=== PATIENT | female | born 1985 | race Caucasian/White ===

== ENCOUNTER 2020-10-07 12:02 | Emergency (ER) | payer MEDICAID, OTHER ==
[~2020-10-07] VITALS: Ht 157.5 cm; Wt 55.6 kg
[~2020-10-07 12:02] MED LIST: [UNRECOGNIZED DRUG - REMARK]; no home medications
[2020-10-07] MEDS ORDERED: FLUORESCEIN OPHTH 1 MG STRIP OU ONE (12:30)
[2020-10-07] MEDS ORDERED: TETRACAINE 0.5% OPHTH SOLN 4ML OU ONE (12:30)
== END 2020-10-07 13:03 | disposition home or self-care (01) ==
LOC: M ED 12:02
DX: H57.13 Ocular pain, bilateral (principal); Z77.098 Contact with and (suspected) exposure to other hazardous, chiefly nonmedicinal, chemicals; Y99.0 Civilian activity done for income or pay

== ENCOUNTER 2021-04-25 13:02 | Emergency (ER) | payer OTHER, SELFPAY ==
[~2021-04-25] VITALS: Ht 157.5 cm; Wt 55.9 kg
[2021-04-25] MEDS ORDERED: GABA-1171 PO (13:14)
[2021-04-25] MEDS ORDERED: SERT25TA21 (13:14)
[2021-04-25] MEDS ORDERED: TOPI25TA10 PO (13:14)
--- NOTE | 2021-04-25 13:43 | REP ---
INDICATION: CHEST PAIN. COMPARISON: None. TECHNIQUE: Portable FINDINGS: The technique utilized in obtaining the radiograph has magnified the cardiac silhouette and accentuated the interstitial markings. The superior mediastinal structures are midline. The cardiac silhouette is unremarkable in size, shape, and position. The diaphragmatic surfaces of the lungs are regular, and the costophrenic angles are clear. The pulmonary yates are clear. The imaged osseous structures are intact. IMPRESSION: There is no acute cardiopulmonary disease. <Electronically signed by Brad Early > 04/25/21 1443
[2021-04-25 13:49] LABS: BASO # 0.1 10^3/uL (0.0-0.2); BASO % 0.5 % (0.0-1.0); EOS # 0.2 10^3/uL (0.0-0.5); EOS % 1.9 % (0.0-3.0); HEMATOCRIT 44.2 % (36.0-47.0); HEMOGLOBIN 14.7 g/dl (12.0-15.5); LYMPH # 2.6 10^3/uL (1.5-5.0); LYMPH % 24.6 % (24.0-44.0); MEAN CORPUSCULAR HEMOGLOBIN 30.2 pg (27.0-33.0); MEAN CORPUSCULAR HGB CONC 33.3 g/dl (32.0-36.5); MEAN CORPUSCULAR VOLUME 90.8 fl (80.0-96.0); MONO # 0.6 10^3/uL (0.0-0.8); MONO % 6.1 % (2.0-8.0); NEUTROPHILS % 66.6 % (36.0-66.0); PLATELET COUNT, AUTOMATED 357 10^3/uL (150-450); RED BLOOD COUNT 4.87 10^6/uL (4.00-5.40); WHITE BLOOD COUNT 10.5 10^3/uL (4.0-10.0)
[2021-04-25 14:19] LABS: BLOOD UREA NITROGEN 9 MG/DL (7-18); CALCIUM LEVEL 9.2 MG/DL (8.5-10.1); CARBON DIOXIDE LEVEL 24 MEQ/L (21-32); CHLORIDE LEVEL 109 MEQ/L (98-107); CK-MB VALUE MASS < 1.0 NG/ML (<3.6); CPK CREATINE PHOSPHOKINASE 103 U/L (26-192); GLOMERULAR FILTRATION RATE > 60.0 (>60); GLUCOSE, FASTING 103 MG/DL (70-100); MB/CK RELATIVE INDEX 0.97 (< OR =4); POTASSIUM SERUM 4.2 MEQ/L (3.5-5.1); SODIUM LEVEL 138 MEQ/L (136-145); TROPONIN I < 0.02 NG/ML (< 0.10)
[2021-04-25] MEDS ORDERED: ISOVUE-370 76% 100ML VIAL As Ordered ONE (14:28)
--- NOTE | 2021-04-25 15:33 | REP ---
INDICATION: left chest pain r/o PE. COMPARISON: None. TECHNIQUE: CT angiogram chest performed following the intravenous administration of 100 cc of Isovue 370. Sagittal and coronal reconstruction images are performed. FINDINGS: Lungs: Clear, no infiltrate or nodule. Mediastinum: No adenopathy. Pulmonary arteries: No evidence of pulmonary embolism. Vibha: No adenopathy. Axilla: No adenopathy. Pleura: No effusion. Heart: Not enlarged. Thoracic aorta: No aneurysm or dissection. Upper abdominal structures: There is a calcification in the spleen. Visualized osseous structures: Unremarkable. IMPRESSION: No CT evidence of pulmonary embolism. No infiltrate seen. <Electronically signed by Mati Guzman > 04/25/21 [id number]
[2021-04-25 16:14] LABS: CK-MB VALUE MASS < 1.0 NG/ML (<3.6); CPK CREATINE PHOSPHOKINASE 94 U/L (26-192); MB/CK RELATIVE INDEX 1.06 (< OR =4); TROPONIN I < 0.02 NG/ML (< 0.10)
[2021-04-25 16:26] VITALS: BP 128/73
--- NOTE | 2021-04-27 05:50 | ECGEPIP ---
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
--- NOTE | 2021-04-27 05:54 | ECGEPIP ---
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
== END 2021-04-25 16:35 | disposition home or self-care (01) ==
LOC: M ED 13:02
DX: R07.9 Chest pain, unspecified (principal); F41.9 Anxiety disorder, unspecified; F32.9 Major depressive disorder, single episode, unspecified
CPT/HCPCS: 36415; 71045; 71275; 80048; 82550; 82553; 84484; 85025; 93005; 93041; 94760; 99285; Q9967

== ENCOUNTER 2021-08-20 05:34 | Emergency (ER) | payer SELFPAY ==
[~2021-08-20 05:34] MED LIST changes: +GABA-1171 PO; +SERT25TA21; +TOPI25TA10 PO
--- OUTSIDE RECORDS SUMMARY | 2021-08-23 14:53 | CCD | Continuity of Care Document ---
Author Author Cookie WELCH MD Organization Unknown Address [address] [place] [address] [place] [address] Phone [phone] Care Team Providers Care Consulting Engineer Name Role Phone Bryce Mo Publi AUTM [phone] [facility] AUTM Problems Description No Information Available Social History Type Date Description Comments Sex Unknown ETOH Use Occasionally consumes alcohol Tobacco Use Start: Unknown Patient is a current smoker, smo kes every day Tobacco Use Start: Unknown The patient has never vaped Smoking Status Reviewed: 11/03/20 The patient has never vaped Allergies, Adverse Reactions, Alerts Active Allergies Criticality Reaction | Severity Comments Date NKDA Unable to assess criticality 11/03/2020 Eggs Unable to assess criticality 11/03/2020 Medications Active Medications SIG Qnty Indications Ordering Provide r Date Amoxicillin 500mg Tablets take one by mouth twice a day x 5 days 10tabs Catrachito Rodgers M.D. 07/26/2021 Ibuprofen Unknown D-Amphetamine Unknown Sertraline HCL 100mg Tablets Unknown Bupropion Hydrochloride ER (XL) 150mg Tablets ER 24HR Unknown Topiramate Unknown Clonidine HCL 0.1mg Tablets Unknown History Medications No Active Medications Unknown - 07/26/2021 Immunizations Description No Information Available Vital Signs Date Vital Result Comment 07/26/2021 5:26pm BP Systolic 133 mmHg BP Diastolic 84 mmHg Heart Rate 102 /min Respiratory Rate 14 /min O2 % BldC Oximetry 99 % Body Temperature 97.3 F Weight 122.00 lb Height 62 inches 5'2" BMI (Body Mass Index) 22.3 kg/m2 Pain Level 7 11/03/2020 9:59am BP Systolic 118 mmHg BP Diastolic 74 mmHg Heart Rate 113 /min Respiratory Rate 16 /min O2 % BldC Oximetry 98 % Body Temperature 99.8 F Weight 117.00 lb Height 62 inches 5'2" BMI (Body Mass Index) 21.4 kg/m2 Pain Level 6 Results Description No Information Available Procedures Date Code Description Status 07/26/2021 96727 Office/Outpatient Established Lo w MDM 20-29 Min Completed Medical Devices Description No Information Available Encounters Type Date Location Provider Dx Diagnosis Office Visit 07/26/2021 3:15p Main Office JOSSIE Silva JR R 59.9 Enlarged lymph nodes, unspecified Assessments Date Code Description Provider 07/26/2021 R59.9 Enlarged lymph nodes, unspecifie d JOSSIE Silva JR Plan of Treatment 07/26/2021 - JOSSIE Silva JR* R59.9 Enlarged lymph nodes, unspecified* Comments:* Amox as written Ibuprofen and heat TIDIncrease fluids Refused COVID testing Follow up with PCP in 1 week for further eval to maybe include CBC and US Pt v/u and agreement with plan as above * All * New Medication:* Amoxicillin 500 mg - take one by mouth twice a day x 5 days * No Active Medications - Functional Status Description No Information Available Mental Status Description No Information Available Referrals Description No Information Available
--- OUTSIDE RECORDS SUMMARY | 2021-08-23 14:53 | CCD | Continuity of Care Document ---
Demographics Address [address] [place] [address] Home Phone [phone] Preferred Language Unknown Marital Status Restorationism Affiliation Unknown Race White Ethnic Group Not or Author Author Cookie SUTTON [facility] Organization Unknown Address [address] [place] [address] Phone [phone] Care Team Providers Care Supervisor Paper Coating Name Role Phone Margoth Luo MD [facility] [phone] Problems Description No Information Available Social History Type Date Description Comments Sex Unknown ETOH Use Occasionally consumes alcohol Tobacco Use Start: Unknown Patient is a current smoker, smo kes every day Recreational Drug Use Denies Drug Use Allergies, Adverse Reactions, Alerts Active Allergies Criticality Reaction | Severity Comments Date NKDA Unable to assess criticality 07/27/2021 Eggs Unable to assess criticality 07/27/2021 NKEA Unable to assess criticality 07/27/2021 Medications Active Medications SIG Qnty Indications Ordering Provide r Date Amphetamine-Dextroamphet ER 20mg Caps ER 24HR take 1 capsule by mouth once daily in th e morning . do not exceed 1 per 24 hours Unknown Sertraline HCL 100mg Tablets 1 by mouth every day Unknown Bupropion Hydrochloride ER (XL) 150mg Tablets ER 24HR 1 by mouth every day Unknown 0 000 Topiramate 25mg Tablets 1 by mouth every day Unknown Clonidine HCL 0.1mg Tablets 1 tab by mouth at bedtime 30tabs Unknown History Medications Amoxicillin 500mg Tablets 1 tab by mouth twice a day 10tabs Unknown 07/26/2021 - Immunizations Description No Information Available Vital Signs Date Vital Result Comment 08/07/2021 9:02am BP Systolic 114 mmHg BP Diastolic 78 mmHg Heart Rate 104 /min O2 % BldC Oximetry 96 % Weight 120.38 lb Weight 54.602 kg Height 62 inches 5'2" BMI (Body Mass Index) 22.0 kg/m2 BSA (Body Surface Area) 1.54 m2 07/27/2021 1:03pm BP Systolic Sitting 126 mmHg BP Diastolic Sitting 85 mmHg Heart Rate 100 /min Body Temperature 97.7 F Temporal Respiratory Rate 18 /min O2 % BldC Oximetry 100 % Weight 122.00 lb Weight 55.339 kg Height 62 inches 5'2" BMI (Body Mass Index) 22.3 kg/m2 BSA (Body Surface Area) 1.55 m2 Results Test Acquired Date Facility Test Result H/L Range Note Laboratory test finding 08/08/2021 [facility] Syphilis NON-REACTIVE Normal:Non Reactive Hepatitis B Surf Antigen NONREACTIVE Normal:Non React dara Laboratory test finding 08/07/2021 [facility] Pap Smear Thin Prep <pending> Xray 08/07/2021 [facility] Rad[facility] [address] [place], [place] [id number] [phone] Pelvic <pending> [facility]ox[facility] Select 13 07/27/2021 [facility] Summary Report (Summary) FINAL 1, 2 PDF . 1 {DIAGNOSIS: F39 F90.9 F41.9 ~{MEDICATIONS/DECLARED: ADDERALL BUPROPION CLONIDIEN SERTRALIN~{PRES 2 TOXASSURE SELECT 13 (MW) Test Result Flag Units Drug Present and Declared for Prescription Verification Amphetamine 1555 EXPECTED ng/mg creat Amphetamine is available as a schedule II prescription drug. Test Result Flag Units Ref Range Creatinine 31 mg/dL >=20 Declared Medications: The flagging and interpretation on this report are based on the following declared medications. Unexpected results may arise from inaccuracies in the declared medications. Note: The testing scope of this panel includes these medications: Amphetamine (Adderall) Note: The testing scope of this panel does not include following reported medications: Bupropion Clonidine Sertraline Topiramate For clinical consultation, please call . Procedures Date Code Description Status 08/07/2021 49753 Office/Outpatient Established Lo w MDM 20-29 Min Completed 07/27/2021 03292 Preventive Counseling Indiv 45 M in Completed 07/05/2021 96241 Psychiatric Diagnostic Evaluatio n Completed 06/13/2021 18793 Psychiatric Diagnostic Evaluatio n Completed Medical Devices Description No Information Available Encounters Type Date Location Provider Dx Diagnosis Office Visit 08/07/2021 9:00a [facility] Bryan horton DO Z01.419 Encntr for compensation/benefits specialist exam (general) (routine) w/o abn findings Z11.3 Encntr screen for infections w sexl mode of transmiss N93.9 Abnormal uterine and vaginal bleeding, unspecified Assessments Date Code Description Provider 08/08/2021 F39 Unspecified mood [affective] dis order Kamila Bedevora, [facility] 08/08/2021 F41.9 Anxiety disorder, unspecified Me george Beagle, [facility] 08/08/2021 F90.9 Attention-deficit hyperactivity disorder, unspecified type Kamila Beagle, [facility] 08/08/2021 F60.9 Personality disorder, unspecifie d Kamila Sutton, [facility] 08/08/2021 Z63.4 Disappearance and of famil y member Kamila Sutton, [facility] 08/07/2021 Z01.419 Encounter for gyneco logical examination (general) (routine) without abnormal findings Bryan Cruz, DO 08/07/2021 Z11.3 Encounter for screen ing for infections with a predominantly sexual mode of transmission Bryan Cruz, DO 08/07/2021 N93.9 Abnormal uterine and vaginal ble eding, unspecified Bryan Cruz, DO 07/27/2021 F39 Unspecified mood [affective] dis order Maeve Cox, RN 07/27/2021 F41.9 Anxiety disorder, unspecified An satnam Cox, RN 07/27/2021 F90.9 Attention-deficit hyperactivity disorder, unspecified type Maeve Cox, RN 07/27/2021 F60.9 Personality disorder, unspecifie d Maeve Cox, RN 07/27/2021 Z63.4 Disappearance and of famil y member Maeve Cox, RN 07/24/2021 F39 Unspecified mood [affective] dis order Kamila Beagle, [facility] 07/24/2021 F90.9 Attention-deficit hyperactivity disorder, unspecified type Kamila Beagle, [facility] 07/24/2021 F41.9 Anxiety disorder, unspecified Me george Beagle, [facility] 07/24/2021 F60.9 Personality disorder, unspecifie d Kamila Bekatherine, [facility] 07/24/2021 Z63.4 Disappearance and of famil y member Kamila Sutton, [facility] 07/05/2021 F39 Unspecified mood [affective] dis order Kamila Beagle, [facility] 07/05/2021 F90.9 Attention-deficit hyperactivity disorder, unspecified type Kamila Sutton, [facility] 07/05/2021 F41.9 Anxiety disorder, unspecified Me george Sutton, [facility] 07/05/2021 F60.9 Personality disorder, unspecifie d Kamila Sutton, [facility] 07/05/2021 Z63.4 Disappearance and of famil y member Kamila Sutton, [facility] 06/13/2021 F31.81 Bipolar II disorder Nini pablo, [facility] 06/13/2021 F41.1 Generalized anxiety disorder Bra ronald Dennison, [facility] 06/13/2021 Z63.4 Disappearance and of famil y member Nini Dennison, [facility] Plan of Treatment Future Appointment(s):* 08/22/2021 2:00 pm - Kamila HannakatherinsamyVANESSA at [facility] * 08/21/2021 1:00 pm - Bryan Cruz DO [facility] * 08/17/2021 12:00 pm - Dex Lancaster PA-C at [facility] 08/07/2021 - Bryan Cruz DO* Z01.419 Encounter for gynecological examination (general) (routine) without abnormal findings* Instructions:* 1) Pap smear and pelvic exam has been performed. 2) clinical breast exam has been performed. 3) patient does self breast exams. 4) return to clinic 1 year/when necessary. * Z11.3 Encounter for screening for infections with a predominantly sexual mode of transmission* New Labs:* .STI Panel WWW, Ordered: 08/07/21 * Instructions:* 1) vaginal cultures have been collected. 2) blood cultures have been ordered. 3) if any results are positive will treat accordingly and give appropriate counseling. * N93.9 Abnormal uterine and vaginal bleeding, unspecified* Instructions:* 1) pelvic ultrasound has been ordered for endometrial stripe. 2) return to clinic in 2 weeks. Functional Status Description No Information Available Mental Status Description No Information Available Referrals Description No Information Available
--- OUTSIDE RECORDS SUMMARY | 2021-08-23 14:53 | CCD | Continuity of Care Document ---
Demographics Address [address] [place] [address] Home Phone [phone] Preferred Language Unknown Marital Status Presybeterian Affiliation Unknown Race White Ethnic Group Not or Author Author Cookie LANCASTER PA-C Organization Unknown Address [facility] [address] [place] [address] Phone [phone] Care Team Providers Care Tire Mold Tester Name Role Phone Margoth Luo MD AUTM [phone] Problems Description No Information Available Social History Type Date Description Comments Sex Unknown ETOH Use Occasionally consumes alcohol Tobacco Use Start: Unknown Patient is a current smoker, smo kes every day Recreational Drug Use Denies Drug Use Allergies and adverse reactions Active Allergies Criticality Reaction | Severity Comments Date NKDA Unable to assess criticality 07/27/2021 Eggs Unable to assess criticality 07/27/2021 NKEA Unable to assess criticality 07/27/2021 Medications Active Medications SIG Qnty Indications Ordering Provide r Date Sertraline HCL 50mg Tablets 1 by mouth every day For 2 Weeks, Then 1/2 Tab Daily For 2 Weeks, Then Stop 30tabs F41.9 Paolo Villasenor MD 08/17/2021 Amphetamine-Dextroamphet ER 20mg Caps ER 24HR take 1 capsule by mouth once daily in morning . do not exceed 1 per 24 hours Unknown Bupropion Hydrochloride ER (XL) 150mg Tablets [...] H/L Range Note Laboratory test finding 08/08/2021 [facility] Syphilis NON-REACTIVE Normal:Non Reactive Hepatitis B Surf Antigen NONREACTIVE Normal:Non React dara Hep C Antibody With Reflex Quant PCR 0.1 s/coratio 0.0 -0.9 Herpes Simplex Virus I/II Igg 08/08/2021 [facility] HSV 1 IgG, Type Spec 32.30 index High 0.00-0.90 1 HSV 2 IgG, Type Spec <0.91 index 0.00-0.90 2 HIV Panel 08/08/2021 [facility] HIV Screen 4thGeneration wRfx Non Reactive Non Reacti ve Herpes I&II Igm AB 08/08/2021 [facility] HSV, IgM I/II Combination <0.91 Ratio 0.00-0.90 3 Chlamydia GC/Am 08/07/2021 [facility] Chlamydia trachomatis,Blossom Negative Negative 4 Neisseria gonorrhoeae,Blossom Negative Negative [facility] Tox[facility] Select 13 07/27/2021 [facility] spital Summary Report (Summary) FINAL 5, 6 PDF . 1 Negative <0.91 Equivocal 0.91 - 1.09 Positive >1.09 Note: Negative indicates no antibodies detected to HSV-1. Equivocal may suggest early infection. If clinically appropriate, retest at later date. Positive indicates antibodies detected to HSV-1. 2 Negative <0.91 Equivocal 0.91 - 1.09 Positive >1.09 Note: Negative indicates no antibodies detected to HSV-2. Equivocal may suggest early infection. If clinically appropriate, retest at later date. Positive indicates antibodies detected to HSV-2. 3 Negative <0.91 Equivocal 0.91 - 1.09 Positive >1.09 4 {SOURCE:~.~.~<DG1.3.1>Z01.419</DG1.3.1><DG1.3.1>Z01.419</DG1.3.1><DG1.3.1>Z11.3< /DG1.3.1> 5 {DIAGNOSIS: F39 F90.9 F41.9 ~{MEDICATIONS/DECLARED: ADDERALL BUPROPION CLONIDIEN SERTRALIN~{PRES 6 TOXASSURE SELECT 13 (MW) Test Result Flag [...] call . Procedures Date Code Description Status 08/17/2021 71000 Psychiatric Diag Eval W/Medical Service Completed 08/07/2021 46052 Office/Outpatient Established Lo w MDM 20-29 Min Completed 07/27/2021 92742 Preventive Counseling Indiv 45 M in Completed 07/05/2021 85562 Psychiatric Diagnostic Evaluatio n Completed 06/13/2021 44412 Psychiatric Diagnostic Evaluatio n Completed Medical Devices Description No Information Available Encounters Description No Information Available Assessments Date Code Description Provider 08/17/2021 F41.9 Anxiety disorder, unspecified Ca bertin Lancaster PA-C 08/17/2021 F60.9 Personality disorder, unspecifie d Dex Lancaster PA-C 08/17/2021 F90.9 Attention-deficit hyperactivity disorder, unspecified type Dex Lancaster PA-C 08/08/2021 F39 Unspecified mood [affective] dis order Kamila Fam, [facility] 08/08/2021 F41.9 Anxiety disorder, unspecified Me georgesa Fam, [facility] 08/08/2021 F90.9 Attention-deficit hyperactivity disorder, unspecified type Kamila Fam, [facility] 08/08/2021 F60.9 Personality disorder, unspecifie d Kamila Fam, [facility] 08/08/2021 Z63.4 Disappearance and of famil y member Kamila Fam, [facility] 08/07/2021 Z01.419 Encounter for gyneco logical examination (general) (routine) without abnormal findings Bryan Cruz, DO 08/07/2021 Z11.3 Encounter for screen ing for infections with a predominantly sexual mode of transmission Bryan Cruz, DO 08/07/2021 N93.9 Abnormal uterine and vaginal ble eding, unspecified Bryan Anthony, DO 07/27/2021 F39 Unspecified mood [affective] dis order Maeve Cox, RN 07/27/2021 F41.9 Anxiety disorder, unspecified An satnam Cox, RN 07/27/2021 F90.9 Attention-deficit hyperactivity disorder, unspecified type Maeve Cox, RN 07/27/2021 F60.9 Personality disorder, unspecifie d Maeve Cox, RN 07/27/2021 Z63.4 Disappearance and of famil y member Maeve Cox, RN 07/24/2021 F39 Unspecified mood [affective] dis order Kamila Fam, [facility] 07/24/2021 F90.9 Attention-deficit hyperactivity disorder, unspecified type Kamila Beagle, [facility] 07/24/2021 F41.9 Anxiety disorder, unspecified Me george Beagle, [facility] 07/24/2021 F60.9 Personality disorder, unspecifie d Kamila Beagle, [facility] 07/24/2021 Z63.4 Disappearance and of famil y member Kamila Fam, [facility] 07/05/2021 F39 Unspecified mood [affective] dis order Kamila Bekatherine, [facility] 07/05/2021 F90.9 Attention-deficit hyperactivity disorder, unspecified type Kamila Beagle, [facility] 07/05/2021 F41.9 Anxiety disorder, unspecified Me george Beagle, [facility] 07/05/2021 F60.9 Personality disorder, unspecifie d Kamila Beagle, [facility] 07/05/2021 Z63.4 Disappearance and of famil y member Kamila Fam, [facility] 06/13/2021 F31.81 Bipolar II disorder Nini pablo, [facility] 06/13/2021 F41.1 Generalized anxiety disorder Bra ronald Dennison, [facility] 06/13/2021 Z63.4 Disappearance and of famil y member Nini Dennison LMSW Plan of Treatment Future Appointment(s):* 09/18/2021 1:20 pm - Dex Lancaster [facility]-C [facility] * 08/22/2021 2:00 pm - Kamila Fam LCSW at [facility] * 08/21/2021 1:00 pm - Bryan [facility] DO [facility] 08/07/2021 - Bryan Cruz DO* Z01.419 Encounter [...]
--- OUTSIDE RECORDS SUMMARY | 2021-08-23 14:53 | CCD | Continuity of Care Document ---
Demographics Address [address] [place] [address] Home Phone [phone] Preferred Language Unknown Marital Status Sabianist Affiliation Unknown Race White Ethnic Group Not or Author Author Cookie LANCASTER PA-C Organization Unknown Address [facility] [address] [place] [address] Phone [phone] Care Team Providers Care Conveyor Weigher Operator Name Role Phone Margoth Luo MD [facility] [phone] Problems Description No Information Available Social History [...] H/L Range Note Laboratory test finding 08/08/2021 [facility] Syphilis NON-REACTIVE Normal:Non Reactive Hepatitis B Surf Antigen NONREACTIVE Normal:Non React dara Hep C Antibody With Reflex Quant PCR 0.1 s/coratio 0.0 -0.9 Herpes Simplex Virus I/II Igg 08/08/2021 [facility] ospital HSV 1 IgG, Type Spec 32.30 index High 0.00-0.90 1 HSV 2 IgG, Type Spec <0.91 index 0.00-0.90 2 HIV Panel 08/08/2021 [facility] HIV Screen 4thGeneration wRfx Non Reactive Non Reacti ve Herpes I&II Igm AB 08/08/2021 [facility] HSV, IgM I/II Combination <0.91 Ratio 0.00-0.90 3 Chlamydia GC/Am 08/07/2021 [facility] Chlamydia trachomatis,Blossom Negative Negative 4 Neisseria gonorrhoeae,Blossom Negative Negative [facility] Tox[facility] Select 13 07/27/2021 [facility] spital Summary Report (Summary) FINAL 5, 6 [...] . Procedures Date Code Description Status 08/17/2021 71781 Psychiatric Diag Eval W/Medical Service Completed 08/07/2021 80837 Office/Outpatient Established Lo w MDM 20-29 Min Completed 07/27/2021 45118 Preventive Counseling Indiv 45 M in Completed 07/05/2021 84268 Psychiatric Diagnostic Evaluatio n Completed 06/13/2021 30900 Psychiatric Diagnostic Evaluatio n Completed Medical Devices Description No Information Available Encounters Description No Information Available Assessments Date Code Description Provider 08/17/2021 F41.9 Anxiety disorder, unspecified Ca bertin Lancaster PA-C 08/17/2021 F60.9 Personality disorder, unspecifie d Dex Lancaster PA-C 08/17/2021 F90.9 Attention-deficit hyperactivity disorder, unspecified type Dex Lancaster PA-C 08/08/2021 F39 Unspecified mood [affective] dis order Kamila Fam, [facility] 08/08/2021 F41.9 Anxiety disorder, unspecified Me georgesa Fam, [facility] 08/08/2021 F90.9 Attention-deficit hyperactivity disorder, unspecified type Kamila Fam, [facility] 08/08/2021 F60.9 Personality disorder, unspecifie d Kamila Fam, [facility] 08/08/2021 Z63.4 Disappearance and of famil y member Kamila Fam, [facility] 08/07/2021 Z01.419 Encounter for gyneco logical examination [...] Unspecified mood [affective] dis order Kamila Fam, [facility] 07/24/2021 F90.9 Attention-deficit hyperactivity disorder, unspecified type Kamila Beagle, [facility] 07/24/2021 F41.9 Anxiety disorder, unspecified Me george Beagle, [facility] 07/24/2021 F60.9 Personality disorder, unspecifie d Kamila Beagle, [facility] 07/24/2021 Z63.4 Disappearance and of famil y member Kamila Fam, [facility] 07/05/2021 F39 Unspecified mood [affective] dis order Kamila Bekatherine, [facility] 07/05/2021 F90.9 Attention-deficit hyperactivity disorder, unspecified type Kamila Beagle, [facility] 07/05/2021 F41.9 Anxiety disorder, unspecified Me george Beagle, [facility] 07/05/2021 F60.9 Personality disorder, unspecifie d Kamila Beagle, [facility] 07/05/2021 Z63.4 Disappearance and of famil y member Kamila Fam, [facility] 06/13/2021 F31.81 Bipolar II disorder Nini pablo, [...] Bryan Cruz DO at [facility] 08/07/2021 - Bryan Cruz DO* Z01.419 Encounter [...]
--- OUTSIDE RECORDS SUMMARY | 2021-08-23 14:53 | CCD ---
Continuity of Care Document (CCD) Created on: 08/17/2021 Cookie Anderson External Reference #: [id number] : [id number] Sex: Female Demographics Address [address] [place] [address] Home Phone [phone] Preferred Language Unknown Marital Status Christian Affiliation Unknown Race White Ethnic Group Not or Author Author Cookie LANCASTER PA-C Organization Unknown Address [facility] [address] [place] [address] Phone [phone] Care Team Providers Care Yeast Culture Developer Name Role Phone Margoth Luo MD [facility] [phone] Problems Description No Information Available Social History [...] H/L Range Note Laboratory test finding 08/08/2021 [facility] Syphilis NON-REACTIVE Normal:Non Reactive Hepatitis B Surf Antigen NONREACTIVE Normal:Non React dara Hep C Antibody With Reflex Quant PCR 0.1 s/coratio 0.0 -0.9 Herpes Simplex Virus I/II Igg 08/08/2021 [facility] ospital HSV 1 IgG, Type Spec 32.30 index High 0.00-0.90 1 HSV 2 IgG, Type Spec <0.91 index 0.00-0.90 2 HIV Panel 08/08/2021 [facility] HIV Screen 4thGeneration wRfx Non Reactive Non Reacti ve Herpes I&II Igm AB 08/08/2021 [facility] HSV, IgM I/II Combination <0.91 Ratio 0.00-0.90 3 Chlamydia GC/Am 08/07/2021 [facility] Chlamydia trachomatis,Blossom Negative Negative 4 Neisseria gonorrhoeae,Blossom Negative Negative [facility] Toxassure Select 13 07/27/2021 [facility] spital Summary Report (Summary) FINAL 5, 6 [...] . Procedures Date Code Description Status 08/17/2021 55858 Psychiatric Diag Eval W/Medical Service Completed 08/07/2021 63782 Office/Outpatient Established Lo w MDM 20-29 Min Completed 07/27/2021 59031 Preventive Counseling Indiv 45 M in Completed 07/05/2021 06720 Psychiatric Diagnostic Evaluatio n Completed 06/13/2021 46449 Psychiatric Diagnostic Evaluatio n Completed Medical Devices Description No Information Available Encounters Description No Information Available Assessments Date Code Description Provider 08/17/2021 F41.9 Anxiety disorder, unspecified Ca bertin Lancaster PA-C 08/17/2021 F60.9 Personality disorder, unspecifie d Dex Lancaster PA-C 08/17/2021 F90.9 Attention-deficit hyperactivity disorder, unspecified type Dex Lancaster PA-C 08/08/2021 F39 Unspecified mood [affective] dis order Kamila Fam, [facility] 08/08/2021 F41.9 Anxiety disorder, unspecified Me georgesa Fam, [facility] 08/08/2021 F90.9 Attention-deficit hyperactivity disorder, unspecified type Kamila Fam, [facility] 08/08/2021 F60.9 Personality disorder, unspecifie d Kamila Fam, [facility] 08/08/2021 Z63.4 Disappearance and of famil y member Kamila Fam, [facility] 08/07/2021 Z01.419 Encounter for gyneco logical [...] Unspecified mood [affective] dis order Kamila Fam, [facility] 07/24/2021 F90.9 Attention-deficit hyperactivity disorder, unspecified type Kamila Beagle, [facility] 07/24/2021 F41.9 Anxiety disorder, unspecified Me george Beagle, [facility] 07/24/2021 F60.9 Personality disorder, unspecifie d Kamila Beagle, [facility] 07/24/2021 Z63.4 Disappearance and of famil y member Kamila Fam, [facility] 07/05/2021 F39 Unspecified mood [affective] dis order Kamila Bekatherine, [facility] 07/05/2021 F90.9 Attention-deficit hyperactivity disorder, unspecified type Kamila Beagle, [facility] 07/05/2021 F41.9 Anxiety disorder, unspecified Me george Beagle, [facility] 07/05/2021 F60.9 Personality disorder, unspecifie d Kamila Beagle, [facility] 07/05/2021 Z63.4 Disappearance and of famil y member Kamila Fam, [facility] 06/13/2021 F31.81 Bipolar II disorder Nini pablo, [facility] 06/13/2021 F41.1 Generalized anxiety disorder Bra ronald Dennison, [facility] 06/13/2021 Z63.4 Disappearance and of famil y member Nini Dennison LMSW Plan of Treatment Future Appointment(s):* 09/18/2021 1:20 pm - Dex Lancaster [facility]-C [facility] * 08/22/2021 2:00 pm - Kamila Fam LCSW at [facility] * 08/21/2021 1:00 pm - Bryan Cruz DO at [facility] 08/07/2021 - Bryan Cruz DO* Z01.419 [...]
--- OUTSIDE RECORDS SUMMARY | 2021-08-23 14:53 | CCD | Continuity of Care Document ---
Demographics Address [address] [place] [address] Home Phone [phone] Preferred Language Unknown Marital Status Congregation Affiliation Unknown Race White Ethnic Group Not or Author Author Cookie [facility] Organization Unknown Address [address] [place] [address] Phone [phone] Care Team Providers Care Ship Fitter Name Role Phone Margoth Luo MD [facility] [phone] Problems Description No Information Available Social History [...] H/L Range Note Laboratory test finding 08/08/[address] [facility] l Syphilis NON-REACTIVE Normal:Non Reactive Hepatitis B Surf Antigen NONREACTIVE Normal:Non React dara Laboratory test finding 08/07/[address] [facility] l Pap Smear Thin Prep <pending> Xray 08/07/2021 [facility] Rad[facility] [address] [place], [place] [id number] [phone] Pelvic <pending> [facility]ox[facility] Select 13 07/27/2021 [facility] spital Summary Report (Summary) FINAL 1, [...] . Procedures Date Code Description Status 08/07/2021 87889 Office/Outpatient Established Lo w MDM 20-29 Min Completed 07/27/2021 29825 Preventive Counseling Indiv 45 M in Completed 07/05/2021 31241 Psychiatric Diagnostic Evaluatio n Completed 06/13/2021 42324 Psychiatric Diagnostic Evaluatio n Completed Medical Devices Description No Information Available Encounters Type Date Location Provider Dx Diagnosis Office Visit 08/07/2021 9:[address] [facility] Bryan horton DO Z01.419 Encntr for lot associate exam (general) (routine) w/o abn findings Z11.3 Encntr screen for infections w sexl mode of transmiss N93.9 Abnormal uterine and vaginal bleeding, unspecified Assessments Date Code Description Provider 08/08/2021 F39 Unspecified mood [affective] dis order Kamila Bedevora, [facility] 08/08/2021 F41.9 Anxiety disorder, unspecified Me george Beagle, [facility] 08/08/2021 F90.9 Attention-deficit hyperactivity disorder, unspecified type Kamila Beagle, [facility] 08/08/2021 F60.9 Personality disorder, unspecifie d Kamila Sutton, [facility] 08/08/2021 Z63.4 Disappearance and of famil y member Kamila Sutton, [facility] 08/07/2021 Z01.419 Encounter for gyneco logical [...] Unspecified mood [affective] dis order Kamila Beagle, [facility] 07/24/2021 F90.9 Attention-deficit hyperactivity disorder, unspecified type Kamila Beagle, [facility] 07/24/2021 F41.9 Anxiety disorder, unspecified Me george Beagle, [facility] 07/24/2021 F60.9 Personality disorder, unspecifie d Kamila Bekatherine, [facility] 07/24/2021 Z63.4 Disappearance and of famil y member Kamila Sutton, [facility] 07/05/2021 F39 Unspecified mood [affective] dis order Kamila Beagle, [facility] 07/05/2021 F90.9 Attention-deficit hyperactivity disorder, unspecified type Kamila Sutton, [facility] 07/05/2021 F41.9 Anxiety disorder, unspecified Me george Sutton, [facility] 07/05/2021 F60.9 Personality disorder, unspecifie d Kamila Sutton, [facility] 07/05/2021 Z63.4 Disappearance and of famil y member Kamila Sutton, [facility] 06/13/2021 F31.81 Bipolar II disorder Nini pablo, [facility] 06/13/2021 F41.1 Generalized anxiety disorder Bra ronald Dennison, [facility] 06/13/2021 Z63.4 Disappearance and of famil y member Nini Dennison, [facility] Plan of Treatment Future Appointment(s):* 08/22/2021 2:00 pm - Kamila HannakatherinsamyVANESSA at [facility] * 08/21/2021 1:00 pm - Bryan Cruz DO at [facility] * 08/17/2021 12:00 pm - Dex Lancaster PA-C at [facility] 08/07/2021 - Bryan Cruz DO* Z01.419 Encounter [...]
--- OUTSIDE RECORDS SUMMARY | 2021-08-23 14:53 | CCD | Continuity of Care Document ---
Demographics Address [address] [place] [address] Home Phone [phone] Preferred Language Unknown Marital Status Christian Affiliation Unknown Race White Ethnic Group Not or Author Author Cookie CRUZ DO Organization Unknown Address [address] [place] [address] Phone [phone] Care Team Providers Care Furniture Sales Associate Name Role Phone Margoth Luo MD [facility] [phone] Problems Description No Information Available Social History [...] Date Facility Test Result H/L Range Note Xray 08/07/2021 [facility] [address] [place] [address] [phone] Pelvic <pending> [facility]ox[facility] Select 13 07/27/2021 [facility] spital Summary Report (Summary) FINAL 1, 2 [...] . 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) (routine) w/o abn findings Z11.3 Encntr screen for infections w sexl mode of transmiss N93.9 Abnormal uterine and vaginal bleeding, unspecified Assessments Date Code Description Provider 08/07/2021 Z01.419 Encounter for gyneco logical examination (general) (routine) without abnormal findings Bryan Cruz DO 08/07/2021 Z11.3 Encounter for screen ing [...] F39 Unspecified mood [affective] dis order Kamila Fma, [facility] 07/24/2021 F90.9 Attention-deficit hyperactivity disorder, unspecified type Kamila Beagle, [facility] 07/24/2021 F41.9 Anxiety disorder, unspecified Me george Beaglsamy, [facility] 07/24/2021 F60.9 Personality disorder, unspecifie d Kamila Fam, [facility] 07/24/2021 Z63.4 Disappearance and of famil y member Kamila Fam, [facility] 07/05/2021 F39 Unspecified mood [affective] dis order Kamila Del Castilloe, [facility] 07/05/2021 F90.9 Attention-deficit hyperactivity disorder, unspecified type Kamila Beagle, [facility] 07/05/2021 F41.9 Anxiety disorder, unspecified Me george Beagle, [facility] 07/05/2021 F60.9 Personality disorder, unspecifie d Kamila Del Castilloe, [facility] 07/05/2021 Z63.4 Disappearance and of famil y member Kamila Fam, [facility] 06/13/2021 F31.81 Bipolar II disorder Nini pablo, [facility] 06/13/2021 F41.1 Generalized anxiety disorder Bra ronald Dennison, [facility] 06/13/2021 Z63.4 Disappearance and of famil y member Nini Dennison, [facility] Plan of Treatment Future Appointment(s):* 08/21/2021 1:00 pm - Bryan Cruz, DO [facility] * 08/17/2021 12:00 pm - Dex Lancaster PA-C at [facility] * 08/08/2021 1:00 pm - Kamila Fam LCSW at [facility] 08/07/2021 - Bryan Cruz DO* Z01.419 Encounter for gynecological examination (general) (routine) without abnormal findings * Z11.3 Encounter for screening for infections with a predominantly sexual mode of transmission* New Labs:* .STI Panel WWW, Ordered: 08/07/21 * N93.9 Abnormal uterine and vaginal bleeding, unspecified Functional Status Description No Information Available Mental Status Description No Information Available Referrals Description No Information Available
--- OUTSIDE RECORDS SUMMARY | 2021-08-23 14:53 | CCD | Continuity of Care Document ---
Demographics Address [address] [place] [address] Home Phone [phone] Preferred Language Unknown Marital Status Druze Affiliation Unknown Race White Ethnic Group Not or Author Author Cookie CRUZ DO Organization Unknown Address [address] [place] [address] Phone [phone] Care Team Providers Care Dot Etcher Apprentice Name Role Phone Margoth Luo MD [facility] [phone] Problems Description No Information Available Social History [...] H/L Range Note Laboratory test finding 08/08/2021 [facility] l Syphilis NON-REACTIVE Normal:Non Reactive Hepatitis B Surf Antigen NONREACTIVE Normal:Non React dara Laboratory test finding 08/07/2021 [facility] l Pap Smear Thin Prep <pending> Xray 08/07/2021 [facility] [address] [place], [place] [id number] [phone] Pelvic <pending> [facility]ox[facility] Select 13 07/27/2021 [facility] spital Summary Report (Summary) FINAL 1, [...] . 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) w/o abn findings Z11.3 Encntr screen for infections w sexl mode of transmiss N93.9 Abnormal uterine and vaginal bleeding, unspecified Assessments Date Code Description Provider 08/08/2021 F39 Unspecified mood [affective] dis order Kamila Bedevora, [facility] 08/08/2021 F41.9 Anxiety disorder, unspecified Me george Beagle, [facility] 08/08/2021 F90.9 Attention-deficit hyperactivity disorder, unspecified type Kamila Beagle, [facility] 08/08/2021 F60.9 Personality disorder, unspecifie d Kamila Fma, [facility] 08/08/2021 Z63.4 Disappearance and of famil y member Kamila Fam, [facility] 08/07/2021 Z01.419 Encounter for gyneco logical [...] Unspecified mood [affective] dis order Kamila Beagle, [facility] 07/24/2021 F90.9 Attention-deficit hyperactivity disorder, unspecified type Kamila Beagle, [facility] 07/24/2021 F41.9 Anxiety disorder, unspecified Me george Beagle, [facility] 07/24/2021 F60.9 Personality disorder, unspecifie d Kamila Bekatherine, [facility] 07/24/2021 Z63.4 Disappearance and of famil y member Kamila Fam, [facility] 07/05/2021 F39 Unspecified mood [affective] dis order Kamila Beagle, [facility] 07/05/2021 F90.9 Attention-deficit hyperactivity disorder, unspecified type Kamila Fam, [facility] 07/05/2021 F41.9 Anxiety disorder, unspecified Me george Fam, [facility] 07/05/2021 F60.9 Personality disorder, unspecifie d Kamila Fam, [facility] 07/05/2021 Z63.4 Disappearance and of famil y member Kamila Fam, [facility] 06/13/2021 F31.81 Bipolar II disorder Nini pablo, [facility] 06/13/2021 F41.1 Generalized anxiety disorder Bra ronald Dennison, [facility] 06/13/2021 Z63.4 Disappearance and of famil y member Nini Dennison, [facility] Plan of Treatment Future Appointment(s):* 08/22/2021 2:00 pm - Kamila HannakatherinsamyVANESSA at [facility] * 08/21/2021 1:00 pm - Bryan Cruz DO at [facility] * 08/17/2021 12:00 pm - Dex Lancaster PA-C at [facility] 08/07/2021 - Bryan Cruz DO* Z01.419 [...]
--- OUTSIDE RECORDS SUMMARY | 2021-08-23 14:53 | CCD | Continuity of Care Document ---
Demographics Address [address] [place] [address] Home Phone [phone] Preferred Language Unknown Marital Status Taoism Affiliation Unknown Race White Ethnic Group Not or Author Author Cookie CRUZ DO Organization Unknown Address [address] [place] [address] Phone [phone] Care Team Providers Care Documentation Clerk Name Role Phone Margoth Luo MD [facility] [phone] Problems Description No Information Available Social History [...] H/L Range Note Laboratory test finding 08/08/2021 [facility] Syphilis NON-REACTIVE Normal:Non Reactive Hepatitis B Surf Antigen NONREACTIVE Normal:Non React dara Hep C Antibody With Reflex Quant PCR 0.1 s/coratio 0.0 -0.9 Herpes Simplex Virus I/II Igg 08/08/2021 [facility] ospital HSV 1 IgG, Type Spec 32.30 index High 0.00-0.90 1 HSV 2 IgG, Type Spec <0.91 index 0.00-0.90 2 HIV Panel 08/08/2021 [facility] HIV Screen 4thGeneration wRfx Non Reactive Non Reacti ve Laboratory test finding 08/07/2021 [facility] Pap Smear Thin Prep <pending> Xray 08/07/2021 [facility] Radiology [address] [place] [address] [phone] [place] Pelvic <pending> [facility] Toxassure Select 13 07/27/2021 [facility] Summary Report (Summary) FINAL 3, 4 PDF . 1 Negative <0.91 Equivocal 0.91 [...] Positive indicates antibodies detected to HSV-2. 3 {DIAGNOSIS: F39 F90.9 F41.9 ~{MEDICATIONS/DECLARED: ADDERALL BUPROPION CLONIDIEN SERTRALIN~{PRES 4 TOXASSURE SELECT 13 (MW) Test Result Flag [...] . 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) (routine) w/o abn findings Z11.3 Encntr screen for infections w sexl mode of transmiss N93.9 Abnormal uterine and vaginal bleeding, unspecified Assessments Date Code Description Provider 08/08/2021 F39 Unspecified mood [affective] dis order Kamila Fam, [facility] 08/08/2021 F41.9 Anxiety disorder, unspecified Me george Fam, [facility] 08/08/2021 F90.9 Attention-deficit hyperactivity disorder, unspecified type Kamila Fam, [facility] 08/08/2021 F60.9 Personality disorder, unspecifie d Kamila Fam, [facility] 08/08/2021 Z63.4 Disappearance and of famil y member Kamila Fam, [facility] 08/07/2021 Z01.419 Encounter for gyneco logical examination (general) (routine) without abnormal findings Bryan Cruz, 08/07/2021 Z11.3 Encounter for screen ing for infections with a predominantly sexual mode of transmission Bryan Cruz, DO 08/07/2021 N93.9 Abnormal uterine and vaginal ble eding, unspecified Bryan Cruz, DO 07/27/2021 F39 Unspecified mood [affective] dis order Maeve Cox RN 07/27/2021 F41.9 Anxiety disorder, unspecified An satnam Cox RN 07/27/2021 F90.9 Attention-deficit hyperactivity disorder, unspecified type Maeve Cox RN 07/27/2021 F60.9 Personality disorder, unspecifie d Maeve Cox, RN 07/27/2021 Z63.4 Disappearance and of famil y member Maeve Cox, [facility] 07/24/2021 F39 Unspecified mood [affective] dis order Kamila Fam, [facility] 07/24/2021 F90.9 Attention-deficit hyperactivity disorder, unspecified type Kamila Fam, [facility] 07/24/2021 F41.9 Anxiety disorder, unspecified Me george Beaglsamy, [facility] 07/24/2021 F60.9 Personality disorder, unspecifie d Kamila Fam, [facility] 07/24/2021 Z63.4 Disappearance and of famil y member Kamila Fam, [facility] 07/05/2021 F39 Unspecified mood [affective] dis order Kamila Fam, [facility] 07/05/2021 F90.9 Attention-deficit hyperactivity disorder, unspecified type Kamila Fam, [facility] 07/05/2021 F41.9 Anxiety disorder, unspecified Me george Bekatherine, [facility] 07/05/2021 F60.9 Personality disorder, unspecifie d Kamila Fam, [facility] 07/05/2021 Z63.4 Disappearance and of famil y member Kamila Fam, [facility] 06/13/2021 F31.81 Bipolar II disorder Nini Huynh samy, [facility] 06/13/2021 F41.1 Generalized anxiety disorder Bra ronald Dennison, [facility] 06/13/2021 Z63.4 Disappearance and of famil y member Nini Hernandezjesus, [facility] Plan of Treatment Future Appointment(s):* 08/22/2021 2:00 pm - Kamila Fam LCSW at [facility] * 08/21/2021 1:00 pm - Bryan Cruz DO [facility] * 08/17/2021 12:00 pm - Dex Lancaster PA-C at [facility] 08/07/2021 - Bryan Cruz DO* Z01.419 [...]
--- OUTSIDE RECORDS SUMMARY | 2021-08-23 14:53 | CCD | Continuity of Care Document ---
Demographics Address [address] [place] [address] Home Phone [phone] Preferred Language Unknown Marital Status Spiritism Affiliation Unknown Race White Ethnic Group Not or Author Author Cookie LANCASTER PA-C Organization Unknown Address [facility] [address] [place] [address] Phone [phone] Care Team Providers Care Jig Boring Machine Set Up Operator Name Role Phone Margoth Luo MD [facility] [phone] Problems Description No Information Available Social History [...] H/L Range Note Laboratory test finding 08/08/2021 [facility] Syphilis NON-REACTIVE Normal:Non Reactive Hepatitis B Surf Antigen NONREACTIVE Normal:Non React dara Hep C Antibody With Reflex Quant PCR 0.1 s/coratio 0.0 -0.9 Herpes Simplex Virus I/II Igg 08/08/2021 [facility] ospital HSV 1 IgG, Type Spec 32.30 index High 0.00-0.90 1 HSV 2 IgG, Type Spec <0.91 index 0.00-0.90 2 HIV Panel 08/08/2021 [facility] HIV Screen 4thGeneration wRfx Non Reactive Non Reacti ve Laboratory test finding 08/07/2021 [facility] Pap Smear Thin Prep <pending> Xray 08/07/2021 [facility] Radiology [address] [place] [address] [phone] [place] Pelvic <pending> [facility] Toxassure Select 13 07/27/2021 [facility] Summary Report (Summary) FINAL 3, [...] . 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) (routine) w/o abn findings Z11.3 Encntr screen for infections w sexl mode of transmiss N93.9 Abnormal uterine and vaginal bleeding, unspecified Assessments Date Code Description Provider 08/08/2021 F39 Unspecified mood [affective] dis order Kamila Fam, [facility] 08/08/2021 F41.9 Anxiety disorder, unspecified Me george Fam, [facility] 08/08/2021 F90.9 Attention-deficit hyperactivity disorder, unspecified type Kamila Fam, [facility] 08/08/2021 F60.9 Personality disorder, unspecifie d Kamila Fam, [facility] 08/08/2021 Z63.4 Disappearance and of famil y member Kamila Fam, [facility] 08/07/2021 Z01.419 Encounter for gyneco logical examination [...] Unspecified mood [affective] dis order Kamila Fam, [facility] 07/24/2021 F90.9 Attention-deficit hyperactivity disorder, unspecified type Kamila Bekatherine, [facility] 07/24/2021 F41.9 Anxiety disorder, unspecified Me george Beagle, [facility] 07/24/2021 F60.9 Personality disorder, unspecifie d Kamila Fam, [facility] 07/24/2021 Z63.4 Disappearance and of famil y member Kamila Fam, [facility] 07/05/2021 F39 Unspecified mood [affective] dis order Kamila Fam, [facility] 07/05/2021 F90.9 Attention-deficit hyperactivity disorder, unspecified type Kamila Bedevora, [facility] 07/05/2021 F41.9 Anxiety disorder, unspecified Me george Beagle, [facility] 07/05/2021 F60.9 Personality disorder, unspecifie d Kamila Fam, [facility] 07/05/2021 Z63.4 Disappearance and of famil y member Kamila Fam, [facility] 06/13/2021 F31.81 Bipolar II disorder Nini pablo, [facility] 06/13/2021 F41.1 Generalized anxiety disorder Bra ronald Davidmargueritesamy, [facility] 06/13/2021 Z63.4 Disappearance and of famil y member Nini Dennison, [facility] Plan of Treatment Future Appointment(s):* 08/22/2021 2:00 pm - Kamila Fam LCSW at [facility] * 08/21/2021 1:00 pm - Bryan Cruz DO [facility] * 08/17/2021 12:00 pm - Dex Lancaster PA-C at [facility] 08/07/2021 - Bryan Cruz DO* Z01.419 [...]
--- OUTSIDE RECORDS SUMMARY | 2021-08-23 14:53 | CCD | Continuity of Care Document ---
Demographics Address [address] [place] [address] Home Phone [phone] Preferred Language Unknown Marital Status Orthodoxy Affiliation Unknown Race White Ethnic Group Not or Author Author Cookie CRUZ DO Organization Unknown Address [address] [place] [address] Phone [phone] Care Team Providers Care Subsorter Name Role Phone Margoth Luo MD [facility] [phone] Problems Description No Information Available Social History [...] H/L Range Note Laboratory test finding 08/08/2021 [facility] Syphilis NON-REACTIVE Normal:Non Reactive Hepatitis B Surf Antigen NONREACTIVE Normal:Non React dara Hep C Antibody With Reflex Quant PCR 0.1 s/coratio 0.0 -0.9 Herpes Simplex Virus I/II Igg 08/08/2021 [facility] ospital HSV 1 IgG, Type Spec 32.30 index High 0.00-0.90 1 HSV 2 IgG, Type Spec <0.91 index 0.00-0.90 2 HIV Panel 08/08/2021 [facility] HIV Screen 4thGeneration wRfx Non Reactive Non Reacti ve Herpes I&II Igm AB 08/08/2021 [facility] HSV, IgM I/II Combination <0.91 Ratio 0.00-0.90 3 Chlamydia GC/Am 08/07/2021 [facility] Chlamydia trachomatis,Blossom Negative Negative 4 Neisseria gonorrhoeae,Blossom Negative Negative Med[facility] Toxassure Select 13 07/27/2021 [facility] Summary Report (Summary) FINAL 5, 6 [...] . Procedures Date Code Description Status 08/07/2021 82855 Office/Outpatient Established Lo w MDM 20-29 Min Completed 07/27/2021 69583 Preventive Counseling Indiv 45 M in Completed 07/05/2021 96995 Psychiatric Diagnostic Evaluatio n Completed 06/13/2021 36702 Psychiatric Diagnostic Evaluatio n Completed Medical Devices Description No Information Available Encounters Description No Information Available Assessments Date Code Description Provider 08/08/2021 F39 Unspecified mood [affective] dis order Kamila Fam, [facility] 08/08/2021 F41.9 Anxiety disorder, unspecified Me george Fam, [facility] 08/08/2021 F90.9 Attention-deficit hyperactivity disorder, unspecified type Kamila Fam, [facility] 08/08/2021 F60.9 Personality disorder, unspecifie d Kamila Fam, [facility] 08/08/2021 Z63.4 Disappearance and of famil y member Kamila Fam, [facility] 08/07/2021 Z01.419 Encounter for gyneco logical [...] Unspecified mood [affective] dis order Kamila Fam, [facility] 07/24/2021 F90.9 Attention-deficit hyperactivity disorder, unspecified type Kamila Bekatherine, [facility] 07/24/2021 F41.9 Anxiety disorder, unspecified Me george Beagle, [facility] 07/24/2021 F60.9 Personality disorder, unspecifie d Kamila Fam, [facility] 07/24/2021 Z63.4 Disappearance and of famil y member Kamila Fam, [facility] 07/05/2021 F39 Unspecified mood [affective] dis order Kamila Fam, [facility] 07/05/2021 F90.9 Attention-deficit hyperactivity disorder, unspecified type Kamila Bedevora, [facility] 07/05/2021 F41.9 Anxiety disorder, unspecified Me george Beagle, [facility] 07/05/2021 F60.9 Personality disorder, unspecifie d Kamila Fam, [facility] 07/05/2021 Z63.4 Disappearance and of famil y member Kamila Fam, [facility] 06/13/2021 F31.81 Bipolar II disorder Nini pablo, [facility] 06/13/2021 F41.1 Generalized anxiety disorder Bra ronald Dennison, [facility] 06/13/2021 Z63.4 Disappearance and of famil y member Nini Dennison, [facility] Plan of Treatment Future Appointment(s):* 08/22/2021 2:00 pm - Kamila Fam LCSW at [facility] * 08/21/2021 1:00 pm - Bryan Cruz DO [facility] * 08/17/2021 12:00 pm - Dex Lancaster [facility] 08/07/2021 - Bryan Cruz [...]
--- OUTSIDE RECORDS SUMMARY | 2021-08-23 14:53 | CCD | Continuity of Care Document ---
Demographics Address [address] [place] [address] Home Phone [phone] Preferred Language Unknown Marital Status Jew Affiliation Unknown Race White Ethnic Group Not or Author Author Cookie SUTTON [facility] Organization Unknown Address [address] [place] [address] Phone [phone] Care Team Providers Care Pie Bottomer Name Role Phone Margoth Luo MD [facility] [phone] Problems Description No Information Available Social History [...] H/L Range Note Laboratory test finding 08/08/2021 [facility] Syphilis NON-REACTIVE Normal:Non Reactive Hepatitis B Surf Antigen NONREACTIVE Normal:Non React dara Laboratory test finding 08/07/2021 [facility] Pap Smear Thin Prep <pending> Xray 08/07/2021 [facility] Radiology [address] [place], [place] [address] [phone] Pelvic <pending> [facility] Toxassure Select 13 07/27/2021 [facility] Summary Report (Summary) FINAL 1, [...] . 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) (routine) w/o abn findings Z11.3 Encntr screen for infections w sexl mode of transmiss N93.9 Abnormal uterine and vaginal bleeding, unspecified Assessments Date Code Description Provider 08/08/2021 F39 Unspecified mood [affective] dis order Kamila Bedevora, [facility] 08/08/2021 F41.9 Anxiety disorder, unspecified Me george Beagle, [facility] 08/08/2021 F90.9 Attention-deficit hyperactivity disorder, unspecified type Kamila Beagle, [facility] 08/08/2021 F60.9 Personality disorder, unspecifie d Kamila Sutton, [facility] 08/08/2021 Z63.4 Disappearance and of famil y member Kamila Sutton, [facility] 08/07/2021 Z01.419 Encounter for gyneco logical examination [...] Unspecified mood [affective] dis order Kamila Beagle, [facility] 07/24/2021 F90.9 Attention-deficit hyperactivity disorder, unspecified type Kamila Beagle, [facility] 07/24/2021 F41.9 Anxiety disorder, unspecified Me george Beagle, [facility] 07/24/2021 F60.9 Personality disorder, unspecifie d Kamila Bekatherine, [facility] 07/24/2021 Z63.4 Disappearance and of famil y member Kamila Sutton, [facility] 07/05/2021 F39 Unspecified mood [affective] dis order Kamila Beagle, [facility] 07/05/2021 F90.9 Attention-deficit hyperactivity disorder, unspecified type Kamila Sutton, [facility] 07/05/2021 F41.9 Anxiety disorder, unspecified Me george Sutton, [facility] 07/05/2021 F60.9 Personality disorder, unspecifie d Kamila Sutton, [facility] 07/05/2021 Z63.4 Disappearance and of famil y member Kamila Sutton, [facility] 06/13/2021 F31.81 Bipolar II disorder Nini pablo, [facility] 06/13/2021 F41.1 Generalized anxiety disorder Bra ronald Dennison, [facility] 06/13/2021 Z63.4 Disappearance and of famil y member Nini Dennison, [facility] Plan of Treatment Future Appointment(s):* 08/22/2021 2:00 pm - Kamila HannakatherinsamyVANESSA at [facility] * 08/21/2021 1:00 pm - Bryan [facility] DO [facility] * 08/17/2021 12:00 pm - Dex Lancaster PA-C at [facility] 08/07/2021 - Bryan Cruz DO* Z01.419 [...]
--- OUTSIDE RECORDS SUMMARY | 2021-08-23 14:53 | CCD | Continuity of Care Document ---
Demographics Address [address] [place] [address] Home Phone [phone] Preferred Language Unknown Marital Status Advent Affiliation Unknown Race White Ethnic Group Not or Author Author Cookie CRUZ DO Organization Unknown Address [address] [place] [address] Phone [phone] Care Team Providers Care Partner Marketing Manager Name Role Phone Margoth Luo MD [facility] [phone] Problems Description No Information Available Social History [...] H/L Range Note Laboratory test finding 08/08/2021 [facility] Syphilis NON-REACTIVE Normal:Non Reactive Hepatitis B Surf Antigen NONREACTIVE Normal:Non React dara Hep C Antibody With Reflex Quant PCR 0.1 s/coratio 0.0 -0.9 Herpes Simplex Virus I/II Igg 08/08/2021 [facility] ospital HSV 1 IgG, Type Spec 32.30 index High 0.00-0.90 1 HSV 2 IgG, Type Spec <0.91 index 0.00-0.90 2 HIV Panel 08/08/2021 [facility] HIV Screen 4thGeneration wRfx Non Reactive Non Reacti ve Herpes I&II Igm AB 08/08/2021 [facility] HSV, IgM I/II Combination <0.91 Ratio 0.00-0.90 3 Chlamydia GC/Am 08/07/2021 [facility] Chlamydia trachomatis,Blossom Negative Negative 4 Neisseria gonorrhoeae,Blossom Negative Negative [facility] Toxassure Select 13 07/27/2021 [facility] Summary Report (Summary) FINAL 5, [...] . Procedures Date Code Description Status 08/07/2021 62538 Office/Outpatient Established Lo w MDM 20-29 Min Completed 07/27/2021 70550 Preventive Counseling Indiv 45 M in Completed 07/05/2021 60070 Psychiatric Diagnostic Evaluatio n Completed 06/13/2021 75050 Psychiatric Diagnostic Evaluatio n Completed Medical Devices Description No Information Available Encounters Description No Information Available Assessments Date Code Description Provider 08/08/2021 F39 Unspecified mood [affective] dis order Kamila Fam, [facility] 08/08/2021 F41.9 Anxiety disorder, unspecified Me george Fam, [facility] 08/08/2021 F90.9 Attention-deficit hyperactivity disorder, unspecified type Kamila Fam, [facility] 08/08/2021 F60.9 Personality disorder, unspecifie d Kamila Fam, [facility] 08/08/2021 Z63.4 Disappearance and of famil y member Kamila Fam, [facility] 08/07/2021 Z01.419 Encounter for gyneco logical [...] Unspecified mood [affective] dis order Kamila Fam, [facility] 07/24/2021 F90.9 Attention-deficit hyperactivity disorder, unspecified type Kamila Bekatherine, [facility] 07/24/2021 F41.9 Anxiety disorder, unspecified Me george Beagle, [facility] 07/24/2021 F60.9 Personality disorder, unspecifie d Kamila Fam, [facility] 07/24/2021 Z63.4 Disappearance and of famil y member Kamila Fam, [facility] 07/05/2021 F39 Unspecified mood [affective] dis order Kamila Fam, [facility] 07/05/2021 F90.9 Attention-deficit hyperactivity disorder, unspecified type Kamila Bedevora, [facility] 07/05/2021 F41.9 Anxiety disorder, unspecified Me george Beagle, [facility] 07/05/2021 F60.9 Personality disorder, unspecifie d Kamila Fam, [facility] 07/05/2021 Z63.4 Disappearance and of famil y member Kamila Fam, [facility] 06/13/2021 F31.81 Bipolar II disorder Nini pablo, [facility] 06/13/2021 F41.1 Generalized anxiety disorder Bra ronald Dennison, [facility] 06/13/2021 Z63.4 Disappearance and of famil y member Nini Dennison, [facility] Plan of Treatment Future Appointment(s):* 08/22/2021 2:00 pm - Kamila Fam LCSW at [facility] * 08/21/2021 1:00 pm - [...]
--- OUTSIDE RECORDS SUMMARY | 2021-08-23 14:53 | CCD | Continuity of Care Document ---
Demographics Address [address] [place] [address] Home Phone [phone] Preferred Language Unknown Marital Status Yarsanism Affiliation Unknown Race White Ethnic Group Not or Author Author Cookie COX RN Organization Unknown Address [address] [place] [address] Phone [phone] Care Team Providers Care Coupling Machine Operator Name Role Phone Margoth Luo MD [facility] [phone] Problems Description No Information Available Social History Type Date Description Comments Sex Unknown Allergies, Adverse Reactions, Alerts Active Allergies Criticality Reaction | Severity Comments Date NKDA Unable to assess criticality 07/27/2021 Eggs Unable to assess criticality 07/27/2021 NKEA Unable to assess criticality 07/27/2021 Medications Active Medications SIG Qnty Indications Ordering Provide r Date Amoxicillin 500mg Tablets 1 tab by mouth twice a day 10tabs Unknown 07/26/2021 Amphetamine-Dextroamphet ER 20mg Caps ER 24HR take 1 capsule by mouth once daily in th e morning . do not exceed 1 per 24 hours Unknown Sertraline HCL 100mg Tablets 1 by mouth every day Unknown Bupropion Hydrochloride ER (XL) 150mg Tablets ER 24HR 1 by mouth every day Unknown Topiramate 25mg Tablets 1 by mouth every day Unknown Clonidine HCL 0.1mg Tablets 1 tab by mouth at bedtime 30tabs Unknown Immunizations Description No Information Available Vital Signs Date Vital Result Comment 07/27/2021 1:03pm BP Systolic Sitting 126 mmHg BP Diastolic Sitting 85 mmHg Heart Rate 100 /min Body Temperature 97.7 F Temporal Respiratory Rate 18 /min O2 % BldC Oximetry 100 % Weight 122.00 lb Weight 55.339 kg Height 62 inches 5'2" BMI (Body Mass Index) 22.3 kg/m2 BSA (Body Surface Area) 1.55 m2 Results Description No Information Available Procedures Date Code Description Status 07/27/2021 65693 Preventive Counseling Indiv 45 M in Completed 07/05/2021 25772 Psychiatric Diagnostic Evaluatio n Completed 06/13/2021 83558 Psychiatric Diagnostic Evaluatio n Completed Medical Devices Description No Information Available Encounters Type Date Location Provider Dx Diagnosis Office Visit 07/27/2021 1:00p [facility] Maeve Cox, RN F39 Unspecified mood [affective] disorder F41.9 Anxiety disorder, unspecifie d F90.9 Attention-deficit hyperactiv ity disorder, unspecified type F60.9 Personality disorder, unspec ified Z63.4 Disappearance and of f amily member Assessments Date Code Description Provider 07/27/2021 F39 Unspecified mood [affective] dis order Maeve Cox, MIGUEL 07/27/2021 F41.9 Anxiety disorder, unspecified An satnam Cox RN 07/27/2021 F90.9 Attention-deficit hyperactivity disorder, unspecified type Maeve Cox, MIGUEL 07/27/2021 F60.9 Personality disorder, unspecifie d Maeve Cox, MIGUEL 07/27/2021 Z63.4 Disappearance and of famil y member Maeve Cox, MIGUEL 07/24/2021 F39 Unspecified mood [affective] dis order Kamila Beagle, [facility] 07/24/2021 F90.9 Attention-deficit hyperactivity disorder, unspecified type Kamila Beagle, [facility] 07/24/2021 F41.9 Anxiety disorder, unspecified Me george Beagle, [facility] 07/24/2021 F60.9 Personality disorder, unspecifie d Kamila Beagle, [facility] 07/24/2021 Z63.4 Disappearance and of famil y member Kamila Beagle, [facility] 07/05/2021 F39 Unspecified mood [affective] dis order Kamila Beagle, [facility] 07/05/2021 F90.9 Attention-deficit hyperactivity disorder, unspecified type Kamila Beagle, [facility] 07/05/2021 F41.9 Anxiety disorder, unspecified Me george Beagle, [facility] 07/05/2021 F60.9 Personality disorder, unspecifie d Kamila Beagle, [facility] 07/05/2021 Z63.4 Disappearance and of famil y member Kamila Beagle, [facility] 06/13/2021 F31.81 Bipolar II disorder Nini pablo, [facility] 06/13/2021 F41.1 Generalized anxiety disorder Bra ronald Dennison, [facility] 06/13/2021 Z63.4 Disappearance and of famil y member Nini Dennison LMSW Plan of Treatment Future Appointment(s):* 08/17/2021 12:00 pm - Dex Lancaster PA-C at [facility] * 08/07/2021 9:00 am - Bryan Cruz DO at [facility] * 08/08/2021 1:00 pm - Kamila Fam LCSW at [facility] Functional Status Description No Information Available Mental Status Description No Information Available Referrals Description No Information Available
--- OUTSIDE RECORDS SUMMARY | 2021-08-23 14:54 | CCD ---
Continuity of Care Document (CCD) Created on: 06/13/2021 Cookie Anderson External Reference #: [id number] : 1985 Sex: Female Demographics [address] [place] [id number] Home Phone [phone] Preferred Language Unknown Marital Status Scientology Affiliation Unknown Race White Ethnic Group Not or Author Author Cookie SHEIKH [facility] Organization Unknown Address [address] [place] [address] Phone [phone] Problems Description No Information Available Social History Type Date Description Comments Sex Unknown Allergies, Adverse Reactions, Alerts Description No Information Available Medications Description No Information Available Immunizations Description No Information Available Vital Signs Description No Information Available Results Description No Information Available Procedures Date Code Description Status 06/13/2021 20429 Psychiatric Diagnostic Evaluatio n Completed Medical Devices Description No Information Available Encounters Description No Information Available Assessments Date Code Description Provider 06/13/2021 F31.81 Bipolar II disorder Nini pablo LMSW 06/13/2021 F41.1 Generalized anxiety disorder Bra ronald Sheikh LMSW 06/13/2021 Z63.4 Disappearance and of famil y member Nini Sheikh LMSW Plan of Treatment No Information Available Functional Status Description No Information Available Mental Status Description No Information Available Referrals Description No Information Available
--- OUTSIDE RECORDS SUMMARY | 2021-08-23 14:54 | CCD ---
Continuity of Care Document (CCD) Created on: 06/13/2021 Cookie Anderson External Reference #: [id number] : 1985 Sex: Female Demographics Address [address] [place] [id number] Home Phone [phone] Preferred Language Unknown Marital Status Moravian Affiliation Unknown Race White Ethnic Group Not or Author Author Cookie SHEIKH [facility] Organization Unknown Address [address] [place] [address] Phone [phone] Problems Description No Information Available Social History Type Date Description Comments Sex Unknown Allergies, Adverse Reactions, Alerts Description No Information Available Medications Description No Information Available Immunizations Description No Information Available Vital Signs Description No Information Available Results Description No Information Available Procedures Date Code Description Status 06/13/2021 02171 Psychiatric Diagnostic Evaluatio n Completed Medical Devices [...]
--- OUTSIDE RECORDS SUMMARY | 2021-08-23 14:54 | CCD | Continuity of Care Document ---
Demographics Address [address] [place] [address] Home Phone [phone] Preferred Language Unknown Marital Status Tenriism Affiliation Unknown Race White Ethnic Group Not or Author Author Cookie SUTTON [facility] Organization Unknown Address [address] [place] [address] Phone [phone] Problems Description No Information Available Social History Type Date Description Comments Sex Unknown Allergies, Adverse Reactions, Alerts Description No Information Available Medications Description No Information Available Immunizations Description No Information Available Vital Signs Description No Information Available Results Description No Information Available Procedures Date Code Description Status 07/05/2021 33513 Psychiatric Diagnostic Evaluatio n Completed 06/13/2021 73679 Psychiatric Diagnostic Evaluatio n Completed Medical Devices Description No Information Available Encounters Description No Information Available Assessments Date Code Description Provider 07/24/2021 F39 Unspecified mood [affective] dis order Kamila Beagle, [facility] 07/24/2021 F90.9 Attention-deficit hyperactivity disorder, unspecified type Kamila Beagle, [facility] 07/24/2021 F41.9 Anxiety disorder, unspecified Me george Beagle, [facility] 07/24/2021 F60.9 Personality disorder, unspecifie d Kamila Beagle, [facility] 07/24/2021 Z63.4 Disappearance and of famil y member Kamila Del Castilloe, [facility] 07/05/2021 F39 Unspecified mood [affective] dis order Kamila Beagle, [facility] 07/05/2021 F90.9 Attention-deficit hyperactivity disorder, unspecified type Kamila Beagle, [facility] 07/05/2021 F41.9 Anxiety disorder, unspecified Me george Beagle, [facility] 07/05/2021 F60.9 Personality disorder, unspecifie d Kamila Beagle, [facility] 07/05/2021 Z63.4 Disappearance and of famil y member Kamila Del Castilloe, [facility] 06/13/2021 F31.81 Bipolar II disorder Nini pablo, [facility] 06/13/2021 F41.1 Generalized anxiety disorder Bra ronald Dennison, [facility] 06/13/2021 Z63.4 Disappearance and of famil y member Nini Dennison [employer] Plan of Treatment Future Appointment(s):* 08/08/2021 1:00 pm - Kamila Sutton LCSW at [facility] * 07/27/2021 1:00 pm - Maeve Cox RN at [facility] Functional Status Description No Information Available Mental Status Description No Information Available Referrals Description No Information Available
--- OUTSIDE RECORDS SUMMARY | 2021-08-23 14:54 | CCD | Continuity of Care Document ---
Author Author Cookie BUCKNER [place] Organization Unknown Address [address] [place] [address] [place] [address] Phone [phone] Care Team Providers Care Launch Check Out Name Role Phone [employer]ce [employer] AUTM [phone] [facility] AUTM [phone] Problems Description No Information Available Social History [...] 6 Results Description No Information Available Procedures Description No Information Available Medical Devices Description No Information Available Encounters Description No Information Available Assessments Description No Information Available Plan of Treatment 07/26/2021 - Jose Buckner JR, PA* All * New Medication:* Amoxicillin 500 mg - take one by mouth twice a day x 5 days * No Active Medications - Functional Status Description No Information Available Mental Status Description No Information Available Referrals Description No Information Available
--- OUTSIDE RECORDS SUMMARY | 2021-08-23 14:54 | CCD | Continuity of Care Document ---
Demographics Address [address] [place] [address] Home Phone [phone] Preferred Language Unknown Marital Status Mandaen Affiliation Unknown Race White Ethnic Group Not or Author Author Cookie SUTTON [facility] Organization Unknown Address [address] [place] [address] Phone [phone] Problems Description No Information Available Social History Type Date Description Comments Sex Unknown Allergies, Adverse Reactions, Alerts Description No Information Available Medications Description No Information Available Immunizations Description No Information Available Vital Signs Description No Information Available Results Description No Information Available Procedures Date Code Description Status 06/13/2021 63866 Psychiatric Diagnostic Evaluatio n Completed Medical Devices Description No Information Available Encounters Description No Information Available Assessments Date Code Description Provider 06/13/2021 F31.81 Bipolar II disorder Nini pablo [facility] 06/13/2021 F41.1 Generalized anxiety disorder Bra ronald Dennison [facility] 06/13/2021 Z63.4 Disappearance and of famil y member Nini Dennison LMSW Plan of Treatment Future Appointment(s):* 07/27/2021 1:00 pm - Maeve Cox RN at [facility] * 07/24/2021 11:00 am - Kamila Sutton LCSW at [facility] Functional Status Description No Information Available Mental Status Description No Information Available Referrals Description No Information Available
--- OUTSIDE RECORDS SUMMARY | 2021-08-23 14:54 | CCD ---
Author Author [facility] Organization [facility] Address Unknown Phone Unavailable Care Team Providers Care Admitting Coordinator Name Role Phone Nwogu, U Bryan DO Unavailable Unavailable Nwogu, U Bryan DO Unavailable Unavailable Nwogu, U Bryan DO Unavailable Unavailable Nwogu, U Bryan DO Unavailable Unavailable Nwogu, U Bryan DO Unavailable Unavailable Nwogu, U Bryan DO Unavailable Unavailable Nwogu, U Bryan DO Unavailable Unavailable Nwogu, U Bryan DO Unavailable Unavailable Nwogu, U Bryan DO Unavailable Unavailable Nwogu, U Bryan DO Unavailable Unavailable Nwogu, U Bryan DO Unavailable Unavailable Nwogu, U Bryan DO Unavailable Unavailable Nwogu, U Bryan DO Unavailable Unavailable Nwogu, U Bryan DO Unavailable Unavailable Nwogu, U Bryan DO Unavailable Unavailable Nwogu, U Bryan DO Unavailable Unavailable Nwogu, U Bryan DO Unavailable Unavailable Nwogu, U Bryan DO Unavailable Unavailable Nwogu, U Bryan DO Unavailable Unavailable Nwogu, U Bryan DO Unavailable Unavailable Goddard Mercedez HANDY MAN Unavailable Unavailable Goddard Mercedez HANDY MAN Unavailable Unavailable Goddard Mercedez HANDY MAN Unavailable Unavailable Goddard Mercedez HANDY MAN Unavailable Unavailable Goddard, Mercedez HANDY MAN Unavailable Unavailable Goddard Mercedez HANDY MAN Unavailable Unavailable Goddard Mercedez HANDY MAN Unavailable Unavailable Goddard, Mercedez HANDY MAN Unavailable Unavailable Goddard, Mercedez HANDY MAN Unavailable Unavailable Goddard, Mercedez HANDY MAN Unavailable Unavailable Goddard, Mercedez HANDY MAN Unavailable Unavailable Goddard, Mercedez HANDY MAN Unavailable Unavailable Goddard, Mercedez HANDY MAN Unavailable Unavailable Nwogu, U Bryan DO Unavailable Unavailable Nwogu, U Bryan DO Unavailable Unavailable Nwogu, U Bryan DO Unavailable Unavailable Nwogu, U Bryan DO Unavailable Unavailable Nwogu, U Bryan DO Unavailable Unavailable Nwogu, U Bryan DO Unavailable Unavailable Nwogu, U Bryan DO Unavailable Unavailable Nwogu, U Bryan DO Unavailable Unavailable Nwogu, U Bryan DO Unavailable Unavailable Nwogu, U Bryan DO Unavailable Unavailable Nwogu, U Bryan DO Unavailable Unavailable Nwogu, U Bryan DO Unavailable Unavailable Nwogu, U Bryan DO Unavailable Unavailable Nwogu, U Bryan DO Unavailable Unavailable Nwogu, U Bryan DO Unavailable Unavailable Nwogu, U Bryan DO Unavailable Unavailable Nwogu, U Bryan DO Unavailable Unavailable Nwogu, U Bryan DO Unavailable Unavailable Nwogu, U Bryan DO Unavailable Unavailable Nwogu, U Bryan DO Unavailable Unavailable [facility] [id number] Unavailable Unavailable PICKERAL JR, J ALBERT PA-C Unavailable Unavailable PICKERAL JR, J ALBERT PA-C Unavailable Unavailable PICKERAL JR, J ALBERT PA-C Unavailable Unavailable PICKERAL JR, J ALBERT PA-C Unavailable Unavailable PICKERAL JR, J ALBERT PA-C Unavailable Unavailable PICKERAL JR, J ALBERT PA-C Unavailable Unavailable PICKERAL JR, J ALBERT PA-C Unavailable Unavailable PICKERAL JR, J ALBERT PA-C Unavailable Unavailable PICKERAL JR, J ALBERT PA-C Unavailable Unavailable PICKERAL JR, J ALBERT PA-C Unavailable Unavailable PICKERAL JR, J ALBERT PA-C Unavailable Unavailable PICKERAL JR, J ALBERT PA-C Unavailable Unavailable PICKERAL JR, J ALBERT PA-C Unavailable Unavailable PICKERAL JR, J ALBERT PA-C Unavailable Unavailable PICKERAL JR, J ALBERT PA-C Unavailable Unavailable PICKERAL JR, J ALBERT PA-C Unavailable Unavailable PICKERAL JR, J ALBERT PA-C Unavailable Unavailable PICKERAL JR, J ALBERT PA-C Unavailable Unavailable PICKERAL JR, J ABLERT PA-C Unavailable Unavailable PICKERAL JR, J ALBERT PA-C Unavailable Unavailable PICKERAL JR, J ALBERT PA-C Unavailable Unavailable PICKERAL JR, J ALBERT PA-C Unavailable Unavailable PICKERAL JR, J ALBERT PA-C Unavailable Unavailable PICKERAL JR, J ALBERT PA-C Unavailable Unavailable PICKERAL JR, J ALBERT PA-C Unavailable Unavailable PICKERAL JR, J ALBERT PA-C Unavailable Unavailable PICKERAL JR, J ALBERT PA-C Unavailable Unavailable Kristin Dennison [facility] Unavailable MORATAYA, J LÓPEZ PA Unavailable Unavailable MORATAYA, J LÓPEZ PA Unavailable Unavailable MORATAYA, J LÓPEZ PA Unavailable Unavailable MORATAYA, J LÓPEZ PA Unavailable Unavailable MORATAYA, J LÓPEZ PA Unavailable Unavailable MORATAYA, J LÓPEZ PA Unavailable Unavailable MORATAYA, J LÓPEZ PA Unavailable Unavailable MORATAYA, J LÓPEZ PA Unavailable Unavailable MORATAYA, J LÓPEZ PA Unavailable Unavailable MORATAYA, J LÓPEZ PA Unavailable Unavailable MORATAYA, J LÓPEZ PA Unavailable Unavailable MORATAYA, J LÓPEZ PA Unavailable Unavailable MORATAYA, J LÓPEZ PA Unavailable Unavailable MORATAYA, J LÓPEZ PA Unavailable Unavailable MORATAYA, J LÓPEZ PA Unavailable Unavailable MORATAYA, J LÓPEZ PA Unavailable Unavailable MORATAYA, J LÓPEZ PA Unavailable Unavailable MORATAYA, J LÓPEZ PA Unavailable Unavailable MORATAYA, J LÓPEZ PA Unavailable Unavailable MORATAYA, J LÓPEZ PA Unavailable Unavailable MORATAYA, J LÓPEZ PA Unavailable Unavailable MORATAYA, J LÓPEZ PA Unavailable Unavailable MORATAYA, J LÓPEZ PA Unavailable Unavailable MORATAYA, J LÓPEZ PA Unavailable Unavailable MORATAYA, J LÓPEZ PA Unavailable Unavailable MORATAYA, J LÓPEZ PA Unavailable Unavailable MORATAYA, J LÓPEZ PA Unavailable Unavailable Barrera Luo MD Unavailable Unavailable Barrera Luo MD Unavailable Unavailable Barrera Luo MD Unavailable Unavailable Barrera Luo MD Unavailable Unavailable Barrera Luo MD Unavailable Unavailable Barrera Luo MD Unavailable Unavailable Barrera Luo MD Unavailable Unavailable Barrera Luo MD Unavailable Unavailable Barrera Luo MD Unavailable Unavailable Barrera Luo MD Unavailable Unavailable Barrera Luo MD Unavailable Unavailable Barrera Luo MD Unavailable Unavailable Barrera Luo MD Unavailable Unavailable Kunnumpurath, F Margoth MD Unavailable Unavailable Kunnumpurath, F Margoth MD Unavailable Unavailable Kunnumpurath, F Margoth MD Unavailable Unavailable Kunnumpurath, F Margoth MD Unavailable Unavailable Kunnumpurath, F Margoth MD Unavailable Unavailable Kunnumpurath, F Margoth MD Unavailable Unavailable Kunnumpurath, F Margoth MD Unavailable Unavailable Kunnumpurath, F Margoth MD Unavailable Unavailable Kunnumpurath, F Margoth MD Unavailable Unavailable Kunnumpurath, F Margoth MD Unavailable Unavailable Kunnumpurath, F Margoth MD Unavailable Unavailable Kunnumpurath, F Margoth MD Unavailable Unavailable Kunnumpurath, F Margoth MD Unavailable Unavailable Kunnumpurath, F Margoth MD Unavailable Unavailable Kunnumpurath, F Margoth MD Unavailable Unavailable Kunnumpurath, F Margoth MD Unavailable Unavailable Kunnumpurath, F Margoth MD Unavailable Unavailable Kunnumpurath, F Margoth MD Unavailable Unavailable Kunnumpurath, F Margoth MD Unavailable Unavailable Kunnumpurath, F Margoth MD Unavailable Unavailable Kunnumpurath, F Margoth MD Unavailable Unavailable Kunnumpurath, F Margoth MD Unavailable Unavailable Kunnumpurath, F Margoth MD Unavailable Unavailable Kunnumpurath, F Margoth MD Unavailable Unavailable Kunnumpurath, F Margoth MD Unavailable Unavailable Kunnumpurath, F Margoth MD Unavailable Unavailable Kunnumpurath, F Margoth MD Unavailable Unavailable Kunnumpurath, F Margoth MD Unavailable Unavailable Kunnumpurath, F Margoth MD Unavailable Unavailable Kunnumpurath, F Margoth MD Unavailable Unavailable Kunnumpurath, F Margoth MD Unavailable Unavailable Kunnumpurath, F Margoth MD Unavailable Unavailable Kunnumpurath, F Margoth MD Unavailable Unavailable BEAGLE, KARINA VASQUEZ Unavailable Unavailable Sona Pham PA-C Unavailable Unavailable Sona Pham-C Unavailable Unavailable Sona Phma-C Unavailable Unavailable Sona Pham PA-C Unavailable Unavailable Sona Pham PA-C Unavailable Unavailable Sona Pham PA-C Unavailable Unavailable Sona Pham PA-C Unavailable Unavailable Sona Pham PA-C Unavailable Unavailable Sona Pham PA-C Unavailable Unavailable Sona Pham PA-C Unavailable Unavailable NON, PHYSICIAN STAFF Unavailable Unavailable Re-disclosure Warning The records that you are about to access may contain information from federally-assisted alcohol or drug abuse programs. If such information is present, then the following federally mandated warning applies: This information has been disclosed to you from records protected by federal confidentiality rules (42 CFR part 2). The federal rules prohibit you from making any further disclosure of this information unless further disclosure is expressly permitted by the written consent of the person to whom it pertains or as otherwise permitted by 42 CFR part 2. A general authorization for the release of medical or other information is NOT sufficient for this purpose. The Federal rules restrict any use of the information to criminally investigate or prosecute any alcohol or drug abuse patient.The records that you are about to access may contain highly sensitive health information, the redisclosure of which is protected by Article 27-F of the [facility] Public Health law. If you continue you may have access to information: Regarding HIV / AIDS; Provided by facilities licensed or operated by the [facility] Office of Mental Health; or Provided by the [facility] Office for People With Developmental Disabilities. If such information is present, then the following [facility] mandated warning applies: This information has been disclosed to you from confidential records which are protected by state law. State law prohibits you from making any further disclosure of this information without the specific written consent of the person to whom it pertains, or as otherwise permitted by law. Any unauthorized further disclosure in violation of state law may result in a fine or penitentiary sentence or both. A general authorization for the release of medical or other information is NOT sufficient authorization for further disc losure. Allergies and Adverse Reactions Type Description Substance Reaction Status Data Source(s ) No Known Drug Allergies No Known Drug Allergies [facility] Encounters Encounter Providers Location Date Indications Data Source(s ) Emergency Attender: Jeffrey Pham PA-CConsultant: Margoth lopez MD 08/19/2021 07:06:00 PM EDT - 08/20/2021 05:15:[address] [facility] Patient discharged. Outpatient Attender: LÓPEZ MORATAYA PAConsultant: Margoth jovel MD 08/17/2021 11:58:00 AM EDT - 08/17/2021 11:58:[address] [facility] Outpatient Attender: PEDRO LOVEVICTORIAEConsultant: Margoth vo MD 08/08/2021 12:51:00 PM EDT - 08/08/2021 12:51:[address] [facility] Outpatient Attender: Bryan Cruz DOConsultant: STAFF NON 08/07/2021 11:16:[address] [facility] Outpatient Attender: Bryan Anthony DO [facility] 02/2021 09:00:00 AM EDT [facility] ([facility]) Outpatient Attender: Bryan Anthony LEIVA 02/2021 08:56:00 AM EDT - 08/07/2021 08:56:[address] [facility] Outpatient Attender: [id number] [facility]_[id number] [facility] 07/27/2021 01:00:00 PM EDT [facility] ([facility]) Outpatient Attender: LÓPEZ SETHI 07/27 12:53:00 PM EDT - 07/27/2021 12:53:[address] [facility] Outpatient Attender: ALBERT lorenzo 07/26/2021 03:15:00 PM EDT [facility] ([facility]) Outpatient Attender: PEDRO SUTTON 021 10:55:00 AM EDT - 07/24/2021 10:55:[address] [facility] Outpatient Attender: PEDRO SUTTON 021 10:55:00 AM EDT - 07/05/2021 10:55:[address] [facility] Outpatient Attender: Nini Dennison LMSW 08/2021 12:06:00 PM EDT - 06/13/2021 12:06:[address] [facility] Outpatient Attender: Mercedez dunn 11/03/2020 08:35:00 AM EST [facility] ([facility]) Immunizations Vaccine Date Status Description Data Source(s) COVID-19 VACCINE Moderna 04/13/2021 12:00:00 AM EDT completed [facility] Vaccine Series Complete: YESThis Data wa s Submitted to [facility] Via [employer]. COVID-19 VACCINE Moderna 03/16/2021 12:00:00 AM EDT completed [facility] Vaccine Series Complete: NOThis Data was Submitted to [facility] Via [employer]. Medications Medication Brand Name Start Date Product Form Dose Route Admi nistrative Instructions Pharmacy Instructions Status Indications Reaction Description Data Source(s) Sertraline 50 MG Oral Tablet Sertraline HCL 08/17/2021 12:00:00 AM EDT ORAL active [facility] ([facility]) No Active Medications 07/26/2021 12:00:00 AM EDT completed [facility] ([facility]) Amoxicillin 500 MG Oral Tablet Amoxicillin 07/26/2021 12:00:00 AM EDT ORAL active [facility] ([facility]) Amoxicillin 500 MG Oral Tablet Amoxicillin 07/26/2021 12:00:00 AM EDT ORAL completed [facility] ([facility]) Insurance Providers Payer name Policy type / Coverage type Policy ID Covered republican ID Covered republican's relationship to sheikh Policy Sheikh Plan Information SELF PAY ONLY [id number] SP [id number] CLINIC BLUE CROSS BS CO [id number] 18 [id number] BLUE CROSS BLUE SHIELD CL BS [id number] 18 [id number] BLUE CROSS BLUE SHIELD -CLINIC [id number] BLUE CROSS BLUE SHIELD -O/P [id number] 18 [id number] BCBS [place] O [id number] SP [id number] BCBS [place] HMO [id number] SP [id number] [place] OF [place] WATN 306/[id number] SP [id number] [place] [id number] SP [id number] C [facility] [id number] SP [id number] [facility] [id number] [facility] [id number] [facility] ZONE [id number] SP [id number] [place] [id number] SP [id number] MEDICAID [id number] SP [id number] SELF PAY UNAVAILABLE SP UNAVAILA BLE N REGIONAL CLAIMS ARELI-PHYSICIAN [id number] [facility] CLAIMS ARELI-O/P [id number] [facility] CLAIMS ARELI-CLINIC [id number] [facility] CLAIMS ARELI-I/P [id number] Problems, Conditions, and Diagnoses Code Display Name Description Problem Type Effective Dates Data Source(s) F909 Attention-deficit hyperactivity disorder , unspecified type Attention- deficit hyperactivity disorder, unspecified type Diagnosis 08/17 11:58:00 AM [facility] F609 Personality disorder, unspecified Personality di sorder, unspecified Diagnosis 08/17/2021 11:58:00 AM [facility] F419 Anxiety disorder, unspecified Anxiety disorder, unspec ified Diagnosis 08/17/2021 11:58:00 AM [facility] Z634 Disappearance and of family member Disappearance and of family member Diagnosis 08/08/2021 12:51:00 PM [facility] F39 Unspecified mood [affective] disorder Unspecifie d mood [affective] disorder Diagnosis 08/08/2021 12:51:00 PM [facility] N939 Abnormal uterine and vaginal bleeding, u nspecified Abnormal uterine and vaginal bleeding, unspecified Diagnosis 08/07/2021 08:56:00 AM [facility] Z113 Encounter for screening for infections with a predominantly sexual mode of transmission Encounter for screening for infections w ith a predominantly sexual mode of transmission Diagnosis 08/07/2021 08:56:[address] [facility] [id number] Encounter for gynecological examination (general) (routine) without abnormal findings Encounter for gynecological examination (general) (routine) without abnormal findings Diagnosis 08/07/2021 08:56:00 AM [facility] F411 Generalized anxiety disorder Generalized anxiety disor frannie Diagnosis 06/13/2021 12:06:00 PM [facility] F3181 Bipolar II disorder Bipolar II disorder Diagnosis 0 06/13/2021 12:06:00 PM [facility] Surgeries/Procedures Procedure Description Date Indications Data Source(s) Psychiatric Diag Eval W/Medical Service 08/17/2021 12: 00:00 AM EDT [facility] ([facility]) OFFICE OUTPATIENT VISIT 15 MINUTES 08/07/2021 12:00:00 AM EDT [facility] ([facility]) PREVENT MED AIRCRAFT TECHNICIAN&/RISK FACTOR REDJ SPX 45 MIN 07/27 12:00:00 AM EDT [facility] ([facility]) OFFICE OUTPATIENT VISIT 15 MINUTES 07/26/2021 12:00:00 AM EDT [facility] ([facility]) Psychiatric Diagnostic Evaluation 07/05/2021 12:00:00 AM EDT [facility] ([facility]) Psychiatric Diagnostic Evaluation 06/13/2021 12:00:00 AM EDT [facility] ([facility]) Results ID Date Data Source [id number] 08/20/2021 12:29:00 PM EDT [facility] [address] [place] [address] PHONE: [phone] FAX: [phone] Name .................. : CONNORLAURA CRUZY Linda Acct Number.................. : [id number] ROOM. ................. : TR-02 Number ................... : [id number] Stay type ............. : E/R Discharge Date......... ... : 08/20/21 Admit Date ......... : 08/19/21 Admit Phys .................... : MELVIN ANGELINA Date of ....... : 1985 Family Phys ................... : TIGRE Phone .................. : [phone] Age ................................ : 36 Film# .................. .:[id number] Sex ................................. : F Unsigned transcriptions are preliminary reports and do not represent a medical or legal document CHEST PORTABLE 58508 COMPLETE:08/19/21 22:14 [facility] 60309 Reason(s): Ingestion PORTABLE CHEST SINGLE VIEW OBTAINED AT 8:23 PM HISTORY: Overdose COMPARISON: None. FINDINGS: Mediastinal and hilar structures are normal. Cardiac silhouette is unremarkable. Lungs are clear. No pulmonary edema. No pleural effusions or pneumothorax. IMPRESSION: No acute disease. Electronically Reviewed and Signed By Arthur Geiger MD , 08/20/21 12:29, ELDON Transcribe Initials: DZ , Transcribe Date: 08/20/21 09:59, Dictation Date: Copy for: KIMBERLY SMART via fax Copy for: MELVIN Magallanes via fax Copy for: EMERGENCY DEPT via modem Copy for: 710 MED REC DISCHARGED Page 1 of 1 Name Value Range Interpretation Code Description Data Kelley rce(s) Supporting Document(s) ID Date Data Source [id number] 08/20/2021 11:11:[place] [address] RESPIRATORY CARE REPORT ==== ---------NAME------- NUMBER SEX AGE ADMIT DISC. XRAY# F/C JOSE Mckeon [id number] F 36 08/19/21 08/20/21 [id number] BBB E/R DATE OF : 1985 M/R# [id number] #: [id number] [id number] LOCATION: EMERGENCY DEPT EKG 45413 COMP LETE:08/19/21 22:55 BIS [id number] PHYSICIAN: MELVIN DAUGHERTY Name Value Range Interpretation Code Description Data Kelley rce(s) Supporting Document(s) ID Date Data Source [id number] 08/19/2021 07:06:[address] [facility] [address] [facility] Emergency Department [address] [place] [address] Phone #: ext- [phone] 08/19/2021 19:00 Patient: EDUARDO MORRIS Sex: F : 1985 Age: 36yWEIGHT:77.1 kg (S) HEIGHT:64 inches (S) BMI:29.2ALLERGIES: Unable to ObtainCHIEF COMPLAINT: drug overdoseDIAGNOSIS: Poisoning by drug AND/OR medicinal substanceLAB ORDERSOrder Description Priority Entered Acknowledged InitialedVenous Blood Gas STAT 19:26 08/19/2021 19:33 Mich Valera R.N.;CBC w Diff STAT 19:26 08/19/2021 19:33 Mich Valera R.N.;CMP STAT 19:26 08/19/2021 19:33 Mich Valera R.N.;CPK STAT 19:26 08/19/2021 19:33 Mich Valera R.N.;TSH STAT 19:26 08/19/2021 19:33 Mich Valera R.N.;Lactic Acid STAT 19:26 08/19/2021 19:33 Mich Valera R.N.;Urine Drug Screen STAT 19:26 08/19/2021 19:33 Mich Valera R.N.;Acetaminophen STAT 19:26 08/19/2021 19:33 Ar Valera R.N.;Salicylate Level STAT 19:26 08/19/2021 19:33 Mich Valera R.N.;ETOH STAT 19:26 08/19/2021 19:33 Mich Valera R.N.;Beta- HCG, Qual STAT 19:26 08/19/2021 19:33 Monica spring, [address] [facility] Emergency Department [address] [place] [address] Phone #: [phone]- [phone] 08/19/2021 19:00 Patient: EDUARDO MORRIS Sex: F : 1985 Age: 36ySerum Mich SETHI;UA Reflex to UA 19:26 08/19/2021 19:33 Anton Valera R.N.;ABG STAT 20:04 08/19/2021 20:08 Mich Al R.N.;Magnesium STAT 20:21 08/19/2021 20:41 Mich Al R.N.;ABG STAT 22:11 08/19/2021 22:47 Antoine Silvia Mich SETHI;Lactic Acid STAT 22:11 08/19/2021 22:13 Mich Al R.N.; NOTES: please re-draw and repeatCPK STAT 22:12 08/19/2021 22:13 Sorbero, Mich Swatsworth Benito R.N. PA; NOTES: please re-draw and repeatCMP STAT 22:17 08/19/2021 22:21 Mich Al R.N. PA; NOTES: please re-draw and repeatCOVID-19 CAH (Not STAT 02:03 08/20/2021 02:06 Hector,Symptomatic as Mich Anthony R.NVishalDefined by CDC) PA;(08/19/2021) (FirstTest) (Hospitalized)(Not ) (NotResident inCongregate CareSetting) (NotEmployed inHealthcare Setting)DIAGNOSTIC STUDY ORDERSOrder Description Priority Entered Acknowledged InitialedChest Portable 1 STAT 19:27 08/19/2021 19:34 Mikaela,View Mich Oliver R.N.(Oxygen?(No)) PA; [address] [facility] Emergency Department [address] [place] [address] Phone #: ext- [phone] 08/19/2021 19:00 Patient: EDUARDO MORRIS Sex: F : 1985 Age: 36y Reason for Study: IngestionMEDICATION/IV/DRIP/FLUID ORDERSOrder Description Priority Entered Acknowledged InitialedNS IV 1000 mL 19:26 08/19/2021 19:34 Soto,Bolus: : Bolus 1000 Mich Jang R.N.mL (X1) PA;Ativan IVP 2 mg 19:28 08/19/2021 19:34 Soto,(HIGH ALERT Mich Jang R.NVishalMEDICATION) PA;Narcan 0.4 mg IV X 19:37 08/19/2021 19:40 Hector,1 dose: 0.4 mg Mich Anthony R.NVishal(NOW x1) PA;Magnesium Sulfate 20:21 08/19/2021 20:30 Sorbero,2 g IVPB X1 dose: 2 Mich Oliver R.N.gm (HIGH ALERT PA;MEDICATION, X1)Sod Bicarb 50mEq 23:16 08/19/2021 23:28 , FebruaryIV X1 Mich Daugherty R.N.(50mEq=50mL): 50 PA;mL (NOW x1)Ativan IVP 2 mg 23:23 08/19/2021 23:28 February(HIGH ALERT Mich Daugherty R.N.MEDICATION) PA;NS IV : 150 mL/hr 01:29 08/20/2021 01:54 February Mich SETHI;GENERAL ORDERSOrder Description Priority Entered Acknowledged InitialedOne on One 19:08/19/2021 19:33 Soto,servando SETHI;NPO 19:08/19/2021 19:33 Mich Valera R.N.;Saline Lock 19:08/19/2021 19:33 Mich Valera R.N.;Accucheck 19:08/19/2021 19:33 Mich Valera R.N.;Transit Specialist 19:08/19/2021 19:[address] [facility] Emergency Department [address] [place] [address] Phone #: ext- [phone] 08/19/2021 19:00 Patient: EDUARDO MORRIS Sex: F : 1985 Age: 36y(continuous) Mich SETHI;Contact Poison 19:08/19/2021 19:33 Bertrand Valera R.N.;Elopement 19:08/19/2021 19:33 Jenny Valera R.N.;Seizure 19:26 08/19/2021 19:33 Soto,Precautions Mich Jang R.N. PA;Suicide 19:26 08/19/2021 19:33 Soto,Precautions Mich Jang R.N. PA;EKG 19:26 08/19/2021 19:33 Mich Valera R.N. PA;Psych Evaluation 19:26 08/19/2021 19:33 Soto,(call) (medical Mich Jang R.N.clearance) PA;Vitals every 15 19:26 08/19/2021 19:33 Soto,minutes Mich Jang R.N. PA;Weigh patient-do 19:08/19/2021 19:33 Soto,not use stated Mich Jang R.N.weight PA;Pulse Oximetry 19:26 08/19/2021 19:33 Soto,Continuous Mich Jang R.N. PA;Scott Catheter 19:27 08/19/2021 19:33 Mich Valera R.N. PA;[Electronically signed by Silvia Schultz R.N. (05:16 08/20/2021)][Electronically signed by Silvia Schultz R.N. (05:18 08/20/2021)][Electronically signed by Mich Daugherty (06:58 08/20/2021)][Electronically locked by Silvia Schultz R.N. (05:16 08/20/2021)] Name Value Range Interpretation Code Description Data Kelley rce(s) Supporting Document(s) ID Date Data Source [id number] 08/19/2021 07:06:[address] [facility] [address] [facility] Emergency Department [address] [place] [address] Phone #: ext- [phone] 08/19/2021 19:00 [id number] Sex: F : 1985 Age: 36yWeight: 77.1 kgHeight/Length: 64 in.BMI: 29.2ALLERGIES: Unable to ObtainThe patient's Home Medications are listed below:Unable to obtain.The source(s) of the original Home Medication information:Not obtained.The following Medications were given to the patient in the Emergency Department:NS [IV] IV Fluids bolus 1000 mL wide open, administered: 19:33 08/19/2021tivan [IVP] IVP 2 mg, administered: 19:19 08/19/2021Narcan [IVP] IVP 0.4 mg, administered: 19:40 08/19/2021Magnesium Sulfate [IVPB] IVPB bolus 0, then 2 gm 50 mL/hr, administered: 20:30 08/19/2021NS [IV] IV Fluids bolus 0, then 1500 mL/hr, administered: 20:31 08/19/2021NS [IV] IV Fluids bolus 0, then 1500 mL/hr, administered: 21:29 08/19/2021odium Bicarbonate [IVP] IVP 50 meq, administered: 23:27 08/19/2021tivan [IVP] IVP 2 mg, administered: 23:28 08/19/2021NS [IV] IV Fluids bolus 0, then 150 mL/hr, administered: 01:54 08/20/2021The following Medications were prescribed to the patient:None. Name Value Range Interpretation Code Description Data Kelley rce(s) Supporting Document(s) ID Date Data Source [id number] 08/19/2021 07:06:[address] [facility] [address] [facility] Emergency Department [address] [place] [address] Phone #: ext- [phone] 08/19/2021 19:00 [id number] Sex: F : 1985 Age: 36yWeight: 77.1 kgHeight/Length: 64 inBMI: 29.2ALLERGIES: Unable to Obtain Date/Time Medication Administered Medication OrderedStart NS [IV] NS IV 1000 mL Bolus: : Bolus [id number] 08/19/2021 Dose: IV Fluids mL (X1)Laine Valera R.NVishal Bolus: 1000 mL wide open---- Dispensed: 1000 mL bagStop Site: #1 left AC20:29 08/19/2021Benito flores, R.N.Start NS [IV] NS IV 1000 mL Bolus: : Bolus [id number] 08/19/2021 Dose: IV Fluids mL (X1)Benito Al, R.N. Rate: 1500 mL/hr over 40 minute(s)---- Dispensed: 1000 mL bagStop Site: #2 right AC21:10 08/19/2021Benito flores R.N.Start NS [IV] NS IV 1000 mL Bolus: : Bolus [id number] 08/19/2021 Dose: IV Fluids mL (X1)Benito Al, R.N. Rate: 1500 mL/hr over 40 minute(s)---- Dispensed: 1000 mL bagStop Site: #1 left AC22:13 08/19/2021Benito flores, R.N.Given ATIVAN [IVP] (LORAZEPAM) Ativan IVP 2 mg (HIGH ALERT19:19 08/19/2021 Dose: 2 mg IVP MEDICATION)Laine Valera R.N. Site: #1Given NARCAN [IVP] (NALOXONE HCL) Narcan 0.4 mg IV X 1 dose: 0.4 mg19:40 08/19/2021 Dose: 0.4 mg IVP (NOW x1)Gabrielle Young R.NVishal Site: #2 right ACStart MAGNESIUM SULFATE [IVPB] Magnesium Sulfate 2 g IVPB X120:30 08/19/2021 Dose: 2 gm IVPB dose: 2 gm (HIGH ALERTSorbBenito jerez, R.N. Rate: 50 mL/hr MEDICATION, X1)---- Dispensed: 50 mL bagStop Site: #1 left AC21:28 08/19/2021Benito flores R.N.Given SODIUM BICARBONATE [IVP] Sod Bicarb 50mEq IV X123:27 08/19/2021 Dose: 50 meq IVP (50mEq=50mL): 50 mL (NOW x1)Silvia Schultz R.N. Site: #1 left ACGiven ATIVAN [IVP] (LORAZEPAM) Ativan IVP 2 mg (HIGH ALERT23:28 08/19/2021 Dose: 2 mg IVP MEDICATION)Silvia Schultz R.N. Site: #2 right ACStart NS [IV] NS IV : 150 mL/hr01:54 08/20/2021 Dose: IV FluidsSilvia Schultz R.N. Rate: 150 mL/hr---- Dispensed: 1000 mL bag [address] [facility] Emergency Department [address] [place] [address] Phone #: ext- [phone] 08/19/2021 19:00 [id number] Sex: F : 1985 Age: 36yStop Site: #1 left AC04:43 1LGabrielle grimaldo R.N. Name Value Range Interpretation Code Description Data Kelley rce(s) Supporting Document(s) ID Date Data Source [id number] 08/19/2021 07:06:[address] [facility] [address] [facility] Emergency Department [address] [place] [address] Phone #: ext- [phone] 08/19/2021 19:00 Patient: EDUARDO MORRIS Sex: F : 1985 Age: 36yIntentional overdose with methamphetamine.(Electronically signed by JOSSIE Chavarria 08/20/2021 06:58) Name Value Range Interpretation Code Description Data Kelley rce(s) Supporting Document(s) ID Date Data Source [id number] 08/19/2021 07:06:[address] [facility] 1 Clinical Report - Nurses [facility] Emergency Department [address] [place] [address] Phone #: ext- [phone] 08/19/2021 19:00 Patient: EDUARDO MORRIS Sex: F : 1985 Age: 36yTRIAGEArrived by private vehicle. Historian: patient.Acuity: LEVEL 2.Chief Complaint: DRUG OVERDOSE.Alert. No acute distress.This occurred today. ( PT brought in by [facility] for report of suspected OD. PT was very agitated andhallucinating at time of arrival. PT states she took "the whole blue container" of another friends psychiatricmedications. Pt does not respond when askedd if she took medication to harm herself.). Admits to havinghallucinations.Treatment CLINICAL LAB CLERK:None.SEPSIS SCREEN: SIRS SCREEN POSITIVE: heart rate greater than 90 and respiratory rate greater than20. SEPSIS SCREEN NEGATIVE. No suspected or confirmed signs of infection present.MICHAEL COMA SCORE: 13- eyes open to sound (3); best verbal response- confused (4); best motorresponse- obeys commands (6). --19:08/19/21 Laine Valera R.N.19:01 08/19/21. BP: 126/96. MAP: 106. HR: 151. RR: 24. O2 saturation: 97%. Temp: 97.8 F. Pain levelnow: 0/10. --19:17 08/19/21 Laine Valera R.N.Weight: 77.1 kg stated. Height/Length: 64 inches Per Patient. BMI: 29.2. --19:09 08/19/21 Laine Valera R.N.MedicationsUnable to Obtain. --04:48 08/20/21 Gabrielle Young R.N.AllergiesUnable to Obtain. --19:11 08/19/21 Laine Valera R.N.HistoryPAST MEDICAL HX: Immunizations: up-to-date.SOCIAL HX: Smoker - current status unknown. Alcohol use: unable to obtain. Drug use: unable toobtain. The patient was offered HIV testing but declined and hepatitis C testing but declined. The patienthas not traveled outside the [place]Infectious disease exposure: The patient was not exposed to C-diff, MRSA, VRE, CRE or Coronavirus. 2 Clinical Report - Nurses [facility] Emergency Department [address] [place] [address] Phone #: ext- [phone] 08/19/2021 19:00 Patient: EDUARDO MORRIS Sex: F : 1985 Age: 36y ABUSE ASSESSMENT: No report of abuse. NUTRITIONAL RISK ASSESSMENT: The nutritional risk assessment revealed no deficiencies. FUNCTIONAL ASSESSMENT: Fu nctional assessment: no impairments noted. LEARNING NEEDS ASSESSMENT: The learning needs assessment revealed no barriers. FALL RISK ASSESSMENT: Fall risk assessment completed. No risk factors identified. SKIN INTEGRITY ASSESSMENT: Skin integrity risk assessment completed. No skin integrity risk identified. --19:17 08/19/21 Laine Valera R.N. 20:00 08/20/21. SELF HARM ASSESSMENT: Self harm assessment was performed. The patient answered "yes" to the question(s) "Have you recently felt down, depressed, or hopeless?", "Do you have thoughts of harming or killing yourself?" and "Do you have a plan for harming or killing yourself?". ASQ suicide screening positive. Patient answered "yes" to the following question(s): "Have you ever tried to kill yourself?". Precautions taken: The patient has been placed under 1-on-1 supervision with a patient daycare teacher and nurse at bedside. The patient was placed in direct sight of the nurses station. Clothes and valuables were removed and placed at the nurses station. The ED physician has been notified. --05:14 08/20/21 Silvia Schultz R.N. Interventions Identification band on patient. To treatment room. No allergy band on patient. --19:17 08/19/21 Laine Valera R.N.PHYSICAL SKIZLZKKYN35:11 08/19/21. To room via stretcher. Patient gowned.GENERAL / NEURO / PSYCH: Alert. Appears in distress. Appears anxious, restless, animated, euphoricand bizarre. Gag reflex present. Appears to be having intermittent seizure activity (1 episode ,1 minute).The patient is disoriented to person, place, time and situation. The patient appears to have alteredthought processes, verbalized as "feeling outside of my body" and delusions and including memory loss.RESPIRATORY: Respirations not labored. Breath sounds within normal limits.CVS: Cardiac rhythm: supraventricular tachycardia; (atrial rate 153). Capillary refill less than 2 seconds.GI / : Abdomen soft and nontender. Bowel sounds within normal limits.SKIN: Skin intact. Skin is pale. Skin is dry. Skin is cool. Skin color is within normal limits. ( hadseizure activity fir 1 minute with body and both arms shaking, then cyanosis around lips, face very paleashen. 15 liters NRB applied.). --19:29 08/19/21 Benito Al R.N.NURSING PROGRESS NOTES 3 Clinical Report - Nurses [facility] Emergency Department [address] [place] [address] Phone #: ext- [phone] 08/19/2021 19:00 Patient: EDUARDO MORRIS Sex: F : 1985 Age: 36y19:19 08/19/2021 Ativan (LORazepam) IVP 2 mg given via site #1. IV patency established. IV sitechecked: no pain, redness, or swelling. IV flushed thoroughly pre- and post-medication administration. IVPgiven by RN. --19:34 08/19/21 Laine Valera R.NVishal19:25 08/19/21. 16 fr scott catheter placed in ED. Reason for indwelling catheter: critical need to monitorintake and output and patient's decreased level of consciousness. During procedure hand hygieneobserved and sterile equipment and aseptic technique used. Return of 150 mL yellow-colored clear urine;attached to bedside drainage bag positioned below the bladder and secured with stabilization device. Shetolerated procedure well. --19:35 08/19/21 Laine Valera R.NVishal19:29 08/19/21. Reassurance given. ( seizure pads on bed.). Two patient identifiers checked. Calllight placed in reach. Side rails up x 2. Bed placed in lowest position. Brakes of bed on. --19: Benito Al R.N.19:31 08/19/21. BP: 115/75. HR: 155. RR: 29. O2 saturation: 100%. --19:32 08/19/21 Judi Tovar ED, ER Zbgb834:33 08/19/2021 Site #1 started via IV in the left antecubital space with an 20g angiocath; one attempt.Saline lock flushed with 10 mL saline. --19:33 08/19/21 Laine Valera R.NVishal19:33 08/19/2021 Started bag #1 1000 mL IV Fluids NS; bolus of 1000 mL wide open via site #1 via IVpump. Confirmed 5 rights. IV patency established. IV site checked: no pain, redness, or swelling. IV flushedthoroughly pre- and post-medication administration. --19:34 08/19/21 Laine Valera R.N.19:35 08/19/2021 Site #2 started via IV in the right antecubital space with an 18g angiocath; one attempt.Saline lock flushed with 10 mL saline. --19:35 08/19/21 Laine Valera R.N.19:40 08/19/2021 Narcan (Naloxone HCl) IVP 0.4 mg given over 1 second(s) via site #2. Allergies nola ifiedand confirmed 5 rights. IV patency established. IV site checked: no pain, redness, or swelling. IV flushedthoroughly pre- and post-medication administration. IVP given by RN. Information reviewed with patientincluding reason for taking this medication, signs of allergic reaction and precautions. Verbalizesunderstanding. --19:41 08/19/21 Gabrielle Young R.N.19:45 08/19/21. BP: 108/72. MAP: 84. HR: 138. RR: 19. O2 saturation: 100%. --19:50 08/19/21 COTA Track1Critical value relayed by (19:56 08/19/2021). Critical value received by . Lactate level: 14. Criticalvalue read back. Verified lab result and patient ID. ED physician notifed of critical value. --20: Gabrielle Young R.N.20:02 08/19/21. BP: 95/69. HR: 127. RR: 18. O2 saturation: 100%. --20:03 08/19/21 [employer]120:01 08/19/21. Oxygen decreased to 2 liters. ( sa02 = 100% on NRB at 15 liters. 2 l NC applied sa02 4 Clinical Report - Nurses [facility] Emergency Department [address] [place] [address] Phone #: ext- [phone] 08/19/2021 19:00 Patient: EDUARDO MORRIS Sex: F : 1985 Age: 36ynow = 89.). --20:13 08/19/21 Benito Al R.N.20:11 08/19/21. BP: 95/69. MAP: 77. HR: 118. RR: 17. O2 saturation: 94% on nasal cannula at 2liters/minute. Pain level now: 0/10. --20:13 08/19/21 Benito Al R.N.Suicide precautions initiated. (Spoke with Natasha from [facility], she states to give 2G magnesium forprolonged QTc, monitor core body temps, benzo if further seizures. She wants the CPK trended untildecreasing, repeat ABG and lactic acid. Recommendations relayed to provider.). Two patient identifierschecked. Side rails up x 2. --20:20 08/19/21 Silvia Schultz R.N.20:20 08/19/21. BP: 100/68. MAP: 78. HR: 128. RR: 19. O2 saturation: 92% on nasal cannula at 2liters/minute. --20:20 08/19/21 Judi Tovar ED, ER Ixqx314:21 08/19/21. Reassurance given. Reassessment acuity: LEVEL 3. The patient reports nocomplaints, she is resting quietly and sleeping and she has had no adverse reaction. Overall patientstatus is improved- she states feels better. Two patient identifiers checked. Call light placed in reach ofpatient. Side rails up x 2. Bed placed in lowest position. Brakes of bed on. Patient ready forevaluation- PA notified. --20:21 08/19/21 Benito Al R.N.20:29 08/19/2021 IV Fluids NS via IV site #1 Discontinued: bag #1 completed. Total amount infused: 1000mL. IV patency established. IV site checked: no pain, redness, or swelling. IV flushed thoroughly. --20: Benito Al R.N.20:30 08/19/2021 Started 2 gm of Magnesium Sulfate IVPB in bag #1 50 mL; at 50 mL/hr via site #1. via IVpump. Allergies verified and confirmed 5 rights. IV patency established. IV site checked: no pain, redness,or swelling. IV flushed thoroughly pre- and post-medication administration. Information reviewed withpatient including reason for taking this medication, signs of allergic reaction and precautions. Verbalizesunderstanding. --20:30 08/19/21 Benito Al R.N.20:31 08/19/2021 Started bag #2 1000 mL IV Fluids NS; at 1500 mL/hr over 40 minute(s) via site #2 via IVpump. Allergies verified and confirmed 5 rights. IV patency established. IV site checked: no pain, redness,or swelling. IV flushed thoroughly pre- and post-medication administration. Information reviewed withpatient including reason for taking this medication, signs of allergic reaction and precautions. Verbalizesunderstanding. --20:31 08/19/21 Benito Al R.N.20:32 08/19/21. BP: 109/68. MAP: 81. HR: 128. RR: 18. O2 saturation: 91% on nasal cannula at 2liters/minute. --20:32 08/19/21 [employer] Judi Bkrz182:46 08/19/21. BP: 101/85. MAP: 90. HR: 118. RR: 17. O2 saturation: 92% on nasal cannula at 2liters/minute. --20:46 08/19/21 [facility] Caan317:10 08/19/2021 IV Fluids NS via IV site #2 Discontinued: bag #2 completed. Total amount infused: 1000mL. IV patency established. IV site checked: no pain, redness, or swelling. IV flushed thoroughly. --21: Benito Al R.N. 5 Clinical Report - Nurses [facility] Emergency Department [address] [place] [address] Phone #: ext- [phone] 08/19/2021 19:00 Patient: EDUARDO MORRIS Sex: F : 1985 Age: 36y21:28 08/19/2021 Magnesium Sulfate IVPB via IV site #1 Discontinued: bag #1 completed. Total amountinfused: 50 mL. IV patency established. IV site checked: no pain, redness, or swelling. IV flushedthoroughly. --21:28 08/19/21 Benito Al R.N.21:29 08/19/2021 Started bag #3 1000 mL IV Fluids NS; at 1500 mL/hr over 40 minute(s) via site #1 via IVpump. Allergies verified and confirmed 5 rights. IV patency established. IV site checked: no pain, redness,or swelling. IV flushed thoroughly pre- and post-medication administration. Information reviewed withpatient including reason for taking this medication, signs of allergic reaction and precautions. Verbalizesunderstanding. --21:29 08/19/21 Benito Al R.N.21:52 08/19/21. Reassurance given. Reassessment acuity: LEVEL 2. Reassessment after fluidsadministered. She reports no complaints, she is sleeping and she has had no adverse reaction. Overallpatient status is the same- she states feels the same. Two patient identifiers checked. Call light placedin reach. Side rails up x 2. Bed placed in lowest position. Brakes of bed on. --21:53 08/19/21 Benito Al RVishalNVishal22:13 08/19/2021 IV Fluids NS via IV sit e #1 Discontinued: bag #3 completed. Total amount infused: 1000mL. IV patency established. IV site checked: no pain, redness, or swelling. IV flushed thoroughly. --22: Benito Al RAlbaroThe patient is resting quietly and sleeping.GENERAL / NEURO / PSYCH: Patient is calm and cooperative.SKIN: Slightly abnormal color (ashen skin tone). Skin is warm. --22:56 08/19/21 Silvia Schultz R.N.23:00 08/19/21. BP: 102/71. MAP: 81. HR: 126. RR: 22. O2 saturation: 100% on nasal cannula at 2liters/minute. Temp: 97.2 F (rectal). Pain level now: 0/10. --23:09 08/19/21 AntoineFebruary R.N.23:27 08/19/2021 Sodium Bicarbonate IVP 50 meq given via site #1. Allergies verified and confirmed 5rights. IV patency established. IV site checked: no pain, redness, or swelling. IV flushed thoroughly pre-and post-medication administration. Information reviewed with patient. --23:28 08/19/21February R.NVishal23:28 08/19/2021 Ativan (LORazepam) IVP 2 mg given via site #2. Allergies verified and confirmed 5rights. IV patency established. IV site checked: no pain, redness, or swelling. IV flushed thoroughly pre-and post-medication administration. Information reviewed with patient including reason for taking thismedication and sedative warning. Verbalizes understanding. --23:28 08/19/21February, R.N.00:00 08/20/21. BP: 103/66. MAP: 78. HR: 100. RR: 18. O2 saturation: 99%. Pain level now: 0/10.--01:16 08/20/21February R.N.01:00 08/20/21. BP: 102/62. MAP: 75. HR: 87. RR: 16. O2 saturation: 98% on nasal cannula at 2liters/minute. Pain level now: 0/10. --01:17 08/20/21February, R.N.01:54 08/20/2021 Started bag #1 1000 mL IV Fluids NS; at 150 mL/hr via site #1 via IV pump. Allergies 6 Clinical Report - Nurses [facility] Emergency Department [address] [place] [address] Phone #: ext- [phone] 08/19/2021 19:00 Patient: EDUARDO MORRIS Sex: F : 1985 Age: 36yverified and confirmed 5 rights. IV patency established. Information reviewed with patient. --01:February R.N.02:00 08/20/21. BP: 92/64. MAP: 73. HR: 85. RR: 16. O2 saturation: 99%. Pain level now: 0/10. --02: February, R.N.The patient is sleeping. --02:01 08/20/21February R.N.03:00 08/20/21. The patient is sleeping.RESPIRATORY: No respiratory distress.SKIN: Skin is warm and dry. Skin color within normal limits. --03:37 08/20/21 February R.N.02:00 08/20/21. BP: 96/66. MAP: 76. HR: 86. RR: 18. O2 saturation: 99%. Pain level now: 0/10. --03:February, R.N.03:00 08/20/21. BP: 94/63. MAP: 73. HR: 85. RR: 16. O2 saturation: 98%. Pain level now: 0/10. --03: February, R.N.Monitoring of patient in place. Patient gowned. Suicide precautions initiated. Two patient identifierschecked. Call light placed in reach. Side rails up x 2. Bed placed in lowest position. ( Called [facility] togive report after pt was accepted by Dr. Hdez and DR dean CHAVEZ report was complete. MIGUEL Harrellstated that pt "wasn't medically cleared" and that the transfer will be declined. JOSSIE Daugherty on phonew/[facility] now.). --04:29 08/20/21 February RVishalN.Urinary catheter removed; catheter intact; (270). --04:46 08/20/21 Gabrielle Young R.N.04:43 08/20/2021 IV Fluids NS via IV site #1 Discontinued: bag #4 discontinued upon transfer. Totalamount infused: 300 mL. IV patency established. IV site checked: no pain, redness, or swelling. IV flushedthoroughly. --04:48 08/20/21 Gabrielle Young R.N.04:47 08/20/2021 Site #1 removed upon transfer. Catheter intact. Pressure dressing and bandage applied.--04:47 08/20/21 Gabrielle Young R.N.04:47 08/20/2021 Site #2 removed upon transfer. Catheter intact. Pressure dressing and bandage applied.--04:47 08/20/21 Gabrielle Young R.N.05:08 08/20/21. ( [facility] to bedside, pt arousable, agreeable w/plan to transfer to [facility] ED for psychiatricevaluation. Call to [facility] deferred d/t time.). --05:18 08/20/21 Silvia Schultz R.N.Intake OutputUrine output: 270 mL catheter with return of key- colored urine; sediment noted. Attached to bedsidedrainage bag. --04:45 08/20/21 Gabrielle Young R.N.DISPOSITION / DISCHARGE 7 Clinical Report - Nurses [facility] Emergency Department [address] [place] [address] Phone #: ext- [phone] 08/19/2021 19:00 Patient: EDUARDO MORRIS Sex: F : 1985 Age: 36[address] [facility]. Visit overview, summary of care (CCDA), Emtala forms and Face Sheet provided to EMS and transfer facility. --05:12 08/20/21 Silvia Schultz R.N. 05:11 08/20/21. BP: 115/74. MAP: 87. HR: 88. RR: 16. O2 saturation: 99%. Temp: 98.3 F. Pain level now: 0/10. --05:12 08/20/21 Silvia Schultz R.N. Departure time: 05:12 08/20/2021. --05:12 08/20/21 Silvia Schultz R.N.Locked/Released at 08/20/2021 05:18 by Silvia Schultz R.N. Name Value Range Interpretation Code Description Data Kelley rce(s) Supporting Document(s) ID Date Data Source [id number] 08/19/2021 07:06:[address] [facility] 1 Clinical Report - Physicians/Mid Levels [facility] Emergency Department [address] [place] [address] Phone #: ext- [phone] 08/19/2021 19:00 Patient: EDUARDO MORRIS Sex: F : 1985 Age: 36y Time Seen: 19:05 08/19/2021. Arrived- By ambulance. Historian- EMS personnel.HISTORY OF PRESENT ILLNESS Chief Complaint: DRUG OVERDOSE. This occurred just prior to arrival. (PT brought in by [facility] for report of suspected OD. PT was very agitated and hallucinating at time of arrival. PT states she took "the whole blue container" of another friends psychiatric medications. Pt does not respond when asked if she took medication to harm herse lf.). Admits to having hallucinations.). Toxic symptoms present and worsening with obtundation and agitation. Single drug ingested. Multiple drugs ingested- likely amphetamines. She inflicted self-injury. The patient has experienced situational problems (Father recently). The symptoms are described as severe. The patient has been depressed, upset and confused and had hallucinations and delusions. Has been angry and had suicidal thoughts. Not paranoid.REVIEW OF SYSTEMSLast normal menstrual period unknown- negative beta HCG in ED. No headache, dizziness, weakness,chest pain or palpitations. No abdominal pain, vomiting, diarrhea, black stools or numbness. No bloodystools, fever, sore throat, cough or difficulty breathing. No difficulty with urination, skin rash, enlargedlymph nodes or joint pain.PAST HISTORYAllergies:Unable to Obtain.SOCIAL HISTORYSmoker - current status unknown. Alcohol use: unable to obtain. Drug use: unable to obtain.PHYSICAL EXAMVital Signs: 08/19/2021 19:01 BP: 126/96. MAP: 106. HR: 151. RR: 24. O2 saturation: 97%. Temp: 97.8F. Pain level now: 0/10. Have been reviewed as abnormal. Hypotensive. Tachycardic. Tachypneic.Oxygen saturation normal.Appearance: Is agitated and non- communicative. She is lethargic, is mildly dehydrated and isdisoriented, confused and restless. She appears unkempt and older than stated age, has normal color andis well developed. Patient in moderate distress.Eyes: Pupils equal, round and reactive to light. No nystagmus. Extraocular movements normal.ENT: Normal ENT inspection. TM's normal. Pharynx normal.Neck: Normal inspection.CVS: Normal heart rate and rhythm. Heart sounds normal.Respiratory: No respiratory distress. Painless inspiration.Abdomen: Soft and nontender. No organomegaly. 2 Clinical Report - Physicians/Mid [facility] Emergency Department [address] [place] [address] Phone #: ext- [phone] 08/19/2021 19:00 Patient: EDUARDO MORRIS Sex: F : 1985 Age: 36y Back: Normal inspection. Skin: Skin warm and dry. Normal skin color. Normal skin turgor. Extremities: Extremities exhibit normal ROM. No lower extremity edema. Neuro: Severely altered mental status: confused, labile, lethargic and disoriented to person, place and time. Patient has incoherent responses. Eyes open- spontaneous. Best verbal response- confused. Best motor response- localizing. Abnormal verbal response. Cranial nerves normal (as tested). No cerebellar findings. No motor deficit. No sensory deficit. Reflexes normal.LABS, X-RAYS, AND EKGChest X-ray: No acute disease. Views: lateral. The X-rays were independently viewed by me.Interpretation time: 02:00 08/20/2021. Laboratory Tests: Laboratory tests have been ordered, with results reviewed and considered in themedical decision making process. COVID-19 CAH: (OLIVE: 08/20/2021 02:08) ( MsgRcvd 08/20/2021 02:30) Final results Test Result Flag Units (Reference) COVID-19 NOT DETECTED COVID-19 REENTER NOT DETECTED PROCEDURAL CONTROL VALID KIT LOT # [id number] 08/20/21.0230.LBS. KIT EXP DATE 08/20/21.0230.LBS. NORMAL RANGE IS NOT DETECTEDThe COVID-19 assay is a rapid molecular in vitro diagnostic testutilizing an isothermal nucleic acid amplification technology for thequalitative detection of nucleic acid from the SARS-CoV-2 viral RNA in directnasal or nasopharyngeal swabs. Testing should be performed within the first 7days of the onset of symptoms.NEGATIVE RESULTS SHOULD BE TREATED PRESUMPTIVE AND, IF INCONSISTENT WITHCLINICAL SIGNS AND SYMPTOMS OR NECESSARY FOR PATIENT MANAGEMENT, SHOULD BETESTED WITH DIFFERENT AUTHORIZED OR CLEARED MOL ECULAR TESTS. NEGATIVE RESULTSDO NOT PRECLUDE SARS-CoV-2 INFECTION AND SHOULD NOT BE USED THE SOLE BASISFOR PATIENT MANAGEMENT DECISIONS. CMP: (OLIVE: 08/19/2021 22:15) ( Mscvd 08/19/2021 22:44) Final results Test Result Flag Units (Reference) COMPREHENSIVE METABOLIC PANEL COMPREHENSIVE METABOLIC PANEL SODIUM 140 mEq/L (134 - 153) POTASSIUM 4.3 mEq/L (3.6 - 5.0) CHLORIDE 114 H mEq/L (98 - 107) CO2 18 L MEQ/L (22 - 30) GLUCOSE 118 H MG/DL (70 - 99) BUN 10 MG/DL (7 - 21) CREATININE 1.1 MG/DL (0.7 - 1.5) BUN/CREAT 9 (8 - 27) TOTAL PROTEIN 5.4 L G/DL (6.3 - 8.2) ALBUMIN 3.8 L G/DL (3.9 - 5.0) GLOBULIN 1.6 L GM/DL (2.4 - 3.2) A/G RATIO 2.4 H (0.8 - 2.0) CALCIUM 7.6 L MG/DL (8.4 - 10.2) TOTAL BILI <0.7 MG/DL (0.2 - 1.3) ALKALINE PHOS 43 U/L (38 - 126) SGOT/AST 11 U/L (5 - 40) SGPT/ALT <5 L U/L (7 - 56) ANION GAP 8.0 mmol/L (8.0 - 16.0) AGE 36 yrs NON-AA GFR 60 mL/min AFR AMER GFR >60 mL/min Male GFR Interprentation 20-49 yrs >60 mL/min Normal 3 Clinical Report - Physicians/Mid Levels [facility] Emergency Department [address] [place] [address] Phone #: ext- [phone] 08/19/2021 19:00 Patient: EDUARDO MORRIS Sex: F : 1985 Age: 40q18-23 yrs >56 mL/min Normal 60-69 yrs >49 mL/min Normal 70-79yrs>42 mL/min Normal 80 and above >35 mL/min Normal Female GFRInterpretation 20-39 yrs >60 mL/min Normal 40-49 yrs >58 mL/minNormal 50-59 yrs >51 mL/min Normal 60-69 yrs >45 mL/min Xebjjq90-60 yrs >39 mL/min Normal 80 and above >32 mL/min NormalCPK: (OLIVE: 08/19/2021 22:15) ( MsgRcvd 08/19/2021 22:43) Final results Test Result Flag Units (Reference) CPK 179 H U/L (30 - 170)ABG: (OLIVE: 08/19/2021 22:38) ( MsgRcvd 08/19/2021 22:45) Final results Test Result Flag Units (Reference) ISABELLE TEST POSITIVE A FiO2 4 LNC SITE RADIAL RT pH 7.30 L (7.34 - 7.44) pCO2 35.9 mm/HG (32.0 - 42.0) pO2 76.2 mm/HG (75.0 - 100) HCO3 17.3 L meq/L (20.0 - 24.0) TCO2 18.4 L meq/L (21.0 - 25.0) BASE EXCESS -8.3 L (-2.0 - 2.0) O2 SAT 92.9 L % (95.0 - 98.0)Lactic Acid: (OLIVE: 08/19/2021 22:15) ( AlgRcvd 08/19/2021 22:27) Final results Test Result Flag Units (Reference) LACTIC ACID 2.4 H MMOL/L (0.2 - 2.2)Magnesium: (OLIVE: 08/19/2021 19:29) ( AlgRcvd 08/19/2021 20:33) Final results Test Result Flag Units (Reference) MAGNESIUM 2.0 MG/DL (1.7 - 2.2)ABG: (OLIVE: 08/19/2021 20:00) ( MsgRcvd 08/19/2021 20:14) Final results Test Result Flag Units (Reference) ISABELLE TEST NOT GIVEN FiO2 NOT GIVEN SITE NOT GIVEN pH 7.32 L (7.34 - 7.44) pCO2 36.3 mm/HG (32.0 - 42.0) pO2 71.3 L mm/HG (75.0 - 100) HCO3 18.4 L meq/L (20.0 - 24.0) TCO2 19.5 L meq/L (21.0 - 25.0) BASE EXCESS -7.0 L (-2.0 - 2.0) O2 SAT 92.1 L % (95.0 - 98.0)Chest Portable 1 View: (OLIVE: 08/19/2021 19:27) ( MsgRcvd 08/19/2021 22:14) [facility] PORTABLEReason(s): IngestionTRANSPORTATION: WC IV? O2? Oxygen?(No) [facility]: (OLIVE: 08/19/2021 19:29) ( MsgRcvd 08/19/2021 19:45) Final results Test Result Flag Units (Reference) pH V 6.99 L (7.32 - 7.43) pCO2 V 70.4 H mm/HG (38.0 - 51.0) 4 Clinical Report - Physicians/Mid Levels [facility] Emergency Department [address] [place] [address] Phone #: ext- [phone] 19:00 Patient: EDUARDO MORRIS Sex: F : 1985 Age: 36y pO2 V 48.1 mm/HG (30.0 - 55.0) HCO3 V 16.6 L meq/L (22.0 - 29.0) TCO2 V 18.7 L meq/L (22.0 - 29.0) BASE EXCESS -15.8 L (-2.0 - 2.0) O2 SAT V 55.0 % (40.0 - 85.0)CBC w Diff: (OLIVE: 08/19/2021 19:29) ( MsgRcvd 08/19/2021 20:03) Final results Test Result Flag Units (Reference) CBC W/AUTOMATED DIFF COMPLETE BLOOD COUNT WBC 21.6 H 10/uL (4.2 - 11.0) RBC 4.73 10/uL (4.20 - 5.40) HEMOGLOBIN 14.3 g/dL (12.0 - 16.0) HEMATOCRIT 45.0 % (37.0 - 47.0) MCV 95.1 fL (81.0 - 101) MCH 30.2 pg (27.0 - 34.0) MCHC 31.8 g/dL (31.0 - 36.0) RDW 13.8 % (11.5 - 14.5) PLATELETS 326 10/uL (150 - 450) MPV 9.2 fL (7.4 - 10.4) NEUT 65.2 % (37.0 - 80.0) LYMPH 22.0 L % (25.0 - 40.0) MONO 9.5 H % (3.0 - 8.0) EOS 2.4 % (0.0 - 7.0) BASO 0.4 % (0.0 - 2.5) %IG 0.5 H % (0.0 - 0.0) %NRBC 0.0 % (0.0 - 0.0) #NEUT 14.06 H 10/uL (2.00 - 6.90) #LYMPH 4.74 H 10/uL (0.60 - 3.40) #MONO 2.05 H 10/uL (0.00 - 0.90) #EOS 0.52 10/uL (0.00 - 0.70) #BASO 0.08 10/uL (0.00 - 0.20) #IG 0.11 H 10/uL (0.00 - 0.10) #NRBC 0.00 10/uL (0.00 - 0.00) MANUAL DIFF SEE BELOW SEGS 67 % (37 - 80) BAND 3 % (0 - 5) %LYMPH 20 L % (25 - 40) %MONO 7 % (3 - 8) METAMYELOCYTE 2 % SHOBHA LYM 1 % RBC MORPH MORPH IS NORMALCMP: (OLIVE: 08/19/2021 19:29) ( MsgRcvd 08/19/2021 20:04) Final results Test Result Flag Units (Reference) COMPREHENSIVE METABOLIC PANEL COMPREHENSIVE METABOLIC PANEL SODIUM 141 mEq/L (134 - 153) POTASSIUM 3.6 mEq/L (3.6 - 5.0) CHLORIDE 103 mEq/L (98 - 107) CO2 16 L MEQ/L (22 - 30) GLUCOSE 127 H MG/DL (70 - 99) BUN 10 MG/DL (7 - 21) CREATININE 1.4 MG/DL (0.7 - 1.5) BUN/CREAT 7 L (8 - 27) TOTAL PROTEIN 7.6 G/DL (6.3 - 8.2) ALBUMIN 5.0 G/DL (3.9 - 5.0) GLOBULIN 2.6 GM/DL (2.4 - 3.2) 5 Clinical Report - Physicians/Mid Levels [facility] Emergency Department [address] [place] [address] Phone #: ext- [phone] 08/19/2021 19:00 Patient: EDUARDO MORRIS Sex: F : 1985 Age: 36y A/G RATIO 1.9 (0.8 - 2.0) CALCIUM 9.8 MG/DL (8.4 - 10.2) TOTAL BILI <0.7 MG/DL (0.2 - 1.3) ALKALINE PHOS 58 U/L (38 - 126) SGOT/AST 16 U/L (5 - 40) SGPT/ALT 5 L U/L (7 - 56) ANION GAP 22.0 H mmol/L (8.0 - 16.0) AGE 36 yrs NON-AA GFR 45 mL/min AFR AMER GFR 55 mL/min Male GFR Interprentation 20-49 yrs >60 mL/min Qmooyx94-90 yrs >56 mL/min Normal 60-69 yrs >49 mL/min Normal 70-79yrs>42 mL/min Normal 80 and above >35 mL/min Normal Female GFRInterpretation 20-39 yrs >60 mL/min Normal 40-49 yrs >58 mL/minNormal 50-59 yrs >51 mL/min Normal 60-69 yrs >45 mL/min Ezjphk46-35 yrs >39 mL/min Normal 80 and above >32 mL/min NormalCPK: (OLIVE: 08/19/2021 19:29) ( MsgRcvd 08/19/2021 20:04) Final results Test Result Flag Units (Reference) CPK 242 H U/L (30 - 170)TSH: (OLIVE: 08/19/2021 19:29) ( MsgRcvd 08/19/2021 20:07) Final results Test Result Flag Units (Reference) TSH 4.40 uIU/mL (0.47 - 5.01)Lactic Acid: (OILVE: 08/19/2021 19:29) ( MsgRcvd 08/19/2021 19:55) Final results Test Result Flag Units (Reference) LACTIC ACID 14.0 HH MMOL/L (0.2 - 2.2) CALL/ READ BACK / CONFIRM BY: SHOLA DATE/TIME 08/19/21 1954Drug Screen-Urine: (OLIVE: 08/19/2021 19:20) ( AlgRcvd 08/19/2021 19:55) Final results Test Result Flag Units (Reference) DRUG SCREEN URINE URINE DRUG SCREEN AMPHETAMINES PRESUMP POS A (NORMAL: NEGAT BARBITURATES NEGATIVE (NORMAL: NEGAT BENZO NEGATIVE (NORMAL: NEGAT COCAINE NEGATIVE (NORMAL: NEGAT THC NEGATIVE (NORMAL: NEGAT OPIATES NEGATIVE (NORMAL: NEGAT PCP NEGATIVE (NORMAL: NEGAT \\BLDo\\URINE DRUG SCREEN INTERPRETATION\\BLDx\\ THE CUTOFFF LEVELS FORDETECTION ARE FOLLOWS: AMPHETAMINES 1000 ng/mlBARBITUARATES 200 ng/ml BENZODIAZEPINES 100 ng/mlTHC 50 ng/ml PHENCYCLIDINE 25 ng/mlOPIATES 300 ng/ml COCAINE 300 ng/mlALL POSITIVES ARE CONSIDERED PRESUMPTIVE POSITIVE [facility]Acet[facility] Level: (OLIVE: 08/19/2021 19:29) ( MsgRcvd 08/19/2021 19:57) Final results Test Result Flag Units (Reference) 6 Clinical Report - Physicians/Mid Levels [facility] Emergency Department [address] [place] [address] Phone #: ext- [phone] 08/19/2021 19:00 Patient: EDUARDO MORRIS Sex: F : 1985 Age: 36y ACETAMINOPHEN <5.0 UG/ML (0.0 - 30.0) Salicylate Level: (OLIVE: 08/19/2021 19:29) ( MsgRcvd 08/19/2021 20:04) Final results Test Result Flag Units (Reference) SALICYLATE 0.4 L mg/dL (2.0 - 20.0) ETOH: (OLIVE: 08/19 19:28) ( MsgRcvd 08/19/2021 20:04) Final results Test Result Flag Units (Reference) ALCOHOL <10.0 MG/DL ALCOHOL % 0.01 % (0.00 - 0.01) *FOR MEDICAL PURPOSES ONLY* Beta-HCG, Qual Serum: (OLIVE: 08/19/2021 19:28) ( MsgRcvd 08/19/2021 20:03) Final results Test Result Flag Units (Reference) HCG SERUM QUAL NEGATIVE (NORMAL: NEGAT HCG SERUM QL REENTER NEGATIVE (NORMAL: NEGAT { KIT LOT # [id number] ){ KIT EXP DATE 12/04/22 ){ PROCEDURAL CONTROL VALID ) UA REFLEX TO UA CULTURE: (OLIVE: 08/19/2021 19:20) ( MsgRcvd 08/19/2021 19:44) Final results Test Result Flag Units (Reference) UA REFLEX TO UA CULTURE URINALYSIS SOURCE R COLOR yellow (NORMAL: Yello CLARITY clear (NORMAL: Clear SPEC GRAVITY 1.030 (1.001 - 1.030 pH 5 (5 - 9) GLUCOSE NORM (NORMAL: Negat BILIRUBIN 1 (NORMAL: Negat KETONE 5 A (NORMAL: Negat PROTEIN 30 (NORMAL: Negat NITRITE NEG (NORMAL: Negat BLOOD NEG (NORMAL: Negat LEUK EST 100 A (NORMAL: Negat UROBILINOGEN 1 (less than 1.0 MICROSCO PIC See Below WBC 7 - 10 A (NORMAL: NONE EPITHELIAL MODERATE A (NORMAL: NONE BACTERIA 2+ MOD A (NORMAL: NONE MUCOUS Trace (NORMAL: NONE AMORPH SED RARE (NORMAL: NONE CASTS See Below HYALINE CAST None Seen (NORMAL: None COARSE GRAN 0-1 A (NORMAL: None.PROGRESS AND PROCEDURESCourse of Care: 02:00 Aug 20 2021. Evaluation after observation. (Neuro exam deferred until repeat evalafter pt became Ax 3, pt reports taking blue pills because she wanted to .). 7 Clinical Report - Physicians/Mid Levels [facility] Emergency Department [address] [place] [address] Phone #: ext- [phone] 08/19/2021 19:00 Patient: EDUARDO MORRIS Sex: F : 1985 Age: 36y 04:02 Aug 20 2021. Evaluation after observation. (D/W Dr Hdez at [facility] ED and he accepted the pt. Pt is agreeable with dx and txfr.). Patient counseled in person regarding the patient's stable condition, test results, diagnosis and need for transfer. Patient agrees with plan of care. 04:03 Aug 20 2021. Disposition: Benefits, risks and alternatives to transfer explained to patient. Transferred to [facility]. Summary of care (CCDA) provided to EMS and transfer facility via paper, fax and digital media. 04:Aug 20 2021. UTI (catheter associated) was not present prior to transfer. Pressure ulcer was not present prior to transfer. Vascular infection (catheter associated) was not present prior to transfer. Surgical site infection was not present prior to transfer. An object left in surgery was not present prior to transfer. Blood incompatibility was not present prior to transfer. Air embolism was not present prior to transfer.CLINICAL IMPRESSION Intentional overdose with methamphetamine.(Electronically signed by JOSSIE Chavarria 08/20/2021 06:58) Name Value Range Interpretation Code Description Data Kelley rce(s) Supporting Document(s) ID Date Data Source [id number] 08/20/2021 02:30:[address] [facility] NOT DETECTEDNOT DETECTED PROCE DURAL CONTROL VALID KIT LOT # [id number] 08/20/21.0230.LBS. KIT EXP DATE _03-08-18 08/20/21.0230.LBS. NORMAL RANGE IS NOT DETECTEDThe COVID-19 assay is a rapid molecular in vitro diagnostic testutilizing an isothermal nucleic acid amplification technology for thequalitative detection of nucleic acid from the SARS-CoV-2 viral RNA in directnasal or nasopharyngeal swabs. Testing should be performed within the f irst 7days of the onset of symptoms.NEGATIVE RESULTS SHOULD BE TREATED PRESUMPTIVE AND, IF INCONSISTENT WITHCLINICAL SIGNS AND SYMPTOMS OR NECESSARY FOR PATIENT MANAGEMENT, SHOULD BETESTED WITH DIFFERENT AUTHORIZED OR CLEARED MOLECULAR TESTS. NEGATIVE RESULTSDO NOT PRECLUDE SARS-CoV-2 INFECTION AND SHOULD NOT BE USED THE SOLE BASISFOR PATIENT MANAGEMENT DECISIONS. Name Value Range Interpretation Code Description Data Kelley rce(s) Supporting Document(s) ID Date Data Source [id number] 08/19/2021 10:44:[address] [facility] Name Value Range Interpretation Code Description Data Kelley rce(s) Supporting Document(s) ISABELLE TEST POSITIVE A [facility] FiO2 4 LNC [facility] al SITE RADIAL RT [facility] al pH of Arterial blood 7.30 7.34 - 7.44 L [facility] Carbon dioxide [Partial pressure] in Blood 35.9 mm/HG 32.0 - 42.0 [facility] Oxygen [Partial pressure] in Blood 76.2 mm/HG 75.0 - 100 [facility] Bicarbonate [Moles/volume] in Blood 17.3 meq/L 20.0 - 24.[address] [facility] TCO2 18.4 meq/L 21.0 - 25.0 L [facility] pital Base excess in Blood by calculation -8.3 -2.0 - 2.[address] [facility] O2 SAT 92.9 % 95.0 - 98.0 L [facility] ital ID Date Data Source [id number] 08/19/2021 10:43:[address] [facility] Name Value Range Interpretation Code Description Data Kelley rce(s) Supporting Document(s) COMPREHENSIVE METABOLIC PANEL [facility] COMPREHENSIVE METABOLIC PANEL Sodium [Moles/volume] in Serum or Plasma 140 mEq/L 134 - 153 [facility] Potassium [Moles/volume] in Serum or Plasma 4.3 mEq/L 3.6 - 5.0 [facility] Chloride [Moles/volume] in Serum or Plasma 114 mEq/L 98 - [address] [facility] Carbon dioxide, total [Moles/volume] in Serum or Plasma 18 MEQ/L 22 - [address] [facility] Glucose [Mass/volume] in Serum or Plasma 118 MG/DL 70 - [address] [facility] BUN 10 MG/DL 7 - 21 [facility] al Creatinine [Mass/volume] in Serum or Plasma 1.1 MG/DL 0.7 - 1.5 [facility] BUN/CREAT 9 8 - 27 [facility] al Protein [Mass/volume] in Serum or Plasma 5.4 G/DL 6.3 - 8.[address] [facility] Albumin [Mass/volume] in Serum or Plasma 3.8 G/DL 3.9 - 5.[address] [facility] Globulin [Mass/volume] in Serum by calculation 1.6 GM/DL 2.4 - 3.[address] [facility] A/G RATIO 2.4 0.8 - 2.0 [facility] Calcium [Mass/volume] in Serum or Plasma 7.6 MG/DL 8.4 - 10.[address] [facility] Bilirubin.total [Mass/volume] in Serum or Plasma <0.7 MG/DL 0.2 - 1.3 [facility] Alkaline phosphatase [Enzymatic activity/volume] in Serum or Plasma 43 U/L 38 - 126 [facility] Aspartate aminotransferase [Enzymatic activity/volume] in Serum or Plasma 11 U/L 5 - 40 [facility] Alanine aminotransferase [Enzymatic activity/volume] in Seru m or Plasma <5 U/L 7 - [address] [facility] Anion gap 3 in Serum or Plasma 8.0 mmol/L 8.0 - 16.0 [facility] AGE 36 y[facility] NON-AA GFR 60 mL/min [facility] AMER GFR >60 mL/min [facility] Male GFR In terprentation 20-49 yrs >60 mL/min Normal 50-59 yrs >56 mL/min Normal 60-69 yrs >49 mL/min Normal 70-79yrs >42 mL/min Normal 80 and above >35 mL/min Normal Female GFR Interpretation 20-39 yrs >60 mL/min Normal 40-49 yrs >58 mL/min Normal 50-59 yrs >51 mL/min Normal 60-69 yrs >45 mL/min Normal 70-79 yrs >39 mL/min Normal 80 and above >32 mL/min Normal ID Date Data Source [id number] 08/19/2021 10:43:[address] [facility] Name Value Range Interpretation Code Description Data Kelley rce(s) Supporting Document(s) Creatine kinase [Enzymatic activity/volume] in Serum or Plasma 1 79 U/L 30 - [address] [facility] ID Date Data Source [id number] 08/19/2021 10:27:[address] [facility] Name Value Range Interpretation Code Description Data Kelley rce(s) Supporting Document(s) Lactate [Moles/volume] in Serum or Plasma 2.4 MMOL/L 0.2 - 2.2 H [facility] ID Date Data Source [id number] 08/19/2021 08:14:[address] [facility] Name Value Range Interpretation Code Description Data Kelley rce(s) Supporting Document(s) ISABELLE TEST NOT GIVEN [facility] FiO2 NOT GIVEN [facility] SITE NOT GIVEN [facility] pH of Arterial blood 7.32 7.34 - 7.44 L [facility] Carbon dioxide [Partial pressure] in Blood 36.3 mm/HG 32.0 - 42.0 [facility] Oxygen [Partial pressure] in Blood 71.3 mm/HG 75.0 - [address] [facility] Bicarbonate [Moles/volume] in Blood 18.4 meq/L 20.0 - 24.[address] [facility] TCO2 19.5 meq/L 21.0 - 25.0 L [facility] Base excess in Blood by calculation -7.0 -2.0 - 2.[address] [facility] O2 SAT 92.1 % 95.0 - 98.0 L [facility] ital ID Date Data Source [id number] 08/20/2021 04:57:00 AM EDT [facility] Name Value Range Interpretation Code Description Data Kelley rce(s) Supporting Document(s) LACTIC ACID (LACTATE) [facility] CORRECTE D REPORT Lactate [Moles/volume] in Serum or Plasma 14.0 MMOL/L 0.2 - 2.[address] [facility] CALL/ READ BACK GABRIELLE/ [facility] REPEATED CONFIRM BY: [facility]/TIME 08/19/211953 [facility] FOLLOWING RESULTS REPORTED IN ERROR CALL/ READ BACK { CORRECT GABRIELLE/ ER ID Date Data Source [id number] 08/19/2021 08:33:[address] [facility] Name Value Range Interpretation Code Description Data Kelley rce(s) Supporting Document(s) Magnesium [Mass/volume] in Serum or Plasma 2.0 MG/DL 1.7 - 2.2 [facility] ID Date Data Source [id number] 08/19/2021 08:07:[address] [facility] Name Value Range Interpretation Code Description Data Kelley rce(s) Supporting Document(s) Thyrotropin [Units/volume] in Serum or Plasma by Detec tion limit <= 0.05 mIU/L 4.40 uIU/mL 0.47 - 5.01 [facility] ID Date Data Source [id number] 08/19/2021 08:04:[address] [facility] Name Value Range Interpretation Code Description Data Kelley rce(s) Supporting Document(s) SALICYLATE 0.4 mg/dL 2.0 - 20.0 L [facility] ital ID Date Data Source [id number] 08/19/2021 08:04:[address] [facility] Name Value Range Interpretation Code Description Data Kelley rce(s) Supporting Document(s) Creatine kinase [Enzymatic activity/volume] in Serum or Plasma 2 42 U/L 30 - [address] [facility] ID Date Data Source [id number] 08/19/2021 08:04:[address] [facility] Name Value Range Interpretation Code Description Data Kelley rce(s) Supporting Document(s) COMPREHENSIVE METABOLIC PANEL [facility] COMPREHENSIVE METABOLIC PANEL Sodium [Moles/volume] in Serum or Plasma 141 mEq/L 134 - 153 [facility] Potassium [Moles/volume] in Serum or Plasma 3.6 mEq/L 3.6 - 5.0 [facility] Chloride [Moles/volume] in Serum or Plasma 103 mEq/L 98 - 107 [facility] Carbon dioxide, total [Moles/volume] in Serum or Plasma 16 MEQ/L 22 - [address] [facility] Glucose [Mass/volume] in Serum or Plasma 127 MG/DL 70 - [address] [facility] BUN 10 MG/DL 7 - 21 [facility] al Creatinine [Mass/volume] in Serum or Plasma 1.4 MG/DL 0.7 - 1.5 [facility] BUN/CREAT 7 8 - 27 L [facility] Protein [Mass/volume] in Serum or Plasma 7.6 G/DL 6.3 - 8.2 [facility] Albumin [Mass/volume] in Serum or Plasma 5.0 G/DL 3.9 - 5.0 [facility] Globulin [Mass/volume] in Serum by calculation 2.6 GM/DL 2.4 - 3.2 [facility] A/G RATIO 1.9 0.8 - 2.0 [facility] Calcium [Mass/volume] in Serum or Plasma 9.8 MG/DL 8.4 - 10.2 [facility] Bilirubin.total [Mass/volume] in Serum or Plasma <0.7 MG/DL 0.2 - 1.3 [facility] Alkaline phosphatase [Enzymatic activity/volume] in Serum or Plasma 58 U/L 38 - 126 [facility] Aspartate aminotransferase [Enzymatic activity/volume] in Serum or Plasma 16 U/L 5 - 40 [facility] Alanine aminotransferase [Enzymatic activity/volume] in Seru m or Plasma 5 U/L 7 - [address] [facility] Anion gap 3 in Serum or Plasma 22.0 mmol/L 8.0 - 16.[address] [facility] AGE 36 yrs [facility] al NON-AA GFR 45 mL/min [facility] AFR AMER GFR 55 mL/min [facility] Male GFR In terprentation 20-49 yrs >60 mL/min Normal 50-59 yrs >56 mL/min Normal 60-69 yrs >49 mL/min Normal 70-79yrs >42 mL/min Normal 80 and above >35 mL/min Normal Female GFR Interpretation 20-39 yrs >60 mL/min Normal 40-49 yrs >58 mL/min Normal 50-59 yrs >51 mL/min Normal 60-69 yrs >45 mL/min Normal 70-79 yrs >39 mL/min Normal 80 and above >32 mL/min Normal ID Date Data Source [id number] 08/19/2021 08:02:[address] [facility] Name Value Range Interpretation Code Description Data Kelley rce(s) Supporting Document(s) CBC W/AUTOMATED DIFF [facility] COMPLETE BLOOD COUNT Leukocytes [#/volume] in Blood by Automated count 21.6 10^3/uL 4.2 - 11.[address] [facility] Erythrocytes [#/volume] in Blood by Automated count 4.73 10^6/uL 4. 20 - 5.40 [facility] Hemoglobin [Mass/volume] in Blood 14.3 g/dL 12.0 - 16.0 [facility] Hematocrit [Volume Fraction] of Blood by Automated count 45.0 % 3 7.0 - 47.0 [facility] Erythrocyte mean corpuscular volume [Entitic volume] by Auto mated count 95.1 fL 81.0 - 101 [facility] Erythrocyte mean corpuscular hemoglobin [Entitic mass] by Automated count 30.2 pg 27.0 - 34.0 [facility] Erythrocyte mean corpuscular hemoglobin concentration [Mass/volume] by Automated count 31.8 g/dL 31.0 - 36.0 [facility] Erythrocyte distribution width [Ratio] by Automated count 13.8 % 11.5 - 14.5 [facility] Platelets [#/volume] in Blood by Automated count 326 10^3/uL 150 - [address] [facility] Platelet mean volume [Entitic volume] in Blood by Automated count 9.2 fL 7.4 - 10.4 [facility] Neutrophils/100 leukocytes in Blood by Automated count 65.2 % 37. 0 - 80.0 [facility] Lymphocytes/100 leukocytes in Blood by Manual count 22.0 % 25.0 - 40.[address] [facility] Monocytes/100 leukocytes in Blood by Automated count 9.5 % 3.0 - 8.[address] [facility] Eosinophils/100 leukocytes in Blood by Automated count 2.4 % 0.0 - 7.0 [facility] Basophils/100 leukocytes in Blood by Automated count 0.4 % 0.0 - 2.5 [facility] %[facility] 0.5 % 0.0 [facility] % 0.0 - 0.0 [facility] Neutrophils [#/volume] in Blood by Automated count 14.06 10^3/uL 2. 00 - 6.[address] [facility] Lymphocytes [#/volume] in Blood by Automated count 4.74 10^3/uL 0.60 - 3.[address] [facility] Monocytes [#/volume] in Blood by Automated count 2.05 10^3/uL 0.00 - 0.[address] [facility] Eosinophils [#/volume] in Blood by Automated count 0.52 10^3/uL 0.00 - 0.70 [facility] [facility] Bas[facility] [#/volume] in Blood by Automated count 0.08 10^3/uL 0.00 - 0.20 [facility] #IG 0.11 10^3/uL 0.00 - 0.10 [facility] #NRBC 0.00 10^3/uL 0.00 - 0.00 [facility] MANUAL DIFF SEE BELOW [facility] ital Segmented neutrophils/100 leukocytes in Blood by Manual count 67 % 37 - 80 [facility] BAND 3 % 0 - 5 [facility] %LYMPH 20 % 25 - 40 L [facility] al %MONO 7 % 3 - 8 [facility] Metamyelocytes/100 leukocytes in Blood by Manual count 2 % [facility] SHOBHA LYM 1 % [facility] al RBC MORPH MORPH IS NORMAL [facility] ID Date Data Source [id number] 08/19/2021 07:57:[address] [facility] Name Value Range Interpretation Code Description Data Kelley rce(s) Supporting Document(s) Acetaminophen [Presence] in Urine <5.0 UG/ML 0.0 - 30.0 [facility] ID Date Data Source [id number] 08/19/2021 07:44:[address] [facility] Name Value Range Interpretation Code Description Data Kelley rce(s) Supporting Document(s) pH of Serum or Plasma 6.99 7.32 - 7.43 L [facility] pCO2 V 70.4 mm/HG 38.0 - 51.0 [facility] pO2 V 48.1 mm/HG 30.0 - 55.0 [facility] Bicarbonate [Moles/volume] in Venous blood 16.6 meq/L 22.0 - 29.[address] [facility] TCO2 V 18.7 meq/L 22.0 - 29.0 [facility] Base excess in Blood by calculation -15.8 -2.0 - 2.[address] [facility] O2 SAT V 55.0 % 40.0 - 85.0 [facility] ID Date Data Source [id number] 08/19/2021 08:04:[address] [facility] Name Value Range Interpretation Code Description Data Kelley rce(s) Supporting Document(s) Ethanol [Moles/volume] in Blood <10.0 MG/DL [facility] ALCOHOL % 0.01 % 0.00 - 0.01 [facility] *FOR MEDICAL PURPOSES ONLY * ID Date Data Source [id number] 08/19/2021 08:03:[address] [facility] Name Value Range Interpretation Code Description Data Kelley rce(s) Supporting Document(s) HCG SERUM QUAL NEGATIVE NORMAL: NEGATIVE [facility] HCG SERUM QL REENTER NEGATIVE NORMAL: NEGATIVE [facility] { KIT LOT # [id number] ){ KIT EXP DATE 12/04/22 ){ PROCEDURAL CONTROL VALID ) ID Date Data Source [id number] 08/23/2021 06:15:[address] [facility] Name Value Range Interpretation Code Description Data Kelley rce(s) Supporting Document(s) CULTURE URINE [facility] _CULTURE URINE_$$[id number]$$[id number]$$[id number]$$[id number]$$711443$$006337$$771028$$395352$$178469$$ 200982$$292247$$724937$$859449$$427632$$974655$$234619$$382114$$987634$$912494$$ 169820$$704721$$207230$$586168$$005460$$699643$$030956$$[id number] -- Continued on next page --Patient: ALEXANDRA Mckeon Order: [id number] Page 2Culture: CULTURE URINE Status: Final ====$$[id number]$$[id number] DATE/TIME: 08/23/2021 00:05Culture: CULTURE URINE Status: FinalUrine Culture,Comprehensive: P1No growth in 36 - 48 hours.P1 Test performed by: [facility] #: [id number] [address] [place] [id number] [facility] [id number] Director : Porfirio Plata MD NPI #:Camera Person : [email or web address] REF ID Date Data Source [id number] 08/19/2021 07:55:[address] [facility] Name Value Range Interpretation Code Description Data Kelley rce(s) Supporting Document(s) DRUG SCREEN URINE [facility] URINE DRUG SCREEN Amphetamine [Presence] in Urine by Screen method PRESUMP POS JESE L: NEGATIVE [facility] BARBITURATES NEGATIVE NORMAL: NEGATIVE [facility] BENZO NEGATIVE NORMAL: NEGATIVE [facility] COCAINE NEGATIVE NORMAL: NEGATIVE [facility] Tetrahydrocannabinol [Presence] in Urine NEGATIVE NORMAL: NEGATIVE [facility] OPIATES NEGATIVE NORMAL: NEGATIVE [facility] Phencyclidine [Presence] in Urine by Screen method NEGATIVE NOR MAL: NEGATIVE [facility] \\BLDo\\URINE DRUG SCR EEN INTERPRETATION\\BLDx\\ THE CUTOFFF LEVELS FOR DETECTION ARE FOLLOWS: AMPHETAMINES 1000 ng/ml BARBITUARATES 200 ng/ml BENZODIAZEPINES 100 ng/ml THC 50 ng/ml PHENCYCLIDINE 25 ng/ml OPIATES 300 ng/ml COCAINE 300 ng/ml ALL POSITIVES ARE CONSIDERED PRESUMPTIVE POSITIVE CONFIRMATION WILL BE PERFORMED AT PHYSICIAN REQUEST. ID Date Data Source [id number] 08/19/2021 07:42:[address] [facility] Name Value Range Interpretation Code Description Data Kelley rce(s) Supporting Document(s) UA REFLEX TO UA CULTURE [facility] URINALYSIS SOURCE R [facility] COLOR yellow NORMAL: Yellow [facility] CLARITY clear NORMAL: Clear [facility] Specific gravity of Urine by Test strip 1.030 1.001 - 1.030 [facility] pH 5 5 - 9 [facility] Glucose [Mass/volume] in Urine by Test strip NORM NORMAL: Negat [facility] Bilirubin.total [Presence] in Urine by Test strip 1 NORMAL: Negative [facility] Ketones [Presence] in Urine by Test strip [address]: [address] [facility] Protein [Mass/volume] in Urine by Test strip 30 NORMAL: Negat [facility] Nitrite [Presence] in Urine by Test strip NEG NORMAL: Negative [facility] BLOOD NEG NORMAL: Negative [facility] Leukocyte esterase [Presence] in Urine by Test strip 100 JESE L: Negative [facility] Urobilinogen [Mass/volume] in Urine by Test strip 1 less cherry n 1.0 mg/dL [facility] MICROSCOPIC See Below [facility] ital WBC 7 - 10 NORMAL: NONE SEEN A [facility] EPITHELIAL MODERATE NORMAL: NONE SEEN A [facility] Bacteria [Presence] in Urine sediment by Light microscopy 2+ MOD NORMAL: NONE SEEN A [facility] Mucus [Presence] in Urine sediment by Light microscopy Trace NORMAL: NONE SEEN [facility] Amorphous sediment [Presence] in Urine sediment by Light tammy roscopy RARE NORMAL: NONE SEEN [facility] Casts [#/area] in Urine sediment by Microscopy low power field See Be low [facility] Hyaline casts [#/area] in Urine sediment by Microscopy low power field None Seen NORMAL: None Seen [facility] Coarse Granular Casts [#/area] in Urine sediment by Mi croscopy low power field 0-1 NORMAL: None Seen A [facility] ID Date Data Source [id number] 08/10/2021 12:45:00 PM EDT [facility] [address] [place] [address] PHONE: [phone] FAX: [phone] Name .................. : ALEXANDRA Mckeon Acct Number.................. : [id number] ROOM. ................. : Number ................... : [id number] Stay type ............. : O/P Discharge Date......... ... : Admit Date ......... : Admit Phys .................... : NWOGU JILL Date of ....... : 1985 Family Phys ................... : NON STAFF Phone .................. : [phone] Age ................................ : 35 Film# .................. .:[id number] Sex ................................. : F Unsigned transcriptions are preliminary reports and do not represent a medical or legal document [facility] [id number] COMPLETE:08/08/21 09:24 [facility] [id number] ENDOMETRIAL STRIPE/THICKNESS ULTRASOUND PELVIS INDICATION: Abnormal uterine/vaginal bleeding. Per technologist 6 years symptoms. Right tubal ligation 2012. Endometrial stripe thickness. COMPARISON: None TECHNIQUE: Ultrasound of the pelvis is performed using transabdominal technique. FINDINGS: Uterus: Size 10.0 x 4.0 x 6.0 cm. No focal uterine masses. Endometrium: thickness is 3 mm. Right ovary: 2.5 x 2.2 x 1.1 cm. No ovarian or adnexal masses. Color flow imaging shows blood flow to the ovary. Left Ovary: 4.6 x 2.6 x 2.7 cm. 2.5 cm simple cyst.. Color flow imaging shows blood flow to the ovary. No free fluid. Grossly normal bladder. IMPRESSION: No endometrial thickening or uterine abnormality. Left adnexal 2.5 cm simple cyst otherwise normal ovaries. Electronically Reviewed and Signed By Rambo Zapata MD , 08/10/21 12:45, SCB Page 1 of 2 [facility] [address] [place] [address] PHONE: [phone] FAX: [phone] Name .................. : CONNORLAURA EDUARDO Linda Acct Number.................. : [id number] ROOM. ................. : Number ................... : [id number] Stay type ............. : O/P Discharge Date......... ... : Admit Date ......... : Admit Phys .................... : NWOGU JILL Date of ....... : 1985 Family Phys ................... : NON STAFF Phone .................. : [phone] Age ......... ....................... : 35 Film# .................. .:[id number] Sex ................................. : F Unsigned transcriptions are preliminary reports and do not represent a medical or legal document [facility] [id number] COMPLETE:08/08/21 09:24 [facility] 60325 ENDOMETRIAL STRIPE/THICKNESS Transcribe Initials: DZ , Transcribe Date: 08/08/21 12:53, Dictation Date: Copy for: 710 MED REC Page 2 of 2 Name Value Range Interpretation Code Description Data Kelley rce(s) Supporting Document(s) ID Date Data Source [id number] 08/08/2021 09:53:00 AM EDT [facility] ([facility]) Name Value Range Interpretation Code Description Data Kelley rce(s) Supporting Document(s) HSV, IgM I/II Combination Laboratory test result 0.00-0.90 [facility] ([facility]) <content>Negative <0.91</content>
<content>Equivocal 0.91 - 1.09</content>
<content>Positive >1.09</content>
<content></content> ID Date Data Source [id number] 08/08/2021 09:53:00 AM EDT [facility] ([facility]) Name Value Range Interpretation Code Description Data Kelley rce(s) Supporting Document(s) HIV Screen 4thGeneration wRfx Laboratory test result [facility] ([facility]) ID Date Data Source [id number] 08/08/2021 09:53:00 AM EDT [facility] ([facility]) Name Value Range Interpretation Code Description Data Kelley rce(s) Supporting Document(s) HSV 1 IgG, Type Spec 32.30 index 0.00-0.90 Above high normal [facility] ([facility]) <content>Negative <0.91</content>
<content>Equivocal 0.91 - 1.09</content>
<content>Positive >1.09</content>
<content>Note: Negative indicates no antibodies detected to</content>
<content>HSV-1. Equivocal may suggest early infection. If</content>
<content>clinically appropriate, retest at later date. Positive</content>
<content>indicates antibodies detected to HSV-1.</content>
<content></content> HSV 2 IgG, Type Spec Laboratory test result 0.00-0.90 [facility] ([facility]) <content>Negative <0.91</content>
<content>Equivocal 0.91 - 1.09</content>
<content>Positive >1.09</content>
<content>Note: Negative indicates no antibodies detected to</content>
<content>HSV-2. Equivocal may suggest early infection. If</content>
<content>clinically appropriate, retest at later date. Positive</content>
<content>indicates antibodies detected to HSV-2.</content>
<content></content> ID Date Data Source [id number] 08/08/2021 09:53:00 AM EDT [facility] ([facility]) Name Value Range Interpretation Code Description Data Kelley rce(s) Supporting Document(s) Hepatitis B virus surface Ag [Presence] in Serum or Pl asma by Immunoassay Laboratory test result [facility] ([facility]) Treponema pallidum Ab [Presence] in Serum Laboratory test result [facility] ([facility]) Laboratory test finding (navigational concept) 0.1 s/coratio 0.0-0.9 [facility] ID Date Data Source [id number] 08/10/2021 06:26:[address] [facility] Name Value Range Interpretation Code Description Data Kelley rce(s) Supporting Document(s) Herpes simplex virus 1+2 IgM Ab [Units/volume] in Seru m by Immunoassay <0.91 Ratio 0.00-0.90 [facility] Negative <0.91 Equivocal 0.91 - 1.09 Positive >1.09 ID Date Data Source [id number] 08/09/2021 08:09:[address] [facility] Name Value Range Interpretation Code Description Data Kelley rce(s) Supporting Document(s) HIV 1+2 Ab+HIV1 p24 Ag [Presence] in Serum or Plasma b y Immunoassay Non Reactive Non Reactive [facility] ID Date Data Source [id number] 08/09/2021 08:09:[address] [facility] Name Value Range Interpretation Code Description Data Kelley rce(s) Supporting Document(s) Herpes simplex virus 1 IgG Ab [Units/volume] in Serum by Immunoassay 32.30 index 0.00-0.[address] [facility] Negative <0.91 Equivocal 0.91 - 1.09 Positive >1.09 Note: Negative indicates no antibodies detected to HSV-1. Equivocal may suggest early infection. If clinically appropriate, retest at later date. Positive indicates antibodies detected to HSV-1. Herpes simplex virus 2 IgG Ab [Units/volume] in Serum by Immunoassay <0.91 index 0.00-0.90 [facility] Negative <0.91 Equivocal 0.91 - 1.09 Positive >1.09 Note: Negative indicates no antibodies detected to HSV-2. Equivocal may suggest early infection. If clinically appropriate, retest at later date. Positive indicates antibodies detected to HSV-2. ID Date Data Source [id number] 08/09/2021 08:09:[address] [facility] Name Value Range Interpretation Code Description Data Kelley rce(s) Supporting Document(s) Hepatitis C virus Ab Signal/Cutoff in Serum or Plasma by Immunoassay 0.1 s/coratio 0.0-0.9 [facility] ID Date Data Source [id number] 08/08/2021 10:51:[address] [facility] Name Value Range Interpretation Code Description Data Kelley rce(s) Supporting Document(s) Hepatitis B virus surface Ab [Units/volume] in Serum o r Plasma by Immunoassay NONREACTIVE NORMAL:NON REACTIVE [facility] ID Date Data Source [id number] 08/08/2021 10:51:00 AM EDT [facility] Value Range Interpretation Code Description Data Kelley rce(s) Supporting Document(s) Treponema pallidum Ab [Presence] in Serum NON-REACTIVE NORMAL:NON MICHAEL CTIVE [facility] ID Date Data Source [id number] 08/07/2021 09:50:00 AM EDT [facility] ([facility]) Name Value Range Interpretation Code Description Data Kelley rce(s) Supporting Document(s) Chlamydia trachomatis,Blossom Laboratory test result [facility] ([facility]) {SOURCE:~.~.~<DG1.3.1>Z01.419</DG1.3.1><DG1.3.1>Z01.419</DG1.3.1><DG1.3.1>Z11.3< /DG1.3.1> Neisseria gonorrhoeae,Blossom Laboratory test result [facility] ([facility]) {SOURCE:~.~.~<DG1.3.1>Z01.419</DG1.3.1><DG1.3.1>Z01.419</DG1.3.1><DG1.3.1>Z11.3< /DG1.3.1> ID Date Data Source [id number] 08/10/2021 06:29:[address] [facility] Name Value Range Interpretation Code Description Data Kelley rce(s) Supporting Document(s) Chlamydia trachomatis rRNA [Presence] in Unspecified specimen by Probe and target amplification method Negative Negative [facility] Neisseria gonorrhoeae rRNA [Presence] in Unspecified specimen by Probe and target amplification method Negative Negative [facility] ID Date Data Source [id number] 08/07/2021 09:50:00 AM EDT [facility] Name Value Range Interpretation Code Description Data Kelley rce(s) Supporting Document(s) Cytology report of Cervical or vaginal smear or scrapi ng Cyto stain.thin prep Laboratory test result [facility] ([facility]) ID Date Data Source [id number] 08/07/2021 09:32:00 AM EDT [facility] ([facility]) Name Value Range Interpretation Code Description Data Kelley rce(s) Supporting Document(s) US Pelvic Laboratory test result [facility] ([facility]) ID Date Data Source [id number] 07/27/2021 01:46:00 PM EDT [facility] ([facility]) Name Value Range Interpretation Code Description Data Kelley rce(s) Supporting Document(s) PDF Laboratory test result [facility] ([facility]) {DIAGNOSIS: F39 F90.9 F41.9~{MEDICATION S/DECLARED: ADDERALL BUPROPION CLONIDIEN SERTRALIN~{PRES Laboratory test finding (navigational concept) Laboratory test result [facility] ([facility]) {DIAGNOSIS: F39 F90.9 F41.9~{MEDICATION S/DECLARED: ADDERALL BUPROPION CLONIDIEN SERTRALIN~{PRES ID Date Data Source [id number] 08/06/2021 12:36:[address] [facility] Name Value Range Interpretation Code Description Data Kelley rce(s) Supporting Document(s) Drugs identified in Urine FINAL [facility] TOXASSURE SELECT 13 (MW) Test Result Flag UnitsDrug Present and Declared for Prescription Verification Amphetamine 1555 EXPECTED ng/mg creat Amphetamine is available as a schedule II prescription drug. Test Result Flag Units Ref Range Creatinine 31 mg/dL > =20 Declared Medications: The flagging and interpretation on this report are based on the following declared medications. Unexpected results may arise from inaccuracies in the declared medications. Note: The testing scope of this panel includes these medications: Amphetamine (Adderall) Note: The testing scope of this panel does not include following reported medications: Bupropion Clonidine Sertraline Topiramate Fo r clinical consultation, please call . Report . [facility] ID Date Data Source [id number] 11/03/2020 12:00:00 AM EST [facility] Name Value Range Interpretation Code Description Data Kelley rce(s) Supporting Document(s) SARS-CoV2 Rapid Antigen [facility] This lab was reported by Roxanne Bethea. Procedure Social History No Information Vital Signs ID Date Data Source UNK Name Value Range Interpretation Code Description Data Source(s) Systolic blood pressure 114 mm[Hg] 114 mm[Hg] M [facility] ([facility]) Diastolic blood pressure 78 mm[Hg] 78 mm[Hg] [facility] ([facility]) Heart rate 104 /min 104 /min [facility] ([facility]) Oxygen saturation in Arterial blood by Pulse oximetry 96 % 96 % [facility] ([facility]) Body weight 120.38 [lb_av] 120.38 [lb_av] [facility] ([facility]) Body weight 54.602 kg 54.602 kg [facility] ([facility]) Body height 62 [in_i] 62 [in_i] [facility] 5'2" Body mass index (BMI) [Ratio] 22.0 kg/m2 22.0 k g/m2 [facility] ([facility]) Body surface area Derived from formula 1.54 m2 1.54 m2 [facility] ([facility]) Body temperature 97.7 [degF] 97.7 [degF] [facility] ([facility]) Temporal Body surface area Derived from formula 1.55 m2 1.55 m2 [facility] ([facility]) Respiratory rate 18 /min 18 /min [facility] ( [facility]) Oxygen saturation in Arterial blood by Pulse oximetry 100 % 100 % [facility] ([facility]) Body weight 122.00 [lb_av] 122.00 [lb_av] [facility] ([facility]) Body weight 55.339 kg 55.339 kg [facility] ([facility]) Body height 62 [in_i] 62 [in_i] [facility] ([facility]) 5'2" Body mass index (BMI) [Ratio] 22.3 kg/m2 22.3 k g/m2 [facility] ([facility]) Systolic blood pressure--sitting 126 mm[Hg] 126 mm[Hg] [facility] ([facility]) Diastolic blood pressure--sitting 85 mm[Hg] 85 mm[Hg] [facility] ([facility]) Heart rate 100 /min 100 /min [facility] ([facility]) Oxygen saturation in Arterial blood by Pulse oximetry 99 % 99 % [facility] ([facility]) Respiratory rate 14 /min 14 /min [facility] ( [facility]) Body weight 122.00 [lb_av] 122.00 [lb_av] [facility] ([facility], [facility]) Body height 62 [in_i] 62 [in_i] [facility] ([facility]) 5'2" Body mass index (BMI) [Ratio] 22.3 kg/m2 22.3 k g/m2 [facility] ([facility], [facility]) Body temperature 97.3 [degF] 97.3 [degF] [facility] ([facility], [facility]) Systolic blood pressure 133 mm[Hg] 133 mm[Hg] M [facility] ([facility], [facility]) Heart rate 102 /min 102 /min [facility] ([facility], [facility]) Diastolic blood pressure 84 mm[Hg] 84 mm[Hg] [facility]) Body temperature 99.8 [degF] 99.8 [degF] [facility] ([facility], [facility]) Oxygen saturation in Arterial blood by Pulse oximetry 98 % 98 % [facility] ([facility], [facility]) Body weight 117.00 [lb_av] 117.00 [lb_av] [facility] ([facility], [facility]) Body height 62 [in_i] 62 [in_i] [facility] ([facility]) 5'2" Body mass index (BMI) [Ratio] 21.4 kg/m2 21.4 k g/m2 [facility] ([facility], [facility]) Systolic blood pressure 118 mm[Hg] 118 mm[Hg] [facility] ([facility], [facility]) Diastolic blood pressure 74 mm[Hg] 74 mm[Hg] [facility] ([facility]) Heart rate 113 /min 113 /min [facility] ([facility], [facility]) Respiratory rate 16 /min 16 /min [facility] ( [facility], [facility])
--- OUTSIDE RECORDS SUMMARY | 2021-08-23 14:54 | CCD | Continuity of Care Document ---
Demographics Address [address] [id number] Home Phone [phone] Preferred Language Unknown Marital Status Congregational Affiliation Unknown Race White Ethnic Group Not or Author Author Cookie [facility] [place] Unknown Address [address] [place] [address] Phone [phone] Problems Description No Information Available Social History Type Date Description Comments Sex Unknown Allergies, Adverse Reactions, Alerts Description No Information Available Medications Description No Information Available Immunizations Description No Information Available Vital Signs Description No Information Available Results Description No Information Available Procedures Date Code Description Status 06/13/2021 40911 Psychiatric Diagnostic Evaluatio n Completed Medical Devices [...]
--- OUTSIDE RECORDS SUMMARY | 2021-08-25 21:59 | CCD ---
Author Author [facility] Organization [facility] Address Unknown Phone Unavailable Care Team Providers Care Pca Name Role Phone Nwogu, U Bryan DO [...] U Bryan DO Unavailable Unavailable Nwogu, U Rbyan DO Unavailable Unavailable Nwogu, U Bryan DO Unavailable Unavailable Nwogu, U Bryan DO Unavailable Unavailable Nwogu, U Bryan DO Unavailable Unavailable Nwogu, U Bryan DO Unavailable Unavailable Nwogu, U Bryan DO Unavailable Unavailable Nwogu, U Bryan DO Unavailable Unavailable Nwogu, U Bryan DO Unavailable Unavailable Nwogu, U Bryan DO Unavailable Unavailable Goddard Mercedez VENEER CUTTER Unavailable Unavailable Goddard Mercedez VENEER CUTTER Unavailable Unavailable Ogddard Mercedez VENEER CUTTER Unavailable Unavailable Goddard Mercedez VENEER CUTTER Unavailable Unavailable Goddard, Mercedez VENEER CUTTER Unavailable Unavailable Goddard Mercedez VENEER CUTTER Unavailable Unavailable Goddard Mercedez VENEER CUTTER Unavailable Unavailable Goddard, Mercedez VENEER CUTTER Unavailable Unavailable Goddard, Mercedez VENEER CUTTER Unavailable Unavailable Goddard, Mercedez VENEER CUTTER Unavailable Unavailable Goddard, Mercedez VENEER CUTTER Unavailable Unavailable Goddard, Mercedez VENEER CUTTER Unavailable Unavailable Goddard, Mercedez VENEER CUTTER Unavailable Unavailable Nwogu, U Bryan DO Unavailable [...] Unavailable Nwogu, U Bryan DO Unavailable Unavailable [id number], [phone] Unavailable Unavailable PICKERAL JR, J ALBERT PA-C [...] J ALBERT PA-C Unavailable Unavailable Kristin Dennison [facility] Unavailable Unavailable MORATAYA, J LÓPEZ PA Unavailable [...] Unavailable MORATAYA, J LÓPEZ PA Unavailable Unavailable Ankit, Sona Jeffrey PA-C Unavailable Unavailable Ankit, Sona Jeffrey PA-C Unavailable Unavailable Ankit, Sona Jeffrey PA-C Unavailable Unavailable Ankit, Sona Jeffrey PA-C Unavailable Unavailable Ankit, Sona Jeffrey PA-C Unavailable Unavailable Ankit, Sona Jeffrey PA-C Unavailable Unavailable Ankit, J Jeffrey PA-C Unavailable Unavailable Ankit, Sona Jeffrey PA-C Unavailable Unavailable Ankit, J Jeffrey PA-C Unavailable Unavailable Ankit, J Jeffrey PA-C Unavailable Unavailable Barrera Luo MD Unavailable Unavailable [...] F Margoth MD Unavailable Unavailable Kunnumpurath, F Magroth MD Unavailable Unavailable Kunnumpurath, F Margoth MD Unavailable Unavailable BEAGLE, KARINA PEDRO Unavailable Unavailable NON, PHYSICIAN STAFF Unavailable Unavailable [...] is protected by Article 27-F of the [facility] Public Health law. If you continue you may have access to information: Regarding HIV / AIDS; Provided by facilities licensed or operated by the [facility] Office of Mental Health; or Provided by the [facility] Office for People With Developmental Disabilities. If such information is present, then the following [facility] mandated warning applies: This information has been [...] law may result in a fine or long term sentence or both. A general authorization for the release of medical or other information is NOT sufficient authorization for further disc losure. Allergies and Adverse Reactions Type Description Substance Reaction Status Data Source(s ) No Known Drug Allergies No Known Drug Allergies [facility] Encounters Encounter Providers Location Date Indications Data Source(s ) Emergency Attender: Jeffrey Pham PA-CConsultant: Margoth lopez MD 08/19/2021 07:06:00 PM EDT - 08/20/2021 05:15:00 AM EDT [facility] Patient discharged. Outpatient Attender: LÓPEZ MORATAYA PAConsultant: Margoth jovel MD 08/17/2021 11:58:00 AM EDT - 08/17/2021 11:58:00 AM EDT [facility] Outpatient Attender: PEDRO LOVEVICTORIAEConsultant: Margoth vo MD 08/08/2021 12:51:00 PM EDT - 08/08/2021 12:51:00 PM EDT [facility] Outpatient Attender: Bryan Cruz DOConsultant: STAFF NON 08/07/2021 11:16:02 AM EDT [facility] Outpatient Attender: Bryan Anthony DO [facility] 02/2021 09:00:00 AM EDT [facility] Outpatient Attender: Bryan Anthony LEIVA 02/2021 08:56:00 AM EDT - 08/07/2021 08:56:00 AM EDT [facility] Outpatient Attender: [id number] [facility]_[id number] [facility] 07/27/2021 01:00:00 PM EDT [facility] ([facility] Outpatient Attender: LÓPEZ SETHI 07/27 12:53:00 PM EDT - 07/27/2021 12:53:00 PM EDT [facility] Outpatient Attender: ALBERT lorenzo 07/26/2021 03:15:00 PM EDT [facility] ([facility]) Outpatient Attender: PEDRO SUTTON 021 10:55:00 AM EDT - 07/24/2021 10:55:00 AM EDT [facility] Outpatient Attender: PEDRO SUTTON 021 10:55:00 AM EDT - 07/05/2021 10:55:00 AM EDT [facility] Outpatient Attender: Nini Dennison LMSW 08/2021 12:06:00 PM EDT - 06/13/2021 12:06:00 PM EDT [facility] Outpatient Attender: Mercedez dunn 11/03/2020 08:35:00 AM EST [facility] ([facility]) Immunizations Vaccine Date Status Description Data Source(s) COVID-19 VACCINE Moderna 04/13/2021 12:00:00 AM EDT completed [place]IS Vaccine Series Complete: YESThis Data wa s Submitted to [facility] Via [facility]. COVID-19 VACCINE Moderna 03/16/2021 12:00:00 AM EDT completed [place]IS Vaccine Series Complete: NOThis Data was Submitted to [facility] Via [employer]. Medications Medication Brand Name Start Date Product Form Dose Route Admi nistrative Instructions Pharmacy Instructions Status Indications Reaction Description Data Source(s) Sertraline 50 MG Oral Tablet Sertraline HCL 08/17/2021 12:00:00 AM EDT ORAL active [facility] ([facility]) No Active Medications 07/26/2021 12:00:00 AM EDT completed [facility] ([facility], [facility]) Amoxicillin 500 MG Oral Tablet Amoxicillin 07/26/2021 12:00:00 AM EDT ORAL active [facility] ([facility], [facility]) Amoxicillin 500 MG Oral Tablet Amoxicillin 07/26/2021 12:00:00 AM EDT ORAL completed [facility] ([facility]) Insurance Providers Payer name Policy type / Coverage type Policy ID Covered constitution party ID Covered constitution party's relationship to sheikh Policy Sheikh Plan Information SELF PAY ONLY [id number] SP [id number] BCBS HUYEN O [id number] SP [id number] CLINIC BLUE CROSS BS CO [id number] 18 [id number] BLUE CROSS BLUE SHIELD CL BS [id number] 18 [id number] BLUE CROSS BLUE SHIELD -CLINIC [id number] BLUE CROSS BLUE SHIELD -O/P [id number] 18 [id number] BCBS HUYEN O [id number] SP [id number] BC[place] OF [place] 306/806 [id number] SP [id number] [place] [id number] SP [id number] [facility] [id number] SP [id number] PGBA [facility] [id number] [facility] [id number] [facility] ZONE [id number] SP [id number] EMEDNY [id number] SP [id number] MEDICAID [id number] SP [id number] SELF PAY UNAVAILABLE SP UNAVAILA BLE N REGIONAL CLAIMS ARELI-PHYSICIAN [id number] [facility] CLAIMS ARELI-O/P [id number] [facility] CLAIMS ARELI-CLINIC [id number] [facility] CLAIMS ARELI-I/P [id number] Problems, Conditions, and Diagnoses Code Display Name Description Problem Type Effective Dates Data Source(s) F909 Attention-deficit hyperactivity disorder , unspecified type Attention- deficit hyperactivity disorder, unspecified type Diagnosis 08/17 11:58:00 AM [facility] F609 Personality disorder, unspecified Personality di sorder, unspecified Diagnosis 08/17/2021 11:58:00 AM [facility] F419 Anxiety disorder, unspecified Anxiety disorder, unspec ified Diagnosis 08/17/2021 11:58:00 AM [facility] Z634 Disappearance and of family member Disappearance and of family member Diagnosis 08/08/2021 12:51:00 PM [facility] F39 Unspecified mood [affective] disorder Unspecifie d mood [affective] disorder Diagnosis 08/08/2021 12:51:00 PM [facility] N939 Abnormal uterine and vaginal bleeding, u nspecified Abnormal uterine and vaginal bleeding, unspecified Diagnosis 08/07/2021 08:56:00 AM [facility] Z113 Encounter for screening for infections with a predominantly sexual mode of transmission Encounter for screening for infections w ith a predominantly sexual mode of transmission Diagnosis 08/07/2021 08:56:00 AM [facility] [id number] Encounter for gynecological examination (general) (routine) without abnormal findings Encounter for gynecological examination (general) (routine) without abnormal findings Diagnosis 08/07/2021 08:56:[address] [facility] F411 Generalized anxiety disorder Generalized anxiety disor frannie Diagnosis 06/13/2021 12:06:00 PM [facility] F3181 Bipolar II disorder Bipolar II disorder Diagnosis 0 06/13/2021 12:06:00 PM [facility] Surgeries/Procedures Procedure Description Date Indications Data Source(s) Psychiatric Diag Eval W/Medical Service 08/17/2021 12: 00:00 AM EDT [facility] ([facility]) OFFICE OUTPATIENT VISIT 15 MINUTES 08/07/2021 12:00:00 AM EDT [facility] ([facility]) PREVENT MED VACUUM METALIZING SUPERVISOR&/RISK FACTOR REDJ SPX 45 MIN 07/27 12:00:00 AM EDT [facility] ([facility]) OFFICE OUTPATIENT VISIT 15 MINUTES 07/26/2021 12:00:00 AM EDT [facility] ([facility], [facility]) Psychiatric Diagnostic Evaluation 07/05/2021 12:00:00 AM EDT [facility] ([facility]) Psychiatric Diagnostic Evaluation 06/13/2021 12:00:00 AM EDT [facility] ([facility]) Results ID Date Data Source [id number] 08/19/2021 07:06:00 PM EDT [facility] 1 OrderSheet [facility] Emergency Department [address] [place] [address] Phone #: ext- [phone] 08/19/2021 19:00 Patient: EDUARDO MORRIS Sex: F : 1985 Age: 36yWEIGHT:77.1 kg (S) HEIGHT:64 inches (S) BMI:29.2ALLERGIES: Unable to ObtainCHIEF COMPLAINT: drug overdoseDIAGNOSIS: Poisoning by drug AND/OR medicinal substanceLAB ORDERSOrder Description Priority Entered Acknowledged InitialedVenous Blood Gas STAT 19:08/19/2021 19:33 Mich Valera R.N.;CBC w Diff STAT 19:08/19/2021 19:33 Mich Valera R.N.;CMP STAT 19:08/19/2021 19:33 Mich Valera R.N.;CPK STAT 19:08/19/2021 19:33 Mich Valera R.N.;TSH STAT 19:08/19/2021 19:33 Mich Valera R.N.;Lactic Acid STAT 19:08/19/2021 19:33 Mich Valera R.N.;Urine Drug Screen STAT 19:08/19/2021 19:33 Mich Valera R.N.;Acetaminophen STAT 19:08/19/2021 19:33 Soto,Ar SETHI;Salicylate Level STAT 19:08/19/2021 19:33 Mihc Valera R.N.;ETOH STAT 19:08/19/2021 19:33 Mich Valera R.N.;Beta- HCG, Qual STAT :08/19/2021 19:33 Monica spring, 2 OrderSheet [facility] Emergency Department [address] [place] [address] Phone #: sxy- [phone] 08/19/2021 19:00 Patient: EDUARDO MORRIS Sex: F : 1985 Age: 36ySerum Mich SETHI;UA Reflex to UA 19:08/19/2021 19:33 Anton Valera R.N.;ABG STAT 20:04 08/19/2021 20:08 Mich Al R.N.;Magnesium STAT 20:21 08/19/2021 20:41 Mich Al R.N.;ABG STAT 22:11 08/19/2021 22:47 February Mich Daugherty R.N. PA;Lactic Acid STAT 22:11 08/19/2021 22:13 Mich Al R.N.; NOTES: please re-draw and repeatCPK STAT 22:12 08/19/2021 22:13 Mich Al R.N.; NOTES: please re-draw and repeatCMP STAT 22:17 08/19/2021 22:21 Mich Al R.N.; NOTES: please re-draw and repeatCOVID-19 CAH (Not STAT 02:03 08/20/2021 02:06 Hector,Symptomatic as Mich Anthony R.N.Defined by CDC) PA;(08/19/2021) (FirstTest) (Hospitalized)(Not ) (NotResident inCongregate CareSetting) (NotEmployed inHealthcare Setting)DIAGNOSTIC STUDY ORDERSOrder Description Priority Entered Acknowledged InitialedChest Portable 1 STAT 19:27 08/19/2021 19:34 Mikaela,Jassi Oliver R.N.(Oxygen?(No)) PA; 3 OrderSheet [facility] Emergency Department [address] [place] [address] Phone #: ext- [phone] 08/19/2021 19:00 Patient: EDUARDO MORRIS Sex: F : 1985 Age: 36y Reason for Study: IngestionMEDICATION/IV/DRIP/FLUID ORDERSOrder Description Priority Entered Acknowledged InitialedNS IV 1000 mL 19:26 08/19/2021 19:34 Soto,Bolus: : Bolus 1000 Mich Jang R.N.mL (X1) PA;Ativan IVP 2 mg 19:28 08/19/2021 19:34 Soto(HIGH ALERT Mich Jang R.N.MEDICATION) PA;Narcan 0.4 mg IV X 19:37 08/19/2021 19:40 Hector,1 dose: 0.4 mg Mich Anthony R.N.(NOW x1) PA;Magnesium Sulfate 20:21 08/19/2021 20:30 Sorbero,2 g IVPB X1 dose: 2 Mich Oliver R.N.gm (HIGH ALERT PA;MEDICATION, X1)Sod Bicarb 50mEq 23:16 08/19/2021 23:28 , FebruaryIV X1 Mich Daugherty R.N.(50mEq=50mL): 50 PA;mL (NOW x1)Ativan IVP 2 mg 23:23 08/19/2021 23:28 February(HIGH ALERT Mich Daugherty R.NVishalMEDICATION) PA;NS IV : 150 mL/hr 01:29 08/20/2021 01:54 February Mich Daugherty R.N. PA;GENERAL ORDERSOrder Description Priority Entered Acknowledged InitialedOne on One 19:26 08/19/2021 19:33 Soto,supervision Mich SETHI;NPO 19:26 08/19/2021 19:33 Mich Valera R.N.;Saline Lock 19:26 08/19/2021 19:33 Mich Valera R.N.;Accucheck 19:26 08/19/2021 19:33 Mich Valera R.N.;Athletic Team Physician 19:26 08/19/2021 19:33 Sunshine Valera OrderSheet [facility] Emergency Department [address] [place] [address] Phone #: ext- [phone] 08/19/2021 19:00 Patient: EDUARDO MORRIS Sex: F : 1985 Age: 36y(continuous) Mich Jang R.N. PA;Contact Poison 19:26 08/19/2021 19:33 Soto,Control Mich Jang R.N. PA;Elopement 19:26 08/19/2021 19:33 Soto,Precautions Mich Jang R.N. PA;Seizure 19:26 08/19/2021 19:33 Soto,Precautions Mich Jang R.N. PA;Suicide 19:08/19/2021 19:33 Soto,Precautions Mich MasseyNVishal PA;EKG 19:08/19/2021 19:33 Soto, Mich Jang R.N. PA;Psych Evaluation 19:08/19/2021 19:33 Soto,(call) (medical Mich Jang R.N.clearance) PA;Vitals every 15 19:26 08/19/2021 19:33 Soto,minutes Mich Jang R.N. PA;Weigh patient-do 19:08/19/2021 19:33 Soto,not use stated Mich Jang R.N.weight PA;Pulse Oximetry 19:26 08/19/2021 19:33 Soto,Continuous Mich Jang R.N. PA;Scott Catheter 19:27 08/19/2021 19:33 Soto, Mich Jang R.N. PA;[Electronically signed by Silvia Schultz R.N. (05:16 08/20/2021)][Electronically signed by Silvia Schultz R.N. (05:18 08/20/2021)][Electronically signed by Mich Daugherty (06:58 08/20/2021)][Electronically locked by Silvia Schultz R.N. (05:16 08/20/2021)] Name Value Range Interpretation Code Description Data Kelley rce(s) Supporting Document(s) ID Date Data Source [id number] 08/19/2021 07:06:00 PM EDT [facility] 1 Medication Reconciliation Report [facility] Emergency Department [address] [place] [address] Phone #: ext- [phone] 08/19/2021 19:00 Patient: EDUARDO MORRIS Sex: F : 1985 Age: 36yWeight: 77.1 [...] rce(s) Supporting Document(s) ID Date Data Source [id number] 08/19/2021 07:06:00 PM EDT [facility] 1 Medication Administration Record [facility] Emergency Department [address] [place] [address] Phone #: ext- [phone] 08/19/2021 19:00 [id number] Sex[facility] F : 1985 Age: 36yWeight: 77.1 kgHeight/Length: 64 inBMI: 29.2ALLERGIES: Unable to Obtain Date/Time Medication Administered Medication OrderedStart NS [IV] NS IV 1000 mL Bolus: : Bolus [id number] 08/19/2021 Dose: IV Fluids mL (X1)Laine Valera RAlbaro Bolus: 1000 mL wide open---- Dispensed: 1000 mL bagStop Site: #1 left AC20:29 08/19/2021Benito flores R.NVishalStart NS [IV] NS IV 1000 mL Bolus: : Bolus [id number] 08/19/2021 Dose: IV Fluids mL (X1)Benito Al, R.N. Rate: 1500 mL/hr over 40 minute(s)---- Dispensed: 1000 mL bagStop Site: #2 right AC21:10 08/19/2021Benito flores R.NVishalStart NS [IV] NS IV 1000 mL Bolus: : Bolus [id number] 08/19/2021 Dose: IV Fluids mL (X1)Benito Al, R.N. Rate: 1500 mL/hr over 40 minute(s)---- Dispensed: 1000 mL bagStop Site: #1 left AC22:13 08/19/2021Benito flores, R.NVishalGiven ATIVAN [IVP] (LORAZEPAM) Ativan IVP 2 mg (HIGH ALERT19:19 08/19/2021 Dose: 2 mg IVP MEDICATION)Laine Valera R.N. Site: #1Given NARCAN [IVP] (NALOXONE HCL) Narcan 0.4 mg IV X 1 dose: 0.4 mg19:40 08/19/2021 Dose: 0.4 mg IVP (NOW x1)Gabrielle Young R.N. Site: #2 right ACStart MAGNESIUM SULFATE [IVPB] Magnesium Sulfate 2 g IVPB X120:30 08/19/2021 Dose: 2 gm IVPB dose: 2 gm (HIGH ALERTSorbBenito jerez RVishalNVishal Rate: 50 mL/hr MEDICATION, X1)---- Dispensed: 50 mL bagStop Site: #1 left AC21:28 1SorbBenito jerez R.N.Given SODIUM BICARBONATE [IVP] Sod Bicarb 50mEq [...] 1000 mL bag 2 Medication Administration Record [facility] Emergency Department [address] [place] [address] Phone #: ext- [phone] 08/19/2021 19:00 Patient: EDUARDO MORRIS Sex: F : 1985 Age: 36yStop Site: #1 left AC04:43 1LGabrielle grimaldo R.N. Name Value Range Interpretation Code Description Data Kelley rce(s) Supporting Document(s) ID Date Data Source [id number] 08/19/2021 07:06:00 PM EDT [facility] 1 General Instructions [facility] Emergency Department [address] [place] [address] Phone #: ext- [phone] 08/19/2021 19:00 Patient: EDUARDO MORRIS Sex: F : 1985 Age: 36yIntentional overdose with methamphetamine.(Electronically signed by JOSSIE Chavarria 08/20/2021 06:58) Name Value Range Interpretation Code Description Data Kelley rce(s) Supporting Document(s) ID Date Data Source [id number] 08/19/2021 07:06:00 PM EDT [facility] 1 Clinical Report - Nurses [facility] Emergency Department [address] [place] [address] Phone #: ext- [phone] 08/19/2021 19:00 Patient: [...] medication to harm herself.). Admits to havinghallucinations.Treatment GRAIN TRIMMER:None.SEPSIS SCREEN: SIRS SCREEN POSITIVE: heart rate greater than 90 and respiratory rate greater than20. SEPSIS SCREEN NEGATIVE. No suspected or confirmed signs of infection present.MICHAEL COMA SCORE: 13- eyes open to sound (3); best verbal response- confused (4); best motorresponse- obeys commands (6). --19:17 08/19/21 Laine Valera R.N.19:01 08/19/21. BP: 126/96. MAP: [...] or Coronavirus. 2 Clinical Report - Nurses [facility] Emergency Department [address] [place] [address] Phone #: ext- [phone] 08/19/2021 19:00 Patient: [...] placed under 1-on-1 supervision with a patient animal care technician and nurse at bedside. The patient was placed in direct sight of the nurses station. Clothes and valuables were removed and placed at the nurses station. The ED physician has been notified. --05:14 08/20/21 Silvia Schultz R.N. Interventions Identification band on patient. To treatment room. No allergy band on patient. --19:17 08/19/21 Laine Valera R.N.PHYSICAL [id number] 08/19/21. To room via stretcher. Patient gowned.GENERAL [...] PROGRESS NOTES 3 Clinical Report - Nurses [facility] Emergency Department [address] [place] [address] Phone #: ext- [phone] 08/19/2021 19:00 Patient: EDUARDO MORRIS Sex: F : 1985 Age: 36y19:19 08/19/2021 Ativan (LORazepam) IVP 2 mg given via site #1. IV patency established. IV sitechecked: no pain, redness, or swelling. IV flushed thoroughly pre- and post-medication administration. IVPgiven by RN. --19:34 08/19/21 Laine Valera R.N.19:25 08/19/21. 16 fr scott catheter placed in ED. Reason for indwelling catheter: critical need to monitorintake and output and patient's decreased level of consciousness. During procedure hand hygieneobserved and sterile equipment and aseptic technique used. Return of 150 mL yellow-colored clear urine;attached to bedside drainage bag positioned below the bladder and secured with stabilization device. Shetolerated procedure well. --19:35 08/19/21 Laine Valera R.N.19:29 08/19/21. Reassurance given. ( seizure pads on bed.). Two patient identifiers checked. Calllight placed in reach. Side rails up x 2. Bed placed in lowest position. Brakes of bed on. --19: Benito Al R.N.19:31 08/19/21. BP: 115/75. HR: 155. RR: 29. O2 saturation: 100%. --19:32 08/19/21 Judi Tovar ED, ER Apry375:33 08/19/2021 Site #1 started via IV in the left antecubital space with an 20g angiocath; one attempt.Saline lock flushed with 10 mL saline. --19:33 08/19/21 Laine Valera R.N.19:33 08/19/2021 Started bag #1 1000 mL IV [...] 10 mL saline. --19:35 08/19/21 Laine Valera R.NVishal19:40 08/19/2021 Narcan (Naloxone HCl) IVP 0.4 mg [...] RR: 19. O2 saturation: 100%. --19:50 08/19/21 [facility], Judi, ER [id number] value relayed by (19:56 08/19/2021). Critical value received by MINGO. Lactate level: 14. Criticalvalue read back. Verified lab result and patient ID. ED physician notifed of critical value. --20: Gabrielle Young R.N.20:02 08/19/21. BP: 95/69. HR: 127. RR: 18. O2 saturation: 100%. --20:03 08/19/21 [employer],Judi, Nxuh636:01 08/19/21. Oxygen decreased to 2 liters. ( sa02 = 100% on NRB at 15 liters. 2 l NC applied sa02 4 Clinical Report - Nurses [facility] Emergency Department [address] [place] [address] Phone #: ext- [phone] 08/19/2021 19:00 Patient: EDUARDO MORRIS Sex: F : 1985 Age: 36ynow = 89.). --20:13 08/19/21 Benito Al R.N.20:11 08/19/21. BP: 95/69. MAP: 77. HR: 118. RR: 17. O2 saturation: 94% on nasal cannula at 2liters/minute. Pain level now: 0/10. --20:13 08/19/21 Benito Al R.N.Suicide precautions initiated. (Spoke with Natasha from [facility], she states to give 2G magnesium forprolonged QTc, monitor core body temps, benzo if further seizures. She wants the CPK trended untildecreasing, repeat ABG and lactic acid. Recommendations relayed to provider.). Two patient identifierschecked. Side rails up x 2. --20:20 08/19/21 Silvia Schultz R.N.20:20 08/19/21. BP: 100/68. MAP: 78. HR: 128. RR: 19. O2 saturation: 92% on nasal cannula at 2liters/minute. --20:20 08/19/21 [facility] Vncp676:21 08/19/21. Reassurance given. Reassessment acuity: LEVEL 3. [...] on nasal cannula at 2liters/minute. --20:32 08/19/21 [facility] Ptri528:46 08/19/21. BP: 101/85. MAP: 90. HR: 118. RR: 17. O2 saturation: 92% on nasal cannula at 2liters/minute. --20:46 08/19/21 [facility] Mljl669:10 08/19/2021 IV Fluids NS via IV site #2 Discontinued: bag #2 completed. Total amount infused: 1000mL. IV patency established. IV site checked: no pain, redness, or swelling. IV flushed thoroughly. --21: Benito Al R.N. 5 Clinical Report - Nurses [facility] Emergency Department [address] [place] [address] Phone #: ext- [phone] 08/19/2021 19:00 Patient: EDUARDO MORRIS Sex: F [...] of bed on. --21:53 08/19/21 Benito Al R.N.22:13 08/19/2021 IV Fluids NS via IV sit e #1 Discontinued: bag #3 completed. Total amount infused: 1000mL. IV patency established. IV site checked: no pain, redness, or swelling. IV flushed thoroughly. --22: Benito Al, R.N.The patient is resting quietly and sleeping.GENERAL / NEURO / PSYCH: Patient is calm and cooperative.SKIN: Slightly abnormal color (ashen skin tone). Skin is warm. --22:56 08/19/21February, R.N.23:00 08/19/21. BP: 102/71. MAP: 81. HR: 126. RR: 22. O2 saturation: 100% on nasal cannula at 2liters/minute. Temp: 97.2 F (rectal). Pain level now: 0. --23:09 08/19/21February R.N.23:27 08/19/2021 Sodium Bicarbonate IVP 50 meq given via site #1. Allergies verified and confirmed 5rights. IV patency established. IV site checked: no pain, redness, or swelling. IV flushed thoroughly pre-and post-medication administration. Information reviewed with patient. --23:28 08/19/21 February R.N.23:28 08/19/2021 Ativan (LORazepam) IVP 2 mg given via site #2. Allergies verified and confirmed 5rights. IV patency established. IV site checked: no pain, redness, or swelling. IV flushed thoroughly pre-and post-medication administration. Information reviewed with patient including reason for taking thismedication and sedative warning. Verbalizes understanding. --23:28 08/19/21 February, R.N.00:00 08/20/21. BP: 103/66. MAP: 78. HR: 100. RR: 18. O2 saturation: 99%. Pain level now: 0.--01:16 08/20/21 February R.N.01:00 08/20/21. BP: 102/62. MAP: 75. HR: 87. RR: 16. O2 saturation: 98% on nasal cannula at 2liters/minute. Pain level now: 0. --01:17 08/20/21 February R.N.01:54 08/20/2021 Started bag #1 1000 mL IV Fluids NS; at 150 mL/hr via site #1 via IV pump. Allergies 6 Clinical Report - Nurses [facility] Emergency Department [address] [place] [address] Phone #: ext- [phone] 08/19/2021 19:00 Patient: EDUARDO MORRIS Sex: F : 1985 Age: 36yverified and confirmed 5 rights. IV patency established. Information reviewed with patient. --01: Antoine February R.N.02:00 08/20/21. BP: 92/64. MAP: 73. HR: 85. RR: 16. O2 saturation: 99%. Pain level now: 0/10. --02: Antoine February, R.N.The patient is sleeping. --02:01 08/20/21 February, R.N.03:00 08/20/21. The patient is sleeping.RESPIRATORY: No respiratory distress.SKIN: Skin is warm and dry. Skin color within normal limits. --03:37 08/20/21 February, R.N.02:00 08/20/21. BP: 96/66. MAP: 76. HR: 86. RR: 18. O2 saturation: 99%. Pain level now: 0/10. --03: February, R.N.03:00 08/20/21. BP: 94/63. MAP: 73. HR: 85. RR: 16. O2 saturation: 98%. Pain level now: 0/10. --03: Antoine Silvia, R.N.Monitoring of patient in place. Patient gowned. Suicide precautions initiated. Two patient identifierschecked. Call light placed in reach. Side rails up x 2. Bed placed in lowest position. ( Called [facility] togive report after pt was accepted by Dr. Hdez and DR dean CHAVEZ report was complete. MIGUEL Harrellstated that pt "wasn't medically cleared" and that the transfer will be declined. JOSSIE Daugherty on phonew/[facility] now.). --04:29 08/20/21 Antoine FebruaryPaulUrinary catheter removed; catheter intact; (661). --04:46 08/20/21 Gabrielle Young R.N.04:43 08/20/2021 IV [...] pt arousable, agreeable w/plan to transfer to [facility] ED for psychiatricevaluation. Call to [facility] deferred d/t time.). --05:18 08/20/21 Silvia Schultz R.N.Intake OutputUrine output: 270 mL catheter with return of key- colored urine; sediment noted. Attached to bedsidedrainage bag. --04:45 08/20/21 Gabrielle Young R.N.DISPOSITION / DISCHARGE 7 Clinical Report - Nurses [facility] Emergency Department [address] [place] [address] Phone #: ext- [phone] 08/19/2021 19:00 Patient: EDUARDO MORRIS Sex: F : 1985 Age: 36y Transferred to [facility]. Visit overview, summary of care (CCDA), Emtala forms and Face Sheet provided to EMS and transfer facility. --05:12 08/20/21 Silvia Schultz R.N. 05:11 08/20/21. BP: 115/74. MAP: 87. HR: 88. RR: 16. O2 saturation: 99%. Temp: 98.3 F. Pain level now: 010. --05:12 08/20/21 Silvia Schultz R.N. Departure time: 05:12 08/20/2021. --05:12 08/20/21 Silvia Schultz R.N.Locked/Released at 08/20/2021 05:18 by Silvia Schultz R.N. Name Value Range Interpretation Code Description Data Kelley rce(s) Supporting Document(s) ID Date Data Source [id number] 08/19/2021 07:06:00 PM EDT [facility] 1 Clinical Report - Physicians/Mid Levels [facility] Emergency Department [address] [place] [address] Phone #: ext- [phone] 08/19/2021 19:00 Patient: EDUARDO MORRIS Sex: F [...] No organomegaly. 2 Clinical Report - Physicians/Mid Levels [facility] Emergency Department [address] [place] [address] Phone #: ext- [phone] 08/19/2021 19:00 Patient: EDUARDO MORRIS Sex: F [...] MANAGEMENT DECISIONS. CMP: (OLIVE: 08/19/2021 22:15) ( MsgRcvd 08/19/2021 22:44) Final results Test Result Flag [...] Normal 3 Clinical Report - Physicians/Mid Levels [facility] Emergency Department [address] [place] [address] Phone #: ext- [phone] 08/19/2021 19:00 Patient: EDUARDO MORRIS Sex: F : 1985 Age: 24v79-32 yrs >56 mL/min Normal 60-69 yrs >49 mL/min Normal 70-79yrs>42 mL/min Normal 80 and above >35 mL/min Normal Female GFRInterpretation 20-39 yrs >60 mL/min Normal 40-49 yrs >58 mL/minNormal 50-59 yrs >51 mL/min Normal 60-69 yrs >45 mL/min Urqpas52-34 yrs >39 mL/min Normal 80 and above [...] - 98.0)Lactic Acid: (OLIVE: 08/19/2021 22:15) ( MsgRcvd 08/19/2021 22:27) Final results Test Result Flag Units (Reference) LACTIC ACID 2.4 H MMOL/L (0.2 - 2.2)Magnesium: (OLIVE: 08/19/2021 19:29) ( MsgRcvd 08/19/2021 20:33) Final results Test Result Flag [...] 08/19/2021 19:27) ( MsgRcvd 08/19/2021 22:14) In [place](s): IngestionTRANSPORTATION: WC IV? O2? Oxygen?(No) [facility]: (OLIVE: 08/19/2021 19:29) ( MsgRcvd 08/19/2021 19:45) Final results Test Result Flag Units (Reference) pH V 6.99 L (7.32 - 7.43) pCO2 V 70.4 H mm/HG (38.0 - 51.0) 4 Clinical Report - Physicians/Mid Levels [facility] Emergency Department [address] [place] [address] Phone #: ext- [phone] 19:00 Patient: EDUARDO [...] 3.2) 5 Clinical Report - Physicians/Mid Levels [facility] Emergency Department [address] [place] [address] Phone #: ext- [phone] 08/19/2021 19:00 Patient: [...] Male GFR Interprentation 20-49 yrs >60 mL/min Byzgzx36-03 yrs >56 mL/min Normal 60-69 yrs >49 mL/min Normal 70-79yrs>42 mL/min Normal 80 and above >35 mL/min Normal Female GFRInterpretation 20-39 yrs >60 mL/min Normal 40-49 yrs >58 mL/minNormal 50-59 yrs >51 mL/min Normal 60-69 yrs >45 mL/min Xwwxyl64-63 yrs >39 mL/min Normal 80 and above >32 mL/min NormalCPK: (OLIVE: 08/19/2021 19:29) ( [facility] 08/19/2021 20:04) Final results Test Result Flag Units (Reference) CPK 242 H U/L (30 - 170)TSH: (OLIVE: 08/19/2021 19:29) ( MsgRcvd 08/19/2021 20:07) Final results Test Result Flag Units (Reference) TSH 4.40 uIU/mL (0.47 - 5.01)Lactic Acid: (OLIVE: 08/19/2021 19:29) ( FlgRcvd 08/19/2021 19:55) Final results Test Result Flag Units (Reference) LACTIC ACID 14.0 HH MMOL/L (0.2 - 2.2) CALL/ READ BACK /REPEATED CONFIRM BY: SHOLA DATE/TIME 08/19/21 1954Drug Screen-Urine: (OLIVE: 08/19/2021 19:20) ( [facility] 08/19/2021 19:55) Final results Test Result Flag [...] PRESUMPTIVE POSITIVE CONFIRMATION WILL BE PERFORMED AT [facility].Acetaminophen Level: (OLIVE: 08/19/2021 19:29) ( MsgRcvd 08/19/2021 19:57) Final results Test Result Flag Units (Reference) 6 Clinical Report - Physicians/Mid Levels [facility] Emergency Department [address] [place] [address] Phone #: ext- [phone] 08/19/2021 19:00 Patient: [...] NEGATIVE (NORMAL: NEGAT { KIT LOT # [id number] ){ KIT EXP DATE 12/04/22 ){ PROCEDURAL [...] .). 7 Clinical Report - Physicians/Mid Levels [facility] Emergency Department [address] [place] [address] Phone #: ext- [phone] 08/19/2021 19:00 Patient: EDUARDO MORRIS Sex: F : 1985 Age: 36y 04:02 Aug 20 2021. Evaluation after observation. (D/W Dr Hdez at [facility] ED and he accepted the pt. Pt is agreeable with dx and txfr.). Patient counseled in person regarding the patient's stable condition, test results, diagnosis and need for transfer. Patient agrees with plan of care. 04:03 Aug 20 2021. Disposition: Benefits, risks and alternatives to transfer explained to patient. Transferred to [facility]. Summary of care (CCDA) provided to EMS and transfer facility via paper, fax and digital media. 04:03 Aug 20 2021. UTI (catheter associated) was not [...] rce(s) Supporting Document(s) ID Date Data Source [id number] 08/19/2021 07:06:00 PM EDT [facility] for EDUARDO MORRIS VisitID: [id number] Date: 14:02accuchek ordered in error, no finger stick reading done(Electronically signed by Mich SETHI - 08/25/2021 14:02) Name Value Range Interpretation Code Description Data Kelley rce(s) Supporting Document(s) ID Date Data Source [id number] 08/20/2021 12:29:00 PM EDT [facility] [address] [place] [address] PHONE: [phone] FAX: [phone] Name .................. : SWAPNILCHELITAJUAN JOSE Mckeon Acct Number.................. : [id number] ROOM. ................. : TR-02 MR Number ................... : [id number] Stay type ............. : E/R Discharge Date......... ... : 08/20/21 Admit Date ......... : 08/19/21 Admit Phys .................... : ANKIT ANGELINA Date of ....... : 1985 Family Phys ................... : [employer] Phone .................. : [phone] Age ................................ : 36 Film# .................. .:[id number] Sex ................................. : F Unsigned transcriptions are preliminary reports and do not represent a medical or legal document CHEST PORTABLE [id number] COMPLETE:08/19/21 22:14 [facility] [id number] Reason(s): Ingestion PORTABLE CHEST SINGLE VIEW OBTAINED AT 8:23 PM HISTORY: Overdose COMPARISON: None. FINDINGS: Mediastinal and hilar structures are normal. Cardiac silhouette is unremarkable. Lungs are clear. No pulmonary edema. No pleural effusions or pneumothorax. IMPRESSION: No acute disease. Electronically Reviewed and Signed By Arthur Geiger MD , 08/20/21 12:29, JWNaomi Transcribe Initials: DARIO , Transcribe Date: 08/20/21 09:59, Dictation Date: Copy for: KIMBERLY SMART via fax Copy for: ANKIT Magallanes via fax Copy for: EMERGENCY DEPT via modem Copy for: 710 MED REC DISCHARGED Page 1 of 1 Name Value Range Interpretation Code Description Data Kelley rce(s) Supporting Document(s) ID Date Data Source [id number] 08/20/2021 11:11:00 AM EDT [facility] [address] [place] [address] RESPIRATORY CARE REPORT ==== ---------NAME------- NUMBER SEX AGE ADMIT DISC. XRAY# F/C ALLISONJerrellJUAN JOSE EDUARDO E [id number] F 36 08/19/21 08/20/21 [id number] [facility] E/R DATE OF : 1985 M/R# [id number] PH#: [phone] TR-02 LOCATION: EMERGENCY DEPT EKG [id number] COMP LETE:08/19/21 22:55 BIS [id number] PHYSICIAN: ANKIT DAUGHERTY Name Value Range Interpretation Code Description Data Kelley rce(s) Supporting Document(s) ID Date Data Source [id number] 08/20/2021 02:30:00 AM EDT [facility] NOT DETECTEDNOT DETECTED PROCE DURAL CONTROL VALID KIT LOT # _[id number] 08/20/21.0230.LBS. KIT EXP DATE _84-43-50 08/20/21.0230.LBS. NORMAL RANGE IS NOT DETECTEDThe COVID-19 [...] rce(s) Supporting Document(s) ID Date Data Source [id number] 08/19/2021 10:44:00 PM EDT [facility] Name Value Range Interpretation Code Description Data Kelley rce(s) Supporting Document(s) ISABELLE TEST POSITIVE A [facility]an FiO2 4 LNC [facility] al SITE RADIAL RT [facility] al pH of Arterial blood 7.30 7.34 - 7.44 L [facility] Carbon dioxide [Partial pressure] in Blood 35.9 mm/HG 32.0 - 42.0 [facility] Oxygen [Partial pressure] in Blood 76.2 mm/HG 75.0 - 100 [facility] Bicarbonate [Moles/volume] in Blood 17.3 meq/L 20.0 - 24.0 L [facility] TCO2 18.4 meq/L 21.0 - 25.0 L [facility] Base excess in Blood by calculation -8.3 -2.0 - 2.0 L [facility] O2 SAT 92.9 % 95.0 - 98.0 L [facility] ital ID Date Data Source [id number] 08/19/2021 10:43:00 PM EDT [facility] Name Value Range Interpretation Code Description Data Kelley rce(s) Supporting Document(s) COMPREHENSIVE METABOLIC PANEL [facility] COMPREHENSIVE METABOLIC PANEL Sodium [Moles/volume] in Serum or Plasma 140 mEq/L 134 - 153 [facility] Potassium [Moles/volume] in Serum or Plasma 4.3 mEq/L 3.6 - 5.0 [facility] Chloride [Moles/volume] in Serum or Plasma 114 mEq/L 98 - 107 H [facility] Carbon dioxide, total [Moles/volume] in Serum or Plasma 18 MEQ/L 22 - 30 L [facility] Glucose [Mass/volume] in Serum or Plasma 118 MG/DL 70 - 99 H [facility] BUN 10 MG/DL 7 - 21 [facility] al Creatinine [Mass/volume] in Serum or Plasma 1.1 MG/DL 0.7 - 1.5 [facility] BUN/CREAT 9 8 - 27 [facility] al Protein [Mass/volume] in Serum or Plasma 5.4 G/DL 6.3 - 8.2 L [facility] Albumin [Mass/volume] in Serum or Plasma 3.8 G/DL 3.9 - 5.0 L [facility] Globulin [Mass/volume] in Serum by calculation 1.6 GM/DL 2.4 - 3.2 L [facility] A/G RATIO 2.4 0.8 - 2.0 H [facility] Calcium [Mass/volume] in Serum or Plasma 7.6 MG/DL 8.4 - 10.2 L [facility] Bilirubin.total [Mass/volume] in Serum or Plasma <0.7 MG/DL 0.2 - 1.3 [facility] Alkaline phosphatase [Enzymatic activity/volume] in Serum or Plasma 43 U/L 38 - 126 [facility] Aspartate aminotransferase [Enzymatic activity/volume] in Serum or Plasma 11 U/L 5 - 40 [facility] Alanine aminotransferase [Enzymatic activity/volume] in Seru m or Plasma <5 U/L 7 - 56 L [facility] Anion gap 3 in Serum or Plasma 8.0 mmol/L 8.0 - 16.0 [facility] AGE 36 yrs [facility] NON-AA GFR 60 mL/min [facility] AMER GFR >60 mL/min [facility] Male GFR In terprentation [...] >32 mL/min Normal ID Date Data Source [id number] 08/19/2021 10:43:00 PM EDT [facility] Name Value Range Interpretation Code Description Data Kelley rce(s) Supporting Document(s) Creatine kinase [Enzymatic activity/volume] in Serum or Plasma 1 79 U/L 30 - 170 H [facility] ID Date Data Source [id number] 08/19/2021 10:27:00 PM EDT [facility] Name Value Range Interpretation Code Description Data Kelley rce(s) Supporting Document(s) Lactate [Moles/volume] in Serum or Plasma 2.4 MMOL/L 0.2 - 2.2 H [facility] Hospital ID Date Data Source [id number] 08/19/2021 08:14:00 PM EDT [facility] Name Value Range Interpretation Code Description Data Kelley rce(s) Supporting Document(s) ISABELLE TEST NOT GIVEN [facility] FiO2 NOT GIVEN [facility] al SITE NOT GIVEN [facility] al pH of Arterial blood 7.32 7.34 - 7.44 L [facility] Carbon dioxide [Partial pressure] in Blood 36.3 mm/HG 32.0 - 42.0 [facility] Oxygen [Partial pressure] in Blood 71.3 mm/HG 75.0 - 100 L [facility] Bicarbonate [Moles/volume] in Blood 18.4 meq/L 20.0 - 24.0 L [facility] TCO2 19.5 meq/L 21.0 - 25.0 L [facility] Base excess in Blood by calculation -7.0 -2.0 - 2.0 L [facility] O2 SAT 92.1 % 95.0 - 98.0 L [facility] Hosp ital ID Date Data Source [id number] 08/20/2021 04:57:00 AM EDT [facility] Name Value Range Interpretation Code Description Data Kelley rce(s) Supporting Document(s) LACTIC ACID (LACTATE) [facility] CORRECTE D REPORT Lactate [Moles/volume] in Serum or Plasma 14.0 MMOL/L 0.2 - 2.2 [facility] CALL/ READ BACK GABRIELLE/ ER [facility] REPEATED CONFIRM BY: JSK [facility] al DATE/TIME 08/19/211953 [facility] FOLLOWING RESULTS REPORTED IN ERROR CALL/ READ BACK { CORRECT GABRIELLE/ ER ID Date Data Source [id number] 08/19/2021 08:33:00 PM EDT [facility] Value Range Interpretation Code Description Data Kelley rce(s) Supporting Document(s) Magnesium [Mass/volume] in Serum or Plasma 2.0 MG/DL 1.7 - 2.2 [facility] ID Date Data Source [id number] 08/19/2021 08:07:00 PM EDT [facility] Value Range Interpretation Code Description Data Kelley rce(s) Supporting Document(s) Thyrotropin [Units/volume] in Serum or Plasma by Detec tion limit <= 0.05 mIU/L 4.40 uIU/mL 0.47 - 5.01 [facility] ID Date Data Source [id number] 08/19/2021 08:04:00 PM EDT [facility] Name Value Range Interpretation Code Description Data Kelley rce(s) Supporting Document(s) SALICYLATE 0.4 mg/dL 2.0 - 20.0 L [facility] ital ID Date Data Source [id number] 08/19/2021 08:04:00 PM EDT [facility] Name Value Range Interpretation Code Description Data Kelley rce(s) Supporting Document(s) Creatine kinase [Enzymatic activity/volume] in Serum or Plasma 2 42 U/L 30 - 170 H [facility] ID Date Data Source [id number] 08/19/2021 08:04:00 PM EDT [facility] Value Range Interpretation Code Description Data Kelley rce(s) Supporting Document(s) COMPREHENSIVE METABOLIC PANEL [facility] COMPREHENSIVE METABOLIC PANEL Sodium [Moles/volume] in Serum or Plasma 141 mEq/L 134 - 153 [facility] Potassium [Moles/volume] in Serum or Plasma 3.6 mEq/L 3.6 - 5.0 [facility] Chloride [Moles/volume] in Serum or Plasma 103 mEq/L 98 - 107 [facility] Carbon dioxide, total [Moles/volume] in Serum or Plasma 16 MEQ/L 22 - 30 L [facility] Glucose [Mass/volume] in Serum or Plasma 127 MG/DL 70 - 99 H [facility] BUN 10 MG/DL 7 - 21 [facility] Creatinine [Mass/volume] in Serum or Plasma 1.4 MG/DL 0.7 - 1.5 [facility] BUN/CREAT 7 8 - 27 L [facility] Protein [Mass/volume] in Serum or Plasma 7.6 G/DL 6.3 - 8.2 [facility] Albumin [Mass/volume] in Serum or Plasma 5.0 G/DL 3.9 - 5.0 [facility] Globulin [Mass/volume] in Serum by calculation 2.6 GM/DL 2.4 - 3.2 [facility] A/G RATIO 1.9 0.8 - 2.0 [facility] Calcium [Mass/volume] in Serum or Plasma 9.8 MG/DL 8.4 - 10.2 [facility] Bilirubin.total [Mass/volume] in Serum or Plasma <0.7 MG/DL 0.2 - 1.3 [facility] Alkaline phosphatase [Enzymatic activity/volume] in Serum or Plasma 58 U/L 38 - 126 [facility] Aspartate aminotransferase [Enzymatic activity/volume] in Serum or Plasma 16 U/L 5 - 40 [facility] Alanine aminotransferase [Enzymatic activity/volume] in Seru m or Plasma 5 U/L 7 - 56 L [facility] Anion gap 3 in Serum or Plasma 22.0 mmol/L 8.0 - 16.0 H [facility] 36 [facility]min [facility] AFR AMER GFR 55 mL/min [facility] Male GFR In terprentation [...] >32 mL/min Normal ID Date Data Source [id number] 08/19/2021 08:02:00 PM EDT [facility] Name Value Range Interpretation Code Description Data Kelley rce(s) Supporting Document(s) CBC W/AUTOMATED DIFF [facility] COMPLETE BLOOD COUNT Leukocytes [#/volume] in Blood by Automated count 21.6 10^3/uL 4.2 - 11.0 H [facility] Erythrocytes [#/volume] in Blood by Automated count 4.73 10^6/uL 4. 20 - 5.40 [facility] Hemoglobin [Mass/volume] in Blood 14.3 g/dL 12.0 - 16.0 [facility] Hematocrit [Volume Fraction] of Blood by Automated count 45.0 % 3 7.0 - 47.0 [facility] Erythrocyte mean corpuscular volume [Entitic volume] by Auto mated count 95.1 fL 81.0 - 101 [facility] Erythrocyte mean corpuscular hemoglobin [Entitic mass] by Automated count 30.2 pg 27.0 - 34.0 [facility] Erythrocyte mean corpuscular hemoglobin concentration [Mass/volume] by Automated count 31.8 g/dL 31.0 - 36.0 [facility] Erythrocyte distribution width [Ratio] by Automated count 13.8 % 11.5 - 14.5 [facility] Platelets [#/volume] in Blood by Automated count 326 10^3/uL 150 - 45 0 [facility] Platelet mean volume [Entitic volume] in Blood by Automated count 9.2 fL 7.4 - 10.4 [facility] Neutrophils/100 leukocytes in Blood by Automated count 65.2 % 37. 0 - 80.0 [facility] Lymphocytes/100 leukocytes in Blood by Manual count 22.0 % 25.0 - 40.0 L [facility] Monocytes/100 leukocytes in Blood by Automated count 9.5 % 3.0 - 8.0 H [facility] Hospital Eosinophils/100 leukocytes in Blood by Automated count 2.4 % 0.0 - 7.0 [facility] Basophils/100 leukocytes in Blood by Automated count 0.4 % 0.0 - 2.5 [facility] %IG 0.5 % 0.0 - 0.0 H [facility] al %NRBC 0.0 % 0.0 - 0.0 [facility] al Neutrophils [#/volume] in Blood by Automated count 14.06 10^3/uL 2. 00 - 6.90 H [facility] Lymphocytes [#/volume] in Blood by Automated count 4.74 10^3/uL 0.60 - 3.40 H [facility] Monocytes [#/volume] in Blood by Automated count 2.05 10^3/uL 0.00 - 0.90 H [facility] Eosinophils [#/volume] in Blood by Automated count 0.52 10^3/uL 0.00 - 0.70 [facility] Basophils [#/volume] in Blood by Automated count 0.08 10^3/uL 0.00 - 0.20 [facility] #IG 0.11 10^3/uL 0.00 - 0.10 H [facility] #NRBC 0.00 10^3/uL 0.00 - 0.00 [facility] MANUAL DIFF SEE BELOW [facility] ital Segmented neutrophils/100 leukocytes in Blood by Manual count 67 % 37 - 80 [facility] BAND 3 % 0 - 5 [facility] al %LYMPH 20 % 25 - 40 L [facility] al %MONO 7 % 3 - 8 [facility] Metamyelocytes/100 leukocytes in Blood by Manual count 2 % [facility] SHOBHA LYM 1 % [facility] RBC MORPH MORPH IS NORMAL [facility] ID Date Data Source [id number] 08/19/2021 07:57:00 PM EDT [facility] Name Value Range Interpretation Code Description Data Kelley rce(s) Supporting Document(s) Acetaminophen [Presence] in Urine <5.0 UG/ML 0.0 - 30.0 [facility] ID Date Data Source [id number] 08/19/2021 07:44:00 PM EDT [facility] Name Value Range Interpretation Code Description Data Kelley rce(s) Supporting Document(s) pH of Serum or Plasma 6.99 7.32 - 7.43 L [facility] pCO2 V 70.4 mm/HG 38.0 - 51.0 H [facility] pO2 V 48.1 mm/HG 30.0 - 55.0 [facility] Bicarbonate [Moles/volume] in Venous blood 16.6 meq/L 22.0 - 29.0 L [facility] TCO2 V 18.7 meq/L 22.0 - 29.0 L [facility] Base excess in Blood by calculation -15.8 -2.0 - 2.0 L [facility] O2 SAT V 55.0 % 40.0 - 85.0 [facility] ID Date Data Source [id number] 08/19/2021 08:04:00 PM EDT [facility] Name Value Range Interpretation Code Description Data Kelley rce(s) Supporting Document(s) Ethanol [Moles/volume] in Blood <10.0 MG/DL [facility] ALCOHOL % 0.01 % 0.00 - 0.01 [facility] *FOR MEDICAL PURPOSES ONLY * ID Date Data Source [id number] 08/19/2021 08:03:00 PM EDT [facility] Value Range Interpretation Code Description Data Kelley rce(s) Supporting Document(s) HCG SERUM QUAL NEGATIVE NORMAL: NEGATIVE [facility] HCG SERUM QL REENTER NEGATIVE NORMAL: NEGATIVE [facility] { KIT LOT # [id number] ){ KIT EXP DATE 12/04/22 ){ PROCEDURAL CONTROL VALID ) ID Date Data Source [id number] 08/23/2021 06:15:00 AM EDT [facility] Value Range Interpretation Code Description Data Kelley rce(s) Supporting Document(s) CULTURE URINE [facility] spital _CULTURE URINE_$$[id number]$$[id number]$$[id number]$$203214$$[id number]$$799465$$285014$$530821$$[id number]$$ 800332$$890787$$227444$$349317$$006094$$100028$$325360$$479501$$950712$$880850$$ 687331$$797204$$812545$$418455$$019540$$305621$$[id number]$$[id number] -- Continued on next page --Patient: ALEXANDRA Mckeon Order: [id number] Page 2Culture: CULTURE URINE Status: Final ====$$[id number]$$[id number] DATE/TIME: 08/23/2021 00:05Culture: CULTURE URINE Status: FinalUrine Culture,Comprehensive: P1No growth in 36 - 48 hours.P1 Test performed by: [facility] #: [id number] [address] [place] [address] [id number] [facility] [id number] Director : Porfirio Plata MD NPI #:Sample Cutter : 08/23/[email or web address] REF ID Date Data Source [id number] 08/19/2021 07:55:00 PM EDT [facility] Name Value Range Interpretation Code Description Data Kelley rce(s) Supporting Document(s) DRUG SCREEN URINE [facility] URINE DRUG SCREEN Amphetamine [Presence] in Urine by Screen method PRESUMP POS JESE L: NEGATIVE [facility] BARBITURATES NEGATIVE NORMAL: NEGATIVE [facility] BENZO NEGATIVE NORMAL: NEGATIVE [facility] COCAINE NEGATIVE NORMAL: NEGATIVE [facility] Tetrahydrocannabinol [Presence] in Urine NEGATIVE NORMAL: NEGATIVE [facility] OPIATES NEGATIVE NORMAL: NEGATIVE [facility] Phencyclidine [Presence] in Urine by Screen method NEGATIVE NOR MAL: NEGATIVE [facility] \\BLDo\\URINE DRUG SCR EEN INTERPRETATION\\BLDx\\ THE CUTOFFF LEVELS FOR DETECTION ARE FOLLOWS: AMPHETAMINES 1000 ng/ml BARBITUARATES 200 ng/ml BENZODIAZEPINES 100 ng/ml THC 50 ng/ml PHENCYCLIDINE 25 ng/ml OPIATES 300 ng/ml COCAINE 300 ng/ml ALL POSITIVES ARE CONSIDERED PRESUMPTIVE POSITIVE CONFIRMATION WILL BE PERFORMED AT PHYSICIAN REQUEST. ID Date Data Source [id number] 08/19/2021 07:42:00 PM EDT [facility] Name Value Range Interpretation Code Description Data Kelley rce(s) Supporting Document(s) UA REFLEX TO UA CULTURE [facility] yellow NORMAL: Yellow [facility] CLARITY clear NORMAL: Clear [facility] Specific gravity of Urine by Test strip 1.030 1.001 - 1.030 [facility] pH 5 5 - 9 [facility] Glucose [Mass/volume] in Urine by Test strip NORM NORMAL: Negat [facility] Bilirubin.total [Presence] in Urine by Test strip 1 NORMAL: Negative [facility] Ketones [Presence] in Urine by Test strip 5 NORMAL: Negative [facility] Protein [Mass/volume] in Urine by Test strip 30 NORMAL: Negat [facility] Nitrite [Presence] in Urine by Test strip NEG NORMAL: Negative [facility] BLOOD NEG NORMAL: Negative [facility] Leukocyte esterase [Presence] in Urine by Test strip 100 JESE L: Negative [facility] Urobilinogen [Mass/volume] in Urine by Test strip 1 less cherry n 1.0 mg/dL [facility] MICROSCOPIC See Below [facility] ital WBC 7 - 10 NORMAL: NONE SEEN A [facility] EPITHELIAL MODERATE NORMAL: NONE SEEN A [facility] Bacteria [Presence] in Urine sediment by Light microscopy 2+ MOD NORMAL: NONE SEEN A [facility] Mucus [Presence] in Urine sediment by Light microscopy Trace NORMAL: NONE SEEN [facility] Amorphous sediment [Presence] in Urine sediment by Light tammy roscopy RARE NORMAL: NONE SEEN [facility] Casts [#/area] in Urine sediment by Microscopy low power field See Be low [facility] Hyaline casts [#/area] in Urine sediment by Microscopy low power field None Seen NORMAL: None Seen [facility] Coarse Granular Casts [#/area] in Urine sediment by Mi croscopy low power field 0-1 NORMAL: None Seen A [facility] ID Date Data Source [id number] 08/10/2021 12:45:00 PM EDT [facility] [address] [place] [address] PHONE: [phone] FAX: [phone] Name .................. : CONNORLAURA CRUZY Linda Acct Number.................. : [id number] ROOM. ................. : Number ................... : [id number] Stay type ............. : O/P Discharge Date......... ... : Admit Date ......... : Admit Phys .................... : NWOGU JILL Date of ....... : 1985 Family Phys ................... : NON STAFF Phone .................. : [phone] Age ................................ : 35 Film# .................. .:[id number] Sex ................................. : F Unsigned transcriptions are preliminary reports and do not represent a medical or legal document [facility] [id number] COMPLETE:08/08/21 09:24 [facility] [id number] ENDOMETRIAL STRIPE/THICKNESS ULTRASOUND PELVIS INDICATION: Abnormal uterine/vaginal [...] 08/10/21 12:45, SCB Page 1 of 2 [facility] [address] [place] [address] PHONE: [phone] FAX: [phone] Name .................. : CONNORLAURA CRUZY Linda Acct Number.................. : [id number] ROOM. ................. : MR Number ................... : [id number] Stay type ............. : O/P Discharge Date......... ... : Admit Date ......... : Admit Phys .................... : NWOGU JILL Date of ....... : 1985 Family Phys ................... : NON STAFF Phone .................. : [phone] Age ......... ....................... : 35 Film# .................. .:[id number] Sex ................................. : F Unsigned transcriptions are preliminary reports and do not represent a medical or legal document [facility] [id number] COMPLETE:08/08/21 09:24 [facility] [id number] ENDOMETRIAL STRIPE/THICKNESS Transcribe Initials: DARIO , Transcribe Date: 08/08/21 12:53, Dictation Date: Copy for: [facility] Page 2 of 2 Name Value Range Interpretation Code Description Data Kelley rce(s) Supporting Document(s) ID Date Data Source [id number] 08/08/2021 09:53:00 AM EDT [facility] ([facility]) Name Value Range Interpretation Code Description Data Kelley rce(s) Supporting Document(s) HSV, IgM I/II Combination Laboratory test result 0.00-0.90 [facility] ([facility]) <content>Negative <0.91</content>
<content>Equivocal 0.91 - 1.09</content>
<content>Positive >1.09</content>
<content></content> ID Date Data Source [id number] 08/08/2021 09:53:00 AM EDT [facility] ([facility]) Name Value Range Interpretation Code Description Data Kelley rce(s) Supporting Document(s) HIV Screen 4thGeneration wRfx Laboratory test result [facility] ([facility]) ID Date Data Source [id number] 08/08/2021 09:53:00 AM EDT [facility] ([facility]) Name Value Range Interpretation Code Description Data Kelley rce(s) Supporting Document(s) HSV 1 IgG, Type Spec 32.30 index 0.00-0.90 Above high normal [facility] ([facility]) <content>Negative <0.91</content>
<content>Equivocal 0.91 - 1.09</content>
<content>Positive >1.09</content>
<content>Note: Negative indicates no antibodies detected to</content>
<content>HSV-1. Equivocal may suggest early infection. If</content>
<content>clinically appropriate, retest at later date. Positive</content>
<content>indicates antibodies detected to HSV-1.</content>
<content></content> HSV 2 IgG, Type Spec Laboratory test result 0.00-0.90 [facility] ([facility]) <content>Negative <0.91</content>
<content>Equivocal 0.91 - 1.09</content>
<content>Positive >1.09</content>
<content>Note: Negative indicates no antibodies detected to</content>
<content>HSV-2. Equivocal may suggest early infection. If</content>
<content>clinically appropriate, retest at later date. Positive</content>
<content>indicates antibodies detected to HSV-2.</content>
<content></content> ID Date Data Source [id number] 08/08/2021 09:53:00 AM EDT [facility] Name Value Range Interpretation Code Description Data Kelley rce(s) Supporting Document(s) Hepatitis B virus surface Ag [Presence] in Serum or Pl asma by Immunoassay Laboratory test result [facility] ([facility]) Treponema pallidum Ab [Presence] in Serum Laboratory test result [facility] ([facility]) Laboratory test finding (navigational concept) 0.1 s/coratio 0.0-0.9 [facility] ([facility]) ID Date Data Source [id number] 08/10/2021 06:26:00 AM EDT [facility] Name Value Range Interpretation Code Description Data Kelley rce(s) Supporting Document(s) Herpes simplex virus 1+2 IgM Ab [Units/volume] in Seru m by Immunoassay <0.91 Ratio 0.00-0.90 [facility] Negative <0.91 Equivocal 0.91 - 1.09 Positive >1.09 ID Date Data Source [id number] 08/09/2021 08:09:00 AM EDT [facility] Name Value Range Interpretation Code Description Data Kelley rce(s) Supporting Document(s) HIV 1+2 Ab+HIV1 p24 Ag [Presence] in Serum or Plasma b y Immunoassay Non Reactive Non Reactive [facility] ID Date Data Source [id number] 08/09/2021 08:09:00 AM EDT [facility] Name Value Range Interpretation Code Description Data Kelley rce(s) Supporting Document(s) Herpes simplex virus 1 IgG Ab [Units/volume] in Serum by Immunoassay 32.30 index 0.00-0.90 H [facility] Negative <0.91 Equivocal 0.91 - 1.09 Positive >1.09 Note: Negative indicates no antibodies detected to HSV-1. Equivocal may suggest early infection. If clinically appropriate, retest at later date. Positive indicates antibodies detected to HSV-1. Herpes simplex virus 2 IgG Ab [Units/volume] in Serum by Immunoassay <0.91 index 0.00-0.90 [facility] Negative <0.91 Equivocal 0.91 - 1.09 Positive >1.09 Note: Negative indicates no antibodies detected to HSV-2. Equivocal may suggest early infection. If clinically appropriate, retest at later date. Positive indicates antibodies detected to HSV-2. ID Date Data Source [id number] 08/09/2021 08:09:00 AM T [facility] Value Range Interpretation Code Description Data Kelley rce(s) Supporting Document(s) Hepatitis C virus Ab Signal/Cutoff in Serum or Plasma by Immunoassay 0.1 s/coratio 0.0-0.9 [facility] ID Date Data Source [id number] 08/08/2021 10:51:00 AM T [facility] Value Range Interpretation Code Description Data Kelley rce(s) Supporting Document(s) Hepatitis B virus surface Ab [Units/volume] in Serum o r Plasma by Immunoassay NONREACTIVE NORMAL:NON REACTIVE [facility] ID Date Data Source [id number] 08/08/2021 10:51:00 AM EDT [facility] Name Value Range Interpretation Code Description Data Kelley rce(s) Supporting Document(s) Treponema pallidum Ab [Presence] in Serum NON-REACTIVE NORMAL:NON MICHAEL CTIVE [facility] ID Date Data Source [id number] 08/07/2021 09:50:00 AM EDT [facility] ([facility]) Name Value Range Interpretation Code Description Data Kelley rce(s) Supporting Document(s) Chlamydia trachomatis,Blossom Laboratory test result [facility] ([facility]) {SOURCE:~.~.~<DG1.3.1>Z01.419</DG1.3.1><DG1.3.1>Z01.419</DG1.3.1><DG1.3.1>Z11.3< /DG1.3.1> Neisseria gonorrhoeae,Blossom Laboratory test result [facility] ([facility]) {SOURCE:~.~.~<DG1.3.1>Z01.419</DG1.3.1><DG1.3.1>Z01.419</DG1.3.1><DG1.3.1>Z11.3< /DG1.3.1> ID Date Data Source [id number] 08/10/2021 06:29:00 AM EDT [facility] Name Value Range Interpretation Code Description Data Kelley rce(s) Supporting Document(s) Chlamydia trachomatis rRNA [Presence] in Unspecified specimen by Probe and target amplification method Negative Negative [facility] Neisseria gonorrhoeae rRNA [Presence] in Unspecified specimen by Probe and target amplification method Negative Negative [facility] ID Date Data Source [id number] 08/07/2021 09:50:00 AM EDT [facility] ([facility]) Name Value Range Interpretation Code Description Data Kelley rce(s) Supporting Document(s) Cytology report of Cervical or vaginal smear or scrapi ng Cyto stain.thin prep Laboratory test result [facility] ([facility]) ID Date Data Source [id number] 08/07/2021 09:32:00 AM EDT [facility] ([facility]) Name Value Range Interpretation Code Description Data Kelley rce(s) Supporting Document(s) US Pelvic Laboratory test result [facility] ([facility]) ID Date Data Source [id number] 07/27/2021 01:46:00 PM EDT [facility] ([facility]) Name Value Range Interpretation Code Description Data Kelley rce(s) Supporting Document(s) PDF Laboratory test result [facility] ([facility]) {DIAGNOSIS: F39 F90.9 F41.9~{MEDICATION S/DECLARED: ADDERALL BUPROPION CLONIDIEN SERTRALIN~{PRES Laboratory test finding (navigational concept) Laboratory test result [facility] ([facility]) {DIAGNOSIS: F39 F90.9 F41.9~{MEDICATION S/DECLARED: ADDERALL BUPROPION CLONIDIEN SERTRALIN~{PRES ID Date Data Source [id number] 08/06/2021 12:36:00 PM EDT [facility] Name Value Range Interpretation Code Description Data Kelley rce(s) Supporting Document(s) Drugs identified in Urine FINAL [facility] TOXASSURE SELECT 13 (MW) Test Result Flag [...] Topiramate Fo r clinical consultation, please call [phone]. Report . [facility] ID Date Data Source [id number] 11/03/2020 12:00:00 AM EST [facility] Name Value Range Interpretation Code Description Data Kelley rce(s) Supporting Document(s) SARS-CoV2 Rapid Antigen [facility] This lab was reported by Roxanne Bethea. Procedure Social History No Information Vital Signs ID Date Data Source UNK Name Value Range Interpretation Code Description Data Source(s) Systolic blood pressure 114 mm[Hg] 114 mm[Hg] M [facility] ([facility]) Diastolic blood pressure 78 mm[Hg] 78 mm[Hg] [facility] ([facility]) Heart rate 104 /min 104 /min [facility] ([facility]) Oxygen saturation in Arterial blood by Pulse oximetry 96 % 96 % [facility] ([facility]) Body weight 120.38 [lb_av] 120.38 [lb_av] [facility] T ([facility]) Body weight 54.602 kg 54.602 kg [facility] ([facility]) Body height 62 [in_i] 62 [in_i] [facility] ([facility]) 5'2" Body mass index (BMI) [Ratio] 22.0 kg/m2 22.0 k g/m2 [facility] ([facility]) Body surface area Derived from formula 1.54 m2 1.54 m2 [facility] ([facility]) Body surface area Derived from formula 1.55 m2 1.55 m2 [facility] ([facility]) Body temperature 97.7 [degF] 97.7 [degF] [facility] ([facility]) Temporal Respiratory rate 18 /min 18 /min [facility] ( [facility]) Oxygen saturation in Arterial blood by Pulse oximetry 100 % 100 % [facility] ([facility]) Body weight 122.00 [lb_av] 122.00 [lb_av] [facility] ([facility]) Body weight 55.339 kg 55.339 kg [facility] ([facility]) Body height 62 [in_i] 62 [in_i] [facility] ([facility]) 5'2" Body mass index (BMI) [Ratio] 22.3 kg/m2 22.3 k g/m2 [facility] ([facility]) Systolic blood pressure--sitting 126 mm[Hg] 126 mm[Hg] [facility] ([facility]) Diastolic blood pressure--sitting 85 mm[Hg] 85 mm[Hg] [facility] ([facility]) Heart rate 100 /min 100 /min [facility] ([facility]) Respiratory rate 14 /min 14 /min [facility] ( [facility], [facility]) Body weight 122.00 [lb_av] 122.00 [lb_av] [facility] T ([facility], [facility]) Body height 62 [in_i] 62 [in_i] [facility] ([facility], [facility]) 5'2" Body mass index (BMI) [Ratio] 22.3 kg/m2 22.3 k g/m2 [facility] ([place] [facility], [facility]) Oxygen saturation in Arterial blood by Pulse oximetry 99 % 99 % [facility] ([facility], [facility]) Body temperature 97.3 [degF] 97.3 [degF] [facility] ([facility], [facility]) Systolic blood pressure 133 mm[Hg] 133 mm[Hg] M [facility] ([place] [facility], [facility]) Diastolic blood pressure 84 mm[Hg] 84 mm[Hg] [facility] ([place] [facility], [facility]) Heart rate 102 /min 102 /min [facility] ([facility], [facility]) Respiratory rate 16 /min 16 /min [facility] ( [facility], [facility]) Body weight 117.00 [lb_av] 117.00 [lb_av] [facility] T ([facility], [facility]) Body height 62 [in_i] 62 [in_i] [facility] ([facility], [facility]) 5'2" Body mass index (BMI) [Ratio] 21.4 kg/m2 21.4 k g/m2 [facility] ([facility], [facility]) Body temperature 99.8 [degF] 99.8 [degF] [facility] ([facility], [facility]) Oxygen saturation in Arterial blood by Pulse oximetry 98 % 98 % [facility] ([place] [facility], [facility]) Systolic blood pressure 118 mm[Hg] 118 mm[Hg] M [facility] ([place] [facility], [facility]) Diastolic blood pressure 74 mm[Hg] 74 mm[Hg] [facility] ([place] [facility], [facility]) Heart rate 113 /min 113 /min [facility] ([facility], [facility])
== END 2021-08-28 03:40 | disposition left against medical advice (07) ==
LOC: M ED 05:34
DX: Z53.21 Procedure and treatment not carried out due to patient leaving prior to being seen by health care provider (principal)

== ENCOUNTER 2021-08-20 05:39 | Inpatient (IN) | payer BC ==
[~2021-08-20] VITALS: Ht 162.6 cm; Wt 44.9 kg
[2021-08-20] MEDS ORDERED: NS 1,000 ML IV ONE ×2 (06:00→07:30)
[2021-08-20] MEDS ORDERED: LORazepam 2 MG/ML VIAL IV STA (06:07)
[2021-08-20 06:26] LABS: BASO % 0.3 % (0.0-1.0); EOS % 0.2 % (0.0-3.0); HEMATOCRIT 36.7 % (36.0-47.0); HEMOGLOBIN 11.9 g/dl (12.0-15.5); LYMPH # 2.2 10^3/uL (1.5-5.0); LYMPH % 18.2 % (24.0-44.0); MEAN CORPUSCULAR HEMOGLOBIN 30.5 pg (27.0-33.0); MEAN CORPUSCULAR HGB CONC 32.4 g/dl (32.0-36.5); MEAN CORPUSCULAR VOLUME 94.1 fl (80.0-96.0); MONO % 8.3 % (2.0-8.0); NEUTROPHILS # 8.7 10^3/uL (1.5-8.5); NEUTROPHILS % 72.6 % (36.0-66.0); PLATELET COUNT, AUTOMATED 215 10^3/uL (150-450); WHITE BLOOD COUNT 11.9 10^3/uL (4.0-10.0)
[2021-08-20 06:35] LABS: ABG BASE EXCESS -6.8 (-2.0-2.0); ABG O2 SATURATION 96.1 % (95.0-99.0); ABG PARTIAL PRESSURE CO2 29.2 mmHg (35.0-45.0); ABG PARTIAL PRESSURE O2 84.3 mmHg (75.0-100.0); ABG STANDARD HCO3 18.9 MEQ/L (22.0-26.0); ABG TOTAL CO2 17.9 MEQ/L (22.0-29.0); ABG pH (ARTERIAL) 7.383 UNITS (7.350-7.450)
[2021-08-20] MEDS ORDERED: LORazepam 2 MG/ML VIAL As Ordered ONE (06:44)
[2021-08-20 06:49] LABS: ACETAMINOPHEN LEVEL 3.6 UG/ML (10.0-30.0); ALT/SGPT 11 U/L (12-78); BILIRUBIN,DIRECT < 0.1 MG/DL (0.0-0.2); BILIRUBIN,TOTAL 0.3 MG/DL (0.2-1.0); BLOOD UREA NITROGEN 12 MG/DL (7-18); CALCIUM LEVEL 7.6 MG/DL (8.5-10.1); CARBON DIOXIDE LEVEL 18 MEQ/L (21-32); CHLORIDE LEVEL 119 MEQ/L (98-107); CPK CREATINE PHOSPHOKINASE 228 U/L (26-192); CREATININE FOR GFR 1.15 MG/DL (0.55-1.30); ETHYL ALCOHOL (ETHANOL) 0.003 % (0.000-0.010); GLOMERULAR FILTRATION RATE 56.8 (>60); GLUCOSE, FASTING 99 MG/DL (70-100); POTASSIUM SERUM 4.3 MEQ/L (3.5-5.1); SALICYLATE LEVEL 3.1 MG/DL (5.0-30.0); SODIUM LEVEL 145 MEQ/L (136-145); TOTAL PROTEIN 5.6 GM/DL (6.4-8.2)
[2021-08-20] MEDS ORDERED: ZOLO100T PO (07:08)
[2021-08-20] MEDS ORDERED: CLON-412 PO (07:08)
[2021-08-20] MEDS ORDERED: AMPH1CAP16 PO (07:08)
[2021-08-20] MEDS ORDERED: BUPR150T12 PO (07:08)
[2021-08-20] MEDS ORDERED: HOME MED LIST COMPLETE! XX SCH (08:00)
[2021-08-20] MEDS ORDERED: COMMENTS (08:00)
[2021-08-20 09:40] LABS: INR 1.3; PROTHROMBIN TIME 16.6 SECONDS (12.7-14.5)
[2021-08-20 11:27] VITALS: BP 125/77
[2021-08-20] MEDS: D5W/0.45% SODIUM CHLORIDE 1,000 ML IV SCH (11:54)
[2021-08-20 12:00] VITALS: BP 111/70
[2021-08-20 12:02] LABS: CALCIUM LEVEL 7.1 MG/DL (8.5-10.1); CREATININE FOR GFR 1.12 MG/DL (0.55-1.30); GLOMERULAR FILTRATION RATE 58.6 (>60); POTASSIUM SERUM 3.8 MEQ/L (3.5-5.1)
[2021-08-20 16:00] VITALS: BP 116/72
[2021-08-20] MEDS: ENOXAPARIN 40MG/0.4ML SYRINGE (J1650 PER 10MG) SC SCH (17:50)
[2021-08-20 19:18] VITALS: BP 112/62
[2021-08-20] MEDS ORDERED: LORazepam 2 MG/ML VIAL IV PRN (20:25)
[2021-08-20 23:40] LABS: AMPHETAMINES LEVEL URINE POSITIVE (NEGATIVE); BARBITURATES URINE NEGATIVE (NEGATIVE); BENZODIAZEPINES URINE POSITIVE (NEGATIVE); CANNABINOIDS URINE NEGATIVE (NEGATIVE); COCAINE METABOLITE URINE NEGATIVE (NEGATIVE); METHADONE URINE NEGATIVE (NEGATIVE); OPIATES URINE NEGATIVE (NEGATIVE); PHENCYCLIDINE URINE NEGATIVE (NEGATIVE)
[2021-08-20 23:51] VITALS: BP 105/56
[2021-08-21] VITALS (88 sets, daily range): BP systolic 57–206; BP diastolic 34–101
[2021-08-21] MEDS ORDERED: NS 1,000 ML IV ONE ×2 (00:15→06:10)
[2021-08-21 00:29] LABS: BASO % 0.2 % (0.0-1.0); HEMATOCRIT 32.7 % (36.0-47.0); HEMOGLOBIN 10.8 g/dl (12.0-15.5); LYMPH % 4.1 % (24.0-44.0); MEAN CORPUSCULAR HEMOGLOBIN 30.8 pg (27.0-33.0); MEAN CORPUSCULAR VOLUME 93.2 fl (80.0-96.0); MONO % 4.2 % (2.0-8.0); NEUTROPHILS # 21.4 10^3/uL (1.5-8.5); NEUTROPHILS % 90.9 % (36.0-66.0); PLATELET COUNT, AUTOMATED 194 10^3/uL (150-450); RED BLOOD COUNT 3.51 10^6/uL (4.00-5.40); WHITE BLOOD COUNT 23.5 10^3/uL (4.0-10.0)
[2021-08-21] MEDS ORDERED: NALOXONE INJ 0.4MG/1ML VIAL (J2310 PER 1MG) IV STA ×2 (00:29→00:32)
[2021-08-21 00:46] LABS: VENOUS BASE EXCESS -7.6 (-2.0-2.0); VENOUS HCO3 16.7 MEQ/L (23.0-27.0); VENOUS O2 SATURATION 93.5 % (60.0-80.0); VENOUS PARTIAL PRESSURE CO2 30.2 mmHg (38.0-50.0); VENOUS PARTIAL PRESSURE O2 72.3 mmHg (30.0-50.0); VENOUS PH 7.361 UNITS (7.330-7.430); VENOUS STANDARD HCO3 18.3 MEQ/L; VENOUS TOTAL CO2 17.6 MEQ/L (24.0-28.0)
[2021-08-21 00:57] LABS: ALT/SGPT 22 U/L (12-78); BILIRUBIN,TOTAL 0.5 MG/DL (0.2-1.0); BLOOD UREA NITROGEN 13 MG/DL (7-18); CALCIUM LEVEL 7.4 MG/DL (8.5-10.1); CARBON DIOXIDE LEVEL 18 MEQ/L (21-32); CHLORIDE LEVEL 119 MEQ/L (98-107); CREATININE FOR GFR 1.02 MG/DL (0.55-1.30); GLOMERULAR FILTRATION RATE > 60.0 (>60); GLUCOSE, FASTING 97 MG/DL (70-100); POTASSIUM SERUM 3.9 MEQ/L (3.5-5.1); SODIUM LEVEL 145 MEQ/L (136-145)
[2021-08-21 00:58] LABS: ALBUMIN 2.7 GM/DL (3.2-5.2); MAGNESIUM LEVEL 1.7 MG/DL (1.8-2.4); TOTAL PROTEIN 5.1 GM/DL (6.4-8.2)
[2021-08-21] MEDS ORDERED: VANCOMYCIN HCL 750 MG, VIAL MATE ADAPTER 1 EACH in NS 250 ML IV ONE ×4 (01:00)
[2021-08-21] MEDS: D5W/0.45% SODIUM CHLORIDE 1,000 ML IV SCH (01:17)
[2021-08-21] MEDS ORDERED: ACETAMINOPHEN 650 MG SUPP PR PRN (01:30)
[2021-08-21] MEDS ORDERED: PIPERACILLIN/TAZOBACTAM SOD 3.375 GM in D5W MINI-BAG PLUS 50 ML IV SCH (02:00)
[2021-08-21] MEDS: PIPERACILLIN/TAZOBACTAM SOD 3.375 GM in D5W MINI-BAG PLUS 50 ML IV SCH ×4 (04:49→21:33)
[2021-08-21 05:48] LABS: ABG BASE EXCESS -11.6 (-2.0-2.0); ABG HCO3 16.4 MEQ/L (22.0-26.0); ABG O2 SATURATION 93.7 % (95.0-99.0); ABG PARTIAL PRESSURE CO2 45.1 mmHg (35.0-45.0); ABG PARTIAL PRESSURE O2 84.9 mmHg (75.0-100.0); ABG STANDARD HCO3 15.3 MEQ/L (22.0-26.0); ABG TOTAL CO2 17.8 MEQ/L (22.0-29.0)
[2021-08-21 05:51] LABS: ABG pH (ARTERIAL) 7.178 UNITS (7.350-7.450)
[2021-08-21] MEDS ORDERED: LORazepam 2 MG/ML VIAL IV STA (05:51)
[2021-08-21] MEDS ORDERED: LORazepam 2 MG/ML VIAL As Ordered ONE (05:53)
[2021-08-21 05:55] LABS: HEMATOCRIT 34.1 % (36.0-47.0); HEMOGLOBIN 10.8 g/dl (12.0-15.5); MEAN CORPUSCULAR HGB CONC 31.7 g/dl (32.0-36.5); MEAN CORPUSCULAR VOLUME 94.7 fl (80.0-96.0); PLATELET COUNT, AUTOMATED 179 10^3/uL (150-450); WHITE BLOOD COUNT 27.6 10^3/uL (4.0-10.0)
[2021-08-21] MEDS ORDERED: levETIRAcetam INJection 1,000 MG in D5W 100 ML IV ONE (05:55)
[2021-08-21] MEDS ORDERED: MAG SULF 1GM/100ML (MAG RUN) 1 GM in IV 1 EA IV ONE (06:07)
[2021-08-21] MEDS ORDERED: levETIRAcetam 500 MG/5 ML VIAL (KEPPRA IV)(J1953) As Ordered ONE ×2 (06:10→06:14)
[2021-08-21] MEDS ORDERED: NOREPINEPHRINE 4 MG/4 ML AMP As Ordered ONE (06:10)
[2021-08-21] MEDS ORDERED: NOREPINEPHRINE BITARTRATE 8 MG in D5W 492 ML IV SCH (06:15)
[2021-08-21 06:19] LABS: BLOOD UREA NITROGEN 10 MG/DL (7-18); CALCIUM LEVEL 7.2 MG/DL (8.5-10.1); CARBON DIOXIDE LEVEL 19 MEQ/L (21-32); CHLORIDE LEVEL 118 MEQ/L (98-107); CREATININE FOR GFR 0.82 MG/DL (0.55-1.30); GLOMERULAR FILTRATION RATE > 60.0 (>60); GLUCOSE, FASTING 120 MG/DL (70-100); POTASSIUM SERUM 3.8 MEQ/L (3.5-5.1); SODIUM LEVEL 142 MEQ/L (136-145)
[2021-08-21 06:39] LABS: BASO % 0.1 % (0.0-1.0); EOS % 0.1 % (0.0-3.0); HEMATOCRIT 31.8 % (36.0-47.0); HEMOGLOBIN 9.2 g/dl (12.0-15.5); LYMPH # 5.6 10^3/uL (1.5-5.0); LYMPH % 20.4 % (24.0-44.0); MEAN CORPUSCULAR HEMOGLOBIN 30.4 pg (27.0-33.0); MEAN CORPUSCULAR HGB CONC 28.9 g/dl (32.0-36.5); MONO # 0.8 10^3/uL (0.0-0.8); NEUTROPHILS # 20.3 10^3/uL (1.5-8.5); NEUTROPHILS % 74.6 % (36.0-66.0); PLATELET COUNT, AUTOMATED 172 10^3/uL (150-450); RED BLOOD COUNT 3.03 10^6/uL (4.00-5.40); WHITE BLOOD COUNT 27.3 10^3/uL (4.0-10.0)
[2021-08-21] MEDS ORDERED: EPINEPHrine HCL INJ 1 MG in D5W 240 ML IV SCH (07:00)
[2021-08-21] MEDS ORDERED: EPINEPHrine INJ 1 MG/ML 1ML AMP As Ordered ONE ×2 (07:01→07:04)
[2021-08-21 07:07] LABS: ALBUMIN 1.6 GM/DL (3.2-5.2); BILIRUBIN,TOTAL 0.4 MG/DL (0.2-1.0); CALCIUM LEVEL 7.2 MG/DL (8.5-10.1); CREATININE FOR GFR 1.48 MG/DL (0.55-1.30); GLOMERULAR FILTRATION RATE 42.5 (>60); POTASSIUM SERUM 4.2 MEQ/L (3.5-5.1); TOTAL PROTEIN 3.9 GM/DL (6.4-8.2); TROPONIN I 0.87 NG/ML (< 0.10)
[2021-08-21] MEDS ORDERED: SODIUM BICARBONATE 8.4% INJ 50 ML SYRINGE IV STA ×6 (07:10→08:35)
[2021-08-21] MEDS ORDERED: MIDAZOLAM INJ 2MG/2ML VIAL (J2250 PER 1MG) IV STA (07:26)
[2021-08-21 08:08] LABS: ABG HCO3 13.7 MEQ/L (22.0-26.0); ABG O2 SATURATION 65.8 % (95.0-99.0); ABG PARTIAL PRESSURE CO2 54.8 mmHg (35.0-45.0); ABG STANDARD HCO3 11.1 MEQ/L (22.0-26.0); ABG TOTAL CO2 15.4 MEQ/L (22.0-29.0)
[2021-08-21 08:11] LABS: ABG PARTIAL PRESSURE O2 49.4 mmHg (75.0-100.0); ABG pH (ARTERIAL) 7.017 UNITS (7.350-7.450)
[2021-08-21] MEDS: SODIUM BICARBONATE 150 MEQ in STERILE WATER LITER BAG 1,000 ML IV SCH ×2 (08:15→18:33)
[2021-08-21] MEDS ORDERED: REFRIGERATOR IV KEYS XX PRN (09:00)
[2021-08-21] MEDS: MIDAZOLAM HCL 100 MG in D5W 80 ML IV SCH (09:02)
[2021-08-21 09:16] LABS: ABG BASE EXCESS -7.4 (-2.0-2.0); ABG O2 SATURATION 70.7 % (95.0-99.0); ABG PARTIAL PRESSURE CO2 48.5 mmHg (35.0-45.0); ABG TOTAL CO2 21.5 MEQ/L (22.0-29.0)
[2021-08-21 09:19] LABS: ABG pH (ARTERIAL) 7.233 UNITS (7.350-7.450)
[2021-08-21 09:20] LABS: ABG PARTIAL PRESSURE O2 44.5 mmHg (75.0-100.0)
[2021-08-21 10:44] LABS: PROLACTIN 12.8 NG/ML
[2021-08-21] MEDS ORDERED: AMIODARONE 150MG/3ML INJ (J0282) ONE (11:06)
[2021-08-21] MEDS ORDERED: SODIUM BICARBONATE 4.2% INJ 10ML SYRINGE ONE (11:06)
[2021-08-21] MEDS ORDERED: SODIUM BICARBONATE 8.4% INJ 50MEQ 50 ML VIAL ONE (11:06)
[2021-08-21] MEDS ORDERED: EPINEPHrine 1MG/10ML SYRINGE 1.5IN ONE (11:06)
[2021-08-21 13:00] LABS: ABG BASE EXCESS -5.5 (-2.0-2.0); ABG HCO3 22.3 MEQ/L (22.0-26.0); ABG O2 SATURATION 61.2 % (95.0-99.0); ABG PARTIAL PRESSURE CO2 53.6 mmHg (35.0-45.0); ABG STANDARD HCO3 19.2 MEQ/L (22.0-26.0); ABG TOTAL CO2 23.9 MEQ/L (22.0-29.0)
[2021-08-21 13:01] LABS: ABG PARTIAL PRESSURE O2 37.2 mmHg (75.0-100.0); ABG pH (ARTERIAL) 7.237 UNITS (7.350-7.450)
[2021-08-21 13:09] LABS: BASO # 0.1 10^3/uL (0.0-0.2); BASO % 0.2 % (0.0-1.0); HEMATOCRIT 36.1 % (36.0-47.0); HEMOGLOBIN 11.7 g/dl (12.0-15.5); LYMPH # 1.5 10^3/uL (1.5-5.0); LYMPH % 4.2 % (24.0-44.0); MEAN CORPUSCULAR HEMOGLOBIN 30.2 pg (27.0-33.0); MEAN CORPUSCULAR HGB CONC 32.4 g/dl (32.0-36.5); MONO # 1.2 10^3/uL (0.0-0.8); MONO % 3.3 % (2.0-8.0); NEUTROPHILS # 32.8 10^3/uL (1.5-8.5); NEUTROPHILS % 90.8 % (36.0-66.0); PLATELET COUNT, AUTOMATED 248 10^3/uL (150-450); RED BLOOD COUNT 3.88 10^6/uL (4.00-5.40)
[2021-08-21 13:13] LABS: WHITE BLOOD COUNT 36.1 10^3/uL (4.0-10.0)
[2021-08-21 13:26] LABS: FIBRINOGEN 283 MG/DL (268-480); INR 2.02; PROTHROMBIN TIME 23.2 SECONDS (12.7-14.5)
[2021-08-21] MEDS: VANCOMYCIN HCL 1,000 MG, VIAL MATE ADAPTER 1 EACH in NS 250 ML IV SCH ×2 (13:32→22:51)
[2021-08-21] MEDS: ENOXAPARIN 40MG/0.4ML SYRINGE (J1650 PER 10MG) SC SCH (13:32)
[2021-08-21 13:39] LABS: ALBUMIN 2.1 GM/DL (3.2-5.2); BILIRUBIN,TOTAL 0.8 MG/DL (0.2-1.0); CALCIUM LEVEL 7.1 MG/DL (8.5-10.1); CREATININE FOR GFR 1.78 MG/DL (0.55-1.30); GLOMERULAR FILTRATION RATE 34.3 (>60); PHOSPHORUS LEVEL 3.7 MG/DL (2.5-4.9); POTASSIUM SERUM 3.6 MEQ/L (3.5-5.1); TOTAL PROTEIN 4.5 GM/DL (6.4-8.2)
[2021-08-21 13:40] LABS: MAGNESIUM LEVEL 2.4 MG/DL (1.8-2.4)
[2021-08-21 14:29] LABS: D-DIMER QUANT > 4000 ng/ml (<500)
[2021-08-21] MEDS: NOREPINEPHRINE BITARTRATE 8 MG in D5W 492 ML IV SCH ×2 (14:46→18:33)
[2021-08-21] MEDS: MIDAZOLAM INJ 2MG/2ML VIAL (J2250 PER 1MG) IV PRN ×4 (15:03→22:24)
[2021-08-21] MEDS: fentaNYL 100 MCG/2 ML INJECTION IV PRN ×3 (15:59→20:47)
[2021-08-21 16:43] LABS: ABG BASE EXCESS -2.4 (-2.0-2.0); ABG HCO3 24.4 MEQ/L (22.0-26.0); ABG PARTIAL PRESSURE CO2 50.8 mmHg (35.0-45.0); ABG STANDARD HCO3 21.7 MEQ/L (22.0-26.0); ABG TOTAL CO2 25.9 MEQ/L (22.0-29.0); ABG pH (ARTERIAL) 7.299 UNITS (7.350-7.450)
[2021-08-21 17:18] LABS: HEMATOCRIT 32.3 % (36.0-47.0); HEMOGLOBIN 10.8 g/dl (12.0-15.5); MEAN CORPUSCULAR HEMOGLOBIN 30.7 pg (27.0-33.0); MEAN CORPUSCULAR HGB CONC 33.4 g/dl (32.0-36.5); MEAN CORPUSCULAR VOLUME 91.8 fl (80.0-96.0); PLATELET COUNT, AUTOMATED 207 10^3/uL (150-450); RED BLOOD COUNT 3.52 10^6/uL (4.00-5.40)
[2021-08-21 17:19] LABS: WHITE BLOOD COUNT 34.3 10^3/uL (4.0-10.0)
[2021-08-21 17:38] LABS: INR 2.42; PROTHROMBIN TIME 26.7 SECONDS (12.7-14.5)
[2021-08-21 17:39] LABS: PARTIAL THROMBOPLASTIN TIME 51.6 SECONDS (25.9-37.0)
[2021-08-21 17:42] LABS: ALBUMIN 1.8 GM/DL (3.2-5.2); BILIRUBIN,TOTAL 0.6 MG/DL (0.2-1.0); CALCIUM LEVEL 6.5 MG/DL (8.5-10.1); CREATININE FOR GFR 2.04 MG/DL (0.55-1.30); GLOMERULAR FILTRATION RATE 29.3 (>60); MAGNESIUM LEVEL 2.2 MG/DL (1.8-2.4); PHOSPHORUS LEVEL 3.3 MG/DL (2.5-4.9); POTASSIUM SERUM 3.3 MEQ/L (3.5-5.1); TOTAL PROTEIN 4.2 GM/DL (6.4-8.2)
[2021-08-21] MEDS: CALCIUM GLUCONATE 1,000 MG in D5W MINI-BAG PLUS 100 ML IV SCH ×2 (18:46→19:50)
[2021-08-21 21:12] LABS: ABG BASE EXCESS -1.1 (-2.0-2.0); ABG HCO3 24.8 MEQ/L (22.0-26.0); ABG O2 SATURATION 89.6 % (95.0-99.0); ABG PARTIAL PRESSURE O2 62.1 mmHg (75.0-100.0); ABG STANDARD HCO3 23.5 MEQ/L (22.0-26.0); ABG TOTAL CO2 26.2 MEQ/L (22.0-29.0); ABG pH (ARTERIAL) 7.349 UNITS (7.350-7.450)
[2021-08-21 21:25] LABS: HEMATOCRIT 30.9 % (36.0-47.0); HEMOGLOBIN 10.4 g/dl (12.0-15.5); MEAN CORPUSCULAR HEMOGLOBIN 30.6 pg (27.0-33.0); MEAN CORPUSCULAR HGB CONC 33.7 g/dl (32.0-36.5); MEAN CORPUSCULAR VOLUME 90.9 fl (80.0-96.0); PLATELET COUNT, AUTOMATED 183 10^3/uL (150-450)
[2021-08-21 21:32] LABS: INR 2.32; PROTHROMBIN TIME 25.8 SECONDS (12.7-14.5)
[2021-08-21 21:33] LABS: PARTIAL THROMBOPLASTIN TIME 52.7 SECONDS (25.9-37.0)
[2021-08-21 21:47] LABS: ALBUMIN 1.9 GM/DL (3.2-5.2); BILIRUBIN,TOTAL 0.5 MG/DL (0.2-1.0); CALCIUM LEVEL 7.1 MG/DL (8.5-10.1); CREATININE FOR GFR 2.49 MG/DL (0.55-1.30); GLOMERULAR FILTRATION RATE 23.3 (>60); MAGNESIUM LEVEL 2.1 MG/DL (1.8-2.4); PHOSPHORUS LEVEL 3.5 MG/DL (2.5-4.9); POTASSIUM SERUM 2.9 MEQ/L (3.5-5.1); TOTAL PROTEIN 4.3 GM/DL (6.4-8.2)
[2021-08-21] MEDS ORDERED: KCL 20MEQ IN 100ML SWI (KRUN) 20 MEQ in IV 1 EA IV ONE ×2 (21:55)
[2021-08-22] VITALS (69 sets, daily range): BP systolic 74–155; BP diastolic -18–96
[2021-08-22] MEDS: fentaNYL 100 MCG/2 ML INJECTION IV PRN ×8 (00:11→20:50)
[2021-08-22] MEDS: MIDAZOLAM HCL 100 MG in D5W 80 ML IV SCH ×2 (00:41→16:17)
[2021-08-22 01:06] LABS: HEMATOCRIT 30.7 % (36.0-47.0); HEMOGLOBIN 10.4 g/dl (12.0-15.5); MEAN CORPUSCULAR HEMOGLOBIN 30.4 pg (27.0-33.0); MEAN CORPUSCULAR HGB CONC 33.9 g/dl (32.0-36.5); MEAN CORPUSCULAR VOLUME 89.8 fl (80.0-96.0); PLATELET COUNT, AUTOMATED 168 10^3/uL (150-450); RED BLOOD COUNT 3.42 10^6/uL (4.00-5.40); WHITE BLOOD COUNT 25.4 10^3/uL (4.0-10.0)
[2021-08-22 01:28] LABS: INR 2.37; PROTHROMBIN TIME 26.3 SECONDS (12.7-14.5)
[2021-08-22 01:29] LABS: PARTIAL THROMBOPLASTIN TIME 52.8 SECONDS (25.9-37.0)
[2021-08-22 01:30] LABS: ALBUMIN 1.8 GM/DL (3.2-5.2); BILIRUBIN,TOTAL 0.6 MG/DL (0.2-1.0); CALCIUM LEVEL 6.6 MG/DL (8.5-10.1); CREATININE FOR GFR 2.58 MG/DL (0.55-1.30); GLOMERULAR FILTRATION RATE 22.4 (>60); PHOSPHORUS LEVEL 3.7 MG/DL (2.5-4.9); POTASSIUM SERUM 3.3 MEQ/L (3.5-5.1); TOTAL PROTEIN 4.3 GM/DL (6.4-8.2)
[2021-08-22 01:39] LABS: ABG BASE EXCESS 0.7 (-2.0-2.0); ABG HCO3 25.3 MEQ/L (22.0-26.0); ABG O2 SATURATION 94.8 % (95.0-99.0); ABG PARTIAL PRESSURE CO2 40.5 mmHg (35.0-45.0); ABG PARTIAL PRESSURE O2 76.4 mmHg (75.0-100.0); ABG TOTAL CO2 26.5 MEQ/L (22.0-29.0); ABG pH (ARTERIAL) 7.413 UNITS (7.350-7.450)
[2021-08-22] MEDS: PIPERACILLIN/TAZOBACTAM SOD 3.375 GM in D5W MINI-BAG PLUS 50 ML IV SCH ×4 (04:14→21:09)
[2021-08-22] MEDS: MIDAZOLAM INJ 2MG/2ML VIAL (J2250 PER 1MG) IV PRN ×5 (04:15→18:20)
[2021-08-22] MEDS: dexmedeTOMidine 200 MCG in IV 1 EA IV SCH ×2 (04:31→13:14)
[2021-08-22 05:06] LABS: ABG BASE EXCESS 2.2 (-2.0-2.0); ABG HCO3 26.7 MEQ/L (22.0-26.0); ABG O2 SATURATION 93.6 % (95.0-99.0); ABG PARTIAL PRESSURE CO2 41.2 mmHg (35.0-45.0); ABG PARTIAL PRESSURE O2 71.2 mmHg (75.0-100.0); ABG STANDARD HCO3 26.4 MEQ/L (22.0-26.0)
[2021-08-22 05:09] LABS: HEMATOCRIT 28.5 % (36.0-47.0); HEMOGLOBIN 9.9 g/dl (12.0-15.5); MEAN CORPUSCULAR HEMOGLOBIN 30.9 pg (27.0-33.0); MEAN CORPUSCULAR HGB CONC 34.7 g/dl (32.0-36.5); MEAN CORPUSCULAR VOLUME 89.1 fl (80.0-96.0); PLATELET COUNT, AUTOMATED 151 10^3/uL (150-450); WHITE BLOOD COUNT 20.2 10^3/uL (4.0-10.0)
[2021-08-22 05:21] LABS: INR 2.33; PROTHROMBIN TIME 25.9 SECONDS (12.7-14.5)
[2021-08-22 05:42] LABS: ALBUMIN 1.7 GM/DL (3.2-5.2); BILIRUBIN,TOTAL 0.5 MG/DL (0.2-1.0); CALCIUM LEVEL 6.5 MG/DL (8.5-10.1); CREATININE FOR GFR 2.72 MG/DL (0.55-1.30); PHOSPHORUS LEVEL 3.5 MG/DL (2.5-4.9); POTASSIUM SERUM 3.2 MEQ/L (3.5-5.1); TOTAL PROTEIN 4.2 GM/DL (6.4-8.2)
[2021-08-22] MEDS: NOREPINEPHRINE BITARTRATE 8 MG in D5W 492 ML IV SCH ×3 (06:00→10:48)
[2021-08-22] MEDS: SODIUM BICARBONATE 150 MEQ in STERILE WATER LITER BAG 1,000 ML IV SCH ×2 (06:07→17:38)
[2021-08-22 09:27] LABS: ABG BASE EXCESS 5.8 (-2.0-2.0); ABG HCO3 30.4 MEQ/L (22.0-26.0); ABG PARTIAL PRESSURE CO2 44.6 mmHg (35.0-45.0); ABG STANDARD HCO3 29.8 MEQ/L (22.0-26.0); ABG TOTAL CO2 31.8 MEQ/L (22.0-29.0); ABG pH (ARTERIAL) 7.452 UNITS (7.350-7.450); HEMATOCRIT 27.8 % (36.0-47.0); HEMOGLOBIN 9.6 g/dl (12.0-15.5); MEAN CORPUSCULAR HEMOGLOBIN 30.6 pg (27.0-33.0); MEAN CORPUSCULAR HGB CONC 34.5 g/dl (32.0-36.5); MEAN CORPUSCULAR VOLUME 88.5 fl (80.0-96.0); PLATELET COUNT, AUTOMATED 146 10^3/uL (150-450); RED BLOOD COUNT 3.14 10^6/uL (4.00-5.40); WHITE BLOOD COUNT 17.5 10^3/uL (4.0-10.0)
[2021-08-22 09:39] LABS: INR 2.45; PROTHROMBIN TIME 26.9 SECONDS (12.7-14.5)
[2021-08-22 09:40] LABS: PARTIAL THROMBOPLASTIN TIME 45.8 SECONDS (25.9-37.0)
[2021-08-22 09:50] LABS: ALBUMIN 1.7 GM/DL (3.2-5.2); BILIRUBIN,TOTAL 0.6 MG/DL (0.2-1.0); CALCIUM LEVEL 6.8 MG/DL (8.5-10.1); CREATININE FOR GFR 2.86 MG/DL (0.55-1.30); GLOMERULAR FILTRATION RATE 19.9 (>60); MAGNESIUM LEVEL 1.9 MG/DL (1.8-2.4); PHOSPHORUS LEVEL 3.7 MG/DL (2.5-4.9); POTASSIUM SERUM 3.3 MEQ/L (3.5-5.1); TOTAL PROTEIN 4.1 GM/DL (6.4-8.2)
[2021-08-22] MEDS: HEPARIN SOD (PORCINE) 5000UNITS/ML 1ML VIAL/SYRINGE SQ SCH ×2 (10:46→20:50)
[2021-08-22 11:22] LABS: ABG BASE EXCESS 5.6 (-2.0-2.0); ABG HCO3 30.5 MEQ/L (22.0-26.0); ABG O2 SATURATION 88.3 % (95.0-99.0); ABG PARTIAL PRESSURE CO2 46.2 mmHg (35.0-45.0); ABG STANDARD HCO3 29.4 MEQ/L (22.0-26.0); ABG pH (ARTERIAL) 7.438 UNITS (7.350-7.450)
[2021-08-22] MEDS ORDERED: FUROSEMIDE 100MG/10ML VIAL (J1940) IV ONE (11:30)
[2021-08-22 13:31] LABS: ABG BASE EXCESS 5.1 (-2.0-2.0); ABG HCO3 29.8 MEQ/L (22.0-26.0); ABG O2 SATURATION 90.2 % (95.0-99.0); ABG PARTIAL PRESSURE CO2 44.6 mmHg (35.0-45.0); ABG PARTIAL PRESSURE O2 60.6 mmHg (75.0-100.0); ABG TOTAL CO2 31.2 MEQ/L (22.0-29.0); ABG pH (ARTERIAL) 7.443 UNITS (7.350-7.450)
[2021-08-22 13:46] LABS: HEMATOCRIT 26.5 % (36.0-47.0); HEMOGLOBIN 9.1 g/dl (12.0-15.5); MEAN CORPUSCULAR HEMOGLOBIN 30.1 pg (27.0-33.0); MEAN CORPUSCULAR HGB CONC 34.3 g/dl (32.0-36.5); MEAN CORPUSCULAR VOLUME 87.7 fl (80.0-96.0); PLATELET COUNT, AUTOMATED 134 10^3/uL (150-450); RED BLOOD COUNT 3.02 10^6/uL (4.00-5.40)
[2021-08-22 13:58] LABS: INR 2.64; PROTHROMBIN TIME 28.5 SECONDS (12.7-14.5)
[2021-08-22 13:59] LABS: PARTIAL THROMBOPLASTIN TIME 48.1 SECONDS (25.9-37.0)
[2021-08-22 14:01] LABS: HCG, SERUM QUALITATIVE NEGATIVE (NEGATIVE)
[2021-08-22 14:01] LABS: ALBUMIN 1.6 GM/DL (3.2-5.2); BILIRUBIN,TOTAL 0.6 MG/DL (0.2-1.0); CALCIUM LEVEL 6.5 MG/DL (8.5-10.1); CREATININE FOR GFR 3.27 MG/DL (0.55-1.30); MAGNESIUM LEVEL 1.9 MG/DL (1.8-2.4); PHOSPHORUS LEVEL 3.6 MG/DL (2.5-4.9); POTASSIUM SERUM 3.4 MEQ/L (3.5-5.1); TOTAL PROTEIN 4.3 GM/DL (6.4-8.2)
[2021-08-22] MEDS: PANTOPRAZOLE 40MG VIAL (C9113 PER 1) IV SCH (15:59)
[2021-08-22 17:22] LABS: ABG BASE EXCESS 3.8 (-2.0-2.0); ABG HCO3 28.1 MEQ/L (22.0-26.0); ABG O2 SATURATION 96.4 % (95.0-99.0); ABG PARTIAL PRESSURE CO2 41.2 mmHg (35.0-45.0); ABG PARTIAL PRESSURE O2 91.6 mmHg (75.0-100.0); ABG STANDARD HCO3 27.8 MEQ/L (22.0-26.0); ABG TOTAL CO2 29.3 MEQ/L (22.0-29.0); ABG pH (ARTERIAL) 7.451 UNITS (7.350-7.450)
[2021-08-22 17:27] LABS: HEMATOCRIT 26.1 % (36.0-47.0); HEMOGLOBIN 9.1 g/dl (12.0-15.5); MEAN CORPUSCULAR HEMOGLOBIN 30.5 pg (27.0-33.0); MEAN CORPUSCULAR HGB CONC 34.9 g/dl (32.0-36.5); MEAN CORPUSCULAR VOLUME 87.6 fl (80.0-96.0); PLATELET COUNT, AUTOMATED 135 10^3/uL (150-450); RED BLOOD COUNT 2.98 10^6/uL (4.00-5.40); WHITE BLOOD COUNT 17.7 10^3/uL (4.0-10.0)
[2021-08-22 17:38] LABS: INR 2.7; PARTIAL THROMBOPLASTIN TIME 47.6 SECONDS (25.9-37.0)
[2021-08-22 17:50] LABS: ALBUMIN 1.6 GM/DL (3.2-5.2); BILIRUBIN,TOTAL 0.6 MG/DL (0.2-1.0); CALCIUM LEVEL 6.8 MG/DL (8.5-10.1); CREATININE FOR GFR 3.45 MG/DL (0.55-1.30); MAGNESIUM LEVEL 1.8 MG/DL (1.8-2.4); POTASSIUM SERUM 3.7 MEQ/L (3.5-5.1); TOTAL PROTEIN 4.3 GM/DL (6.4-8.2)
[2021-08-22 21:10] LABS: ABG BASE EXCESS 7.8 (-2.0-2.0); ABG HCO3 31.2 MEQ/L (22.0-26.0); ABG O2 SATURATION 98.5 % (95.0-99.0); ABG PARTIAL PRESSURE CO2 38.5 mmHg (35.0-45.0); ABG PARTIAL PRESSURE O2 141.4 mmHg (75.0-100.0); ABG STANDARD HCO3 31.7 MEQ/L (22.0-26.0); ABG TOTAL CO2 32.3 MEQ/L (22.0-29.0); ABG pH (ARTERIAL) 7.526 UNITS (7.350-7.450)
[2021-08-22 21:19] LABS: HEMATOCRIT 24.8 % (36.0-47.0); HEMOGLOBIN 8.8 g/dl (12.0-15.5); MEAN CORPUSCULAR HGB CONC 35.5 g/dl (32.0-36.5); MEAN CORPUSCULAR VOLUME 87.3 fl (80.0-96.0); PLATELET COUNT, AUTOMATED 129 10^3/uL (150-450); RED BLOOD COUNT 2.84 10^6/uL (4.00-5.40)
[2021-08-22 21:28] LABS: INR 2.83; PROTHROMBIN TIME 30.1 SECONDS (12.7-14.5)
[2021-08-22 21:37] LABS: ALBUMIN 1.6 GM/DL (3.2-5.2); BILIRUBIN,TOTAL 0.6 MG/DL (0.2-1.0); CALCIUM LEVEL 6.6 MG/DL (8.5-10.1); CREATININE FOR GFR 3.59 MG/DL (0.55-1.30); GLOMERULAR FILTRATION RATE 15.3 (>60); MAGNESIUM LEVEL 1.8 MG/DL (1.8-2.4); PHOSPHORUS LEVEL 4.1 MG/DL (2.5-4.9); POTASSIUM SERUM 3.6 MEQ/L (3.5-5.1); TOTAL PROTEIN 4.2 GM/DL (6.4-8.2)
[2021-08-23] VITALS (70 sets, daily range): BP systolic 91–133; BP diastolic 40–65
[2021-08-23] MEDS: dexmedeTOMidine 200 MCG in IV 1 EA IV SCH ×3 (00:08→22:35)
[2021-08-23 01:33] LABS: ABG BASE EXCESS 8.8 (-2.0-2.0); ABG HCO3 31.6 MEQ/L (22.0-26.0); ABG O2 SATURATION 99.3 % (95.0-99.0); ABG PARTIAL PRESSURE CO2 36.1 mmHg (35.0-45.0); ABG PARTIAL PRESSURE O2 248.6 mmHg (75.0-100.0); ABG STANDARD HCO3 32.6 MEQ/L (22.0-26.0); ABG TOTAL CO2 32.7 MEQ/L (22.0-29.0)
[2021-08-23 01:37] LABS: HEMATOCRIT 24.1 % (36.0-47.0); HEMOGLOBIN 8.4 g/dl (12.0-15.5); MEAN CORPUSCULAR HEMOGLOBIN 30.4 pg (27.0-33.0); MEAN CORPUSCULAR HGB CONC 34.9 g/dl (32.0-36.5); MEAN CORPUSCULAR VOLUME 87.3 fl (80.0-96.0); PLATELET COUNT, AUTOMATED 124 10^3/uL (150-450); RED BLOOD COUNT 2.76 10^6/uL (4.00-5.40); WHITE BLOOD COUNT 14.2 10^3/uL (4.0-10.0)
[2021-08-23 01:46] LABS: INR 2.84; PROTHROMBIN TIME 30.1 SECONDS (12.7-14.5)
[2021-08-23 01:47] LABS: PARTIAL THROMBOPLASTIN TIME 50.9 SECONDS (25.9-37.0)
[2021-08-23 02:00] LABS: ALBUMIN 1.5 GM/DL (3.2-5.2); BILIRUBIN,TOTAL 0.5 MG/DL (0.2-1.0); CALCIUM LEVEL 6.3 MG/DL (8.5-10.1); CREATININE FOR GFR 3.9 MG/DL (0.55-1.30); GLOMERULAR FILTRATION RATE 13.9 (>60); MAGNESIUM LEVEL 1.9 MG/DL (1.8-2.4); PHOSPHORUS LEVEL 4.4 MG/DL (2.5-4.9); POTASSIUM SERUM 3.4 MEQ/L (3.5-5.1); TOTAL PROTEIN 4.1 GM/DL (6.4-8.2)
[2021-08-23] MEDS: fentaNYL 100 MCG/2 ML INJECTION IV PRN (02:54)
[2021-08-23] MEDS: PIPERACILLIN/TAZOBACTAM SOD 3.375 GM in D5W MINI-BAG PLUS 50 ML IV SCH ×2 (03:01→09:58)
[2021-08-23] MEDS: MIDAZOLAM INJ 2MG/2ML VIAL (J2250 PER 1MG) IV PRN (03:51)
[2021-08-23 05:28] LABS: ABG BASE EXCESS 5.4 (-2.0-2.0); ABG HCO3 28.2 MEQ/L (22.0-26.0); ABG O2 SATURATION 98.7 % (95.0-99.0); ABG PARTIAL PRESSURE CO2 34.5 mmHg (35.0-45.0); ABG PARTIAL PRESSURE O2 168.6 mmHg (75.0-100.0); ABG STANDARD HCO3 29.3 MEQ/L (22.0-26.0); ABG TOTAL CO2 29.3 MEQ/L (22.0-29.0); ABG pH (ARTERIAL) 7.531 UNITS (7.350-7.450)
[2021-08-23 05:33] LABS: HEMATOCRIT 23.3 % (36.0-47.0); HEMOGLOBIN 8.3 g/dl (12.0-15.5); MEAN CORPUSCULAR HEMOGLOBIN 30.9 pg (27.0-33.0); MEAN CORPUSCULAR HGB CONC 35.6 g/dl (32.0-36.5); MEAN CORPUSCULAR VOLUME 86.6 fl (80.0-96.0); PLATELET COUNT, AUTOMATED 119 10^3/uL (150-450); RED BLOOD COUNT 2.69 10^6/uL (4.00-5.40); WHITE BLOOD COUNT 13.9 10^3/uL (4.0-10.0)
[2021-08-23] MEDS: SODIUM BICARBONATE 150 MEQ in STERILE WATER LITER BAG 1,000 ML IV SCH (05:39)
[2021-08-23 05:54] LABS: INR 2.62; PARTIAL THROMBOPLASTIN TIME 49.2 SECONDS (25.9-37.0); PROTHROMBIN TIME 28.4 SECONDS (12.7-14.5)
[2021-08-23 06:00] LABS: ALBUMIN 1.4 GM/DL (3.2-5.2); BILIRUBIN,TOTAL 0.6 MG/DL (0.2-1.0); CALCIUM LEVEL 6.2 MG/DL (8.5-10.1); CREATININE FOR GFR 4.22 MG/DL (0.55-1.30); GLOMERULAR FILTRATION RATE 12.7 (>60); MAGNESIUM LEVEL 1.8 MG/DL (1.8-2.4); PHOSPHORUS LEVEL 4.7 MG/DL (2.5-4.9); POTASSIUM SERUM 3.4 MEQ/L (3.5-5.1); TOTAL PROTEIN 4.2 GM/DL (6.4-8.2)
[2021-08-23] MEDS: HEPARIN SOD (PORCINE) 5000UNITS/ML 1ML VIAL/SYRINGE SQ SCH ×2 (08:53→22:35)
[2021-08-23] MEDS: PANTOPRAZOLE 40MG VIAL (C9113 PER 1) IV SCH (08:53)
[2021-08-23] MEDS ORDERED: FUROSEMIDE 40MG/4ML VIAL (J1940) IV ONE (09:05)
[2021-08-23 09:07] LABS: ABG BASE EXCESS 10.1 (-2.0-2.0); ABG HCO3 33.4 MEQ/L (22.0-26.0); ABG O2 SATURATION 98.2 % (95.0-99.0); ABG PARTIAL PRESSURE CO2 39.5 mmHg (35.0-45.0); ABG PARTIAL PRESSURE O2 121.4 mmHg (75.0-100.0); ABG STANDARD HCO3 33.9 MEQ/L (22.0-26.0); ABG TOTAL CO2 34.6 MEQ/L (22.0-29.0); ABG pH (ARTERIAL) 7.545 UNITS (7.350-7.450)
[2021-08-23] MEDS: MIDAZOLAM HCL 100 MG in D5W 80 ML IV SCH (09:07)
[2021-08-23 09:12] LABS: HEMATOCRIT 24.4 % (36.0-47.0); HEMOGLOBIN 8.4 g/dl (12.0-15.5); MEAN CORPUSCULAR HGB CONC 34.4 g/dl (32.0-36.5); MEAN CORPUSCULAR VOLUME 87.1 fl (80.0-96.0); PLATELET COUNT, AUTOMATED 132 10^3/uL (150-450); WHITE BLOOD COUNT 16.2 10^3/uL (4.0-10.0)
[2021-08-23 09:24] LABS: INR 2.32; PROTHROMBIN TIME 25.9 SECONDS (12.7-14.5)
[2021-08-23 09:25] LABS: PARTIAL THROMBOPLASTIN TIME 79.6 SECONDS (25.9-37.0)
[2021-08-23 09:35] LABS: ALBUMIN 1.5 GM/DL (3.2-5.2); BILIRUBIN,TOTAL 0.6 MG/DL (0.2-1.0); CALCIUM LEVEL 6.6 MG/DL (8.5-10.1); CREATININE FOR GFR 4.29 MG/DL (0.55-1.30); GLOMERULAR FILTRATION RATE 12.4 (>60); PHOSPHORUS LEVEL 4.7 MG/DL (2.5-4.9); POTASSIUM SERUM 3.4 MEQ/L (3.5-5.1); TOTAL PROTEIN 4.2 GM/DL (6.4-8.2)
[2021-08-23] MEDS: NOREPINEPHRINE BITARTRATE 8 MG in D5W 492 ML IV SCH (11:34)
[2021-08-23] MEDS ORDERED: DOCUSATE SOD LIQ 100MG/10ML UDC NG PRN (12:15)
[2021-08-23] MEDS ORDERED: SENNA 8.6 MG TAB (SENOKOT) NG PRN (12:15)
[2021-08-23 12:39] LABS: ABG BASE EXCESS 9.4 (-2.0-2.0); ABG HCO3 32.9 MEQ/L (22.0-26.0); ABG O2 SATURATION 99.2 % (95.0-99.0); ABG PARTIAL PRESSURE CO2 40.3 mmHg (35.0-45.0); ABG PARTIAL PRESSURE O2 203.8 mmHg (75.0-100.0); ABG STANDARD HCO3 33.2 MEQ/L (22.0-26.0); ABG TOTAL CO2 34.2 MEQ/L (22.0-29.0)
[2021-08-23 12:43] LABS: HEMATOCRIT 23.7 % (36.0-47.0); HEMOGLOBIN 8.2 g/dl (12.0-15.5); MEAN CORPUSCULAR HEMOGLOBIN 30.5 pg (27.0-33.0); MEAN CORPUSCULAR HGB CONC 34.6 g/dl (32.0-36.5); MEAN CORPUSCULAR VOLUME 88.1 fl (80.0-96.0); PLATELET COUNT, AUTOMATED 120 10^3/uL (150-450); RED BLOOD COUNT 2.69 10^6/uL (4.00-5.40); WHITE BLOOD COUNT 15.7 10^3/uL (4.0-10.0)
[2021-08-23 12:54] LABS: INR 2.65; PROTHROMBIN TIME 28.6 SECONDS (12.7-14.5)
[2021-08-23 12:55] LABS: PARTIAL THROMBOPLASTIN TIME 60.7 SECONDS (25.9-37.0)
[2021-08-23 13:11] LABS: CALCIUM LEVEL 6.5 MG/DL (8.5-10.1); CREATININE FOR GFR 4.62 MG/DL (0.55-1.30); GLOMERULAR FILTRATION RATE 11.4 (>60); MAGNESIUM LEVEL 1.9 MG/DL (1.8-2.4); PHOSPHORUS LEVEL 5.3 MG/DL (2.5-4.9); POTASSIUM SERUM 3.4 MEQ/L (3.5-5.1)
[2021-08-23] MEDS: levETIRAcetam 250MG TABLET (KEPPRA) NG SCH ×2 (14:09→22:35)
[2021-08-23] MEDS: PIPERACILLIN/TAZOBACTAM SOD 4.5 GM in D5W MINI-BAG PLUS 50 ML IV SCH (16:08)
[2021-08-23 17:06] LABS: ABG BASE EXCESS 6.8 (-2.0-2.0); ABG HCO3 29.4 MEQ/L (22.0-26.0); ABG O2 SATURATION 97.9 % (95.0-99.0); ABG PARTIAL PRESSURE CO2 33.8 mmHg (35.0-45.0); ABG PARTIAL PRESSURE O2 112.9 mmHg (75.0-100.0); ABG STANDARD HCO3 30.7 MEQ/L (22.0-26.0); ABG TOTAL CO2 30.5 MEQ/L (22.0-29.0); ABG pH (ARTERIAL) 7.558 UNITS (7.350-7.450)
[2021-08-23 17:21] LABS: HEMATOCRIT 22.5 % (36.0-47.0); HEMOGLOBIN 7.8 g/dl (12.0-15.5); MEAN CORPUSCULAR HEMOGLOBIN 30.2 pg (27.0-33.0); MEAN CORPUSCULAR HGB CONC 34.7 g/dl (32.0-36.5); MEAN CORPUSCULAR VOLUME 87.2 fl (80.0-96.0); PLATELET COUNT, AUTOMATED 123 10^3/uL (150-450); RED BLOOD COUNT 2.58 10^6/uL (4.00-5.40); WHITE BLOOD COUNT 14.6 10^3/uL (4.0-10.0)
[2021-08-23 17:31] LABS: INR 2.48; PROTHROMBIN TIME 27.2 SECONDS (12.7-14.5)
[2021-08-23 17:32] LABS: PARTIAL THROMBOPLASTIN TIME 49.9 SECONDS (25.9-37.0)
[2021-08-23 17:52] LABS: ALBUMIN 1.3 GM/DL (3.2-5.2); BILIRUBIN,TOTAL 0.5 MG/DL (0.2-1.0); CALCIUM LEVEL 6.8 MG/DL (8.5-10.1); CREATININE FOR GFR 4.65 MG/DL (0.55-1.30); GLOMERULAR FILTRATION RATE 11.3 (>60); MAGNESIUM LEVEL 1.9 MG/DL (1.8-2.4); PHOSPHORUS LEVEL 5.4 MG/DL (2.5-4.9); POTASSIUM SERUM 3.4 MEQ/L (3.5-5.1); TOTAL PROTEIN 4.3 GM/DL (6.4-8.2)
[2021-08-23 20:13] LABS: ABG BASE EXCESS 7.5 (-2.0-2.0); ABG HCO3 31.1 MEQ/L (22.0-26.0); ABG O2 SATURATION 95.2 % (95.0-99.0); ABG PARTIAL PRESSURE CO2 40.2 mmHg (35.0-45.0); ABG PARTIAL PRESSURE O2 80.8 mmHg (75.0-100.0); ABG STANDARD HCO3 31.2 MEQ/L (22.0-26.0); ABG TOTAL CO2 32.4 MEQ/L (22.0-29.0); ABG pH (ARTERIAL) 7.507 UNITS (7.350-7.450)
[2021-08-24] VITALS (52 sets, daily range): BP systolic 82–167; BP diastolic 41–78
[2021-08-24] MEDS: fentaNYL 100 MCG/2 ML INJECTION IV PRN ×2 (01:05→05:30)
[2021-08-24] MEDS: PIPERACILLIN/TAZOBACTAM SOD 4.5 GM in D5W MINI-BAG PLUS 50 ML IV SCH ×2 (03:21→16:22)
[2021-08-24] MEDS: MIDAZOLAM HCL 100 MG in D5W 80 ML IV SCH ×2 (03:22→19:40)
[2021-08-24] MEDS: MIDAZOLAM INJ 2MG/2ML VIAL (J2250 PER 1MG) IV PRN (04:52)
[2021-08-24 05:02] LABS: ABG BASE EXCESS 5.8 (-2.0-2.0); ABG HCO3 29.7 MEQ/L (22.0-26.0); ABG O2 SATURATION 81.1 % (95.0-99.0); ABG PARTIAL PRESSURE CO2 40.2 mmHg (35.0-45.0); ABG STANDARD HCO3 29.5 MEQ/L (22.0-26.0); ABG TOTAL CO2 30.9 MEQ/L (22.0-29.0); ABG pH (ARTERIAL) 7.486 UNITS (7.350-7.450)
[2021-08-24 05:03] LABS: ABG PARTIAL PRESSURE O2 46.9 mmHg (75.0-100.0)
[2021-08-24 05:09] LABS: HEMATOCRIT 22.7 % (36.0-47.0); HEMOGLOBIN 7.8 g/dl (12.0-15.5); MEAN CORPUSCULAR HEMOGLOBIN 30.5 pg (27.0-33.0); MEAN CORPUSCULAR HGB CONC 34.4 g/dl (32.0-36.5); MEAN CORPUSCULAR VOLUME 88.7 fl (80.0-96.0); PLATELET COUNT, AUTOMATED 138 10^3/uL (150-450); RED BLOOD COUNT 2.56 10^6/uL (4.00-5.40); WHITE BLOOD COUNT 14.6 10^3/uL (4.0-10.0)
[2021-08-24 05:18] LABS: PROTHROMBIN TIME 31.4 SECONDS (12.7-14.5)
[2021-08-24 05:19] LABS: PARTIAL THROMBOPLASTIN TIME 55.5 SECONDS (25.9-37.0)
[2021-08-24 05:37] LABS: CALCIUM LEVEL 6.9 MG/DL (8.5-10.1); CREATININE FOR GFR 5.44 MG/DL (0.55-1.30); GLOMERULAR FILTRATION RATE 9.5 (>60); POTASSIUM SERUM 3.4 MEQ/L (3.5-5.1)
[2021-08-24 05:38] LABS: ALBUMIN 1.3 GM/DL (3.2-5.2); BILIRUBIN,TOTAL 0.6 MG/DL (0.2-1.0); TOTAL PROTEIN 4.5 GM/DL (6.4-8.2)
[2021-08-24 06:20] LABS: ABG BASE EXCESS 5.5 (-2.0-2.0); ABG HCO3 29.6 MEQ/L (22.0-26.0); ABG O2 SATURATION 98.4 % (95.0-99.0); ABG PARTIAL PRESSURE CO2 41.4 mmHg (35.0-45.0); ABG STANDARD HCO3 29.4 MEQ/L (22.0-26.0); ABG TOTAL CO2 30.9 MEQ/L (22.0-29.0); ABG pH (ARTERIAL) 7.472 UNITS (7.350-7.450)
[2021-08-24 09:38] LABS: ABG BASE EXCESS 5.4 (-2.0-2.0); ABG HCO3 29.9 MEQ/L (22.0-26.0); ABG O2 SATURATION 97.4 % (95.0-99.0); ABG PARTIAL PRESSURE CO2 43.9 mmHg (35.0-45.0); ABG PARTIAL PRESSURE O2 106.7 mmHg (75.0-100.0); ABG STANDARD HCO3 29.3 MEQ/L (22.0-26.0); ABG TOTAL CO2 31.2 MEQ/L (22.0-29.0); ABG pH (ARTERIAL) 7.451 UNITS (7.350-7.450)
[2021-08-24] MEDS: levETIRAcetam 250MG TABLET (KEPPRA) NG SCH ×2 (09:57→20:21)
[2021-08-24] MEDS: HEPARIN SOD (PORCINE) 5000UNITS/ML 1ML VIAL/SYRINGE SQ SCH ×2 (09:58→20:23)
[2021-08-24] MEDS: PANTOPRAZOLE 40MG VIAL (C9113 PER 1) IV SCH (09:58)
[2021-08-24] MEDS: dexmedeTOMidine 200 MCG in IV 1 EA IV SCH ×2 (10:27→19:47)
[2021-08-24] MEDS: NOREPINEPHRINE BITARTRATE 8 MG in D5W 492 ML IV SCH ×2 (12:39→16:21)
[2021-08-24] MEDS: LACRILUBE (AKWA TEARS) OPHTH OINT 3.5 GM OU SCH ×3 (13:35→20:23)
[2021-08-24 15:03] LABS: CREATININE FOR GFR 6.14 MG/DL (0.55-1.30); GLOMERULAR FILTRATION RATE 8.2 (>60); POTASSIUM SERUM 3.6 MEQ/L (3.5-5.1)
[2021-08-25] VITALS (42 sets, daily range): BP systolic 104–154; BP diastolic 53–78
[2021-08-25 04:10] LABS: HEMOGLOBIN 8.2 g/dl (12.0-15.5); MEAN CORPUSCULAR HEMOGLOBIN 30.4 pg (27.0-33.0); MEAN CORPUSCULAR HGB CONC 34.2 g/dl (32.0-36.5); MEAN CORPUSCULAR VOLUME 88.9 fl (80.0-96.0); PLATELET COUNT, AUTOMATED 148 10^3/uL (150-450)
[2021-08-25] MEDS: dexmedeTOMidine 200 MCG in IV 1 EA IV SCH ×2 (04:36→16:17)
[2021-08-25] MEDS: PIPERACILLIN/TAZOBACTAM SOD 4.5 GM in D5W MINI-BAG PLUS 50 ML IV SCH ×2 (04:37→16:16)
[2021-08-25 05:28] LABS: CREATININE FOR GFR 6.71 MG/DL (0.55-1.30); GLOMERULAR FILTRATION RATE 7.4 (>60); POTASSIUM SERUM 3.8 MEQ/L (3.5-5.1)
[2021-08-25] MEDS ORDERED: FUROSEMIDE 100MG/10ML VIAL (J1940) IV ONE (09:15)
[2021-08-25 09:38] LABS: ABG BASE EXCESS 3.6 (-2.0-2.0); ABG HCO3 27.6 MEQ/L (22.0-26.0); ABG O2 SATURATION 96.7 % (95.0-99.0); ABG PARTIAL PRESSURE O2 94.9 mmHg (75.0-100.0); ABG STANDARD HCO3 27.7 MEQ/L (22.0-26.0); ABG TOTAL CO2 28.8 MEQ/L (22.0-29.0); ABG pH (ARTERIAL) 7.467 UNITS (7.350-7.450)
[2021-08-25] MEDS: HEPARIN SOD (PORCINE) 5000UNITS/ML 1ML VIAL/SYRINGE SQ SCH ×2 (10:14→20:17)
[2021-08-25] MEDS: levETIRAcetam 250MG TABLET (KEPPRA) NG SCH ×2 (10:15→20:17)
[2021-08-25] MEDS: LACRILUBE (AKWA TEARS) OPHTH OINT 3.5 GM OU SCH ×3 (10:15→20:17)
[2021-08-25] MEDS: PANTOPRAZOLE 40MG VIAL (C9113 PER 1) IV SCH (10:15)
[2021-08-25] MEDS: METOCLOPRAMIDE INJ 10MG/2ML VIAL (J2765 PER 1) IV SCH ×3 (11:17→21:50)
[2021-08-25] MEDS ORDERED: SODIUM CHLORIDE 0.9% 1000ML IV PRN (12:05)
[2021-08-25 15:10] LABS: CHOLESTEROL RISK RATIO 10.777 (<5)
[2021-08-25 15:22] LABS: HEMOGLOBIN A1c 5.1 %
[2021-08-25 16:46] LABS: HEPATITIS B CORE ANTIBODY IGM NEGATIVE (NEGATIVE); HEPATITIS B SURFACE ANTIBODY NEGATIVE (POSITIVE); HEPATITIS B SURFACE ANTIGEN NEGATIVE (NEGATIVE); HEPATITIS C VIRUS ABY INDEX < 0.0 INDEX (<0.8)
[2021-08-25] MEDS: MIDAZOLAM INJ 2MG/2ML VIAL (J2250 PER 1MG) IV PRN (18:53)
[2021-08-26] VITALS (32 sets, daily range): BP systolic 111–174; BP diastolic 56–96
[2021-08-26] MEDS: METOCLOPRAMIDE INJ 10MG/2ML VIAL (J2765 PER 1) IV SCH ×4 (03:07→21:11)
[2021-08-26] MEDS: PIPERACILLIN/TAZOBACTAM SOD 4.5 GM in D5W MINI-BAG PLUS 50 ML IV SCH ×2 (03:08→15:14)
[2021-08-26] MEDS: dexmedeTOMidine 200 MCG in IV 1 EA IV SCH ×3 (03:48→17:49)
[2021-08-26 04:20] LABS: BASO % 0.1 % (0.0-1.0); EOS # 0.5 10^3/uL (0.0-0.5); EOS % 3.6 % (0.0-3.0); HEMATOCRIT 21.1 % (36.0-47.0); HEMOGLOBIN 7.1 g/dl (12.0-15.5); LYMPH % 7.2 % (24.0-44.0); MEAN CORPUSCULAR HEMOGLOBIN 30.2 pg (27.0-33.0); MEAN CORPUSCULAR HGB CONC 33.6 g/dl (32.0-36.5); MEAN CORPUSCULAR VOLUME 89.8 fl (80.0-96.0); MONO # 0.9 10^3/uL (0.0-0.8); NEUTROPHILS # 10.7 10^3/uL (1.5-8.5); PLATELET COUNT, AUTOMATED 137 10^3/uL (150-450); RED BLOOD COUNT 2.35 10^6/uL (4.00-5.40); WHITE BLOOD COUNT 13.2 10^3/uL (4.0-10.0)
[2021-08-26 04:50] LABS: ALBUMIN 1.6 GM/DL (3.2-5.2); BILIRUBIN,TOTAL 0.6 MG/DL (0.2-1.0); CALCIUM LEVEL 8.1 MG/DL (8.5-10.1); CREATININE FOR GFR 4.77 MG/DL (0.55-1.30); PERCENT SATURATION 6.5 % (13.2-45.0); POTASSIUM SERUM 4.1 MEQ/L (3.5-5.1); TOTAL PROTEIN 4.5 GM/DL (6.4-8.2)
[2021-08-26] MEDS: MIDAZOLAM INJ 2MG/2ML VIAL (J2250 PER 1MG) IV PRN ×7 (05:59→23:56)
[2021-08-26] MEDS: fentaNYL 100 MCG/2 ML INJECTION IV PRN ×5 (06:17→23:57)
[2021-08-26] MEDS: PANTOPRAZOLE 40MG VIAL (C9113 PER 1) IV SCH (08:47)
[2021-08-26] MEDS: levETIRAcetam 250MG TABLET (KEPPRA) NG SCH ×2 (08:48→20:14)
[2021-08-26] MEDS: HEPARIN SOD (PORCINE) 5000UNITS/ML 1ML VIAL/SYRINGE SQ SCH ×2 (08:48→20:15)
[2021-08-26] MEDS: LACRILUBE (AKWA TEARS) OPHTH OINT 3.5 GM OU SCH ×3 (08:48→20:14)
[2021-08-26 09:09] LABS: ABG BASE EXCESS 0.3 (-2.0-2.0); ABG HCO3 24.4 MEQ/L (22.0-26.0); ABG O2 SATURATION 91.4 % (95.0-99.0); ABG PARTIAL PRESSURE CO2 36.8 mmHg (35.0-45.0); ABG PARTIAL PRESSURE O2 67.1 mmHg (75.0-100.0); ABG STANDARD HCO3 24.7 MEQ/L (22.0-26.0); ABG TOTAL CO2 25.6 MEQ/L (22.0-29.0)
[2021-08-26] MEDS: ACETAMINOPHEN 325 MG/10.15 ML UDC NG PRN (14:44)
[2021-08-27] VITALS (32 sets, daily range): BP systolic 102–189; BP diastolic 54–103
[2021-08-27] MEDS: dexmedeTOMidine 200 MCG in IV 1 EA IV SCH (01:54)
[2021-08-27] MEDS: MIDAZOLAM INJ 2MG/2ML VIAL (J2250 PER 1MG) IV PRN ×4 (01:56→23:31)
[2021-08-27] MEDS: fentaNYL 100 MCG/2 ML INJECTION IV PRN (01:56)
[2021-08-27] MEDS ORDERED: PROPOFOL 1,000 MG/100 ML VIAL As Ordered ONE (02:27)
[2021-08-27] MEDS: propofoL 1,000 MG in IV 1 EA IV SCH ×5 (02:36→21:15)
[2021-08-27] MEDS: METOCLOPRAMIDE INJ 10MG/2ML VIAL (J2765 PER 1) IV SCH ×4 (03:36→21:03)
[2021-08-27] MEDS: PIPERACILLIN/TAZOBACTAM SOD 4.5 GM in D5W MINI-BAG PLUS 50 ML IV SCH ×2 (03:36→16:29)
[2021-08-27 04:27] LABS: ABG BASE EXCESS -1.6 (-2.0-2.0); ABG HCO3 23.4 MEQ/L (22.0-26.0); ABG O2 SATURATION 97.8 % (95.0-99.0); ABG PARTIAL PRESSURE CO2 40.5 mmHg (35.0-45.0); ABG STANDARD HCO3 23.2 MEQ/L (22.0-26.0); ABG TOTAL CO2 24.7 MEQ/L (22.0-29.0)
[2021-08-27 04:33] LABS: BASO # 0.1 10^3/uL (0.0-0.2); BASO % 0.6 % (0.0-1.0); EOS # 0.4 10^3/uL (0.0-0.5); EOS % 2.8 % (0.0-3.0); HEMATOCRIT 33.2 % (36.0-47.0); LYMPH % 6.6 % (24.0-44.0); MEAN CORPUSCULAR HEMOGLOBIN 29.9 pg (27.0-33.0); MEAN CORPUSCULAR HGB CONC 34.3 g/dl (32.0-36.5); MEAN CORPUSCULAR VOLUME 87.1 fl (80.0-96.0); MONO # 1.1 10^3/uL (0.0-0.8); MONO % 7.2 % (2.0-8.0); NEUTROPHILS # 12.1 10^3/uL (1.5-8.5); NEUTROPHILS % 79.1 % (36.0-66.0); PLATELET COUNT, AUTOMATED 200 10^3/uL (150-450); RED BLOOD COUNT 3.81 10^6/uL (4.00-5.40); WHITE BLOOD COUNT 15.3 10^3/uL (4.0-10.0)
[2021-08-27 04:37] LABS: HEMOGLOBIN 11.4 g/dl (12.0-15.5)
[2021-08-27 05:10] LABS: ALBUMIN 1.8 GM/DL (3.2-5.2); BILIRUBIN,TOTAL 1.1 MG/DL (0.2-1.0); CALCIUM LEVEL 8.2 MG/DL (8.5-10.1); CREATININE FOR GFR 3.7 MG/DL (0.55-1.30); GLOMERULAR FILTRATION RATE 14.8 (>60); PHOSPHORUS LEVEL 3.6 MG/DL (2.5-4.9); POTASSIUM SERUM 4.2 MEQ/L (3.5-5.1)
[2021-08-27] MEDS: levETIRAcetam 250MG TABLET (KEPPRA) NG SCH ×2 (07:58→21:03)
[2021-08-27] MEDS: LACRILUBE (AKWA TEARS) OPHTH OINT 3.5 GM OU SCH ×3 (07:58→21:04)
[2021-08-27] MEDS: HEPARIN SOD (PORCINE) 5000UNITS/ML 1ML VIAL/SYRINGE SQ SCH ×2 (07:58→21:03)
[2021-08-27] MEDS: PANTOPRAZOLE 40MG VIAL (C9113 PER 1) IV SCH (07:58)
[2021-08-27 10:01] LABS: CALCIUM LEVEL 8.2 MG/DL (8.5-10.1); CREATININE FOR GFR 3.6 MG/DL (0.55-1.30); GLOMERULAR FILTRATION RATE 15.2 (>60); POTASSIUM SERUM 4.1 MEQ/L (3.5-5.1)
[2021-08-27] MEDS: ACETAMINOPHEN 325 MG/10.15 ML UDC NG PRN (12:32)
[2021-08-27] MEDS ORDERED: FUROSEMIDE 100MG/10ML VIAL (J1940) IV ONE (22:00)
[2021-08-28] VITALS (20 sets, daily range): BP systolic 109–182; BP diastolic 59–88
[2021-08-28] MEDS: fentaNYL 100 MCG/2 ML INJECTION IV PRN ×5 (00:11→21:00)
[2021-08-28] MEDS: ACETAMINOPHEN 325 MG/10.15 ML UDC NG PRN ×2 (00:12→12:49)
[2021-08-28] MEDS: propofoL 1,000 MG in IV 1 EA IV SCH ×5 (00:50→18:30)
[2021-08-28] MEDS: METOCLOPRAMIDE INJ 10MG/2ML VIAL (J2765 PER 1) IV SCH ×4 (04:19→20:42)
[2021-08-28 04:35] LABS: ABG BASE EXCESS -1.9 (-2.0-2.0); ABG O2 SATURATION 96.1 % (95.0-99.0); ABG PARTIAL PRESSURE CO2 34.6 mmHg (35.0-45.0); ABG PARTIAL PRESSURE O2 82.7 mmHg (75.0-100.0); ABG STANDARD HCO3 22.8 MEQ/L (22.0-26.0); ABG TOTAL CO2 23.1 MEQ/L (22.0-29.0); ABG pH (ARTERIAL) 7.422 UNITS (7.350-7.450)
[2021-08-28 04:42] LABS: BASO # 0.1 10^3/uL (0.0-0.2); BASO % 0.4 % (0.0-1.0); EOS # 1.5 10^3/uL (0.0-0.5); EOS % 9.5 % (0.0-3.0); HEMATOCRIT 28.5 % (36.0-47.0); HEMOGLOBIN 9.6 g/dl (12.0-15.5); LYMPH # 1.8 10^3/uL (1.5-5.0); LYMPH % 11.4 % (24.0-44.0); MEAN CORPUSCULAR HEMOGLOBIN 29.5 pg (27.0-33.0); MEAN CORPUSCULAR HGB CONC 33.7 g/dl (32.0-36.5); MEAN CORPUSCULAR VOLUME 87.7 fl (80.0-96.0); MONO # 1.1 10^3/uL (0.0-0.8); NEUTROPHILS # 10.8 10^3/uL (1.5-8.5); PLATELET COUNT, AUTOMATED 269 10^3/uL (150-450); RED BLOOD COUNT 3.25 10^6/uL (4.00-5.40); WHITE BLOOD COUNT 16.1 10^3/uL (4.0-10.0)
[2021-08-28 05:12] LABS: ALBUMIN 1.7 GM/DL (3.2-5.2); BILIRUBIN,TOTAL 0.8 MG/DL (0.2-1.0); CALCIUM LEVEL 8.1 MG/DL (8.5-10.1); CREATININE FOR GFR 3.49 MG/DL (0.55-1.30); GLOMERULAR FILTRATION RATE 15.8 (>60); PHOSPHORUS LEVEL 2.6 MG/DL (2.5-4.9); POTASSIUM SERUM 3.8 MEQ/L (3.5-5.1); TOTAL PROTEIN 4.8 GM/DL (6.4-8.2)
[2021-08-28] MEDS: MIDAZOLAM INJ 2MG/2ML VIAL (J2250 PER 1MG) IV PRN ×2 (08:08→12:48)
[2021-08-28] MEDS: PANTOPRAZOLE 40MG VIAL (C9113 PER 1) IV SCH (10:02)
[2021-08-28] MEDS: MICAFUNGIN SODIUM 100 MG in D5W MINI-BAG PLUS 100 ML IV SCH (10:02)
[2021-08-28] MEDS: levETIRAcetam 250MG TABLET (KEPPRA) NG SCH ×2 (10:03→20:42)
[2021-08-28] MEDS: HEPARIN SOD (PORCINE) 5000UNITS/ML 1ML VIAL/SYRINGE SQ SCH ×2 (10:03→20:42)
[2021-08-28] MEDS: LACRILUBE (AKWA TEARS) OPHTH OINT 3.5 GM OU SCH ×3 (10:04→20:42)
[2021-08-28 10:53] LABS: INR 2.76; PROTHROMBIN TIME 29.5 SECONDS (12.7-14.5)
[2021-08-28 10:54] LABS: PARTIAL THROMBOPLASTIN TIME 42.2 SECONDS (25.9-37.0)
[2021-08-28] MEDS: PIPERACILLIN/TAZOBACTAM SOD 4.5 GM in D5W MINI-BAG PLUS 50 ML IV SCH (15:01)
[2021-08-28] MEDS ORDERED: cloNIDine HCL 0.1 MG/24 HR PATCH TOP SCH (21:00)
[2021-08-28] MEDS ORDERED: FUROSEMIDE 100MG/10ML VIAL (J1940) IV ONE (21:05)
[2021-08-29] VITALS (32 sets, daily range): BP systolic 103–165; BP diastolic 60–81
[2021-08-29] MEDS: propofoL 1,000 MG in IV 1 EA IV SCH ×6 (00:45→20:58)
[2021-08-29] MEDS: MIDAZOLAM INJ 2MG/2ML VIAL (J2250 PER 1MG) IV PRN ×5 (03:52→22:21)
[2021-08-29] MEDS: fentaNYL 100 MCG/2 ML INJECTION IV PRN ×2 (03:53→19:54)
[2021-08-29] MEDS: METOCLOPRAMIDE INJ 10MG/2ML VIAL (J2765 PER 1) IV SCH ×4 (03:53→20:53)
[2021-08-29] MEDS: PIPERACILLIN/TAZOBACTAM SOD 4.5 GM in D5W MINI-BAG PLUS 50 ML IV SCH ×2 (03:53→14:37)
[2021-08-29 06:03] LABS: HEMATOCRIT 29.9 % (36.0-47.0); HEMOGLOBIN 9.9 g/dl (12.0-15.5); MEAN CORPUSCULAR HEMOGLOBIN 29.6 pg (27.0-33.0); MEAN CORPUSCULAR HGB CONC 33.1 g/dl (32.0-36.5); MEAN CORPUSCULAR VOLUME 89.3 fl (80.0-96.0); PLATELET COUNT, AUTOMATED 366 10^3/uL (150-450); RED BLOOD COUNT 3.35 10^6/uL (4.00-5.40); WHITE BLOOD COUNT 20.2 10^3/uL (4.0-10.0)
[2021-08-29 06:14] LABS: ABG BASE EXCESS -3.6 (-2.0-2.0); ABG HCO3 21.8 MEQ/L (22.0-26.0); ABG O2 SATURATION 97.6 % (95.0-99.0); ABG PARTIAL PRESSURE CO2 40.7 mmHg (35.0-45.0); ABG STANDARD HCO3 21.4 MEQ/L (22.0-26.0); ABG pH (ARTERIAL) 7.346 UNITS (7.350-7.450)
[2021-08-29 06:35] LABS: ALBUMIN 1.7 GM/DL (3.2-5.2); BILIRUBIN,TOTAL 0.9 MG/DL (0.2-1.0); CALCIUM LEVEL 8.7 MG/DL (8.5-10.1); CREATININE FOR GFR 3.6 MG/DL (0.55-1.30); GLOMERULAR FILTRATION RATE 15.2 (>60); PHOSPHORUS LEVEL 3.7 MG/DL (2.5-4.9); POTASSIUM SERUM 4.2 MEQ/L (3.5-5.1); TOTAL PROTEIN 5.1 GM/DL (6.4-8.2)
[2021-08-29 06:58] LABS: ANISOCYTOSIS 1+; EOSINOPHILS 10 % (0-3); LYMPHOCYTES 11 % (16-44); METAMYELOCYTES 3 % (0-0); MONOCYTES 9 % (0-5); NEUTROPHILS 65 % (28-66); PLATELET ESTIMATE NORMAL (NORMAL)
[2021-08-29] MEDS: LACRILUBE (AKWA TEARS) OPHTH OINT 3.5 GM OU SCH ×3 (08:46→20:02)
[2021-08-29] MEDS: PANTOPRAZOLE 40MG VIAL (C9113 PER 1) IV SCH (08:47)
[2021-08-29] MEDS: HEPARIN SOD (PORCINE) 5000UNITS/ML 1ML VIAL/SYRINGE SQ SCH ×2 (08:48→20:02)
[2021-08-29] MEDS: levETIRAcetam 250MG TABLET (KEPPRA) NG SCH ×2 (08:48→20:02)
[2021-08-29] MEDS: MICAFUNGIN SODIUM 100 MG in D5W MINI-BAG PLUS 100 ML IV SCH (09:44)
[2021-08-29] MEDS ORDERED: LIDOCAINE 1% MDV 20ML VIAL As Ordered ONE (10:26)
[2021-08-30] VITALS (16 sets, daily range): BP systolic 109–189; BP diastolic 59–88
[2021-08-30] MEDS: fentaNYL 100 MCG/2 ML INJECTION IV PRN ×5 (00:04→22:26)
[2021-08-30] MEDS: propofoL 1,000 MG in IV 1 EA IV SCH ×6 (01:53→23:54)
[2021-08-30] MEDS: MIDAZOLAM INJ 2MG/2ML VIAL (J2250 PER 1MG) IV PRN ×9 (03:31→22:26)
[2021-08-30] MEDS: METOCLOPRAMIDE INJ 10MG/2ML VIAL (J2765 PER 1) IV SCH ×4 (03:31→20:03)
[2021-08-30] MEDS: PIPERACILLIN/TAZOBACTAM SOD 4.5 GM in D5W MINI-BAG PLUS 50 ML IV SCH ×2 (03:31→14:36)
[2021-08-30 05:52] LABS: HEMATOCRIT 29.2 % (36.0-47.0); HEMOGLOBIN 9.7 g/dl (12.0-15.5); MEAN CORPUSCULAR HEMOGLOBIN 29.6 pg (27.0-33.0); MEAN CORPUSCULAR HGB CONC 33.2 g/dl (32.0-36.5); PLATELET COUNT, AUTOMATED 437 10^3/uL (150-450); RED BLOOD COUNT 3.28 10^6/uL (4.00-5.40); WHITE BLOOD COUNT 20.9 10^3/uL (4.0-10.0)
[2021-08-30 06:06] LABS: ABG BASE EXCESS -4.2 (-2.0-2.0); ABG HCO3 20.9 MEQ/L (22.0-26.0); ABG O2 SATURATION 95.8 % (95.0-99.0); ABG PARTIAL PRESSURE CO2 38.2 mmHg (35.0-45.0); ABG PARTIAL PRESSURE O2 82.2 mmHg (75.0-100.0); ABG STANDARD HCO3 20.9 MEQ/L (22.0-26.0); ABG pH (ARTERIAL) 7.355 UNITS (7.350-7.450)
[2021-08-30 06:22] LABS: BASOPHILS 8 % (0-1); LYMPHOCYTES 6 % (16-44); METAMYELOCYTES 1 % (0-0); MONOCYTES 3 % (0-5); NEUTROPHILS 82 % (28-66); PLATELET ESTIMATE NORMAL (NORMAL)
[2021-08-30 06:46] LABS: ALBUMIN 1.6 GM/DL (3.2-5.2); BILIRUBIN,TOTAL 0.8 MG/DL (0.2-1.0); CALCIUM LEVEL 8.9 MG/DL (8.5-10.1); CREATININE FOR GFR 3.61 MG/DL (0.55-1.30); GLOMERULAR FILTRATION RATE 15.2 (>60); PHOSPHORUS LEVEL 4.7 MG/DL (2.5-4.9); TOTAL PROTEIN 5.4 GM/DL (6.4-8.2)
[2021-08-30] MEDS: PANTOPRAZOLE 40MG VIAL (C9113 PER 1) IV SCH (09:41)
[2021-08-30] MEDS: levETIRAcetam 250MG TABLET (KEPPRA) NG SCH ×2 (09:43→20:02)
[2021-08-30] MEDS: LACRILUBE (AKWA TEARS) OPHTH OINT 3.5 GM OU SCH ×3 (09:44→20:02)
[2021-08-30] MEDS: HEPARIN SOD (PORCINE) 5000UNITS/ML 1ML VIAL/SYRINGE SQ SCH ×2 (09:44→20:02)
[2021-08-30] MEDS: MICAFUNGIN SODIUM 100 MG in D5W MINI-BAG PLUS 100 ML IV SCH (09:44)
[2021-08-30] MEDS ORDERED: LIDOCAINE 1% MDV 20ML VIAL As Ordered ONE (10:37)
[2021-08-30] MEDS: SODIUM CHLORIDE 0.9% INJ 10 ML SYR IV SCH (17:52)
[2021-08-31] VITALS (16 sets, daily range): BP systolic 118–191; BP diastolic 65–95
[2021-08-31] MEDS: fentaNYL 100 MCG/2 ML INJECTION IV PRN ×7 (00:31→20:23)
[2021-08-31] MEDS: MIDAZOLAM INJ 2MG/2ML VIAL (J2250 PER 1MG) IV PRN ×13 (00:31→20:24)
[2021-08-31] MEDS: propofoL 1,000 MG in IV 1 EA IV SCH ×6 (04:10→22:45)
[2021-08-31] MEDS: PIPERACILLIN/TAZOBACTAM SOD 4.5 GM in D5W MINI-BAG PLUS 50 ML IV SCH ×2 (04:10→15:02)
[2021-08-31] MEDS: METOCLOPRAMIDE INJ 10MG/2ML VIAL (J2765 PER 1) IV SCH ×4 (04:11→20:24)
[2021-08-31 05:42] LABS: ABG BASE EXCESS -4.7 (-2.0-2.0); ABG HCO3 20.9 MEQ/L (22.0-26.0); ABG O2 SATURATION 94.2 % (95.0-99.0); ABG PARTIAL PRESSURE CO2 40.7 mmHg (35.0-45.0); ABG PARTIAL PRESSURE O2 73.8 mmHg (75.0-100.0); ABG STANDARD HCO3 20.5 MEQ/L (22.0-26.0); ABG TOTAL CO2 22.1 MEQ/L (22.0-29.0); ABG pH (ARTERIAL) 7.328 UNITS (7.350-7.450)
[2021-08-31 05:47] LABS: HEMATOCRIT 28.7 % (36.0-47.0); HEMOGLOBIN 9.7 g/dl (12.0-15.5); MEAN CORPUSCULAR HEMOGLOBIN 29.8 pg (27.0-33.0); MEAN CORPUSCULAR HGB CONC 33.8 g/dl (32.0-36.5); PLATELET COUNT, AUTOMATED 520 10^3/uL (150-450); RED BLOOD COUNT 3.26 10^6/uL (4.00-5.40); WHITE BLOOD COUNT 22.1 10^3/uL (4.0-10.0)
[2021-08-31 06:20] LABS: ALBUMIN 1.6 GM/DL (3.2-5.2); BILIRUBIN,TOTAL 0.9 MG/DL (0.2-1.0); CALCIUM LEVEL 8.6 MG/DL (8.5-10.1); CREATININE FOR GFR 4.7 MG/DL (0.55-1.30); GLOMERULAR FILTRATION RATE 11.2 (>60); PHOSPHORUS LEVEL 6.4 MG/DL (2.5-4.9); POTASSIUM SERUM 4.1 MEQ/L (3.5-5.1); TOTAL PROTEIN 5.7 GM/DL (6.4-8.2)
[2021-08-31] MEDS: SODIUM CHLORIDE 0.9% INJ 10 ML SYR IV SCH ×2 (06:23→17:27)
[2021-08-31 06:32] LABS: ATYPICAL LYMPH 1 % (0-5); EOSINOPHILS 7 % (0-3); LYMPHOCYTES 4 % (16-44); METAMYELOCYTES 2 % (0-0); MONOCYTES 6 % (0-5); NEUTROPHILS 80 % (28-66)
[2021-08-31 06:33] LABS: PLATELET ESTIMATE INCREASED (NORMAL)
[2021-08-31] MEDS: PANTOPRAZOLE 40MG VIAL (C9113 PER 1) IV SCH (08:49)
[2021-08-31] MEDS: levETIRAcetam 250MG TABLET (KEPPRA) NG SCH ×2 (08:49→20:25)
[2021-08-31] MEDS: HEPARIN SOD (PORCINE) 5000UNITS/ML 1ML VIAL/SYRINGE SQ SCH ×2 (08:50→20:24)
[2021-08-31] MEDS: LACRILUBE (AKWA TEARS) OPHTH OINT 3.5 GM OU SCH ×3 (08:50→20:25)
[2021-08-31] MEDS: MICAFUNGIN SODIUM 100 MG in D5W MINI-BAG PLUS 100 ML IV SCH (09:26)
[2021-08-31] MEDS: ACETAMINOPHEN 325 MG/10.15 ML UDC NG PRN (17:40)
[2021-08-31] MEDS ORDERED: [UNRECOGNIZED DRUG - OTHER] IV SCH ×5 (18:00)
[2021-08-31] MEDS ORDERED: SODIUM ACETATE IV SCH ×5 (18:00)
[2021-08-31] MEDS ORDERED: SODIUM CHLORIDE IV SCH ×5 (18:00)
[2021-09-01] VITALS (28 sets, daily range): BP systolic 85–207; BP diastolic 54–103
[2021-09-01] MEDS: MIDAZOLAM INJ 2MG/2ML VIAL (J2250 PER 1MG) IV PRN ×5 (02:33→23:52)
[2021-09-01] MEDS: propofoL 1,000 MG in IV 1 EA IV SCH ×5 (02:33→20:48)
[2021-09-01] MEDS: PIPERACILLIN/TAZOBACTAM SOD 4.5 GM in D5W MINI-BAG PLUS 50 ML IV SCH ×2 (03:22→15:18)
[2021-09-01] MEDS: METOCLOPRAMIDE INJ 10MG/2ML VIAL (J2765 PER 1) IV SCH ×4 (04:12→21:26)
[2021-09-01] MEDS: fentaNYL 100 MCG/2 ML INJECTION IV PRN ×6 (04:13→23:52)
[2021-09-01 05:59] LABS: HEMATOCRIT 29.3 % (36.0-47.0); HEMOGLOBIN 9.8 g/dl (12.0-15.5); MEAN CORPUSCULAR HEMOGLOBIN 29.2 pg (27.0-33.0); MEAN CORPUSCULAR HGB CONC 33.4 g/dl (32.0-36.5); MEAN CORPUSCULAR VOLUME 87.2 fl (80.0-96.0); PLATELET COUNT, AUTOMATED 618 10^3/uL (150-450); RED BLOOD COUNT 3.36 10^6/uL (4.00-5.40); WHITE BLOOD COUNT 23.7 10^3/uL (4.0-10.0)
[2021-09-01] MEDS: SODIUM CHLORIDE 0.9% INJ 10 ML SYR IV SCH ×2 (06:15→17:13)
[2021-09-01 06:23] LABS: ANISOCYTOSIS 1+; ATYPICAL LYMPH 1 % (0-5); EOSINOPHILS 7 % (0-3); LYMPHOCYTES 9 % (16-44); METAMYELOCYTES 4 % (0-0); MONOCYTES 1 % (0-5); NEUTROPHILS 78 % (28-66); PLATELET ESTIMATE INCREASED (NORMAL)
[2021-09-01 06:31] LABS: ALBUMIN 1.7 GM/DL (3.2-5.2); BILIRUBIN,TOTAL 1.1 MG/DL (0.2-1.0); CALCIUM LEVEL 8.9 MG/DL (8.5-10.1); CREATININE FOR GFR 3.83 MG/DL (0.55-1.30); GLOMERULAR FILTRATION RATE 14.2 (>60); PHOSPHORUS LEVEL 4.3 MG/DL (2.5-4.9); POTASSIUM SERUM 3.6 MEQ/L (3.5-5.1)
[2021-09-01 06:38] LABS: ABG BASE EXCESS -7.4 (-2.0-2.0); ABG HCO3 16.9 MEQ/L (22.0-26.0); ABG O2 SATURATION 97.1 % (95.0-99.0); ABG PARTIAL PRESSURE CO2 29.6 mmHg (35.0-45.0); ABG PARTIAL PRESSURE O2 94.8 mmHg (75.0-100.0); ABG STANDARD HCO3 18.4 MEQ/L (22.0-26.0); ABG TOTAL CO2 17.8 MEQ/L (22.0-29.0); ABG pH (ARTERIAL) 7.375 UNITS (7.350-7.450)
[2021-09-01] MEDS ORDERED: LEVEMIR (INSULIN DETEMIR) 1 UNITS/0.01ML SC SCH (09:00)
[2021-09-01] MEDS: dexmedeTOMidine 200 MCG in IV 1 EA IV SCH ×2 (09:20→17:25)
[2021-09-01] MEDS ORDERED: HumaLOG INSULIN (NovoLOG) PER UNIT SC SCH (11:15)
[2021-09-01] MEDS: MICAFUNGIN SODIUM 100 MG in D5W MINI-BAG PLUS 100 ML IV SCH (11:47)
[2021-09-01] MEDS: LACRILUBE (AKWA TEARS) OPHTH OINT 3.5 GM OU SCH ×3 (11:48→20:32)
[2021-09-01] MEDS: PANTOPRAZOLE 40MG VIAL (C9113 PER 1) IV SCH (12:05)
[2021-09-01] MEDS: HEPARIN SOD (PORCINE) 5000UNITS/ML 1ML VIAL/SYRINGE SQ SCH ×2 (12:05→20:31)
[2021-09-01] MEDS: levETIRAcetam 250MG TABLET (KEPPRA) NG SCH ×2 (12:06→20:31)
[2021-09-01 13:34] LABS: CLOSTRIDIUM DIFFICILE PCR NEGATIVE (NEGATIVE)
[2021-09-01] MEDS: cloNIDine 0.1MG TABLET NG SCH ×2 (15:19→21:26)
[2021-09-01] MEDS ORDERED: SODIUM CHLORIDE IV SCH ×8 (18:00)
[2021-09-01] MEDS ORDERED: [UNRECOGNIZED DRUG - OTHER] IV SCH ×8 (18:00)
[2021-09-01] MEDS ORDERED: SODIUM ACETATE IV SCH ×8 (18:00)
[2021-09-01] MEDS ORDERED: FAT EMULSION IV 250 ML IV SCH (18:00)
[2021-09-01] MEDS ORDERED: clonazePAM 0.5 MG TAB NG SCH (21:00)
[2021-09-02] VITALS (48 sets, daily range): BP systolic 64–143; BP diastolic 40–91
[2021-09-02] MEDS: ACETAMINOPHEN 325 MG/10.15 ML UDC NG PRN (00:33)
[2021-09-02] MEDS: MIDAZOLAM INJ 2MG/2ML VIAL (J2250 PER 1MG) IV PRN ×4 (01:39→17:41)
[2021-09-02] MEDS: fentaNYL 100 MCG/2 ML INJECTION IV PRN ×2 (01:40→11:52)
[2021-09-02] MEDS: propofoL 1,000 MG in IV 1 EA IV SCH (02:12)
[2021-09-02] MEDS: PIPERACILLIN/TAZOBACTAM SOD 4.5 GM in D5W MINI-BAG PLUS 50 ML IV SCH (02:14)
[2021-09-02] MEDS ORDERED: REFRIGERATOR IV KEYS XX PRN (02:55)
[2021-09-02] MEDS: METOCLOPRAMIDE INJ 10MG/2ML VIAL (J2765 PER 1) IV SCH ×2 (03:57→10:27)
[2021-09-02] MEDS: fentaNYL CITRATE 1,000 MCG in NS 80 ML IV SCH ×2 (04:11→20:58)
[2021-09-02] MEDS: MIDAZOLAM HCL 100 MG in D5W 80 ML IV SCH (04:12)
[2021-09-02] MEDS: SODIUM CHLORIDE 0.9% INJ 10 ML SYR IV SCH ×2 (05:38→18:00)
[2021-09-02] MEDS: cloNIDine 0.1MG TABLET NG SCH (06:14)
[2021-09-02] MEDS ORDERED: cloNIDine HCL 0.3 MG/24 HR PATCH TOP SCH (09:00)
[2021-09-02 10:07] LABS: ABG BASE EXCESS -14.5 (-2.0-2.0); ABG HCO3 12.1 MEQ/L (22.0-26.0); ABG O2 SATURATION 87.5 % (95.0-99.0); ABG PARTIAL PRESSURE CO2 31.1 mmHg (35.0-45.0); ABG PARTIAL PRESSURE O2 63.2 mmHg (75.0-100.0); ABG STANDARD HCO3 13.1 MEQ/L (22.0-26.0); ABG TOTAL CO2 13.1 MEQ/L (22.0-29.0)
[2021-09-02 10:08] LABS: ABG pH (ARTERIAL) 7.208 UNITS (7.350-7.450)
[2021-09-02 10:11] LABS: BASO # 0.1 10^3/uL (0.0-0.2); BASO % 0.3 % (0.0-1.0); EOS # 0.1 10^3/uL (0.0-0.5); EOS % 0.3 % (0.0-3.0); HEMATOCRIT 31.7 % (36.0-47.0); HEMOGLOBIN 10.2 g/dl (12.0-15.5); LYMPH # 2.3 10^3/uL (1.5-5.0); LYMPH % 6.1 % (24.0-44.0); MEAN CORPUSCULAR HEMOGLOBIN 29.1 pg (27.0-33.0); MEAN CORPUSCULAR HGB CONC 32.2 g/dl (32.0-36.5); MEAN CORPUSCULAR VOLUME 90.6 fl (80.0-96.0); MONO % 10.6 % (2.0-8.0); NEUTROPHILS # 28.6 10^3/uL (1.5-8.5); NEUTROPHILS % 74.8 % (36.0-66.0)
[2021-09-02] MEDS: MICAFUNGIN SODIUM 100 MG in D5W MINI-BAG PLUS 100 ML IV SCH (10:26)
[2021-09-02] MEDS: PANTOPRAZOLE 40MG VIAL (C9113 PER 1) IV SCH (10:27)
[2021-09-02] MEDS: LACRILUBE (AKWA TEARS) OPHTH OINT 3.5 GM OU SCH ×3 (10:27→20:48)
[2021-09-02] MEDS: HEPARIN SOD (PORCINE) 5000UNITS/ML 1ML VIAL/SYRINGE SQ SCH ×2 (10:28→20:48)
[2021-09-02] MEDS: levETIRAcetam 250MG TABLET (KEPPRA) NG SCH ×2 (10:28→20:48)
[2021-09-02 10:43] LABS: PLATELET COUNT, AUTOMATED 1043 10^3/uL (150-450)
[2021-09-02 10:44] LABS: WHITE BLOOD COUNT 38.2 10^3/uL (4.0-10.0)
[2021-09-02 10:47] LABS: ALBUMIN 1.8 GM/DL (3.2-5.2); BILIRUBIN,TOTAL 1.1 MG/DL (0.2-1.0); CALCIUM LEVEL 9.3 MG/DL (8.5-10.1); CREATININE FOR GFR 5.46 MG/DL (0.55-1.30); GLOMERULAR FILTRATION RATE 9.4 (>60); MAGNESIUM LEVEL 3.3 MG/DL (1.8-2.4); PHOSPHORUS LEVEL 8.2 MG/DL (2.5-4.9); POTASSIUM SERUM 5.8 MEQ/L (3.5-5.1); TOTAL PROTEIN 6.7 GM/DL (6.4-8.2)
[2021-09-02] MEDS ORDERED: SODIUM CHLORIDE 0.9% 1000ML IV PRN (12:05)
[2021-09-02] MEDS ORDERED: MEROPENEM INJ 500 MG in IV 1 EA IV SCH (13:00)
[2021-09-02 13:17] LABS: INR 2.2; PROTHROMBIN TIME 24.9 SECONDS (12.7-14.5)
[2021-09-02] MEDS ORDERED: VANCOMYCIN INTERMITTENT/PULSE DOSING BY CLINICAL PHARMACIST PER DOSING PROTOCOL XX SCH (14:25)
[2021-09-02] MEDS ORDERED: NOREPINEPHRINE 4 MG/4 ML AMP As Ordered ONE ×2 (15:56→15:57)
[2021-09-02] MEDS ORDERED: VANCOMYCIN HCL 1,000 MG, VIAL MATE ADAPTER 1 EACH in NS 250 ML IV ONE (16:00)
[2021-09-02] MEDS ORDERED: NOREPINEPHRINE BITARTRATE 8 MG in D5W 492 ML IV SCH (16:05)
[2021-09-02 17:37] LABS: ABG BASE EXCESS -9.5 (-2.0-2.0); ABG HCO3 16.2 MEQ/L (22.0-26.0); ABG O2 SATURATION 98.2 % (95.0-99.0); ABG PARTIAL PRESSURE CO2 34.4 mmHg (35.0-45.0); ABG PARTIAL PRESSURE O2 128.1 mmHg (75.0-100.0); ABG STANDARD HCO3 16.9 MEQ/L (22.0-26.0); ABG TOTAL CO2 17.2 MEQ/L (22.0-29.0)
[2021-09-02] MEDS ORDERED: CISATRACURIUM 10MG/ML 20 ML VIAL IV ONE (18:15)
[2021-09-02] MEDS: MEROPENEM INJ 500 MG in IV 1 EA IV SCH (20:00)
[2021-09-03] VITALS (25 sets, daily range): BP systolic 83–118; BP diastolic 50–82
[2021-09-03] MEDS: MIDAZOLAM HCL 100 MG in D5W 80 ML IV SCH (04:05)
[2021-09-03] MEDS ORDERED: NOREPINEPHRINE BITARTRATE 8 MG in D5W 492 ML IV SCH (04:05)
[2021-09-03] MEDS: SODIUM CHLORIDE 0.9% INJ 10 ML SYR IV SCH ×2 (06:00→17:48)
[2021-09-03] MEDS: MEROPENEM INJ 500 MG in IV 1 EA IV SCH ×2 (06:04→17:48)
[2021-09-03 06:06] LABS: ABG BASE EXCESS -6.2 (-2.0-2.0); ABG HCO3 16.4 MEQ/L (22.0-26.0); ABG O2 SATURATION 98.6 % (95.0-99.0); ABG PARTIAL PRESSURE CO2 23.7 mmHg (35.0-45.0); ABG PARTIAL PRESSURE O2 141.1 mmHg (75.0-100.0); ABG STANDARD HCO3 19.4 MEQ/L (22.0-26.0); ABG TOTAL CO2 17.1 MEQ/L (22.0-29.0); ABG pH (ARTERIAL) 7.458 UNITS (7.350-7.450)
[2021-09-03 06:43] LABS: HEMOGLOBIN 8.7 g/dl (12.0-15.5); MEAN CORPUSCULAR HGB CONC 33.5 g/dl (32.0-36.5); MEAN CORPUSCULAR VOLUME 86.7 fl (80.0-96.0); PLATELET COUNT, AUTOMATED 963 10^3/uL (150-450); WHITE BLOOD COUNT 27.6 10^3/uL (4.0-10.0)
[2021-09-03 06:49] LABS: ALBUMIN 1.5 GM/DL (3.2-5.2); BILIRUBIN,TOTAL 1.4 MG/DL (0.2-1.0); CALCIUM LEVEL 9.3 MG/DL (8.5-10.1); CREATININE FOR GFR 4.83 MG/DL (0.55-1.30); GLOMERULAR FILTRATION RATE 10.8 (>60); MAGNESIUM LEVEL 2.6 MG/DL (1.8-2.4); POTASSIUM SERUM 4.3 MEQ/L (3.5-5.1); TOTAL PROTEIN 5.9 GM/DL (6.4-8.2)
[2021-09-03 09:57] LABS: ABG BASE EXCESS -9.8 (-2.0-2.0); ABG O2 SATURATION 96.8 % (95.0-99.0); ABG PARTIAL PRESSURE CO2 24.5 mmHg (35.0-45.0); ABG PARTIAL PRESSURE O2 95.7 mmHg (75.0-100.0); ABG STANDARD HCO3 16.6 MEQ/L (22.0-26.0); ABG TOTAL CO2 14.7 MEQ/L (22.0-29.0); ABG pH (ARTERIAL) 7.374 UNITS (7.350-7.450)
[2021-09-03] MEDS: PANTOPRAZOLE 40MG VIAL (C9113 PER 1) IV SCH (10:14)
[2021-09-03] MEDS: LACRILUBE (AKWA TEARS) OPHTH OINT 3.5 GM OU SCH ×3 (10:14→21:20)
[2021-09-03] MEDS: HEPARIN SOD (PORCINE) 5000UNITS/ML 1ML VIAL/SYRINGE SQ SCH ×2 (10:14→21:20)
[2021-09-03] MEDS: levETIRAcetam 250MG TABLET (KEPPRA) NG SCH ×2 (10:15→21:20)
[2021-09-03] MEDS ORDERED: SODIUM BICARBONATE 325 MG TAB PO SCH (16:00)
[2021-09-03] MEDS: fentaNYL CITRATE 1,000 MCG in NS 80 ML IV SCH (17:29)
[2021-09-03] MEDS: SODIUM BICARBONATE 325 MG TAB NG SCH ×2 (17:49→21:19)
[2021-09-03] MEDS ORDERED: SODIUM ACETATE IV SCH ×4 (18:00)
[2021-09-03] MEDS ORDERED: SODIUM CHLORIDE IV SCH ×4 (18:00)
[2021-09-03] MEDS ORDERED: [UNRECOGNIZED DRUG - OTHER] IV SCH ×4 (18:00)
[2021-09-04] VITALS (34 sets, daily range): BP systolic 85–148; BP diastolic 50–95
[2021-09-04] MEDS: MIDAZOLAM HCL 100 MG in D5W 80 ML IV SCH (04:27)
[2021-09-04] MEDS: SODIUM CHLORIDE 0.9% INJ 10 ML SYR IV SCH ×2 (06:00→17:51)
[2021-09-04] MEDS ORDERED: SODIUM CHLORIDE 0.9% 1000ML IV PRN (06:00)
[2021-09-04 06:19] LABS: ABG BASE EXCESS -8.1 (-2.0-2.0); ABG HCO3 14.9 MEQ/L (22.0-26.0); ABG O2 SATURATION 99.1 % (95.0-99.0); ABG PARTIAL PRESSURE O2 152.5 mmHg (75.0-100.0); ABG STANDARD HCO3 17.8 MEQ/L (22.0-26.0); ABG TOTAL CO2 15.6 MEQ/L (22.0-29.0); ABG pH (ARTERIAL) 7.429 UNITS (7.350-7.450)
[2021-09-04] MEDS: MEROPENEM INJ 500 MG in IV 1 EA IV SCH (06:23)
[2021-09-04 06:31] LABS: HEMATOCRIT 24.5 % (36.0-47.0); HEMOGLOBIN 8.4 g/dl (12.0-15.5); MEAN CORPUSCULAR HEMOGLOBIN 29.2 pg (27.0-33.0); MEAN CORPUSCULAR HGB CONC 34.3 g/dl (32.0-36.5); MEAN CORPUSCULAR VOLUME 85.1 fl (80.0-96.0); RED BLOOD COUNT 2.88 10^6/uL (4.00-5.40); WHITE BLOOD COUNT 23.9 10^3/uL (4.0-10.0)
[2021-09-04 06:41] LABS: PLATELET COUNT, AUTOMATED 1094 10^3/uL (150-450)
[2021-09-04] MEDS: levETIRAcetam 250MG TABLET (KEPPRA) NG SCH (06:46)
[2021-09-04] MEDS: HEPARIN SOD (PORCINE) 5000UNITS/ML 1ML VIAL/SYRINGE SQ SCH ×2 (06:46→20:58)
[2021-09-04] MEDS: SODIUM BICARBONATE 325 MG TAB NG SCH (06:47)
[2021-09-04] MEDS: PANTOPRAZOLE 40MG VIAL (C9113 PER 1) IV SCH (06:47)
[2021-09-04] MEDS: LACRILUBE (AKWA TEARS) OPHTH OINT 3.5 GM OU SCH ×3 (06:47→20:52)
[2021-09-04 06:48] LABS: ALBUMIN 1.4 GM/DL (3.2-5.2); CALCIUM LEVEL 9.4 MG/DL (8.5-10.1); CREATININE FOR GFR 5.93 MG/DL (0.55-1.30); GLOMERULAR FILTRATION RATE 8.6 (>60); MAGNESIUM LEVEL 2.9 MG/DL (1.8-2.4); PHOSPHORUS LEVEL 5.3 MG/DL (2.5-4.9); POTASSIUM SERUM 4.1 MEQ/L (3.5-5.1); TOTAL PROTEIN 5.9 GM/DL (6.4-8.2)
[2021-09-04] MEDS: dexmedeTOMidine 200 MCG in IV 1 EA IV SCH ×3 (08:42→19:06)
[2021-09-04] MEDS: MIDAZOLAM INJ 2MG/2ML VIAL (J2250 PER 1MG) IV PRN ×3 (09:31→10:28)
[2021-09-04] MEDS: DARBEPOETIN 100 MCG/0.5 ML *DIALYSIS* SYRINGE (J0882) IV SCH (09:34)
[2021-09-04] MEDS: fentaNYL 100 MCG/2 ML INJECTION IV PRN (09:52)
[2021-09-04] MEDS: IRON SUCROSE 100MG 5ML VIAL (J1756 PER 1MG) IV SCH (09:56)
[2021-09-04] MEDS ORDERED: IPRATROPIUM 0.5MG/ALBUTEROL 2.5MG INH SOL UD 3ML (DUONEB) NEB PRN (13:00)
[2021-09-04] MEDS: fentaNYL CITRATE 1,000 MCG in NS 80 ML IV SCH (13:37)
[2021-09-04] MEDS: fentaNYL 50 MCG/HR PATCH TOP SCH (13:53)
[2021-09-04] MEDS ORDERED: LORazepam 2 MG/ML VIAL IV PRN (15:05)
[2021-09-04] MEDS: SODIUM CHLORIDE HYPERTONIC 3% 15ML NEB SOL INH SCH ×3 (16:00→23:22)
[2021-09-04 16:35] LABS: ABG BASE EXCESS -3.2 (-2.0-2.0); ABG HCO3 20.3 MEQ/L (22.0-26.0); ABG O2 SATURATION 96.7 % (95.0-99.0); ABG PARTIAL PRESSURE O2 92.5 mmHg (75.0-100.0); ABG STANDARD HCO3 21.8 MEQ/L (22.0-26.0); ABG TOTAL CO2 21.3 MEQ/L (22.0-29.0); ABG pH (ARTERIAL) 7.435 UNITS (7.350-7.450)
[2021-09-04] MEDS: ALBUTEROL SULFATE 2.5 MG/0.5 ML INH NEB SOLN NEB SCH ×2 (19:51→23:22)
[2021-09-04] MEDS: levETIRAcetam INJection 500 MG in D5W MINI-BAG PLUS 100 ML IV SCH (20:52)
[2021-09-05] VITALS (42 sets, daily range): BP systolic 106–151; BP diastolic 53–95
[2021-09-05] MEDS: dexmedeTOMidine 200 MCG in IV 1 EA IV SCH ×2 (00:35→06:29)
[2021-09-05] MEDS: SODIUM CHLORIDE HYPERTONIC 3% 15ML NEB SOL INH SCH ×5 (03:49→20:01)
[2021-09-05] MEDS: ALBUTEROL SULFATE 2.5 MG/0.5 ML INH NEB SOLN NEB SCH ×5 (03:49→20:01)
[2021-09-05] MEDS: SODIUM CHLORIDE 0.9% INJ 10 ML SYR IV SCH ×2 (05:30→17:32)
[2021-09-05 05:43] LABS: HEMATOCRIT 28.4 % (36.0-47.0); HEMOGLOBIN 9.5 g/dl (12.0-15.5); MEAN CORPUSCULAR HEMOGLOBIN 28.9 pg (27.0-33.0); MEAN CORPUSCULAR HGB CONC 33.5 g/dl (32.0-36.5); MEAN CORPUSCULAR VOLUME 86.3 fl (80.0-96.0); RED BLOOD COUNT 3.29 10^6/uL (4.00-5.40)
[2021-09-05 05:44] LABS: PLATELET COUNT, AUTOMATED 1369 10^3/uL (150-450); WHITE BLOOD COUNT 32.6 10^3/uL (4.0-10.0)
[2021-09-05 06:11] LABS: ALBUMIN 2.1 GM/DL (3.2-5.2); BILIRUBIN,TOTAL 2.2 MG/DL (0.2-1.0); CALCIUM LEVEL 9.8 MG/DL (8.5-10.1); CREATININE FOR GFR 4.82 MG/DL (0.55-1.30); GLOMERULAR FILTRATION RATE 10.9 (>60); MAGNESIUM LEVEL 2.6 MG/DL (1.8-2.4); PHOSPHORUS LEVEL 7.8 MG/DL (2.5-4.9); POTASSIUM SERUM 4.6 MEQ/L (3.5-5.1); TOTAL PROTEIN 7.7 GM/DL (6.4-8.2)
[2021-09-05 06:14] LABS: ABG BASE EXCESS -7.5 (-2.0-2.0); ABG HCO3 17.6 MEQ/L (22.0-26.0); ABG O2 SATURATION 92.3 % (95.0-99.0); ABG PARTIAL PRESSURE CO2 34.2 mmHg (35.0-45.0); ABG PARTIAL PRESSURE O2 71.8 mmHg (75.0-100.0); ABG STANDARD HCO3 18.3 MEQ/L (22.0-26.0); ABG TOTAL CO2 18.6 MEQ/L (22.0-29.0); ABG pH (ARTERIAL) 7.329 UNITS (7.350-7.450)
[2021-09-05] MEDS ORDERED: SODIUM CHLORIDE 0.9% 1000ML IV PRN (08:50)
[2021-09-05] MEDS: LACRILUBE (AKWA TEARS) OPHTH OINT 3.5 GM OU SCH (09:00)
[2021-09-05] MEDS: PANTOPRAZOLE 40MG VIAL (C9113 PER 1) IV SCH (10:35)
[2021-09-05] MEDS: levETIRAcetam INJection 500 MG in D5W MINI-BAG PLUS 100 ML IV SCH ×2 (10:35→21:53)
[2021-09-05] MEDS: HEPARIN SOD (PORCINE) 5000UNITS/ML 1ML VIAL/SYRINGE SQ SCH ×2 (10:36→21:53)
[2021-09-05] MEDS: IRON SUCROSE 100MG 5ML VIAL (J1756 PER 1MG) IV SCH (11:13)
[2021-09-05] MEDS ORDERED: MORPHINE 2 MG/ML 1ML VIAL (J2270) IV ONE (13:00)
[2021-09-05] MEDS ORDERED: methylPREDNISolone 40MG 1ML VIAL IV ONE (13:10)
[2021-09-05] MEDS ORDERED: MORPHINE 2 MG/ML 1ML VIAL (J2270) IV PRN (14:00)
[2021-09-05] MEDS ORDERED: LORazepam 2 MG/ML VIAL IV PRN (14:00)
[2021-09-05 14:22] LABS: ABG BASE EXCESS -2.1 (-2.0-2.0); ABG HCO3 21.9 MEQ/L (22.0-26.0); ABG O2 SATURATION 93.9 % (95.0-99.0); ABG PARTIAL PRESSURE CO2 34.5 mmHg (35.0-45.0); ABG PARTIAL PRESSURE O2 72.3 mmHg (75.0-100.0); ABG STANDARD HCO3 22.6 MEQ/L (22.0-26.0); ABG TOTAL CO2 22.9 MEQ/L (22.0-29.0)
[2021-09-05] MEDS: methylPREDNISolone 40MG 1ML VIAL IV SCH (21:53)
[2021-09-05] MEDS: LORazepam 2 MG/ML VIAL IV PRN (22:26)
[2021-09-06] VITALS (24 sets, daily range): BP systolic 100–155; BP diastolic 60–108
[2021-09-06] MEDS: SODIUM CHLORIDE HYPERTONIC 3% 15ML NEB SOL INH SCH ×7 (00:35→23:20)
[2021-09-06] MEDS: ALBUTEROL SULFATE 2.5 MG/0.5 ML INH NEB SOLN NEB SCH ×6 (00:35→23:20)
[2021-09-06] MEDS: LORazepam 2 MG/ML VIAL IV PRN ×4 (05:04→20:30)
[2021-09-06] MEDS: SODIUM CHLORIDE 0.9% INJ 10 ML SYR IV SCH ×2 (05:11→17:42)
[2021-09-06 05:29] LABS: HEMATOCRIT 28.9 % (36.0-47.0); HEMOGLOBIN 9.6 g/dl (12.0-15.5); MEAN CORPUSCULAR HGB CONC 33.2 g/dl (32.0-36.5); MEAN CORPUSCULAR VOLUME 87.3 fl (80.0-96.0); RED BLOOD COUNT 3.31 10^6/uL (4.00-5.40)
[2021-09-06 05:34] LABS: PLATELET COUNT, AUTOMATED 1415 10^3/uL (150-450); WHITE BLOOD COUNT 36.6 10^3/uL (4.0-10.0)
[2021-09-06 05:51] LABS: ALBUMIN 2.6 GM/DL (3.2-5.2); BILIRUBIN,TOTAL 1.4 MG/DL (0.2-1.0); CREATININE FOR GFR 3.87 MG/DL (0.55-1.30); MAGNESIUM LEVEL 2.9 MG/DL (1.8-2.4); PHOSPHORUS LEVEL 7.7 MG/DL (2.5-4.9); POTASSIUM SERUM 4.7 MEQ/L (3.5-5.1); TOTAL PROTEIN 7.9 GM/DL (6.4-8.2)
[2021-09-06 05:56] LABS: ABG BASE EXCESS -4.1 (-2.0-2.0); ABG HCO3 20.8 MEQ/L (22.0-26.0); ABG O2 SATURATION 97.6 % (95.0-99.0); ABG PARTIAL PRESSURE CO2 36.9 mmHg (35.0-45.0); ABG PARTIAL PRESSURE O2 108.9 mmHg (75.0-100.0); ABG STANDARD HCO3 21.1 MEQ/L (22.0-26.0); ABG TOTAL CO2 21.9 MEQ/L (22.0-29.0); ABG pH (ARTERIAL) 7.368 UNITS (7.350-7.450)
[2021-09-06] MEDS: methylPREDNISolone 40MG 1ML VIAL IV SCH ×2 (09:16→21:13)
[2021-09-06] MEDS: PANTOPRAZOLE 40MG VIAL (C9113 PER 1) IV SCH (09:17)
[2021-09-06] MEDS: HEPARIN SOD (PORCINE) 5000UNITS/ML 1ML VIAL/SYRINGE SQ SCH ×2 (09:17→20:28)
[2021-09-06] MEDS: levETIRAcetam INJection 500 MG in D5W MINI-BAG PLUS 100 ML IV SCH ×2 (09:27→20:28)
[2021-09-06] MEDS ORDERED: SODIUM CHLORIDE 0.9% 1000ML IV PRN (09:35)
[2021-09-06] MEDS: MORPHINE 2 MG/ML 1ML VIAL (J2270) IV PRN ×2 (09:44→22:20)
[2021-09-06] MEDS ORDERED: LORazepam 2 MG/ML VIAL As Ordered ONE ×3 (11:37→20:24)
[2021-09-06] MEDS: IRON SUCROSE 100MG 5ML VIAL (J1756 PER 1MG) IV SCH (19:02)
[2021-09-07] VITALS (25 sets, daily range): BP systolic 101–148; BP diastolic 67–90
[2021-09-07] MEDS ORDERED: LORazepam 2 MG/ML VIAL As Ordered ONE ×6 (00:36→23:17)
[2021-09-07] MEDS: LORazepam 2 MG/ML VIAL IV PRN ×5 (00:40→23:19)
[2021-09-07] MEDS: ALBUTEROL SULFATE 2.5 MG/0.5 ML INH NEB SOLN NEB SCH ×5 (04:07→20:20)
[2021-09-07] MEDS: SODIUM CHLORIDE HYPERTONIC 3% 15ML NEB SOL INH SCH ×5 (04:07→20:20)
[2021-09-07] MEDS: SODIUM CHLORIDE 0.9% INJ 10 ML SYR IV SCH ×2 (05:08→17:02)
[2021-09-07 05:31] LABS: HEMATOCRIT 25.6 % (36.0-47.0); HEMOGLOBIN 8.4 g/dl (12.0-15.5); MEAN CORPUSCULAR HEMOGLOBIN 28.8 pg (27.0-33.0); MEAN CORPUSCULAR HGB CONC 32.8 g/dl (32.0-36.5); MEAN CORPUSCULAR VOLUME 87.7 fl (80.0-96.0); RED BLOOD COUNT 2.92 10^6/uL (4.00-5.40); WHITE BLOOD COUNT 29.8 10^3/uL (4.0-10.0)
[2021-09-07 05:33] LABS: PLATELET COUNT, AUTOMATED 1184 10^3/uL (150-450)
[2021-09-07 05:50] LABS: BILIRUBIN,TOTAL 1.2 MG/DL (0.2-1.0); CALCIUM LEVEL 9.7 MG/DL (8.5-10.1); CREATININE FOR GFR 3.17 MG/DL (0.55-1.30); GLOMERULAR FILTRATION RATE 17.6 (>60); MAGNESIUM LEVEL 2.6 MG/DL (1.8-2.4); PHOSPHORUS LEVEL 6.8 MG/DL (2.5-4.9); POTASSIUM SERUM 4.2 MEQ/L (3.5-5.1)
[2021-09-07 05:58] LABS: ABG BASE EXCESS -3.3 (-2.0-2.0); ABG HCO3 20.7 MEQ/L (22.0-26.0); ABG O2 SATURATION 93.2 % (95.0-99.0); ABG PARTIAL PRESSURE O2 72.7 mmHg (75.0-100.0); ABG STANDARD HCO3 21.6 MEQ/L (22.0-26.0); ABG TOTAL CO2 21.7 MEQ/L (22.0-29.0); ABG pH (ARTERIAL) 7.415 UNITS (7.350-7.450)
[2021-09-07] MEDS ORDERED: ISOVUE-370 76% 100ML VIAL As Ordered ONE (07:46)
[2021-09-07] MEDS: MORPHINE 2 MG/ML 1ML VIAL (J2270) IV PRN ×3 (07:53→20:54)
[2021-09-07] MEDS ORDERED: methylPREDNISolone 40MG 1ML VIAL IV SCH (10:00)
[2021-09-07] MEDS: PANTOPRAZOLE 40MG VIAL (C9113 PER 1) IV SCH (10:17)
[2021-09-07] MEDS: HEPARIN SOD (PORCINE) 5000UNITS/ML 1ML VIAL/SYRINGE SQ SCH ×2 (10:18→20:23)
[2021-09-07] MEDS: levETIRAcetam INJection 500 MG in D5W MINI-BAG PLUS 100 ML IV SCH ×2 (10:38→20:23)
[2021-09-07] MEDS: fentaNYL 50 MCG/HR PATCH TOP SCH (14:27)
[2021-09-07] MEDS ORDERED: LORazepam 2 MG/ML VIAL IV STA (19:39)
[2021-09-07] MEDS ORDERED: SODIUM CHLORIDE 0.9% 1000ML IV PRN (20:10)
[2021-09-08] VITALS (46 sets, daily range): BP systolic 108–156; BP diastolic 69–93
[2021-09-08] MEDS: SODIUM CHLORIDE HYPERTONIC 3% 15ML NEB SOL INH SCH ×7 (03:05→23:41)
[2021-09-08] MEDS: ALBUTEROL SULFATE 2.5 MG/0.5 ML INH NEB SOLN NEB SCH ×7 (03:05→23:41)
[2021-09-08] MEDS: MORPHINE 2 MG/ML 1ML VIAL (J2270) IV PRN (03:26)
[2021-09-08] MEDS: SODIUM CHLORIDE 0.9% INJ 10 ML SYR IV SCH ×2 (05:49→18:13)
[2021-09-08 06:00] LABS: HEMATOCRIT 28.2 % (36.0-47.0); HEMOGLOBIN 9.1 g/dl (12.0-15.5); MEAN CORPUSCULAR HEMOGLOBIN 29.1 pg (27.0-33.0); MEAN CORPUSCULAR HGB CONC 32.3 g/dl (32.0-36.5); MEAN CORPUSCULAR VOLUME 90.1 fl (80.0-96.0); RED BLOOD COUNT 3.13 10^6/uL (4.00-5.40); WHITE BLOOD COUNT 28.2 10^3/uL (4.0-10.0)
[2021-09-08 06:01] LABS: PLATELET COUNT, AUTOMATED 1052 10^3/uL (150-450)
[2021-09-08 07:01] LABS: BILIRUBIN,TOTAL 1.5 MG/DL (0.2-1.0); CALCIUM LEVEL 9.4 MG/DL (8.5-10.1); CREATININE FOR GFR 5.25 MG/DL (0.55-1.30); GLOMERULAR FILTRATION RATE 9.9 (>60); MAGNESIUM LEVEL 3.3 MG/DL (1.8-2.4); PHOSPHORUS LEVEL 9.3 MG/DL (2.5-4.9); POTASSIUM SERUM 4.8 MEQ/L (3.5-5.1); TOTAL PROTEIN 7.3 GM/DL (6.4-8.2)
[2021-09-08] MEDS ORDERED: LORazepam 2 MG/ML VIAL As Ordered ONE (08:08)
[2021-09-08] MEDS: LORazepam 2 MG/ML VIAL IV PRN (08:10)
[2021-09-08] MEDS: PANTOPRAZOLE 40MG VIAL (C9113 PER 1) IV SCH (09:49)
[2021-09-08] MEDS: HEPARIN SOD (PORCINE) 5000UNITS/ML 1ML VIAL/SYRINGE SQ SCH ×2 (09:49→21:09)
[2021-09-08] MEDS: levETIRAcetam INJection 500 MG in D5W MINI-BAG PLUS 100 ML IV SCH ×2 (12:23→21:09)
[2021-09-08] MEDS: SODIUM CHLORIDE 0.9% INJ 10 ML SYR IV PRN (12:43)
[2021-09-09] VITALS (22 sets, daily range): BP systolic 117–158; BP diastolic 69–92; O2SAT 97
[2021-09-09] MEDS: LORazepam 2 MG/ML VIAL IV PRN ×2 (02:45→10:26)
[2021-09-09] MEDS: ALBUTEROL SULFATE 2.5 MG/0.5 ML INH NEB SOLN NEB SCH ×6 (04:47→23:35)
[2021-09-09] MEDS: SODIUM CHLORIDE HYPERTONIC 3% 15ML NEB SOL INH SCH ×6 (04:47→23:36)
[2021-09-09 05:15] LABS: HEMATOCRIT 32.6 % (36.0-47.0); HEMOGLOBIN 10.4 g/dl (12.0-15.5); MEAN CORPUSCULAR HEMOGLOBIN 28.7 pg (27.0-33.0); MEAN CORPUSCULAR HGB CONC 31.9 g/dl (32.0-36.5); MEAN CORPUSCULAR VOLUME 90.1 fl (80.0-96.0); RED BLOOD COUNT 3.62 10^6/uL (4.00-5.40); WHITE BLOOD COUNT 24.2 10^3/uL (4.0-10.0)
[2021-09-09 05:18] LABS: PLATELET COUNT, AUTOMATED 730 10^3/uL (150-450)
[2021-09-09 05:36] LABS: ALBUMIN 3.4 GM/DL (3.2-5.2); BILIRUBIN,TOTAL 1.2 MG/DL (0.2-1.0); CALCIUM LEVEL 9.6 MG/DL (8.5-10.1); CREATININE FOR GFR 4.5 MG/DL (0.55-1.30); GLOMERULAR FILTRATION RATE 11.8 (>60); POTASSIUM SERUM 3.8 MEQ/L (3.5-5.1); TOTAL PROTEIN 8.4 GM/DL (6.4-8.2)
[2021-09-09 06:02] LABS: BASOPHILS 2 % (0-1); EOSINOPHILS 5 % (0-3); LYMPHOCYTES 14 % (16-44); MONOCYTES 5 % (0-5); NEUTROPHILS 74 % (28-66)
[2021-09-09 06:03] LABS: POIKILOCYTOSIS 1+
[2021-09-09 06:04] LABS: ANISOCYTOSIS 1+; PLATELET ESTIMATE INCREASED (NORMAL)
[2021-09-09] MEDS: SODIUM CHLORIDE 0.9% INJ 10 ML SYR IV SCH ×2 (06:18→17:22)
[2021-09-09] MEDS: HEPARIN SOD (PORCINE) 5000UNITS/ML 1ML VIAL/SYRINGE SQ SCH ×2 (07:52→21:12)
[2021-09-09] MEDS: PANTOPRAZOLE 40MG VIAL (C9113 PER 1) IV SCH (07:52)
[2021-09-09] MEDS: IRON SUCROSE 100MG 5ML VIAL (J1756 PER 1MG) IV SCH (09:14)
[2021-09-09] MEDS ORDERED: LORazepam 2 MG/ML VIAL As Ordered ONE (10:23)
[2021-09-09] MEDS: levETIRAcetam INJection 500 MG in D5W MINI-BAG PLUS 100 ML IV SCH ×2 (11:50→21:12)
[2021-09-09] MEDS: diazePAM 5MG TABLET NG SCH ×2 (12:10→17:22)
[2021-09-10] VITALS (8 sets, daily range): BP systolic 128–143; BP diastolic 80–90; O2SAT 94
[2021-09-10] MEDS: diazePAM 5MG TABLET NG SCH ×4 (00:27→17:16)
[2021-09-10] MEDS: SODIUM CHLORIDE HYPERTONIC 3% 15ML NEB SOL INH SCH ×5 (03:07→19:28)
[2021-09-10] MEDS: ALBUTEROL SULFATE 2.5 MG/0.5 ML INH NEB SOLN NEB SCH ×5 (03:07→19:28)
[2021-09-10 05:11] LABS: HEMATOCRIT 33.2 % (36.0-47.0); HEMOGLOBIN 10.5 g/dl (12.0-15.5); MEAN CORPUSCULAR HEMOGLOBIN 28.5 pg (27.0-33.0); MEAN CORPUSCULAR HGB CONC 31.6 g/dl (32.0-36.5); PLATELET COUNT, AUTOMATED 434 10^3/uL (150-450); RED BLOOD COUNT 3.69 10^6/uL (4.00-5.40); WHITE BLOOD COUNT 22.3 10^3/uL (4.0-10.0)
[2021-09-10 05:30] LABS: ALBUMIN 3.6 GM/DL (3.2-5.2); CALCIUM LEVEL 10.2 MG/DL (8.5-10.1); CREATININE FOR GFR 4.84 MG/DL (0.55-1.30); GLOMERULAR FILTRATION RATE 10.8 (>60); POTASSIUM SERUM 4.3 MEQ/L (3.5-5.1); TOTAL PROTEIN 8.9 GM/DL (6.4-8.2)
[2021-09-10 05:34] LABS: EOSINOPHILS 9 % (0-3); LYMPHOCYTES 13 % (16-44); METAMYELOCYTES 1 % (0-0); MONOCYTES 4 % (0-5); NEUTROPHILS 72 % (28-66)
[2021-09-10 05:35] LABS: ANISOCYTOSIS 1+; PLATELET ESTIMATE INCREASED (NORMAL)
[2021-09-10] MEDS: SODIUM CHLORIDE 0.9% INJ 10 ML SYR IV SCH ×2 (05:46→18:00)
[2021-09-10] MEDS: PANTOPRAZOLE 40MG VIAL (C9113 PER 1) IV SCH (09:56)
[2021-09-10] MEDS: levETIRAcetam INJection 500 MG in D5W MINI-BAG PLUS 100 ML IV SCH ×2 (09:56→20:48)
[2021-09-10] MEDS: HEPARIN SOD (PORCINE) 5000UNITS/ML 1ML VIAL/SYRINGE SQ SCH ×2 (09:57→20:48)
[2021-09-10] MEDS: SODIUM CHLORIDE 0.9% INJ 10 ML SYR IV PRN (10:26)
[2021-09-10] MEDS: DOCUSATE SOD LIQ 100MG/10ML UDC NG SCH ×2 (12:12→20:48)
[2021-09-10] MEDS: FENTANYL REMOVAL DOCUMENTATION MISC XX SCH (15:25)
[2021-09-10] MEDS: fentaNYL 50 MCG/HR PATCH TOP SCH (15:26)
[2021-09-10] MEDS ORDERED: CEFEPIME HCL 1 GM in D5W MINI-BAG PLUS 50 ML IV SCH (16:40)
[2021-09-10] MEDS: CEFEPIME HCL 1 GM in D5W MINI-BAG PLUS 50 ML IV SCH (17:16)
[2021-09-10] MEDS ORDERED: VANCOMYCIN INTERMITTENT/PULSE DOSING BY CLINICAL PHARMACIST PER DOSING PROTOCOL XX SCH (18:10)
[2021-09-10] MEDS ORDERED: VANCOMYCIN HCL 1,000 MG, VIAL MATE ADAPTER 1 EACH in NS 250 ML IV ONE (19:00)
[2021-09-10] MEDS: diazePAM 10MG/2ML SYRINGE (J3360 PER 5MG) IV SCH (23:53)
[2021-09-11] VITALS (7 sets, daily range): BP systolic 129–146; BP diastolic 72–93; O2SAT 92–95
[2021-09-11] MEDS: ALBUTEROL SULFATE 2.5 MG/0.5 ML INH NEB SOLN NEB SCH ×6 (00:01→20:40)
[2021-09-11] MEDS: SODIUM CHLORIDE HYPERTONIC 3% 15ML NEB SOL INH SCH ×6 (00:01→20:40)
[2021-09-11] MEDS ORDERED: MORPHINE 2 MG/ML 1ML VIAL (J2270) As Ordered ONE (02:54)
[2021-09-11] MEDS ORDERED: MORPHINE 2 MG/ML 1ML VIAL (J2270) IV PRN (02:55)
[2021-09-11] MEDS: MORPHINE 2 MG/ML 1ML VIAL (J2270) IV PRN ×2 (03:00→21:27)
[2021-09-11 04:28] LABS: HEMATOCRIT 31.2 % (36.0-47.0); MEAN CORPUSCULAR HEMOGLOBIN 28.7 pg (27.0-33.0); MEAN CORPUSCULAR HGB CONC 32.1 g/dl (32.0-36.5); MEAN CORPUSCULAR VOLUME 89.4 fl (80.0-96.0); PLATELET COUNT, AUTOMATED 344 10^3/uL (150-450); RED BLOOD COUNT 3.49 10^6/uL (4.00-5.40); WHITE BLOOD COUNT 21.4 10^3/uL (4.0-10.0)
[2021-09-11 04:53] LABS: ALBUMIN 3.3 GM/DL (3.2-5.2); CALCIUM LEVEL 9.4 MG/DL (8.5-10.1); CREATININE FOR GFR 6.08 MG/DL (0.55-1.30); GLOMERULAR FILTRATION RATE 8.3 (>60)
[2021-09-11 04:55] LABS: ATYPICAL LYMPH 1 % (0-5); EOSINOPHILS 4 % (0-3); LYMPHOCYTES 6 % (16-44); METAMYELOCYTES 2 % (0-0); MONOCYTES 5 % (0-5); MYELOCYTES 1 % (0-0); NEUTROPHILS 77 % (28-66)
[2021-09-11 04:56] LABS: PLATELET ESTIMATE NORMAL (NORMAL)
[2021-09-11] MEDS: diazePAM 10MG/2ML SYRINGE (J3360 PER 5MG) IV SCH ×4 (05:06→23:14)
[2021-09-11] MEDS: SODIUM CHLORIDE 0.9% INJ 10 ML SYR IV SCH ×2 (05:06→18:00)
[2021-09-11] MEDS ORDERED: LIDOCAINE 1% MDV 20ML VIAL As Ordered ONE ×2 (08:10→08:36)
[2021-09-11 09:08] LABS: INR 1.3; PROTHROMBIN TIME 16.6 SECONDS (12.7-14.5)
[2021-09-11 09:09] LABS: PARTIAL THROMBOPLASTIN TIME 34.5 SECONDS (25.9-37.0)
[2021-09-11] MEDS: PANTOPRAZOLE 40MG VIAL (C9113 PER 1) IV SCH (10:19)
[2021-09-11] MEDS: SODIUM BICARBONATE 150 MEQ in STERILE WATER LITER BAG 1,000 ML IV SCH (10:19)
[2021-09-11] MEDS: HEPARIN SOD (PORCINE) 5000UNITS/ML 1ML VIAL/SYRINGE SQ SCH ×2 (10:20→21:24)
[2021-09-11] MEDS: levETIRAcetam INJection 500 MG in D5W MINI-BAG PLUS 100 ML IV SCH ×2 (10:20→21:24)
[2021-09-11] MEDS: DOCUSATE SOD LIQ 100MG/10ML UDC NG SCH ×2 (10:20→21:00)
[2021-09-11] MEDS: CEFEPIME HCL 1 GM in D5W MINI-BAG PLUS 50 ML IV SCH (17:01)
[2021-09-11] MEDS ORDERED: ACETAMINOPHEN 650 MG SUPP PR ONE (18:05)
[2021-09-11] MEDS ORDERED: MORPHINE 2 MG/ML 1ML VIAL (J2270) IV ONE (23:55)
[2021-09-12] VITALS (9 sets, daily range): BP systolic 117–133; BP diastolic 79–97; O2SAT 90–96
[2021-09-12] MEDS: SODIUM BICARBONATE 150 MEQ in STERILE WATER LITER BAG 1,000 ML IV SCH (04:12)
[2021-09-12 04:34] LABS: BASO # 0.1 10^3/uL (0.0-0.2); BASO % 0.7 % (0.0-1.0); EOS # 1.9 10^3/uL (0.0-0.5); EOS % 10.4 % (0.0-3.0); HEMATOCRIT 28.7 % (36.0-47.0); HEMOGLOBIN 9.3 g/dl (12.0-15.5); LYMPH # 2.1 10^3/uL (1.5-5.0); LYMPH % 11.7 % (24.0-44.0); MEAN CORPUSCULAR HEMOGLOBIN 28.7 pg (27.0-33.0); MEAN CORPUSCULAR HGB CONC 32.4 g/dl (32.0-36.5); MEAN CORPUSCULAR VOLUME 88.6 fl (80.0-96.0); MONO # 1.7 10^3/uL (0.0-0.8); MONO % 9.3 % (2.0-8.0); NEUTROPHILS # 11.7 10^3/uL (1.5-8.5); NEUTROPHILS % 64.1 % (36.0-66.0); RED BLOOD COUNT 3.24 10^6/uL (4.00-5.40); WHITE BLOOD COUNT 18.3 10^3/uL (4.0-10.0)
[2021-09-12] MEDS: ALBUTEROL SULFATE 2.5 MG/0.5 ML INH NEB SOLN NEB SCH ×7 (04:45→20:26)
[2021-09-12] MEDS: SODIUM CHLORIDE HYPERTONIC 3% 15ML NEB SOL INH SCH ×7 (04:45→20:26)
[2021-09-12 05:06] LABS: ALBUMIN 3.1 GM/DL (3.2-5.2); BILIRUBIN,TOTAL 0.8 MG/DL (0.2-1.0); CALCIUM LEVEL 9.6 MG/DL (8.5-10.1); CREATININE FOR GFR 6.92 MG/DL (0.55-1.30); GLOMERULAR FILTRATION RATE 7.2 (>60); POTASSIUM SERUM 4.9 MEQ/L (3.5-5.1); TOTAL PROTEIN 7.5 GM/DL (6.4-8.2)
[2021-09-12] MEDS: SODIUM CHLORIDE 0.9% INJ 10 ML SYR IV SCH ×2 (05:58→18:55)
[2021-09-12] MEDS: diazePAM 10MG/2ML SYRINGE (J3360 PER 5MG) IV SCH ×3 (05:58→18:56)
[2021-09-12] MEDS ORDERED: SODIUM CHLORIDE 0.9% 1000ML IV PRN (07:20)
[2021-09-12] MEDS ORDERED: FLEET ENEMA PR PRN (07:55)
[2021-09-12 08:49] LABS: HEMATOCRIT 26.2 % (36.0-47.0); HEMOGLOBIN 8.4 g/dl (12.0-15.5); MEAN CORPUSCULAR HEMOGLOBIN 28.6 pg (27.0-33.0); MEAN CORPUSCULAR HGB CONC 32.1 g/dl (32.0-36.5); MEAN CORPUSCULAR VOLUME 89.1 fl (80.0-96.0); PLATELET COUNT, AUTOMATED 239 10^3/uL (150-450); RED BLOOD COUNT 2.94 10^6/uL (4.00-5.40); WHITE BLOOD COUNT 16.7 10^3/uL (4.0-10.0)
[2021-09-12] MEDS: DOCUSATE SOD LIQ 100MG/10ML UDC NG SCH ×2 (09:00→21:00)
[2021-09-12] MEDS: HEPARIN SOD (PORCINE) 5000UNITS/ML 1ML VIAL/SYRINGE SQ SCH ×2 (09:00→21:22)
[2021-09-12] MEDS: IRON SUCROSE 100MG 5ML VIAL (J1756 PER 1MG) IV SCH (09:36)
[2021-09-12] MEDS ORDERED: LORazepam 2 MG/ML VIAL IV ONE (10:30)
[2021-09-12] MEDS: DARBEPOETIN 100 MCG/0.5 ML *DIALYSIS* SYRINGE (J0882) IV SCH (10:35)
[2021-09-12] MEDS ORDERED: LORazepam 2 MG/ML VIAL As Ordered ONE (10:40)
[2021-09-12 12:22] LABS: ABG BASE EXCESS -4.2 (-2.0-2.0); ABG HCO3 19.2 MEQ/L (22.0-26.0); ABG O2 SATURATION 90.8 % (95.0-99.0); ABG PARTIAL PRESSURE CO2 29.9 mmHg (35.0-45.0); ABG PARTIAL PRESSURE O2 63.4 mmHg (75.0-100.0); ABG STANDARD HCO3 20.8 MEQ/L (22.0-26.0); ABG TOTAL CO2 20.1 MEQ/L (22.0-29.0); ABG pH (ARTERIAL) 7.426 UNITS (7.350-7.450)
[2021-09-12] MEDS: PANTOPRAZOLE 40MG VIAL (C9113 PER 1) IV SCH (13:40)
[2021-09-12] MEDS: levETIRAcetam INJection 500 MG in D5W MINI-BAG PLUS 100 ML IV SCH ×2 (13:41→21:23)
[2021-09-12] MEDS: CEFEPIME HCL 1 GM in D5W MINI-BAG PLUS 50 ML IV SCH (17:40)
[2021-09-13] VITALS (15 sets, daily range): BP systolic 118–137; BP diastolic 74–83; O2SAT 95–98
[2021-09-13] MEDS: diazePAM 10MG/2ML SYRINGE (J3360 PER 5MG) IV SCH ×4 (00:40→18:54)
[2021-09-13] MEDS: SODIUM CHLORIDE HYPERTONIC 3% 15ML NEB SOL INH SCH ×7 (04:00→23:56)
[2021-09-13] MEDS: ALBUTEROL SULFATE 2.5 MG/0.5 ML INH NEB SOLN NEB SCH ×6 (04:00→23:56)
[2021-09-13] MEDS: SODIUM CHLORIDE 0.9% INJ 10 ML SYR IV SCH ×2 (05:51→18:54)
[2021-09-13 06:27] LABS: BASO # 0.1 10^3/uL (0.0-0.2); BASO % 1.8 % (0.0-1.0); EOS # 0.7 10^3/uL (0.0-0.5); EOS % 11.4 % (0.0-3.0); HEMATOCRIT 55.1 % (36.0-47.0); LYMPH # 0.6 10^3/uL (1.5-5.0); MEAN CORPUSCULAR HGB CONC 31.6 g/dl (32.0-36.5); MEAN CORPUSCULAR VOLUME 88.6 fl (80.0-96.0); MONO # 0.6 10^3/uL (0.0-0.8); MONO % 9.1 % (2.0-8.0); NEUTROPHILS # 3.9 10^3/uL (1.5-8.5); NEUTROPHILS % 63.9 % (36.0-66.0); RED BLOOD COUNT 6.22 10^6/uL (4.00-5.40); WHITE BLOOD COUNT 6.1 10^3/uL (4.0-10.0)
[2021-09-13 06:40] LABS: HEMOGLOBIN 17.4 g/dl (12.0-15.5); PLATELET COUNT, AUTOMATED 133 10^3/uL (150-450)
[2021-09-13 07:03] LABS: BILIRUBIN,TOTAL 0.7 MG/DL (0.2-1.0); CALCIUM LEVEL 9.2 MG/DL (8.5-10.1); CREATININE FOR GFR 3.86 MG/DL (0.55-1.30); GLOMERULAR FILTRATION RATE 14.1 (>60); POTASSIUM SERUM 3.6 MEQ/L (3.5-5.1); TOTAL PROTEIN 7.6 GM/DL (6.4-8.2)
[2021-09-13] MEDS: DOCUSATE SOD LIQ 100MG/10ML UDC NG SCH ×2 (08:19→20:06)
[2021-09-13] MEDS: PANTOPRAZOLE 40MG VIAL (C9113 PER 1) IV SCH (08:33)
[2021-09-13] MEDS: levETIRAcetam INJection 500 MG in D5W MINI-BAG PLUS 100 ML IV SCH ×2 (08:34→22:19)
[2021-09-13] MEDS: HEPARIN SOD (PORCINE) 5000UNITS/ML 1ML VIAL/SYRINGE SQ SCH ×2 (08:34→22:18)
[2021-09-13 09:08] LABS: HEMATOCRIT 28.7 % (36.0-47.0); HEMOGLOBIN 9.2 g/dl (12.0-15.5); MEAN CORPUSCULAR HEMOGLOBIN 28.9 pg (27.0-33.0); MEAN CORPUSCULAR HGB CONC 32.1 g/dl (32.0-36.5); MEAN CORPUSCULAR VOLUME 90.3 fl (80.0-96.0); PLATELET COUNT, AUTOMATED 281 10^3/uL (150-450); RED BLOOD COUNT 3.18 10^6/uL (4.00-5.40); WHITE BLOOD COUNT 18.2 10^3/uL (4.0-10.0)
[2021-09-13] MEDS: fentaNYL 50 MCG/HR PATCH TOP SCH (15:41)
[2021-09-13] MEDS: FENTANYL REMOVAL DOCUMENTATION MISC XX SCH (15:43)
[2021-09-13] MEDS: CEFEPIME HCL 1 GM in D5W MINI-BAG PLUS 50 ML IV SCH (18:07)
[2021-09-14] VITALS: BP 119/83
[2021-09-14] MEDS: diazePAM 10MG/2ML SYRINGE (J3360 PER 5MG) IV SCH ×4 (00:45→17:04)
[2021-09-14] MEDS: SODIUM CHLORIDE HYPERTONIC 3% 15ML NEB SOL INH SCH ×6 (03:09→23:36)
[2021-09-14] MEDS: ALBUTEROL SULFATE 2.5 MG/0.5 ML INH NEB SOLN NEB SCH ×6 (03:10→23:36)
[2021-09-14 04:00] VITALS: BP 115/73
[2021-09-14] MEDS: SODIUM CHLORIDE 0.9% INJ 10 ML SYR IV SCH ×2 (06:36→17:44)
[2021-09-14 07:20] LABS: BASO # 0.2 10^3/uL (0.0-0.2); BASO % 1.4 % (0.0-1.0); EOS # 2.4 10^3/uL (0.0-0.5); EOS % 14.8 % (0.0-3.0); HEMATOCRIT 27.9 % (36.0-47.0); HEMOGLOBIN 8.7 g/dl (12.0-15.5); LYMPH % 12.3 % (24.0-44.0); MEAN CORPUSCULAR HEMOGLOBIN 28.4 pg (27.0-33.0); MEAN CORPUSCULAR HGB CONC 31.2 g/dl (32.0-36.5); MEAN CORPUSCULAR VOLUME 91.2 fl (80.0-96.0); MONO % 13.2 % (2.0-8.0); NEUTROPHILS # 8.6 10^3/uL (1.5-8.5); NEUTROPHILS % 53.9 % (36.0-66.0); PLATELET COUNT, AUTOMATED 323 10^3/uL (150-450); RED BLOOD COUNT 3.06 10^6/uL (4.00-5.40); WHITE BLOOD COUNT 15.9 10^3/uL (4.0-10.0)
[2021-09-14] MEDS ORDERED: SODIUM CHLORIDE 0.9% 1000ML IV PRN (07:25)
[2021-09-14 07:30] LABS: INR 1.49; PROTHROMBIN TIME 18.5 SECONDS (12.7-14.5)
[2021-09-14 08:00] VITALS: BP 119/75
[2021-09-14 08:09] LABS: MONO # 2.1 10^3/uL (0.0-0.8)
[2021-09-14 08:57] LABS: ALBUMIN 2.9 GM/DL (3.2-5.2); BILIRUBIN,TOTAL 0.6 MG/DL (0.2-1.0); CALCIUM LEVEL 8.8 MG/DL (8.5-10.1); CREATININE FOR GFR 5.11 MG/DL (0.55-1.30); GLOMERULAR FILTRATION RATE 10.2 (>60); PHOSPHORUS LEVEL 17.2 MG/DL (2.5-4.9); POTASSIUM SERUM 3.9 MEQ/L (3.5-5.1); TOTAL PROTEIN 7.4 GM/DL (6.4-8.2)
[2021-09-14] MEDS: HEPARIN SOD (PORCINE) 5000UNITS/ML 1ML VIAL/SYRINGE SQ SCH ×2 (09:22→21:52)
[2021-09-14] MEDS: PANTOPRAZOLE 40MG VIAL (C9113 PER 1) IV SCH (09:22)
[2021-09-14] MEDS: DOCUSATE SOD LIQ 100MG/10ML UDC NG SCH ×2 (09:22→21:00)
[2021-09-14] MEDS: levETIRAcetam INJection 500 MG in D5W MINI-BAG PLUS 100 ML IV SCH ×2 (09:23→21:52)
[2021-09-14] MEDS ORDERED: E-Z-PAQUE 96% w/w SUSP 176GM BTL As Ordered ONE (11:07)
[2021-09-14] MEDS ORDERED: BARIUM SULFATE 700 MG TABLET (E-Z-DISK) As Ordered ONE (11:07)
[2021-09-14] MEDS ORDERED: VARIBAR PUDDING 40% w/v 230ML TUBE As Ordered ONE (11:07)
[2021-09-14] MEDS ORDERED: VARIBAR NECTAR 40% w/v 240ML SUSP BTL As Ordered ONE (11:07)
[2021-09-14] MEDS ORDERED: LORazepam 2 MG/ML VIAL IV STA (14:04)
[2021-09-14] MEDS: CEFEPIME HCL 1 GM in D5W MINI-BAG PLUS 50 ML IV SCH (17:43)
[2021-09-14 20:00] VITALS: BP 121/81
[2021-09-15] VITALS: BP 118/78
[2021-09-15 04:00] VITALS: BP 131/77
[2021-09-15] MEDS: ALBUTEROL SULFATE 2.5 MG/0.5 ML INH NEB SOLN NEB SCH ×6 (04:20→23:35)
[2021-09-15] MEDS: SODIUM CHLORIDE HYPERTONIC 3% 15ML NEB SOL INH SCH ×6 (04:21→23:35)
[2021-09-15] MEDS: diazePAM 10MG/2ML SYRINGE (J3360 PER 5MG) IV SCH ×4 (06:00→20:33)
[2021-09-15] MEDS: SODIUM CHLORIDE 0.9% INJ 10 ML SYR IV SCH ×2 (06:04→18:17)
[2021-09-15 06:23] LABS: HEMATOCRIT 30.9 % (36.0-47.0); HEMOGLOBIN 9.6 g/dl (12.0-15.5); MEAN CORPUSCULAR HEMOGLOBIN 28.6 pg (27.0-33.0); MEAN CORPUSCULAR HGB CONC 31.1 g/dl (32.0-36.5); PLATELET COUNT, AUTOMATED 406 10^3/uL (150-450); RED BLOOD COUNT 3.36 10^6/uL (4.00-5.40); WHITE BLOOD COUNT 17.8 10^3/uL (4.0-10.0)
[2021-09-15 06:50] LABS: ALBUMIN 3.2 GM/DL (3.2-5.2); BASOPHILS 6 % (0-1); BILIRUBIN,TOTAL 0.6 MG/DL (0.2-1.0); CALCIUM LEVEL 9.7 MG/DL (8.5-10.1); CREATININE FOR GFR 3.22 MG/DL (0.55-1.30); EOSINOPHILS 9 % (0-3); GLOMERULAR FILTRATION RATE 17.3 (>60); LYMPHOCYTES 13 % (16-44); METAMYELOCYTES 1 % (0-0); MONOCYTES 2 % (0-5); NEUTROPHILS 69 % (28-66); PLATELET ESTIMATE NORMAL (NORMAL); POTASSIUM SERUM 4.5 MEQ/L (3.5-5.1); TOTAL PROTEIN 8.4 GM/DL (6.4-8.2)
[2021-09-15 08:00] VITALS: BP 113/78; O2SAT 96
[2021-09-15] MEDS: levETIRAcetam INJection 500 MG in D5W MINI-BAG PLUS 100 ML IV SCH ×2 (09:43→20:33)
[2021-09-15] MEDS: HEPARIN SOD (PORCINE) 5000UNITS/ML 1ML VIAL/SYRINGE SQ SCH ×2 (09:43→20:34)
[2021-09-15] MEDS: PANTOPRAZOLE 40MG VIAL (C9113 PER 1) IV SCH (09:43)
[2021-09-15] MEDS: DOCUSATE SOD LIQ 100MG/10ML UDC NG SCH ×2 (09:44→20:32)
[2021-09-15 12:00] VITALS: BP 125/84; O2SAT 97
[2021-09-15 16:00] VITALS: BP 124/77; O2SAT 96
[2021-09-15] MEDS: CEFEPIME HCL 1 GM in D5W MINI-BAG PLUS 50 ML IV SCH (17:11)
[2021-09-15 20:00] VITALS: BP 125/81; O2SAT 94
[2021-09-16] VITALS (7 sets, daily range): BP systolic 111–128; BP diastolic 74–81; O2SAT 94–99
[2021-09-16] MEDS: SODIUM CHLORIDE HYPERTONIC 3% 15ML NEB SOL INH SCH ×6 (04:09→23:52)
[2021-09-16] MEDS: ALBUTEROL SULFATE 2.5 MG/0.5 ML INH NEB SOLN NEB SCH ×6 (04:09→23:52)
[2021-09-16] MEDS: SODIUM CHLORIDE 0.9% INJ 10 ML SYR IV SCH ×2 (05:13→18:46)
[2021-09-16 06:29] LABS: HEMATOCRIT 29.2 % (36.0-47.0); HEMOGLOBIN 8.9 g/dl (12.0-15.5); MEAN CORPUSCULAR HEMOGLOBIN 27.9 pg (27.0-33.0); MEAN CORPUSCULAR HGB CONC 30.5 g/dl (32.0-36.5); MEAN CORPUSCULAR VOLUME 91.5 fl (80.0-96.0); PLATELET COUNT, AUTOMATED 472 10^3/uL (150-450); RED BLOOD COUNT 3.19 10^6/uL (4.00-5.40); WHITE BLOOD COUNT 16.2 10^3/uL (4.0-10.0)
[2021-09-16 07:27] LABS: BASOPHILS 3 % (0-1); EOSINOPHILS 13 % (0-3); LYMPHOCYTES 13 % (16-44); METAMYELOCYTES 1 % (0-0); MONOCYTES 9 % (0-5); MYELOCYTES 1 % (0-0); NEUTROPHILS 59 % (28-66); PLASMA CELL 1 % (0-0)
[2021-09-16 07:28] LABS: PLATELET CLUMPS SMALL AMT; PLATELET ESTIMATE INCREASED (NORMAL)
[2021-09-16 07:29] LABS: ANISOCYTOSIS 1+; POLYCHROMASIA 1+
[2021-09-16 07:30] LABS: OVALOCYTES 1+; SCHISTOCYTES 1+
[2021-09-16 07:39] LABS: ALBUMIN 2.9 GM/DL (3.2-5.2); BILIRUBIN,TOTAL 0.5 MG/DL (0.2-1.0); CALCIUM LEVEL 9.3 MG/DL (8.5-10.1); CREATININE FOR GFR 4.41 MG/DL (0.55-1.30); GLOMERULAR FILTRATION RATE 12.1 (>60); POTASSIUM SERUM 4.1 MEQ/L (3.5-5.1); TOTAL PROTEIN 7.6 GM/DL (6.4-8.2)
[2021-09-16] MEDS ORDERED: SODIUM CHLORIDE 0.9% 1000ML IV PRN (08:20)
[2021-09-16] MEDS: PANTOPRAZOLE 40MG VIAL (C9113 PER 1) IV SCH (12:30)
[2021-09-16] MEDS: levETIRAcetam INJection 500 MG in D5W MINI-BAG PLUS 100 ML IV SCH ×2 (12:31→20:51)
[2021-09-16] MEDS: HEPARIN SOD (PORCINE) 5000UNITS/ML 1ML VIAL/SYRINGE SQ SCH ×2 (12:31→21:12)
[2021-09-16] MEDS: diazePAM 10MG/2ML SYRINGE (J3360 PER 5MG) IV SCH ×2 (12:31→20:51)
[2021-09-16] MEDS: DOCUSATE SOD LIQ 100MG/10ML UDC NG SCH ×2 (12:32→20:50)
[2021-09-16] MEDS ORDERED: fentaNYL 25 MCG/HR PATCH TOP SCH (14:00)
[2021-09-16] MEDS: CEFEPIME HCL 1 GM in D5W MINI-BAG PLUS 50 ML IV SCH (17:11)
[2021-09-17] VITALS (8 sets, daily range): BP systolic 100–117; BP diastolic 60–78; O2SAT 93–97
[2021-09-17] MEDS: ALBUTEROL SULFATE 2.5 MG/0.5 ML INH NEB SOLN NEB SCH ×5 (04:00→20:17)
[2021-09-17] MEDS: SODIUM CHLORIDE HYPERTONIC 3% 15ML NEB SOL INH SCH ×5 (04:00→20:17)
[2021-09-17] MEDS: SODIUM CHLORIDE 0.9% INJ 10 ML SYR IV SCH ×2 (05:30→19:22)
[2021-09-17 06:07] LABS: HEMATOCRIT 30.3 % (36.0-47.0); HEMOGLOBIN 9.3 g/dl (12.0-15.5); MEAN CORPUSCULAR HEMOGLOBIN 27.9 pg (27.0-33.0); MEAN CORPUSCULAR HGB CONC 30.7 g/dl (32.0-36.5); PLATELET COUNT, AUTOMATED 428 10^3/uL (150-450); RED BLOOD COUNT 3.33 10^6/uL (4.00-5.40); WHITE BLOOD COUNT 15.3 10^3/uL (4.0-10.0)
[2021-09-17 06:34] LABS: ALBUMIN 2.9 GM/DL (3.2-5.2); BILIRUBIN,TOTAL 0.5 MG/DL (0.2-1.0); CALCIUM LEVEL 9.2 MG/DL (8.5-10.1); CREATININE FOR GFR 3.25 MG/DL (0.55-1.30); GLOMERULAR FILTRATION RATE 17.1 (>60); POTASSIUM SERUM 3.6 MEQ/L (3.5-5.1); TOTAL PROTEIN 7.7 GM/DL (6.4-8.2)
[2021-09-17 07:00] LABS: BASOPHILS 1 % (0-1); EOSINOPHILS 6 % (0-3); LYMPHOCYTES 18 % (16-44); MONOCYTES 11 % (0-5); NEUTROPHILS 62 % (28-66)
[2021-09-17 07:01] LABS: ANISOCYTOSIS 1+; PLATELET ESTIMATE INCREASED (NORMAL)
[2021-09-17 07:02] LABS: POLYCHROMASIA 1+; STOMATOCYTES 1+
[2021-09-17] MEDS: levETIRAcetam INJection 500 MG in D5W MINI-BAG PLUS 100 ML IV SCH ×2 (08:24→20:55)
[2021-09-17] MEDS: PANTOPRAZOLE 40MG VIAL (C9113 PER 1) IV SCH (08:25)
[2021-09-17] MEDS: diazePAM 10MG/2ML SYRINGE (J3360 PER 5MG) IV SCH ×2 (08:25→20:56)
[2021-09-17] MEDS: HEPARIN SOD (PORCINE) 5000UNITS/ML 1ML VIAL/SYRINGE SQ SCH ×2 (08:25→20:59)
[2021-09-17] MEDS: DOCUSATE SOD LIQ 100MG/10ML UDC NG SCH (08:25)
[2021-09-17] MEDS: CEFEPIME HCL 1 GM in D5W MINI-BAG PLUS 50 ML IV SCH (17:02)
[2021-09-17] MEDS ORDERED: ONDANSETRON 4MG/2ML VIAL IV PRN (18:40)
[2021-09-17] MEDS ORDERED: MIRALAX *UNIT DOSE* 17GM PACKET PO PRN (18:40)
[2021-09-17] MEDS ORDERED: ALBUTEROL SULFATE 2.5 MG/0.5 ML INH NEB SOLN NEB PRN (23:30)
[2021-09-18] MEDS: SODIUM CHLORIDE 0.9% INJ 10 ML SYR IV SCH ×2 (05:00→17:53)
[2021-09-18 05:42] LABS: BASO # 0.1 10^3/uL (0.0-0.2); EOS # 0.6 10^3/uL (0.0-0.5); EOS % 4.3 % (0.0-3.0); HEMATOCRIT 29.4 % (36.0-47.0); HEMOGLOBIN 9.1 g/dl (12.0-15.5); LYMPH # 2.3 10^3/uL (1.5-5.0); LYMPH % 17.9 % (24.0-44.0); MEAN CORPUSCULAR HEMOGLOBIN 28.1 pg (27.0-33.0); MEAN CORPUSCULAR VOLUME 90.7 fl (80.0-96.0); MONO # 1.3 10^3/uL (0.0-0.8); MONO % 10.1 % (2.0-8.0); NEUTROPHILS # 8.3 10^3/uL (1.5-8.5); NEUTROPHILS % 64.3 % (36.0-66.0); PLATELET COUNT, AUTOMATED 424 10^3/uL (150-450); RED BLOOD COUNT 3.24 10^6/uL (4.00-5.40); WHITE BLOOD COUNT 12.9 10^3/uL (4.0-10.0)
[2021-09-18 06:00] VITALS: BP 117/79
[2021-09-18 06:12] LABS: ALBUMIN 2.9 GM/DL (3.2-5.2); BILIRUBIN,TOTAL 0.4 MG/DL (0.2-1.0); CALCIUM LEVEL 9.3 MG/DL (8.5-10.1); CREATININE FOR GFR 4.54 MG/DL (0.55-1.30); GLOMERULAR FILTRATION RATE 11.7 (>60); PHOSPHORUS LEVEL 8.1 MG/DL (2.5-4.9); POTASSIUM SERUM 3.9 MEQ/L (3.5-5.1); TOTAL PROTEIN 7.5 GM/DL (6.4-8.2)
[2021-09-18 08:45] VITALS: O2SAT 93
[2021-09-18] MEDS: levETIRAcetam INJection 500 MG in D5W MINI-BAG PLUS 100 ML IV SCH ×2 (10:04→21:20)
[2021-09-18] MEDS: PANTOPRAZOLE 40MG VIAL (C9113 PER 1) IV SCH (10:04)
[2021-09-18] MEDS: HEPARIN SOD (PORCINE) 5000UNITS/ML 1ML VIAL/SYRINGE SQ SCH ×2 (10:04→20:26)
[2021-09-18] MEDS: SODIUM CHLORIDE 0.9% INJ 10 ML SYR IV PRN ×2 (10:10→21:49)
[2021-09-18] MEDS: diazePAM 10MG/2ML SYRINGE (J3360 PER 5MG) IV SCH (10:13)
[2021-09-18] MEDS ORDERED: SODIUM CHLORIDE 0.9% 1000ML IV PRN (11:50)
[2021-09-18] MEDS: DARBEPOETIN 100 MCG/0.5 ML *DIALYSIS* SYRINGE (J0882) IV SCH (13:00)
[2021-09-18] MEDS: FENTANYL REMOVAL DOCUMENTATION MISC XX SCH (16:00)
[2021-09-18 18:00] VITALS: O2SAT 84
[2021-09-18 18:02] VITALS: O2SAT 95
[2021-09-18 22:00] VITALS: BP 122/81
[2021-09-18 23:23] VITALS: O2SAT 99
[2021-09-19] MEDS: SODIUM CHLORIDE 0.9% INJ 10 ML SYR IV SCH ×2 (06:05→17:59)
[2021-09-19 06:10] VITALS: BP 121/84
[2021-09-19 06:45] LABS: ALBUMIN 2.9 GM/DL (3.2-5.2); BASO # 0.2 10^3/uL (0.0-0.2); BASO % 1.2 % (0.0-1.0); BILIRUBIN,TOTAL 0.3 MG/DL (0.2-1.0); CALCIUM LEVEL 9.8 MG/DL (8.5-10.1); CREATININE FOR GFR 3.12 MG/DL (0.55-1.30); EOS # 0.6 10^3/uL (0.0-0.5); EOS % 4.3 % (0.0-3.0); HEMATOCRIT 30.9 % (36.0-47.0); HEMOGLOBIN 9.6 g/dl (12.0-15.5); LYMPH # 1.9 10^3/uL (1.5-5.0); LYMPH % 14.7 % (24.0-44.0); MEAN CORPUSCULAR HEMOGLOBIN 28.1 pg (27.0-33.0); MEAN CORPUSCULAR HGB CONC 31.1 g/dl (32.0-36.5); MEAN CORPUSCULAR VOLUME 90.4 fl (80.0-96.0); MONO # 0.9 10^3/uL (0.0-0.8); MONO % 6.9 % (2.0-8.0); NEUTROPHILS # 9.3 10^3/uL (1.5-8.5); NEUTROPHILS % 71.2 % (36.0-66.0); PLATELET COUNT, AUTOMATED 393 10^3/uL (150-450); POTASSIUM SERUM 3.9 MEQ/L (3.5-5.1); RED BLOOD COUNT 3.42 10^6/uL (4.00-5.40); TOTAL PROTEIN 8.1 GM/DL (6.4-8.2); WHITE BLOOD COUNT 13.1 10^3/uL (4.0-10.0)
[2021-09-19] MEDS: PANTOPRAZOLE 40MG VIAL (C9113 PER 1) IV SCH (08:49)
[2021-09-19] MEDS: diazePAM 10MG/2ML SYRINGE (J3360 PER 5MG) IV SCH (08:49)
[2021-09-19] MEDS: HEPARIN SOD (PORCINE) 5000UNITS/ML 1ML VIAL/SYRINGE SQ SCH ×2 (08:49→21:18)
[2021-09-19] MEDS: levETIRAcetam INJection 500 MG in D5W MINI-BAG PLUS 100 ML IV SCH (08:49)
[2021-09-19] MEDS ORDERED: VARIBAR NECTAR 40% w/v 240ML SUSP BTL As Ordered ONE (12:34)
[2021-09-19] MEDS ORDERED: BARIUM SULFATE 700 MG TABLET (E-Z-DISK) As Ordered ONE (12:34)
[2021-09-19] MEDS ORDERED: VARIBAR PUDDING 40% w/v 230ML TUBE As Ordered ONE (12:34)
[2021-09-19] MEDS ORDERED: E-Z-PAQUE 96% w/w SUSP 176GM BTL As Ordered ONE (12:34)
[2021-09-19 14:00] VITALS: BP 120/83
[2021-09-19] MEDS: MIRTAZAPINE 7.5MG PER 1/2 TABLET PO SCH (21:18)
[2021-09-19 22:00] VITALS: BP 124/86
[2021-09-19 23:18] VITALS: O2SAT 98
[2021-09-20 06:00] VITALS: BP 120/87
[2021-09-20] MEDS: SODIUM CHLORIDE 0.9% INJ 10 ML SYR IV SCH ×2 (07:33→18:06)
[2021-09-20 07:42] LABS: BASO # 0.1 10^3/uL (0.0-0.2); BASO % 0.9 % (0.0-1.0); EOS # 0.2 10^3/uL (0.0-0.5); EOS % 1.8 % (0.0-3.0); HEMATOCRIT 31.2 % (36.0-47.0); HEMOGLOBIN 9.7 g/dl (12.0-15.5); LYMPH # 2.3 10^3/uL (1.5-5.0); LYMPH % 17.6 % (24.0-44.0); MEAN CORPUSCULAR HGB CONC 31.1 g/dl (32.0-36.5); MEAN CORPUSCULAR VOLUME 90.2 fl (80.0-96.0); MONO % 7.8 % (2.0-8.0); NEUTROPHILS # 9.2 10^3/uL (1.5-8.5); NEUTROPHILS % 70.4 % (36.0-66.0); PLATELET COUNT, AUTOMATED 378 10^3/uL (150-450); RED BLOOD COUNT 3.46 10^6/uL (4.00-5.40)
[2021-09-20] MEDS: PANTOPRAZOLE 40MG VIAL (C9113 PER 1) IV SCH (08:08)
[2021-09-20] MEDS: HEPARIN SOD (PORCINE) 5000UNITS/ML 1ML VIAL/SYRINGE SQ SCH ×2 (08:08→20:51)
[2021-09-20 08:09] LABS: ALBUMIN 2.8 GM/DL (3.2-5.2); BILIRUBIN,TOTAL 0.4 MG/DL (0.2-1.0); CALCIUM LEVEL 9.6 MG/DL (8.5-10.1); CREATININE FOR GFR 4.42 MG/DL (0.55-1.30); POTASSIUM SERUM 3.8 MEQ/L (3.5-5.1); TOTAL PROTEIN 7.6 GM/DL (6.4-8.2)
[2021-09-20] MEDS: levETIRAcetam INJection 500 MG in D5W MINI-BAG PLUS 100 ML IV SCH (08:09)
[2021-09-20] MEDS: diazePAM 10MG/2ML SYRINGE (J3360 PER 5MG) IV SCH (08:09)
[2021-09-20] MEDS: SODIUM CHLORIDE 0.9% INJ 10 ML SYR IV PRN (08:36)
[2021-09-20] MEDS ORDERED: SODIUM CHLORIDE 0.9% 1000ML IV PRN (08:55)
[2021-09-20 09:00] VITALS: O2SAT 99
[2021-09-20] MEDS ORDERED: ISOVUE-370 76% 100ML VIAL As Ordered ONE (10:54)
[2021-09-20 14:30] VITALS: BP 123/87
[2021-09-20] MEDS ORDERED: diazePAM 5MG TABLET PO PRN (17:20)
[2021-09-20] MEDS: MIRTAZAPINE 7.5MG PER 1/2 TABLET PO SCH (20:51)
[2021-09-21] MEDS: SODIUM CHLORIDE 0.9% INJ 10 ML SYR IV SCH ×2 (06:05→18:54)
[2021-09-21] MEDS: SODIUM CHLORIDE 0.9% INJ 10 ML SYR IV PRN ×2 (06:06→11:20)
[2021-09-21] MEDS ORDERED: ONDANSETRON 4 MG TAB PO PRN (08:30)
[2021-09-21 09:00] VITALS: O2SAT 99
[2021-09-21] MEDS: levETIRAcetam INJection 500 MG in D5W MINI-BAG PLUS 100 ML IV SCH (10:39)
[2021-09-21] MEDS: HEPARIN SOD (PORCINE) 5000UNITS/ML 1ML VIAL/SYRINGE SQ SCH ×2 (10:45→21:21)
[2021-09-21 10:59] LABS: BASO # 0.1 10^3/uL (0.0-0.2); EOS # 0.2 10^3/uL (0.0-0.5); EOS % 1.5 % (0.0-3.0); HEMATOCRIT 34.4 % (36.0-47.0); HEMOGLOBIN 10.1 g/dl (12.0-15.5); LYMPH # 2.4 10^3/uL (1.5-5.0); LYMPH % 17.6 % (24.0-44.0); MEAN CORPUSCULAR HEMOGLOBIN 27.5 pg (27.0-33.0); MEAN CORPUSCULAR HGB CONC 29.4 g/dl (32.0-36.5); MEAN CORPUSCULAR VOLUME 93.7 fl (80.0-96.0); MONO # 1.4 10^3/uL (0.0-0.8); MONO % 9.9 % (2.0-8.0); NEUTROPHILS # 9.3 10^3/uL (1.5-8.5); NEUTROPHILS % 68.5 % (36.0-66.0); PLATELET COUNT, AUTOMATED 354 10^3/uL (150-450); RED BLOOD COUNT 3.67 10^6/uL (4.00-5.40); WHITE BLOOD COUNT 13.6 10^3/uL (4.0-10.0)
[2021-09-21 11:57] LABS: ALBUMIN 3.2 GM/DL (3.2-5.2); BILIRUBIN,TOTAL 0.4 MG/DL (0.2-1.0); CALCIUM LEVEL 10.1 MG/DL (8.5-10.1); CREATININE FOR GFR 3.42 MG/DL (0.55-1.30); GLOMERULAR FILTRATION RATE 16.2 (>60); PHOSPHORUS LEVEL 3.2 MG/DL (2.5-4.9); POTASSIUM SERUM 4.4 MEQ/L (3.5-5.1); PTH INTACT 34.4 PG/ML (18.5-88.0); TOTAL PROTEIN 7.6 GM/DL (6.4-8.2)
[2021-09-21 13:48] VITALS: BP 131/84
[2021-09-21] MEDS: OMEPRAZOLE SUSPENSION 20MG 10ML ORAL SYRINGE PO SCH (14:34)
[2021-09-21 15:00] VITALS: O2SAT 93
[2021-09-21] MEDS: MIRTAZAPINE 7.5MG PER 1/2 TABLET PO SCH (21:20)
[2021-09-22 06:13] VITALS: BP 122/87
[2021-09-22 06:27] LABS: BASO # 0.1 10^3/uL (0.0-0.2); BASO % 1.1 % (0.0-1.0); EOS # 0.2 10^3/uL (0.0-0.5); EOS % 1.9 % (0.0-3.0); HEMATOCRIT 30.7 % (36.0-47.0); HEMOGLOBIN 9.1 g/dl (12.0-15.5); LYMPH # 2.1 10^3/uL (1.5-5.0); LYMPH % 17.4 % (24.0-44.0); MEAN CORPUSCULAR HGB CONC 29.6 g/dl (32.0-36.5); MEAN CORPUSCULAR VOLUME 94.5 fl (80.0-96.0); MONO % 8.3 % (2.0-8.0); NEUTROPHILS # 8.6 10^3/uL (1.5-8.5); NEUTROPHILS % 69.4 % (36.0-66.0); PLATELET COUNT, AUTOMATED 302 10^3/uL (150-450); RED BLOOD COUNT 3.25 10^6/uL (4.00-5.40); WHITE BLOOD COUNT 12.3 10^3/uL (4.0-10.0)
[2021-09-22] MEDS: SODIUM CHLORIDE 0.9% INJ 10 ML SYR IV SCH ×2 (06:42→16:08)
[2021-09-22 06:48] LABS: CALCIUM LEVEL 9.4 MG/DL (8.5-10.1); CREATININE FOR GFR 4.48 MG/DL (0.55-1.30); GLOMERULAR FILTRATION RATE 11.8 (>60); MAGNESIUM LEVEL 2.3 MG/DL (1.8-2.4); POTASSIUM SERUM 4.5 MEQ/L (3.5-5.1)
[2021-09-22] MEDS ORDERED: SODIUM CHLORIDE 0.9% 1000ML IV PRN (08:00)
[2021-09-22] MEDS: HEPARIN SOD (PORCINE) 5000UNITS/ML 1ML VIAL/SYRINGE SQ SCH ×2 (12:49→20:08)
[2021-09-22] MEDS: OMEPRAZOLE SUSPENSION 20MG 10ML ORAL SYRINGE PO SCH (12:50)
[2021-09-22 14:00] VITALS: BP 121/82
[2021-09-22] MEDS: ACETAMINOPHEN TAB 650MG DOSE (2X325MG) PO PRN (16:07)
[2021-09-22] MEDS: MIRTAZAPINE 7.5MG PER 1/2 TABLET PO SCH (20:08)
[2021-09-22 23:17] VITALS: O2SAT 93
[2021-09-23] MEDS: SODIUM CHLORIDE 0.9% INJ 10 ML SYR IV SCH ×2 (05:57→17:41)
[2021-09-23 06:00] VITALS: BP 124/87
[2021-09-23 06:32] LABS: BASO # 0.1 10^3/uL (0.0-0.2); BASO % 1.2 % (0.0-1.0); EOS # 0.4 10^3/uL (0.0-0.5); EOS % 3.5 % (0.0-3.0); HEMATOCRIT 31.5 % (36.0-47.0); HEMOGLOBIN 9.6 g/dl (12.0-15.5); LYMPH # 2.2 10^3/uL (1.5-5.0); MEAN CORPUSCULAR HEMOGLOBIN 28.2 pg (27.0-33.0); MEAN CORPUSCULAR HGB CONC 30.5 g/dl (32.0-36.5); MEAN CORPUSCULAR VOLUME 92.4 fl (80.0-96.0); MONO # 1.1 10^3/uL (0.0-0.8); MONO % 9.2 % (2.0-8.0); NEUTROPHILS # 7.6 10^3/uL (1.5-8.5); NEUTROPHILS % 65.5 % (36.0-66.0); PLATELET COUNT, AUTOMATED 264 10^3/uL (150-450); RED BLOOD COUNT 3.41 10^6/uL (4.00-5.40); WHITE BLOOD COUNT 11.6 10^3/uL (4.0-10.0)
[2021-09-23 07:00] LABS: CALCIUM LEVEL 9.2 MG/DL (8.5-10.1); CREATININE FOR GFR 3.15 MG/DL (0.55-1.30); GLOMERULAR FILTRATION RATE 17.8 (>60); MAGNESIUM LEVEL 2.1 MG/DL (1.8-2.4); POTASSIUM SERUM 3.9 MEQ/L (3.5-5.1)
[2021-09-23] MEDS: HEPARIN SOD (PORCINE) 5000UNITS/ML 1ML VIAL/SYRINGE SQ SCH ×2 (08:30→20:21)
[2021-09-23] MEDS: OMEPRAZOLE SUSPENSION 20MG 10ML ORAL SYRINGE PO SCH (08:31)
[2021-09-23] MEDS: MIRTAZAPINE 7.5MG PER 1/2 TABLET PO SCH (20:20)
[2021-09-23 22:00] VITALS: BP 124/88
[2021-09-23 22:06] VITALS: O2SAT 94
[2021-09-24] MEDS: ACETAMINOPHEN TAB 650MG DOSE (2X325MG) PO PRN ×2 (05:28→12:19)
[2021-09-24 06:00] VITALS: BP 148/103
[2021-09-24 06:01] LABS: BASO # 0.2 10^3/uL (0.0-0.2); BASO % 1.3 % (0.0-1.0); EOS # 0.4 10^3/uL (0.0-0.5); EOS % 3.4 % (0.0-3.0); HEMATOCRIT 35.1 % (36.0-47.0); HEMOGLOBIN 10.7 g/dl (12.0-15.5); LYMPH # 2.4 10^3/uL (1.5-5.0); LYMPH % 20.4 % (24.0-44.0); MEAN CORPUSCULAR HEMOGLOBIN 27.9 pg (27.0-33.0); MEAN CORPUSCULAR HGB CONC 30.5 g/dl (32.0-36.5); MEAN CORPUSCULAR VOLUME 91.6 fl (80.0-96.0); MONO # 1.1 10^3/uL (0.0-0.8); MONO % 9.6 % (2.0-8.0); NEUTROPHILS # 7.6 10^3/uL (1.5-8.5); NEUTROPHILS % 64.2 % (36.0-66.0); PLATELET COUNT, AUTOMATED 301 10^3/uL (150-450); RED BLOOD COUNT 3.83 10^6/uL (4.00-5.40); WHITE BLOOD COUNT 11.8 10^3/uL (4.0-10.0)
[2021-09-24] MEDS: SODIUM CHLORIDE 0.9% INJ 10 ML SYR IV SCH ×2 (06:06→15:15)
[2021-09-24 06:43] LABS: CALCIUM LEVEL 9.5 MG/DL (8.5-10.1); CREATININE FOR GFR 4.05 MG/DL (0.55-1.30); GLOMERULAR FILTRATION RATE 13.3 (>60); MAGNESIUM LEVEL 2.3 MG/DL (1.8-2.4)
[2021-09-24] MEDS: PROPRANOLOL 60 MG LA CAP PO SCH (09:00)
[2021-09-24] MEDS: OMEPRAZOLE SUSPENSION 20MG 10ML ORAL SYRINGE PO SCH (09:56)
[2021-09-24] MEDS: HEPARIN SOD (PORCINE) 5000UNITS/ML 1ML VIAL/SYRINGE SQ SCH ×2 (09:57→21:28)
[2021-09-24 16:37] VITALS: BP 137/95
[2021-09-24] MEDS: MIRTAZAPINE 7.5MG PER 1/2 TABLET PO SCH (21:28)
[2021-09-25 03:36] VITALS: O2SAT 95
[2021-09-25 06:00] VITALS: BP 129/69
[2021-09-25] MEDS: OMEPRAZOLE SUSPENSION 20MG 10ML ORAL SYRINGE PO SCH (06:23)
[2021-09-25] MEDS: HEPARIN SOD (PORCINE) 5000UNITS/ML 1ML VIAL/SYRINGE SQ SCH ×2 (06:26→20:08)
[2021-09-25] MEDS: PROPRANOLOL 60 MG LA CAP PO SCH (06:26)
[2021-09-25] MEDS: SODIUM CHLORIDE 0.9% INJ 10 ML SYR IV SCH ×2 (06:26→18:42)
[2021-09-25 06:46] LABS: BASO # 0.1 10^3/uL (0.0-0.2); BASO % 0.9 % (0.0-1.0); EOS # 0.3 10^3/uL (0.0-0.5); EOS % 3.8 % (0.0-3.0); HEMATOCRIT 29.2 % (36.0-47.0); HEMOGLOBIN 8.9 g/dl (12.0-15.5); LYMPH # 2.3 10^3/uL (1.5-5.0); LYMPH % 26.5 % (24.0-44.0); MEAN CORPUSCULAR HEMOGLOBIN 27.7 pg (27.0-33.0); MEAN CORPUSCULAR HGB CONC 30.5 g/dl (32.0-36.5); MONO # 0.9 10^3/uL (0.0-0.8); MONO % 10.5 % (2.0-8.0); NEUTROPHILS % 57.5 % (36.0-66.0); PLATELET COUNT, AUTOMATED 292 10^3/uL (150-450); RED BLOOD COUNT 3.21 10^6/uL (4.00-5.40); WHITE BLOOD COUNT 8.7 10^3/uL (4.0-10.0)
[2021-09-25 07:17] LABS: CALCIUM LEVEL 9.1 MG/DL (8.5-10.1); CREATININE FOR GFR 4.69 MG/DL (0.55-1.30); GLOMERULAR FILTRATION RATE 11.2 (>60); MAGNESIUM LEVEL 2.2 MG/DL (1.8-2.4); POTASSIUM SERUM 4.3 MEQ/L (3.5-5.1)
[2021-09-25 10:00] VITALS: O2SAT 96
[2021-09-25] MEDS: MIRTAZAPINE 7.5MG PER 1/2 TABLET PO SCH (20:08)
[2021-09-25 22:52] VITALS: O2SAT 96
[2021-09-26 06:00] VITALS: BP 128/91
[2021-09-26] MEDS: SODIUM CHLORIDE 0.9% INJ 10 ML SYR IV SCH (06:13)
[2021-09-26 06:37] LABS: BASO # 0.1 10^3/uL (0.0-0.2); BASO % 0.8 % (0.0-1.0); EOS # 0.4 10^3/uL (0.0-0.5); EOS % 4.4 % (0.0-3.0); HEMATOCRIT 31.2 % (36.0-47.0); HEMOGLOBIN 9.6 g/dl (12.0-15.5); LYMPH # 2.3 10^3/uL (1.5-5.0); LYMPH % 26.4 % (24.0-44.0); MEAN CORPUSCULAR HEMOGLOBIN 27.4 pg (27.0-33.0); MEAN CORPUSCULAR HGB CONC 30.8 g/dl (32.0-36.5); MEAN CORPUSCULAR VOLUME 89.1 fl (80.0-96.0); MONO % 11.1 % (2.0-8.0); NEUTROPHILS # 4.9 10^3/uL (1.5-8.5); NEUTROPHILS % 56.6 % (36.0-66.0); PLATELET COUNT, AUTOMATED 298 10^3/uL (150-450); WHITE BLOOD COUNT 8.6 10^3/uL (4.0-10.0)
[2021-09-26 07:04] LABS: CALCIUM LEVEL 9.1 MG/DL (8.5-10.1); CREATININE FOR GFR 3.71 MG/DL (0.55-1.30); GLOMERULAR FILTRATION RATE 14.7 (>60)
[2021-09-26] MEDS: HEPARIN SOD (PORCINE) 5000UNITS/ML 1ML VIAL/SYRINGE SQ SCH (09:00)
[2021-09-26] MEDS: OMEPRAZOLE SUSPENSION 20MG 10ML ORAL SYRINGE PO SCH (09:27)
[2021-09-26 09:28] VITALS: BP 137/104
[2021-09-26] MEDS: PROPRANOLOL 60 MG LA CAP PO SCH (09:28)
[2021-09-26] MEDS ORDERED: OMEP-173 PO (13:15)
[2021-09-26] MEDS ORDERED: INDE60CA4 PO (13:15)
[2021-09-26] MEDS ORDERED: MIRT-62 PO (13:15)
[2021-09-26 14:00] VITALS: BP 142/97
== END 2021-09-26 16:41 | disposition home or self-care (01) | DRG 812 ==
LOC: M ED 05:39 → MERGE 07:00 → M ED INP 07:00 → ENRESERV 10:20 → M PCU 12:10 → M MSPAV 09-17 17:47
PROVIDERS: ADMIT General Practice; ATTEND Internal Medicine
PROC: 5A1955Z Respiratory Ventilation, Greater than 96 Consecutive Hours (ICD-10-PCS; principal; 2021-08-20)
PROC: 04HK33Z Insertion of Infusion Device into Right Femoral Artery, Percutaneous Approach (ICD-10-PCS; 2021-08-21)
PROC: 5A1D70Z Performance of Urinary Filtration, Intermittent, Less than 6 Hours Per Day (ICD-10-PCS; 2021-08-25)
PROC: 30233N1 Transfusion of Nonautologous Red Blood Cells into Peripheral Vein, Percutaneous Approach (ICD-10-PCS; 2021-08-26)
PROC: 02HV33Z Insertion of Infusion Device into Superior Vena Cava, Percutaneous Approach (ICD-10-PCS; 2021-08-30)
PROC: 05HM33Z Insertion of Infusion Device into Right Internal Jugular Vein, Percutaneous Approach (ICD-10-PCS; 2021-09-11)
DX: T43.622A Poisoning by amphetamines, intentional self-harm, initial encounter (principal); I46.9 Cardiac arrest, cause unspecified; J96.01 Acute respiratory failure with hypoxia; K72.00 Acute and subacute hepatic failure without coma; A41.9 Sepsis, unspecified organism; A48.3 Toxic shock syndrome; G93.41 Metabolic encephalopathy; N17.0 Acute kidney failure with tubular necrosis; J69.0 Pneumonitis due to inhalation of food and vomit; R57.0 Cardiogenic shock; G92.9 Unspecified toxic encephalopathy; R56.9 Unspecified convulsions; F33.2 Major depressive disorder, recurrent severe without psychotic features; E46 Unspecified protein-calorie malnutrition; E87.2 Acidosis; E83.39 Other disorders of phosphorus metabolism; F90.9 Attention-deficit hyperactivity disorder, unspecified type; G90.1 Familial dysautonomia [Riley-Day]; Z91.012 Allergy to eggs; D72.829 Elevated white blood cell count, unspecified; Z66 Do not resuscitate; D50.9 Iron deficiency anemia, unspecified; I10 Essential (primary) hypertension; D63.1 Anemia in chronic kidney disease